=== PATIENT | male | born 1945 | race Caucasian/White ===

== ENCOUNTER 2021-02-14 11:01 | Inpatient (IN) | payer MEDICARE, SELFPAY ==
[2021-02-14] VITALS (10 sets, daily range): BP systolic 119–180; BP diastolic 66–110; PULSE 109–128; RESP 18–22; TEMP 37.1–38.8; O2SAT 92–96; BMI 34.9
--- NOTE | ~2021-02-14 | CT_ITS ---
EXAMINATION: CT ABDOMEN AND PELVIS WITHOUT CONTRAST CLINICAL INFORMATION: Left flank pain COMPARISON: February 23, 2020 TECHNIQUE: Multidetector volumetric imaging was performed from the superior aspect of the liver through the pubic symphysis. Sagittal and coronal reformatted images were obtained on the technologist's workstation. This CT examination was performed using dose optimization techniques as appropriate, variously including the following: *Automated exposure control *Adjustment of mA and/or kV according to patient size (this includes techniques or standardized protocols for targeted exams where dose is matched to indication/reason for exam; i.e. extremities or head) *Use of iterative reconstruction technique DLP: 810 mGy-cm FINDINGS: LUNG BASES: The visualized lung bases are unremarkable. No pleural or pericardial effusion. Coronary artery calcifications are present. LIVER, GALLBLADDER, AND BILIARY TREE: The liver is normal in size, shape, and attenuation. No focal hepatic lesion or biliary ductal dilatation is present. The gallbladder is unremarkable with no evidence of radiopaque gallstones, gallbladder wall thickening, or obvious pericholecystic inflammatory changes. PANCREAS: Unremarkable. SPLEEN: Unremarkable. ADRENAL GLANDS: Unremarkable. KIDNEYS AND URETERS: Right kidney: The hydronephrosis has resolved. No hydroureter. Previously noted distal ureteral calculus is no longer visualized. There remains some perinephric stranding. There is a 2 mm nonobstructing midpole calculus. No suspicious focal mass. Left kidney: There is a 2 mm nonobstructing midpole calculus. There is a 3 mm nonobstructing lower pole calculus. There remains left hydronephrosis with large amount of perinephric stranding and fluid. This is more prominent than on prior study. There is moderate hydronephrosis present similar to previous study. There is some periureteral fat stranding seen. The previously noted proximal left ureteral calculus has now been seen to progress down to the distal left ureter measuring approximately 4 mm in diameter. BLADDER: Unremarkable. GASTROINTESTINAL TRACT: No dilated loops of large or small bowel are evident. No free air or free fluid. There is mild diverticulosis without evidence of acute diverticulitis. No pericolonic inflammatory change. No evidence of acute appendicitis. ABDOMINAL WALL: Small fat-containing umbilical hernia. LYMPH NODES: No lymphadenopathy appreciated. VASCULAR: Unremarkable. PELVIC VISCERA: Unremarkable. OSSEOUS STRUCTURES: No suspicious destructive bony lesions identified. There is severe degenerative disc disease and facet arthropathy seen at the L5-S1 level. There is also facet arthropathy seen at the L4-L5 level. General spurring about the left hip is seen as well as fusion of the left sacroiliac joint. CT/CT abdomen pelvis wo con IMPRESSION: Obstructing 4 mm left ureteral calculus seen to have progressed to the distal left ureter. Moderate left hydronephrosis with perinephric stranding and fluid. Resolution of right hydronephrosis with no right ureteral calculus identified.
--- NOTE | ~2021-02-14 | FL_ITS ---
EXAMINATION: XR FLUOROSCOPY WITH IMAGES CLINICAL INFORMATION: Cystoscopy COMPARISON: None. TECHNIQUE: Fluoroscopy performed by Dr. Frank Pace. Fluoroscopy time: 0.7 minutes DAP: 20.2 mGycm2 Images: 1 FINDINGS: Single image demonstrates the upper portion of a ureteral stent with its tip in the region of the left renal pelvis. FL/FL guidance in OR IMPRESSION: Fluoroscopy and spot films provided during stent placement.
[2021-02-14 13:51] LABS: Basophils Percent Auto 0.3 % (0-2); Eosinophils Percent Auto 0.2 % (0-4); Hemoglobin 14.7 g/dl (14.0-18.0); Imm Gran Abs Auto 0.13 X10*3/uL (0.00-0.03); Imm Gran Pct Auto 1.1 % (0.0-0.4); Lymphocytes Absolute Auto 0.3 X10*3/uL (1.2-4.9); Lymphocytes Percent Auto 2.4 % (20-40); MANUAL DIFF FLAG SCAN; Mean Corpuscular HGB Conc 33.4 g/dl (31.0-36.0); Mean Corpuscular Hemoglobin 32.1 pg (27.0-33.0); Mean Corpuscular Volume 96.1 fL (80-98); Mean Platelet Volume 10.6 fL (9.4-12.4); Monocytes Absolute Auto 0.1 X10*3/uL (0.1-1.2); Monocytes Percent Auto 0.7 % (2-11); Neutrophils Absolute Auto 10.8 X10*3/uL (2.0-8.3); Neutrophils Percent Auto 95.3 % (45-73); Platelet Count 251 X10*3/uL (160-400); Red Blood Count 4.58 X10*6/uL (4.60-5.80); Red Cell Distribution Width 12.5 % (11.0-16.0); SCAN SMEAR FLAG 1; White Blood Count 11.3 X10*3/uL (4.8-10.8)
[2021-02-14 14:11] LABS: Anion Gap 15 (12-20); Blood Urea Nitrogen 21 mg/dL (9-16); Calcium 10.2 mg/dL (8.4-10.2); Carbon Dioxide 24 mmol/L (22-29); Chloride 108 mmol/L (96-108); Creatinine Clr Calc Pharmacy 50.3; Estimated Glomerular Filt Rate 45; Glucose Random 189 mg/dL (60-115); Potassium 4.7 mmol/L (3.3-5.1); Sodium 142 mmol/L (135-145)
--- NOTE | 2021-02-14 14:48 | ED.MALEGU ---
HPI - Male Genitourinary General Chief complaint: Urogenital-Male Stated complaint: ? kidney stone Time Seen by Provider: 02/14/21 14:42 Source: patient Mode of arrival: ambulatory Limitations: no limitations History of Present Illness HPI Narrative: 75-year-old male with a past medical history of renal colic, NIDDM, HTN, HLD, GERD here with complaints of left flank pain with radiation to the left testicle since 08:30. One episode of vomiting prior to arrival. No diarrhea, constipation. Frequent urination. Feels some better previous kidney stones the past. Followed by [facility] urology (dr hawthorne). Related Data Home Medications Medication Instructions Recorded Confirmed duloxetine 30 mg capsule,delayed 1 cap PO QPM 02/14/21 02/14/21 release glipizide 5 mg tablet 5 mg PO QPM 02/14/21 02/14/21 glipizide 5 mg tablet 10 mg PO QAM 02/14/21 02/14/21 lisinopril 2.5 mg tablet 1 tab PO QPM 02/14/21 02/14/21 metformin 850 mg tablet 1 tab PO BID 02/14/21 02/14/21 pantoprazole 40 mg tablet,delayed 1 tab PO QPM 02/14/21 02/14/21 release simvastatin 20 mg tablet 1 tab PO QPM 02/14/21 02/14/21 sitagliptin 100 mg tablet (Januvia) 1 tab PO QAM 02/14/21 02/14/21 Allergies Allergy/AdvReac Type Severity Reaction Status Date / Time No Known Allergies Allergy Verified 02/14/21 11:56 Review of Systems Review of Systems: Yes all other systems are reviewed and are negative Constitutional: Constitutional: Reports no additional constitutional complaints, Denies body ache(s), Denies chills, Denies fever(s), Denies headache(s) and Denies weakness Eyes: Eyes: Reports no additional eye complaints and Denies change in vision ENT: Reports system reviewed and no additional complaints, except as documented, Denies dizziness, Denies headache(s), Denies nasal congestion, Denies nasal discharge and Denies neck pain Cardiovascular: Cardiovascular: Reports no additional cardiovascular complaints, Denies chest pain, Denies leg edema and Denies dyspnea Respiratory: Respiratory: Reports no additional respiratory complaints, Denies cough and Denies dyspnea Gastrointestinal: Gastrointestinal: Reports no additional gastrointestinal complaints, Denies abdominal pain, Denies diarrhea, Reports nausea and Reports vomiting Genitourinary: Genitourinary: Reports urinary frequency and Denies urinary incontinence Musculoskeletal: Musculoskeletal: Reports no additional musculoskeletal complaints, Reports back pain, Denies arthralgias, Denies joint swelling, Denies neck pain, Denies numbness and Denies tingling Integumentary/Breasts: Skin/Breast: Reports system reviewed and no additional complaints, except as docu and Denies rash Neurologic: Reports system reviewed and no additional complaints, except as documented, Denies Abnormal speech present, Denies dizziness, Denies headache(s), Denies numbness, Denies tingling and Denies weakness PMFSH Past Medical History Attestation statement: The following information was validated with the patient. Source: old records reviewed and nursing notes reviewed Medical History Diabetes 1.5, managed as type 2 H/O renal calculi Social History Social History Advance Directives: Yes Advance Directives Information Provided: Yes Advance Directives on File: No Physical Exam Vital Signs: Vital Signs: Last Vital Signs Temp 99 F 02/14/21 17:43 Pulse 119 H 02/14/21 17:43 Resp 18 02/14/21 17:43 BP 170/110 H 02/14/21 17:43 Pulse Ox 92 02/14/21 17:43 Body Mass Index 34.9 Const: General: cooperative, healthy appearing, comfortable and no acute distress Orientation/consciousness: patient oriented x3 Limitations: no limitations HENMT: Head: Yes normal to inspection Ears: hearing grossly normal bilaterally General nose exam: Normal external nose present Face and sinus: Yes normal facial exam Mouth: Normal oral and palatal mucosa present Throat: Yes posterior oropharynx normal Eyes: General: appearance normal, both eyes and all related structures Pupils: Equal, round and reactive pupils present Neck: Neck: Yes normal visual inspection Chest: Chest palpation & inspection: normal inspection of the chest Resp: Effort & Inspection: normal respiratory effort Auscultation: clear to auscultation bilaterally Cardio: Rate: regular rate Rhythm: regular rhythm Peripheral pulses: Peripheral pulses 2+ throughout GI: Inspection: Yes normal to inspection Palpation (GI): Soft to palpation and nontender Auscultation: normal bowel sounds : General: Yes CVA tenderness (moderate left ) Back/Spine/Pelvis: Back: CVA tenderness (moderate left ) Thoracic/Lumbar Spine: thoracic and lumbar spine normal to inspection Skin: General skin exam: no rashes or lesions noted Neuro: General: patient oriented x3, no focal motor deficits and normal sensation to monofilament Cranial nerves: Yes Equal, round and reactive pupils present Cognition (Neuro): normal cognition Speech: No Abnormal speech present Gait exam (Neuro): Normal gait present Motor exam (neuro): 5/5 motor strength present throughout Extrem: General: Yes normal to inspection Course Course Course Narrative: 75 yo male with complaints of left flank pain since 08:30 with urinary frequency and 1 episode of vomiting. Feels similar to previous kidney stones. On exam moderate left CVAT. Will check labs, UA, CT abdomen and pelvis. Will provide analgesia, antiemetic and normal saline bolus. 1630- IMPRESSION: Obstructing 4 mm left ureteral calculus seen to have progressed to the distal left ureter. Moderate left hydronephrosis with perinephric stranding and fluid. ? Resolution of right hydronephrosis with no right ureteral calculus identified.? Patient has continued pain. May require admission for pain control. Urine is still pending. Labs show mild elevated white blood cell count and acute kidney injury. At this time there is concern for pyelonephritis. Infection is suspected. blood cultures and lactic Acid ordered. Antibiotics ordered. 1740-informed by nursing that patient's lactic acid is 4.0. Patient is obese. [place] body weight 50 kg. Normal saline bolus 30 cc/kg equivalent to 1500 mL of normal saline. Patient has received 2L NS to this point. 1800-spoke to Dr Pace who recommended hydration, trending creatinine and NPO after midnight. Will discuss with medicine for admit. 1840-Patient seen by Dr Pace. Discussed with Dr Ybarra who accepted admission. MDM - Male Genitourinary MDM Narrative Medical decision making narrative: Renal colic Differential Diagnosis Differential diagnosis: Likely urinary tract infection Medical Records Attestation: I reviewed the patient's medical records. Lab Data Attestation: I reviewed the patient's lab results. Result diagrams: 02/14/21 13:14 02/14/21 13:14 Labs: Lab Results 02/14/21 02/14/21 02/14/21 Range/Units 13:14 13:14 16:55 WBC 11.3 H (4.8-10.8) X10*3/uL RBC 4.58 L (4.60-5.80) X10*6/uL Hgb 14.7 (14.0-18.0) g/dl Hct 44.0 (42-52) % MCV 96.1 (80-98) fL MCH 32.1 (27.0-33.0) pg MCHC 33.4 (31.0-36.0) g/dl RDW 12.5 (11.0-16.0) % Plt Count 251 (160-400) X10*3/uL MPV 10.6 (9.4-12.4) fL Immature Gran % (Auto) 1.1 H (0.0-0.4) % Neut % (Auto) 95.3 H (45-73) % Lymph % (Auto) 2.4 L (20-40) % [place] % (Auto) 0.7 L (2-11) % Eos % (Auto) 0.2 (0-4) % Baso % (Auto) 0.3 (0-2) % Lymph # (Auto) 0.3 L (1.2-4.9) X10*3/uL [place] # (Auto) 0.1 (0.1-1.2) X10*3/uL Eos # (Auto) 0.0 (0.0-0.4) X10*3/uL Baso # (Auto) 0.0 (0.0-0.2) X10*3/uL Abs Immat Gran (auto) 0.13 H (0.00-0.03) X10*3/uL Absolute Neuts (auto) 10.8 H (2.0-8.3) X10*3/uL Absolute Nucleated RBC 0.000 (0.0-0.012) X10*3/uL Nucleated RBC % (auto) 0.0 (0.0-0.2) /100WBC Smear Tech's Comments VERIFIED Sodium 142 (135-145) mmol/L Potassium 4.7 (3.3-5.1) mmol/L Chloride 108 (96-108) mmol/L Carbon Dioxide 24 (22-29) mmol/L Anion Gap 15 (12-20) BUN 21 H (9-16) mg/dL Creatinine 1.53 H (0.5-1.4) mg/dL Estim Creat Clear Calc 50.3 Estimated GFR 45 Random Glucose 189 H (60-115) mg/dL Lactic Acid (0.5-2.0) mmol/L Calcium 10.2 (8.4-10.2) mg/dL Urine Color YELLOW Urine Appearance HAZY Urine pH 6.0 (5.0-8.0) Ur Specific [place] 1.025 (1.005-1.025) Urine Protein TRACE (NEG-TRACE) MG/DL Urine Glucose (UA) 500 H (NEG) MG/DL Urine Ketones 40 (NEG) MG/DL Urine Blood 1+ H (NEG) Urine Nitrite NEG (NEG) Ur Leukocyte Esterase NEG (NEG) Urine RBC 1-4 (0) /HPF Urine WBC 0 (0-4) /HPF Ur Squamous Epith Cells 1+ /LPF Urine Bacteria TRACE /LPF Urine Mucus 1+ /LPF 02/14/21 Range/Units 16:55 WBC (4.8-10.8) X10*3/uL RBC (4.60-5.80) X10*6/uL Hgb (14.0-18.0) g/dl Hct (42-52) % MCV (80-98) fL MCH (27.0-33.0) pg MCHC (31.0-36.0) g/dl RDW (11.0-16.0) % Plt Count (160-400) X10*3/uL MPV (9.4-12.4) fL Immature Gran % (Auto) (0.0-0.4) % Neut % (Auto) (45-73) % Lymph % (Auto) (20-40) % [place] % (Auto) (2-11) % Eos % (Auto) (0-4) % Baso % (Auto) (0-2) % Lymph # (Auto) (1.2-4.9) X10*3/uL [place] # (Auto) (0.1-1.2) X10*3/uL Eos # (Auto) (0.0-0.4) X10*3/uL Baso # (Auto) (0.0-0.2) X10*3/uL Abs Immat Gran (auto) (0.00-0.03) X10*3/uL Absolute Neuts (auto) (2.0-8.3) X10*3/uL Absolute Nucleated RBC (0.0-0.012) X10*3/uL Nucleated RBC % (auto) (0.0-0.2) /100WBC Smear Tech's Comments Sodium (135-145) mmol/L Potassium (3.3-5.1) mmol/L Chloride (96-108) mmol/L Carbon Dioxide (22-29) mmol/L Anion Gap (12-20) BUN (9-16) mg/dL Creatinine (0.5-1.4) mg/dL Estim Creat Clear Calc Estimated GFR Random Glucose (60-115) mg/dL Lactic Acid 4.0 H* (0.5-2.0) mmol/L Calcium (8.4-10.2) mg/dL Urine Color Urine Appearance Urine pH (5.0-8.0) Ur Specific [place] (1.005-1.025) Urine Protein (NEG-TRACE) MG/DL Urine Glucose (UA) (NEG) MG/DL Urine Ketones (NEG) MG/DL Urine Blood (NEG) Urine Nitrite (NEG) Ur Leukocyte Esterase (NEG) Urine RBC (0) /HPF Urine WBC (0-4) /HPF Ur Squamous Epith Cells /LPF Urine Bacteria /LPF Urine Mucus /LPF Imaging Data CT scan - abdomen: Attestation: I personally reviewed and interpreted this imaging study as follows: Radiologist's impression: IMPRESSION: Obstructing 4 mm left ureteral calculus seen to have progressed to the distal left ureter. Moderate left hydronephrosis with perinephric stranding and fluid. ? Resolution of right hydronephrosis with no right ureteral calculus identified.? Discharge Plan Discharge Clinical Impression: Renal colic on left side, Hydronephrosis, SAYRA (acute kidney injury), Elevated lactic acid level Patient Disposition: Admitted As Inpatient Prescriptions: No Action metformin 850 mg tablet 1 tab PO BID RF: 0 pantoprazole 40 mg tablet,delayed release (DR/EC) 1 tab PO QPM RF: 0 simvastatin 20 mg tablet 1 tab PO QPM RF: 0 lisinopril 2.5 mg tablet 1 tab PO QPM RF: 0 glipizide 5 mg tablet 10 mg PO QAM RF: 0 duloxetine 30 mg capsule,delayed release(DR/EC) 1 cap PO QPM RF: 0 Januvia 100 mg tablet 1 tab PO QAM RF: 0 glipizide 5 mg Tablet 5 mg PO QPM RF: 0
[2021-02-14 14:57] LABS: SLIDE REVIEW VERIFIED
[2021-02-14] MEDS: ondansetron HCL 4 MG/2 ML VIAL IVPUSH (15:01)
[2021-02-14] MEDS: Morphine Sulfate 4 MG/ML CARTRIDGE IVPUSH ×2 (15:01→17:38)
[2021-02-14] MEDS: 0.9 % Sodium Chloride 1,000 ML 999 ML IV ×2 (15:01→17:39)
[2021-02-14 17:10] LABS: Glucose Urine UA 500 MG/DL (NEG); Leukocyte Esterase Urine NEG (NEG); Nitrite Urine NEG (NEG); Specific Gravity - Urine 1.025 (1.005-1.025); Urine Blood 1+ (NEG); Urine Ketones 40 MG/DL (NEG); Urine Protein TRACE MG/DL (NEG-TRACE)
[2021-02-14 17:11] LABS: Appearance Urine HAZY; Color Urine YELLOW
[2021-02-14 17:21] LABS: Bacteria Urine TRACE /LPF; Mucus Urine 1+ /LPF; Squamous Epithelial Cell Urine 1+ /LPF; WBC Urine 0 /HPF (0-4)
[2021-02-14] MEDS: cefTRIAXone sodium 1 GM in 0.9 % Sodium Chloride 50 ML IV (17:38)
[2021-02-14 18:41] LABS: COVID-19 Test Negative (Negative); IDNOW Serial# 9DD0AD1C
[2021-02-14 19:03] LABS: Reflex Lactate? Lactic Acid Added
[2021-02-14] MEDS: HYDROmorphone HCl 0.5 MG/0.5 ML SYRINGE IVPUSH (19:05)
[2021-02-14 20:22] LABS: Anion Gap 17 (12-20); Blood Urea Nitrogen 22 mg/dL (9-16); Calcium 9.1 mg/dL (8.4-10.2); Carbon Dioxide 22 mmol/L (22-29); Chloride 107 mmol/L (96-108); Creatinine Clr Calc Pharmacy 41.6; Estimated Glomerular Filt Rate 36; Glucose Random 287 mg/dL (60-115); Potassium 5.1 mmol/L (3.3-5.1); Sodium 141 mmol/L (135-145)
[2021-02-14 20:24] LABS: ~Lactic Acid-LAB USE ONLY 5.1 mmol/L (0.5-2.0)
[2021-02-14] MEDS: Acetaminophen 325 MG TABLET 975 MG PO (20:38)
[2021-02-14 21:56] LABS: Reflex Lactate? 2 Y
--- NOTE | 2021-02-14 22:07 | P.HPHOSP_ITS ---
History of Present Illness Date of Service: 02/14/21 Chief Complaint: left flank pain This is a 75-year-old male with past medical history of diabetes, history of kidney stones who presents to the hospital with complaints of left-sided flank pain. Patient reports that his symptoms started in the morning, 9/10, constant, sharp, radiating to the left groin, movement exacerbates the pain and pain medication alleviates it. Patient reports urinary frequency, with no urgency or dysuria. Patient denies fever but has chills, no chest pain, no shortness of breath, no abdominal pain, no diarrhea constipation, denies any lower extremity edema. No numbness tingling. Vitals reviewed show initial temp of 98.7? but patient did develop a temperature of 101.8?, heart rate of 109, respiratory rate of 18, blood pressure of 180/103, satting 94% on room air Labs are significant for WBC count of 11.3, with a left shift and 95% neutrophils, CMP significant for BUN of 21, creatinine of 1.3 with a baseline of 1.28, lactic acid of 4.0, UA negative for any leukocyte Estrace, nitrites, or WBC COVID-19 negative, CT abdomen shows obstructing 4 mm left ureteral calculus seen to have progressed to the distal left ureter. Moderate left hydronephrosis with perinephric stranding and fluid Urology evaluated patient, patient will be admitted for the med Review of Systems Review of Systems: Yes all other systems are reviewed and are negative [facility] Medical History (Updated 02/15/21 @ 05:59 by Rafael Ybarra MD) Diabetes 1.5, managed as type 2 H/O renal calculi HLD (hyperlipidemia) HTN (hypertension), benign Family History (Updated 02/15/21 @ 05:56 by Rafael Ybarra MD) Father COPD (chronic obstructive pulmonary disease) Mother Heart disease Social History Household Members: Spouse Housing: House Patient Tobacco Use Status: Never used Tobacco Advance Directives: Yes Advance Directives Information Provided: Yes Advance Directives on File: No Advance Directives Date on File: 02/15/21 Do you have thoughts of harming others: None Do you have a plan to hurt others: No Plan Recently lost weight without trying: No Nutrition Risks: No Nutritional Risk Meds Allergies Allergy/AdvReac Type Severity Reaction Status Date / Time No Known Allergies Allergy Verified 02/14/21 11:56 Active Medications: Current Medications Generic Name Dose Route Start Last Admin Trade Name Freq PRN Reason Stop Dose Admin Acetaminophen 650 mg 02/14/21 19:26 Acetaminophen 325 Mg Tablet PO Q6H PRN Pain, Mild (Pain Scale 1-3) Dextrose 25 gm 02/14/21 20:13 Dextrose 50 % 25 Gm/50 Ml Vial IVPUSH Q15M PRN per Hypoglycemia Standing Ord. Protocol Docusate Sodium 100 mg 02/14/21 19:26 Docusate Sodium 100 Mg Capsule PO DAILY PRN Constipation Duloxetine HCl 30 mg 02/14/21 21:00 Duloxetine Hcl 30 Mg Capsule. PO BEDTIME [facility] Glucose 15 gm 02/14/21 20:13 Glucose Gel 15 Gm Gel..Gram. PO Q15M PRN per Hypoglycemia Standing Ord. Protocol Lactated Ringer's 1,000 mls @ 100 mls/hr 02/14/21 19:30 Lr IVCONT .Q10H [facility] Ceftriaxone Sodium 1 gm/ 50 mls @ 100 mls/hr 02/15/21 18:00 Sodium Chloride IV Q24H [facility] Insulin Human Lispro 0 unit 02/14/21 21:00 Insulin Lispro 100 Unit/Ml 3 Ml [facility]ial [facility] Protocol Metformin HCl 850 mg 02/15/21 07:30 Metformin Hcl 850 Mg Tablet PO BIDAC [facility] Morphine Sulfate 4 mg 02/14/21 19:26 Morphine Sulfate 4 Mg/Ml Cartridge IVPUSH Q4H PRN Pain, Severe (Pain Scale 7-10) Protocol Omeprazole 20 mg 02/15/21 16:30 Omeprazole 20 Mg Capsule. PO DAILY@1630 [facility] Ondansetron HCl 4 mg 02/14/21 19:26 Ondansetron Hcl 4 Mg/2 Ml Vial IVPUSH Q8H PRN Nausea and Vomiting Pharmacy Consult 1 each 02/14/21 17:40 Consult Rx Perform Med Rec MISCELLANE ONCE PRN Consult order Sitagliptin Phosphate 100 mg 02/15/21 09:00 Sitagliptin Phosphate 100 Mg Tablet PO DAILY [facility] Sodium Chloride 3 ml 02/15/21 00:00 0.9 % Sodium Chloride Flush 3 Ml Syringe [facility] Home Medications Medication Instructions Recorded Confirmed Last Taken Type duloxetine 30 mg capsule,delayed 1 cap PO QPM 02/14/21 02/14/21 Unknown History release glipizide 5 mg tablet 5 mg PO QPM 02/14/21 02/14/21 Unknown History glipizide 5 mg tablet 10 mg PO QAM 02/14/21 02/14/21 Unknown History lisinopril 2.5 mg tablet 1 tab PO QPM 02/14/21 02/14/21 Unknown History metformin 850 mg tablet 1 tab PO BID 02/14/21 02/14/21 Unknown History pantoprazole 40 mg tablet,delayed 1 tab PO QPM 02/14/21 02/14/21 Unknown History release simvastatin 20 mg tablet 1 tab PO QPM 02/14/21 02/14/21 Unknown History sitagliptin 100 mg tablet (Januvia) 1 tab PO QAM 02/14/21 02/14/21 Unknown History Physical Exam Vital Signs and Narrative: Vital Signs: Last Vital Signs Temp 101.8 F H 02/14/21 20:29 Pulse 121 H 02/14/21 20:29 Resp 20 02/14/21 20:29 BP 134/68 02/14/21 20:29 Pulse Ox 92 02/14/21 20:29 Body Mass Index 34.9 Const: Other: Patient appears very uncomfortable, writhing in pain well answering questions, can seem to find a comfortable position General: cooperative Orientation/consciousness: patient oriented x3 Eyes: General: appearance normal, both eyes and all related structures Pupils: Equal, round and reactive pupils present Resp: Effort & Inspection: normal respiratory effort and able to speak in complete sentences Auscultation: clear to auscultation bilaterally Cardio: Rate: regular rate Rhythm: regular rhythm GI: Palpation (GI): Soft to palpation Auscultation: normal bowel sounds : Other: Left CVA tenderness Skin: General skin exam: no rashes or lesions noted Neuro: General: patient oriented x3 Cranial nerves: Yes Equal, round and reactive pupils present Cognition (Neuro): normal cognition Extrem: General: Yes normal to inspection and Yes no pedal edema Results Labs CBC and Chem 7: 02/14/21 13:14 02/14/21 19:51 Labs: Laboratory Results - last 24 hr 02/14/21 02/14/21 02/14/21 13:14 13:14 16:55 MCV 96.1 MCH 32.1 MCHC 33.4 RDW 12.5 Plt Count 251 MPV 10.6 Immature Gran % (Auto) 1.1 H Neut % (Auto) 95.3 H Lymph % (Auto) 2.4 L [place] % (Auto) 0.7 L Eos % (Auto) 0.2 Baso % (Auto) 0.3 Lymph # (Auto) 0.3 L [place] # (Auto) 0.1 Eos # (Auto) 0.0 Baso # (Auto) 0.0 Abs Immat Gran (auto) 0.13 H Absolute Neuts (auto) 10.8 H Absolute Nucleated RBC 0.000 Nucleated RBC % (auto) 0.0 Smear Tech's Comments VERIFIED Anion Gap 15 Estim Creat Clear Calc 50.3 Estimated GFR 45 Random Glucose 189 H Lactic Acid Lactic Acid Fup @ 2Hr Calcium 10.2 Urine Color YELLOW Urine Appearance HAZY Urine pH 6.0 Ur Specific [place] 1.025 Urine Protein TRACE Urine Glucose (UA) 500 H Urine Ketones 40 Urine Blood 1+ H Urine Nitrite NEG Ur Leukocyte Esterase NEG Urine RBC 1-4 Urine WBC 0 Ur Squamous Epith Cells 1+ Urine Bacteria TRACE Urine Mucus 1+ COVID-19 (CHRISTIE) COVID-19 Clin Com 02/14/21 02/14/21 02/14/21 16:55 18:18 19:51 MCV MCH MCHC RDW Plt Count MPV Immature Gran % (Auto) Neut % (Auto) Lymph % (Auto) [place] % (Auto) Eos % (Auto) Baso % (Auto) Lymph # (Auto) [place] # (Auto) Eos # (Auto) Baso # (Auto) Abs Immat Gran (auto) Absolute Neuts (auto) Absolute Nucleated RBC Nucleated RBC % (auto) Smear Tech's Comments Anion Gap 17 Estim Creat Clear Calc 41.6 Estimated GFR 36 Random Glucose 287 H D Lactic Acid 4.0 H* Lactic Acid Fup @ 2Hr Calcium 9.1 D Urine Color Urine Appearance Urine pH Ur Specific [place] Urine Protein Urine Glucose (UA) Urine Ketones Urine Blood Urine Nitrite Ur Leukocyte Esterase Urine RBC Urine WBC Ur Squamous Epith Cells Urine Bacteria Urine Mucus COVID-19 (CHRISTIE) Negative COVID-19 Clin Com See Note 02/14/21 19:51 MCV MCH MCHC RDW Plt Count MPV Immature Gran % (Auto) Neut % (Auto) Lymph % (Auto) [place] % (Auto) Eos % (Auto) Baso % (Auto) Lymph # (Auto) [place] # (Auto) Eos # (Auto) Baso # (Auto) Abs Immat Gran (auto) Absolute Neuts (auto) Absolute Nucleated RBC Nucleated RBC % (auto) Smear Tech's Comments Anion Gap Estim Creat Clear Calc Estimated GFR Random Glucose Lactic Acid Lactic Acid Fup @ 2Hr 5.1 H* Calcium Urine Color Urine Appearance Urine pH Ur Specific [place] Urine Protein Urine Glucose (UA) Urine Ketones Urine Blood Urine Nitrite Ur Leukocyte Esterase Urine RBC Urine WBC Ur Squamous Epith Cells Urine Bacteria Urine Mucus COVID-19 (CHRISTIE) COVID-19 Clin Com Imaging Radiologist's Impressions: Impressions Abdomen/Pelvis CT 02/14/21 14:45 IMPRESSION: Obstructing 4 mm left ureteral calculus seen to have progressed to the distal left ureter. Moderate left hydronephrosis with perinephric stranding and fluid. Resolution of right hydronephrosis with no right ureteral calculus identified. Assessment and Plan (1) Hydronephrosis with renal calculous obstruction: Status: Acute (2) SAYRA (acute kidney injury): Status: Acute (3) Elevated lactic acid level: Status: Acute (4) Sepsis: Status: Acute (5) Pyelonephritis: Status: Acute This is a 75-year-old male with past medical history of kidney stones, hypertension, hyperlipidemia, diabetes who presents to the hospital with complaints of left-sided flank pain found to have obstructing stone # sepsis secondary to pyelonephritis - has hydronephrosis with perinephric stranding on CT - leukocytosis, febrile, tachycardia - will treat with IV antibiotic - IV fluid - follow culture # hydronephrosis with renal calculus obstruction - patient hemodynamically stable but has developed sepsis - UA negative for infection but CT showing perinephric stranding - has leukocytosis, febrile - will treat with IV antibiotic - IV fluids - urology consult - NPO after midnight # SAYRA - most likely secondary to obstruction - IV fluid - urology intervention in a - follow BMP # lactic acidosis - secondary to above - IV fluid - trend lactic acid # hypertension - stable - will hold antihypertensives in the setting of acute kidney failure such as lisinopril # diabetes - hold antihyperglycemics - will start on low-dose sliding scale insulin - diabetic diet # hyperlipidemia - continue stat DVT prophylaxis: SCDs in anticipation of urological procedure Quality Stroke Does the patient have a stroke diagnosis?: No VTE Prior VTE?: No VTE Risk Level:: Medical - moderate - high VTE Device Contraindication: N/A - Device Ordered VTE Drug Contraindication: Treatment Not Indicated
[2021-02-14] MEDS: DULoxetine HCl 30 MG CAPSULE.DR PO (22:23)
[2021-02-14] MEDS: Lactated Ringers 1,000 ML 100 ML IVCONT (22:23)
[2021-02-14 23:45] LABS: Glucose, Whole Blood 189 mg/dL (60-115)
--- NOTE | 2021-02-14 23:47 | PC.NURSE ---
OFFERED PT SNACK OR MEAL, BUT NOT INTERESTED. PT GIVEN ICEWATER, PER HIS REQUEST.
[2021-02-15] VITALS (16 sets, daily range): BP systolic 109–151; BP diastolic 57–84; PULSE 94–113; RESP 16–18; TEMP 36.6–37.6; O2SAT 92–97
[2021-02-15] MEDS: Insulin Lispro 100 UNIT/ML 3 ML VIAL SUBCUT
--- NOTE | 2021-02-15 02:56 | PC.NURSE ---
REPORT GIVEN TO RN ON FLOOR, READY FOR TRANSPORT.
[2021-02-15] MEDS: Morphine Sulfate 4 MG/ML CARTRIDGE IVPUSH ×2 (03:57→08:12)
[2021-02-15 07:17] LABS: Hematocrit 35.5 % (42-52); Hemoglobin 12.1 g/dl (14.0-18.0); Mean Corpuscular HGB Conc 34.1 g/dl (31.0-36.0); Mean Corpuscular Hemoglobin 32.6 pg (27.0-33.0); Mean Corpuscular Volume 95.7 fL (80-98); Mean Platelet Volume 10.6 fL (9.4-12.4); Platelet Count 170 X10*3/uL (160-400); Red Blood Count 3.71 X10*6/uL (4.60-5.80); Red Cell Distribution Width 12.9 % (11.0-16.0)
[2021-02-15 07:50] LABS: Anion Gap 16 (12-20); Blood Urea Nitrogen 24 mg/dL (9-16); Calcium 8.1 mg/dL (8.4-10.2); Carbon Dioxide 19 mmol/L (22-29); Chloride 108 mmol/L (96-108); Creatinine Clr Calc Pharmacy 45.5; Estimated Glomerular Filt Rate 40; Glucose Random 167 mg/dL (60-115); Sodium 138 mmol/L (135-145)
[2021-02-15 07:56] LABS: Glucose, Whole Blood 188 mg/dL (60-115)
[2021-02-15 08:05] LABS: White Blood Count 34.2 X10*3/uL (4.8-10.8)
--- NOTE | 2021-02-15 08:11 | PM.UROCN ---
History of Present Illness Consult details Consult date: 02/15/21 Narrative: Asked to see patient regarding question of pyelonephritis and obstructing stone Jayme is a 75-year-old male. Known stone former. Typically receives his care through [facility]. Presented to hospital after 12 hour history of pain left lower quadrant radiating to testicle Pain to 8/10 managed with oral medications Was found to have elevated white count and rising creatinine on evaluation. Current creatinine 1.7, white count 34, CT imaging performed with 4 mm distal left ureteric stone with hydroureteronephrosis and stranding Admitted for pain management, IV antibiotics for fluid management Discussed plan for intervention which will occur after having been given antibiotics 24 hours Plan for cystoscopy with left ureteric stent placement versus ureteroscopy with stone removal Review of Systems Constitutional: Constitutional: Denies chills and Denies fever(s) Cardiovascular: Cardiovascular: Reports no additional cardiovascular complaints and Denies syncope Respiratory: Respiratory: Denies cough Gastrointestinal: Gastrointestinal: Denies abdominal pain and Denies heartburn Genitourinary: Genitourinary: Reports as per HPI and Denies change in libido Neurologic: Denies syncope Psychiatric: Psychiatric: Denies change in libido Endocrine: Endocrine: Denies change in libido [facility] Past Medical History Medical History (Updated 02/15/21 @ 05:59 by Rafael Ybarra MD) Diabetes 1.5, managed as type 2 H/O renal calculi HLD (hyperlipidemia) HTN (hypertension), benign Family History Family History (Updated 02/15/21 @ 05:56 by Rfaael Ybarra MD) Father COPD (chronic obstructive pulmonary disease) Mother Heart disease Social History Social History Household Members: Spouse Housing: House Patient Tobacco Use Status: Never used Tobacco Advance Directives: Yes Advance Directives Information Provided: Yes Advance Directives on File: No Advance Directives Date on File: 02/15/21 Do you have thoughts of harming others: None Do you have a plan to hurt others: No Plan Recently lost weight without trying: No Nutrition Risks: No Nutritional Risk Meds Allergies Allergy/AdvReac Type Severity Reaction Status Date / Time No Known Allergies Allergy Verified 02/14/21 11:56 Active Medications: Current Medications Generic Name Dose Route Start Last Admin Trade Name Freq PRN Reason Stop Dose Admin Acetaminophen 650 mg 02/14/21 19:26 Acetaminophen 325 Mg Tablet PO Q6H PRN Pain, Mild (Pain Scale 1-3) Dextrose 25 gm 02/14/21 20:13 Dextrose 50 % 25 Gm/50 Ml Vial IVPUSH Q15M PRN per Hypoglycemia Standing Ord. Protocol Docusate Sodium 100 mg 02/14/21 19:26 Docusate Sodium 100 Mg Capsule PO DAILY PRN Constipation Duloxetine HCl 30 mg 02/14/21 21:00 02/14/21 22:23 Duloxetine Hcl 30 Mg Capsule. PO 30 mg BEDTIME JUSTINA Administration Glucose 15 gm 02/14/21 20:13 Glucose Gel 15 Gm Gel..Gram. PO Q15M PRN per Hypoglycemia Standing Ord. Protocol Lactated Ringer's 1,000 mls @ 100 mls/hr 02/14/21 19:30 02/15/21 06:26 Lr IVCONT Not Given .Q10H [facility] Ceftriaxone Sodium 1 gm/ 50 mls @ 100 mls/hr 02/15/21 18:00 Sodium Chloride IV Q24H [facility] Insulin Human Lispro 0 unit 02/14/21 21:00 02/15/21 08:02 Insulin Lispro 100 Unit/Ml 3 Ml Vial SUBCUT [facility] Protocol Metformin HCl 850 mg 02/15/21 07:30 02/15/21 08:02 Metformin Hcl 850 Mg Tablet PO Not Given BIDAC [facility] Morphine Sulfate 4 mg 02/14/21 19:26 02/15/21 03:57 Morphine Sulfate 4 Mg/Ml Cartridge IVPUSH 4 mg Q4H PRN Administration Pain, Severe (Pain Scale 7-10) Protocol Omeprazole 20 mg 02/15/21 16:30 Omeprazole 20 Mg Capsule. PO DAILY@1630 [facility] Ondansetron HCl 4 mg 02/14/21 19:26 Ondansetron Hcl 4 Mg/2 Ml Vial IVPUSH Q8H PRN Nausea and Vomiting Pharmacy Consult 1 each 02/14/21 17:40 Consult Rx Perform Med Rec MISCELLANE ONCE PRN Consult order Sitagliptin Phosphate 100 mg 02/15/21 09:00 02/15/21 08:02 Sitagliptin Phosphate 100 Mg Tablet PO Not Given DAILY [facility] Sodium Chloride 3 ml 02/15/21 00:00 02/15/21 07:38 0.9 % Sodium Chloride Flush 3 Ml Syringe IVFLUSH Not Given QSHIFT [facility] Home Medications Medication Instructions Recorded Confirmed Last Taken Type duloxetine 30 mg capsule,delayed 1 cap PO QPM 02/14/21 02/14/21 Unknown History release glipizide 5 mg tablet 5 mg PO QPM 02/14/21 02/14/21 Unknown History glipizide 5 mg tablet 10 mg PO QAM 02/14/21 02/14/21 Unknown History lisinopril 2.5 mg tablet 1 tab PO QPM 02/14/21 02/14/21 Unknown History metformin 850 mg tablet 1 tab PO BID 02/14/21 02/14/21 Unknown History pantoprazole 40 mg tablet,delayed 1 tab PO QPM 02/14/21 02/14/21 Unknown History release simvastatin 20 mg tablet 1 tab PO QPM 02/14/21 02/14/21 Unknown History sitagliptin 100 mg tablet (Januvia) 1 tab PO QAM 02/14/21 02/14/21 Unknown History Physical Exam Vital Signs: Vital Signs: Last Vital Signs Temp 99.4 F 02/15/21 07:48 Pulse 97 02/15/21 07:48 Resp 16 02/15/21 07:48 BP 147/73 H 02/15/21 07:48 Pulse Ox 92 02/15/21 07:48 Body Mass Index 34.9 Const: General: cooperative, healthy appearing, comfortable and no acute distress Orientation/consciousness: patient oriented x3 HENMT: Face and sinus: Yes normal facial exam Mouth: moist mucous membranes Neck: Neck: Yes normal visual inspection, Yes full ROM and Yes trachea midline Chest: Chest palpation & inspection: normal inspection of the chest Resp: Effort & Inspection: normal respiratory effort, able to speak in complete sentences and no respiratory distress GI: Inspection: Yes normal to inspection Rectal Exam - Male: Yes normal sphincter tone and Yes prostate normal : Male General Exam: Yes normal external exam Penis: normal penis and circumcised Meatus: meatus normal Scrotum: scrotum normal Testes: Testes normal Back/Spine/Pelvis: Cervical Spine: normal cervical lordosis Thoracic/Lumbar Spine: thoracic and lumbar spine normal to inspection Skin: General skin exam: no rashes or lesions noted Neuro: General: patient oriented x3, gait normal, tone normal and moves all extremities Extrem: General: Yes normal to inspection and Yes capillary refill normal Results Labs Result diagrams: 02/15/21 06:37 02/15/21 06:37 Labs: Abnormal lab results 02/14/21 02/14/21 02/14/21 Range/Units 13:14 13:14 16:55 WBC 11.3 H (4.8-10.8) X10*3/uL RBC 4.58 L (4.60-5.80) X10*6/uL Hgb (14.0-18.0) g/dl Hct (42-52) % Immature Gran % (Auto) 1.1 H (0.0-0.4) % Neut % (Auto) 95.3 H (45-73) % Lymph % (Auto) 2.4 L (20-40) % [place] % (Auto) 0.7 L (2-11) % Lymph # (Auto) 0.3 L (1.2-4.9) X10*3/uL Abs Immat Gran (auto) 0.13 H (0.00-0.03) X10*3/uL Absolute Neuts (auto) 10.8 H (2.0-8.3) X10*3/uL Carbon Dioxide (22-29) mmol/L BUN 21 H (9-16) mg/dL Creatinine 1.53 H (0.5-1.4) mg/dL POC Glucose (60-115) mg/dL Random Glucose 189 H (60-115) mg/dL Lactic Acid (0.5-2.0) mmol/L Lactic Acid Fup @ 2Hr (0.5-2.0) mmol/L Lactic Acid Fup @ 4Hr (0.5-2.0) mmol/L Calcium (8.4-10.2) mg/dL Urine Glucose (UA) 500 H (NEG) MG/DL Urine Blood 1+ H (NEG) 02/14/21 02/14/21 02/14/21 Range/Units 16:55 19:51 19:51 WBC (4.8-10.8) X10*3/uL RBC (4.60-5.80) X10*6/uL Hgb (14.0-18.0) g/dl Hct (42-52) % Immature Gran % (Auto) (0.0-0.4) % Neut % (Auto) (45-73) % Lymph % (Auto) (20-40) % [place] % (Auto) (2-11) % Lymph # (Auto) (1.2-4.9) X10*3/uL Abs Immat Gran (auto) (0.00-0.03) X10*3/uL Absolute Neuts (auto) (2.0-8.3) X10*3/uL Carbon Dioxide (22-29) mmol/L BUN 22 H (9-16) mg/dL Creatinine 1.85 H (0.5-1.4) mg/dL POC Glucose (60-115) mg/dL Random Glucose 287 H D (60-115) mg/dL Lactic Acid 4.0 H* (0.5-2.0) mmol/L Lactic Acid Fup @ 2Hr 5.1 H* (0.5-2.0) mmol/L Lactic Acid Fup @ 4Hr (0.5-2.0) mmol/L Calcium (8.4-10.2) mg/dL Urine Glucose (UA) (NEG) MG/DL Urine Blood (NEG) 02/14/21 02/14/21 02/15/21 Range/Units 22:15 23:40 06:37 WBC 34.2 H* (4.8-10.8) X10*3/uL RBC 3.71 L (4.60-5.80) X10*6/uL Hgb 12.1 L (14.0-18.0) g/dl Hct 35.5 L (42-52) % Immature Gran % (Auto) (0.0-0.4) % Neut % (Auto) (45-73) % Lymph % (Auto) (20-40) % [place] % (Auto) (2-11) % Lymph # (Auto) (1.2-4.9) X10*3/uL Abs Immat Gran (auto) (0.00-0.03) X10*3/uL Absolute Neuts (auto) (2.0-8.3) X10*3/uL Carbon Dioxide (22-29) mmol/L BUN (9-16) mg/dL Creatinine (0.5-1.4) mg/dL POC Glucose 189 H (60-115) mg/dL Random Glucose (60-115) mg/dL Lactic Acid (0.5-2.0) mmol/L Lactic Acid Fup @ 2Hr (0.5-2.0) mmol/L Lactic Acid Fup @ 4Hr 4.0 H* (0.5-2.0) mmol/L Calcium (8.4-10.2) mg/dL Urine Glucose (UA) (NEG) MG/DL Urine Blood (NEG) 02/15/21 02/15/21 Range/Units 06:37 07:52 WBC (4.8-10.8) X10*3/uL RBC (4.60-5.80) X10*6/uL Hgb (14.0-18.0) g/dl Hct (42-52) % Immature Gran % (Auto) (0.0-0.4) % Neut % (Auto) (45-73) % Lymph % (Auto) (20-40) % [place] % (Auto) (2-11) % Lymph # (Auto) (1.2-4.9) X10*3/uL Abs Immat Gran (auto) (0.00-0.03) X10*3/uL Absolute Neuts (auto) (2.0-8.3) X10*3/uL Carbon Dioxide 19 L (22-29) mmol/L BUN 24 H (9-16) mg/dL Creatinine 1.69 H (0.5-1.4) mg/dL POC Glucose 188 H (60-115) mg/dL Random Glucose 167 H D (60-115) mg/dL Lactic Acid (0.5-2.0) mmol/L Lactic Acid Fup @ 2Hr (0.5-2.0) mmol/L Lactic Acid Fup @ 4Hr (0.5-2.0) mmol/L Calcium 8.1 L D (8.4-10.2) mg/dL Urine Glucose (UA) (NEG) MG/DL Urine Blood (NEG) Short CBC 02/14/21 02/15/21 Range/Units 13:14 06:37 WBC 11.3 H 34.2 H* (4.8-10.8) X10*3/uL Hgb 14.7 12.1 L (14.0-18.0) g/dl Hct 44.0 35.5 L (42-52) % Plt Count 251 170 D (160-400) X10*3/uL BMP 02/14/21 02/14/21 02/15/21 13:14 19:51 06:37 Sodium 142 141 138 Potassium 4.7 5.1 5.0 Chloride 108 107 108 Carbon Dioxide 24 22 19 L BUN 21 H 22 H 24 H Creatinine 1.53 H 1.85 H 1.69 H Calcium 10.2 9.1 D 8.1 L D Urine 02/14/21 Range/Units 16:55 Urine Color YELLOW Urine Appearance HAZY Urine pH 6.0 (5.0-8.0) Ur Specific [place] 1.025 (1.005-1.025) Urine Protein TRACE (NEG-TRACE) MG/DL Urine Glucose (UA) 500 H (NEG) MG/DL All other labs normal. Assessment and Plan (1) Pyelonephritis: Status: Acute (2) Hydronephrosis with renal calculous obstruction: Status: Acute (3) SAYRA (acute kidney injury): Status: Acute Ureteroscopy We discussed the nature of the decision and reasonable alternatives for performing the above surgery. Interventions include chemical dissolution, ESWL, ureteroscopy with laser lithotripsy and stent placement, PCNL. Options such as medical therapy were discussed. The relative uncertainties and benefits related to each alternate procedure were adequately discussed. General surgical risks including, but not limited to, pain, bleeding, infection, myocardial infarction, pulmonary embolus, deep vein thrombosis and cerebrovascular accident which may result in further hospitalization were discussed. Full disclosure of the procedure as well as all major risks, benefits and complications were discussed including but not limited to damage to the urethra, bladder and kidney infection, damage to the ureter, stent migration or malposition, scarring to the renal pelvis, remnant stone fragments, subsequent stone passage with need for secondary procedures. The overall secondary procedure rate is approximately 10-15%. The success rate of the procedure was discussed. Success of the procedure in the short-term does not necessarily guarantee that long-term success will be maintained. Suitable follow up will need to be maintained. The patient showed understanding of discussion and wishes to proceed with - cystoscopy, retrograde, ureteroscopy, possible lithotripsy/stone basketing and stent on the left side Procedures Date of Service Date of Service: 01/28/21
[2021-02-15 08:13] LABS: Band Neutrophils Percent 18 % (3-5); Lymphocytes Percent Manual 3 % (20-40); Metamyelocytes Absolute 0.3 X10*3/uL; Metamyelocytes Percent 1 %; Monocytes Absolute Manual 1.7 X10*3/uL (0.0-1.2); Monocytes Percent Manual 5 % (2-11); Neutrophils Absolute Manual 31.1 X10*3/uL (2.2-7.9); Neutrophils Percent Manual 73 % (45-73); RBC Morphology NOTED
[2021-02-15 08:14] LABS: Acanthocytes 3+ (>5) /OIF; Ovalocytes 1+ (5-14) /OIF; Schistocytes 1+ (0-2) /OIF
[2021-02-15 08:15] LABS: Platelet Estimate NORMAL (NORMAL); Platelet Morphology Comment NORMAL; Toxic Vacuolation PRESENT
--- NOTE | 2021-02-15 09:31 | MHC.CM.PN ---
CM MET WITH PT WHO REPORTS HE LIVES AT HOME WITH HIS AND IS FULLY INDEPENDENT. PT DENIES USE OF DME OR SERVICES. PT REPORTS HE HAS A HCP NAMING HIS HIS AGENT COMPLETED ALREADY. PT CONFIRMS HIS PCP IS JANI CHRISTIANSON. IMM DELIVERED ON 02/15 CURRENT DC PLAN IS HOME. 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
[2021-02-15] MEDS: Lactated Ringers 1,000 ML 100 ML IVCONT (09:55)
[2021-02-15] MEDS: Ketorolac Tromethamine 15 MG/ML VIAL IVPUSH (11:37)
[2021-02-15] MEDS: Morphine Sulfate 2 MG/ML CARTRIDGE IVPUSH (11:38)
[2021-02-15 11:43] LABS: Glucose, Whole Blood 184 mg/dL (60-115)
--- NOTE | 2021-02-15 12:14 | HO.PM.IMPN ---
Subjective Subjective Date of Service: 02/15/21 Interval History: the patient was seen and evaluated this morning Laying in bed, complaining of significant pain in his low in and back Fairly controlled with pain medications Denies any fever, or shortness of breath No reported other overnight events. Systemic review: No fever but reporting feeling of chills and pain No chest pain, palpitation No shortness of breath or coughing No abdominal pain, nausea or vomiting No urinary symptoms No any rash or wounds Physical Exam Vital Signs: Vital Signs: Last Vital Signs Temp 98.7 F 02/15/21 12:00 Pulse 99 02/15/21 12:00 Resp 18 02/15/21 12:00 BP 145/76 H 02/15/21 12:00 Pulse Ox 93 02/15/21 12:00 Body Mass Index 34.9 Const: Other: Constitutional : Alert, oriented, in mild distress from pain Neck : Normal inspection, Supple Cardiovascular : RRR, S1 S2, no lower extremity edema Respiratory : Good bilateral air entry, no crackles, wheezes or rhonchi Gastrointestinal: soft, lax, Normal bowel sounds, Non tender Skin : Warm, Dry Neurological : Alert & oriented x3, No focal deficit Objective Data Current Medications Generic Name Dose Route Start Last Admin Trade Name Freq PRN Reason Stop Dose Admin Acetaminophen 650 mg 02/14/21 19:26 Acetaminophen 325 Mg Tablet PO Q6H PRN Pain, Mild (Pain Scale 1-3) Dextrose 25 gm 02/14/21 20:13 Dextrose 50 % 25 Gm/50 Ml Vial IVPUSH Q15M PRN per Hypoglycemia Standing Ord. Protocol Docusate Sodium 100 mg 02/14/21 19:26 Docusate Sodium 100 Mg Capsule PO DAILY PRN Constipation Duloxetine HCl 30 mg 02/14/21 21:00 02/14/21 22:23 Duloxetine Hcl 30 Mg Capsule.Dr PO 30 mg BEDTIME [facility] Administration Glucose 15 gm 02/14/21 20:13 Glucose Gel 15 Gm Gel..Gram. PO Q15M PRN per Hypoglycemia Standing Ord. Protocol Lactated Ringer's 1,000 mls @ 100 mls/hr 02/14/21 19:30 02/15/21 09:55 Lr IVCONT 100 mls/hr .Q10H [facility] Administration Ceftriaxone Sodium 1 gm/ 50 mls @ 100 mls/hr 02/15/21 18:00 Sodium Chloride IV Q24H [facility] Insulin Human Lispro 0 unit 02/14/21 21:00 02/15/21 11:41 Insulin Lispro 100 Unit/Ml 3 Ml Vial SUBCUT Not Given QIDACHS [facility] Protocol Morphine Sulfate 4 mg 02/14/21 19:26 02/15/21 08:12 Morphine Sulfate 4 Mg/Ml Cartridge IVPUSH 4 mg Q4H PRN Administration Pain, Severe (Pain Scale 7-10) Protocol Omeprazole 20 mg 02/15/21 16:30 Omeprazole 20 Mg Capsule.Dr PO DAILY@1630 [facility] Ondansetron HCl 4 mg 02/14/21 19:26 Ondansetron Hcl 4 Mg/2 Ml Vial IVPUSH Q8H PRN Nausea and Vomiting Pharmacy Consult 1 each 02/14/21 17:40 Consult Rx Perform Med Rec MISCELLANE ONCE PRN Consult order Sitagliptin Phosphate 100 mg 02/15/21 09:00 02/15/21 08:02 Sitagliptin Phosphate 100 Mg Tablet PO Not Given DAILY [facility] Sodium Chloride 3 ml 02/15/21 00:00 02/15/21 07:38 0.9 % Sodium Chloride Flush 3 Ml Syringe IVFLUSH Not Given QSHIFT [facility] Labs CBC & Chem 7: 02/15/21 06:37 02/15/21 06:37 Labs: Laboratory Results - last 24 hr 02/14/21 02/14/21 02/14/21 13:14 13:14 16:55 MCV 96.1 MCH 32.1 MCHC 33.4 RDW 12.5 Plt Count 251 MPV 10.6 Immature Gran % (Auto) 1.1 H Neut % (Auto) 95.3 H Lymph % (Auto) 2.4 L [place] % (Auto) 0.7 L Eos % (Auto) 0.2 Baso % (Auto) 0.3 Lymph # (Auto) 0.3 L [place] # (Auto) 0.1 Eos # (Auto) 0.0 Baso # (Auto) 0.0 Abs Immat Gran (auto) 0.13 H Absolute Neuts (auto) 10.8 H Absolute Nucleated RBC 0.000 Nucleated RBC % (auto) 0.0 Neutrophils % (Manual) Band Neutrophils % Lymphocytes % (Manual) Monocytes % (Manual) Metamyelocytes % Abs Neuts (Manual) Lymphocytes # (Manual) Monocytes # (Manual) Metamyelocytes # Toxic Vacuolation Platelet Estimate Plt Morphology Comment RBC Morphology Ovalocytes Acanthocytes (Spur) Schistocytes Smear Tech's Comments VERIFIED Anion Gap 15 Estim Creat Clear Calc 50.3 Estimated GFR 45 POC Glucose Random Glucose 189 H Lactic Acid Lactic Acid Fup @ 2Hr Lactic Acid Fup @ 4Hr Calcium 10.2 Urine Color YELLOW Urine Appearance HAZY Urine pH 6.0 Ur Specific [place] 1.025 Urine Protein TRACE Urine Glucose (UA) 500 H Urine Ketones 40 Urine Blood 1+ H Urine Nitrite NEG Ur Leukocyte Esterase NEG Urine RBC 1-4 Urine WBC 0 Ur Squamous Epith Cells 1+ Urine Bacteria TRACE Urine Mucus 1+ COVID-19 (CHRISTIE) COVID-19 Sun Number 02/14/21 02/14/21 02/14/21 16:55 18:18 19:51 MCV MCH MCHC RDW Plt Count MPV Immature Gran % (Auto) Neut % (Auto) Lymph % (Auto) [place] % (Auto) Eos % (Auto) Baso % (Auto) Lymph # (Auto) [place] # (Auto) Eos # (Auto) Baso # (Auto) Abs Immat Gran (auto) Absolute Neuts (auto) Absolute Nucleated RBC Nucleated RBC % (auto) Neutrophils % (Manual) Band Neutrophils % Lymphocytes % (Manual) Monocytes % (Manual) Metamyelocytes % Abs Neuts (Manual) Lymphocytes # (Manual) Monocytes # (Manual) Metamyelocytes # Toxic Vacuolation Platelet Estimate Plt Morphology Comment RBC Morphology Ovalocytes Acanthocytes (Spur) Schistocytes Smear Tech's Comments Anion Gap 17 Estim Creat Clear Calc 41.6 Estimated GFR 36 POC Glucose Random Glucose 287 H D Lactic Acid 4.0 H* Lactic Acid Fup @ 2Hr Lactic Acid Fup @ 4Hr Calcium 9.1 D Urine Color Urine Appearance Urine pH Ur Specific [place] Urine Protein Urine Glucose (UA) Urine Ketones Urine Blood Urine Nitrite Ur Leukocyte Esterase Urine RBC Urine WBC Ur Squamous Epith Cells Urine Bacteria Urine Mucus COVID-19 (CHRISTIE) Negative COVID-19 [facility] Com See Note 02/14/21 02/14/21 02/14/21 19:51 22:15 23:40 MCV MCH MCHC RDW Plt Count MPV Immature Gran % (Auto) Neut % (Auto) Lymph % (Auto) [place] % (Auto) Eos % (Auto) Baso % (Auto) Lymph # (Auto) [place] # (Auto) Eos # (Auto) Baso # (Auto) Abs Immat Gran (auto) Absolute Neuts (auto) Absolute Nucleated RBC Nucleated RBC % (auto) Neutrophils % (Manual) Band Neutrophils % Lymphocytes % (Manual) Monocytes % (Manual) Metamyelocytes % Abs Neuts (Manual) Lymphocytes # (Manual) Monocytes # (Manual) Metamyelocytes # Toxic Vacuolation Platelet Estimate Plt Morphology Comment RBC Morphology Ovalocytes Acanthocytes (Spur) Schistocytes Smear Tech's Comments Anion Gap Estim Creat Clear Calc Estimated GFR POC Glucose 189 H Random Glucose Lactic Acid Lactic Acid Fup @ 2Hr 5.1 H* Lactic Acid Fup @ 4Hr 4.0 H* Calcium Urine Color Urine Appearance Urine pH Ur Specific [place] Urine Protein Urine Glucose (UA) Urine Ketones Urine Blood Urine Nitrite Ur Leukocyte Esterase Urine RBC Urine WBC Ur Squamous Epith Cells Urine Bacteria Urine Mucus COVID-19 (CHRISTIE) COVID-19 Clin Com 02/15/21 02/15/21 02/15/21 06:37 06:37 07:52 MCV 95.7 MCH 32.6 MCHC 34.1 RDW 12.9 Plt Count 170 D MPV 10.6 Immature Gran % (Auto) Cancelled Neut % (Auto) Cancelled Lymph % (Auto) Cancelled [place] % (Auto) Cancelled Eos % (Auto) Cancelled Baso % (Auto) Cancelled Lymph # (Auto) Cancelled [place] # (Auto) Cancelled Eos # (Auto) Cancelled Baso # (Auto) Cancelled Abs Immat Gran (auto) Cancelled Absolute Neuts (auto) Cancelled Absolute Nucleated RBC 0.000 Nucleated RBC % (auto) 0.0 Neutrophils % (Manual) 73 Band Neutrophils % 18 H Lymphocytes % (Manual) 3 L Monocytes % (Manual) 5 Metamyelocytes % 1 Abs Neuts (Manual) 31.1 H Lymphocytes # (Manual) 1.0 Monocytes # (Manual) 1.7 H Metamyelocytes # 0.3 Toxic Vacuolation PRESENT Platelet Estimate NORMAL Plt Morphology Comment NORMAL RBC Morphology NOTED Ovalocytes 1+ (5-14) Acanthocytes (Spur) 3+ (>5) Schistocytes 1+ (0-2) Smear Tech's Comments Anion Gap 16 Estim Creat Clear Calc 45.5 Estimated GFR 40 POC Glucose 188 H Random Glucose 167 H D Lactic Acid Lactic Acid Fup @ 2Hr Lactic Acid Fup @ 4Hr Calcium 8.1 L D Urine Color Urine Appearance Urine pH Ur Specific [place] Urine Protein Urine Glucose (UA) Urine Ketones Urine Blood Urine Nitrite Ur Leukocyte Esterase Urine RBC Urine WBC Ur Squamous Epith Cells Urine Bacteria Urine Mucus COVID-19 (CHRISTIE) COVID-19 [facility] Com 02/15/21 11:01 MCV MCH MCHC RDW Plt Count MPV Immature Gran % (Auto) Neut % (Auto) Lymph % (Auto) [place] % (Auto) Eos % (Auto) Baso % (Auto) Lymph # (Auto) [place] # (Auto) Eos # (Auto) Baso # (Auto) Abs Immat Gran (auto) Absolute Neuts (auto) Absolute Nucleated RBC Nucleated RBC % (auto) Neutrophils % (Manual) Band Neutrophils % Lymphocytes % (Manual) Monocytes % (Manual) Metamyelocytes % Abs Neuts (Manual) Lymphocytes # (Manual) Monocytes # (Manual) Metamyelocytes # Toxic Vacuolation Platelet Estimate Plt Morphology Comment RBC Morphology Ovalocytes Acanthocytes (Spur) Schistocytes Smear Tech's Comments Anion Gap Estim Creat Clear Calc Estimated GFR POC Glucose 184 H Random Glucose Lactic Acid Lactic Acid Fup @ 2Hr Lactic Acid Fup @ 4Hr Calcium Urine Color Urine Appearance Urine pH Ur Specific [place] Urine Protein Urine Glucose (UA) Urine Ketones Urine Blood Urine Nitrite Ur Leukocyte Esterase Urine RBC Urine WBC Ur Squamous Epith Cells Urine Bacteria Urine Mucus COVID-19 (CHRISTIE) COVID-19 Clin Com Microbiology Microbiology Results: Microbiology 02/14/21 16:55 Blood Culture - Preliminary Blood - Venous Prelim: GNR Gram Stain only 02/14/21 17:05 Blood Culture - Preliminary Blood - Venous Prelim: GNR Gram Stain only Assessment and Plan (1) Pyelonephritis: Status: Acute (2) Sepsis: Status: Acute (3) Hydronephrosis with renal calculous obstruction: Status: Acute (4) Renal colic on left side: Status: Acute (5) SAYRA (acute kidney injury): Status: Acute Assessment and Plan: This is a 75-year-old male with past medical history of kidney stones, hypertension, hyperlipidemia, diabetes who presents to the hospital with complaints of left-sided flank pain found to have obstructing stone # sepsis secondary to pyelonephritis hydronephrosis with perinephric stranding on CT Pending cultures continue IV antibiotics IV fluid # hydronephrosis with renal calculus obstruction Secondary to obstruction Urology input appreciated, to do cystoscopy this afternoon Keep NPO for now # SAYRA secondary to obstruction Improving Continue IV fluid Should resolve after removing the stone follow BMP # lactic acidosis secondary to metformin and infection IV fluid # hypertension hold antihypertensives in the setting of acute kidney failure such as lisinopril # diabetes low-dose sliding scale insulin diabetic diet # hyperlipidemia continue stat DVT prophylaxis SCDs in anticipation of urological procedure Quality Stroke Does the patient have a stroke diagnosis?: No VTE Prior VTE?: No VTE Risk Level:: Medical - moderate - high VTE Device Contraindication: N/A - Device Ordered VTE Drug Contraindication: Treatment Not Indicated
--- NOTE | 2021-02-15 14:40 | MHC.CLN ---
NUTRITION/DIET WHEN DIET ADVANCES, RECOMMEND THERAPEUTIC DIET, DIABETIC 2000 KCAL.
[2021-02-15 14:51] LABS: Glucose, Whole Blood 170 mg/dL (60-115)
--- NOTE | 2021-02-15 17:11 | HO.ANESPROP2 ---
HPI - Anesthesia Eval Consult details Narrative: 75-year-old obese male presenting with hydronephrosis and perinephric fat stranding with leukocytosis for ureteral stent placement. Vital signs stable in preop. Endorsing pain. PMFSH Active Problems Active Problems: All Active Problems (Updated 02/15/21 @ 05:59 by Rafael Ybarra MD) Pyelonephritis (Acute) Sepsis (Acute) Hydronephrosis with renal calculous obstruction (Acute) Renal colic on left side (Acute) Hydronephrosis (Acute) SAYRA (acute kidney injury) (Acute) Elevated lactic acid level (Acute) Past Medical History Medical History Diabetes 1.5, managed as type 2 H/O renal calculi HLD (hyperlipidemia) HTN (hypertension), benign Family History Family History Father COPD (chronic obstructive pulmonary disease) Mother Heart disease Family history of problems with anesthesia: No Surgical History History of Problems with Anesthesia: No Social History Social History Household Members: Spouse Housing: House Patient Tobacco Use Status: Never used Tobacco Use of substances other than those prescribed or required for medical reasons: No Currently Displaying Signs/Symptoms of Drug Intoxication Withdrawal: No Have you been hit, kicked, punched, or otherwise hurt by someone within the past year? If so, by whom?: No Are you DNR?: Yes Advance Directives: Yes Advance Directives Information Provided: Yes Advance Directives on File: No Advance Directives Date on File: 02/15/21 Do you have thoughts of harming others: None Do you have a plan to hurt others: No Plan Recently lost weight without trying: No Nutrition Risks: No Nutritional Risk Current occupational status: retired Meds Allergies Allergy/AdvReac Type Severity Reaction Status Date / Time No Known Allergies Allergy Verified 02/14/21 11:56 Active Medications: Current Medications Generic Name Dose Route Start Last Admin Trade Name Freq PRN Reason Stop Dose Admin Acetaminophen 650 mg 02/14/21 19:26 Acetaminophen 325 Mg Tablet PO Q6H PRN Pain, Mild (Pain Scale 1-3) Dextrose 25 gm 02/14/21 20:13 Dextrose 50 % 25 Gm/50 Ml Vial IVPUSH Q15M PRN per Hypoglycemia Standing Ord. Protocol Docusate Sodium 100 mg 02/14/21 19:26 Docusate Sodium 100 Mg Capsule PO DAILY PRN Constipation Duloxetine HCl 30 mg 02/14/21 21:00 02/14/21 22:23 Duloxetine Hcl 30 Mg Capsule. PO 30 mg BEDTIME [facility] Administration Glucose 15 gm 02/14/21 20:13 Glucose Gel 15 Gm Gel..Gram. PO Q15M PRN per Hypoglycemia Standing Ord. Protocol Lactated Ringer's 1,000 mls @ 100 mls/hr 02/14/21 19:30 02/15/21 14:26 Lr IVCONT 0 mls/hr .Q10H [facility] Infusion Ceftriaxone Sodium 1 gm/ 50 mls @ 100 mls/hr 02/15/21 18:00 Sodium Chloride IV Q24H [facility] Insulin Human Lispro 0 unit 02/14/21 21:00 02/15/21 11:41 Insulin Lispro 100 Unit/Ml 3 Ml Vial SUBCUT [facility] Protocol Morphine Sulfate 4 mg 02/14/21 19:26 02/15/21 08:12 Morphine Sulfate 4 Mg/Ml Cartridge IVPUSH 4 mg Q4H PRN Administration Pain, Severe (Pain Scale 7-10) Protocol Omeprazole 20 mg 02/15/21 16:30 Omeprazole 20 Mg Capsule. PO DAILY@1630 [facility] Ondansetron HCl 4 mg 02/14/21 19:26 Ondansetron Hcl 4 Mg/2 Ml Vial IVPUSH Q8H PRN Nausea and Vomiting Pharmacy Consult 1 each 02/14/21 17:40 Consult Rx Perform Med Rec MISCELLANE ONCE PRN Consult order Sitagliptin Phosphate 100 mg 02/15/21 09:00 02/15/21 08:02 Sitagliptin Phosphate 100 Mg Tablet PO Not Given DAILY [facility] Sodium Chloride 3 ml 02/15/21 00:00 02/15/21 07:38 0.9 % Sodium Chloride Flush 3 Ml Syringe IVFLUSH Not Given QSHIFT [facility] Home Medications Medication Instructions Recorded Confirmed Last Taken Type duloxetine 30 mg capsule,delayed 1 cap PO QPM 02/14/21 02/14/21 Unknown History release glipizide 5 mg tablet 5 mg PO QPM 02/14/21 02/14/21 Unknown History glipizide 5 mg tablet 10 mg PO QAM 02/14/21 02/14/21 Unknown History lisinopril 2.5 mg tablet 1 tab PO QPM 02/14/21 02/14/21 Unknown History metformin 850 mg tablet 1 tab PO BID 02/14/21 02/14/21 Unknown History pantoprazole 40 mg tablet,delayed 1 tab PO QPM 02/14/21 02/14/21 Unknown History release simvastatin 20 mg tablet 1 tab PO QPM 02/14/21 02/14/21 Unknown History sitagliptin 100 mg tablet (Januvia) 1 tab PO QAM 02/14/21 02/14/21 Unknown History Exam Exam Date and Time: February 15, [id number] Height,Weight and Vital Signs: Height 5 ft 8 in Weight 230 lb Last Vital Signs Temp 97.8 F 02/15/21 14:42 Pulse 95 02/15/21 14:42 Resp 18 02/15/21 14:42 BP 140/80 H 02/15/21 14:42 Pulse Ox 94 02/15/21 14:42 Pertinent Lab Results Pertinent Lab Results: Laboratory Tests 02/14/21 02/14/21 02/14/21 13:14 13:14 16:55 WBC 11.3 H RBC 4.58 L Hgb 14.7 Hct 44.0 MCV 96.1 MCH 32.1 MCHC 33.4 RDW 12.5 Plt Count 251 MPV 10.6 Immature Gran % (Auto) 1.1 H Neut % (Auto) 95.3 H Lymph % (Auto) 2.4 L [place] % (Auto) 0.7 L Eos % (Auto) 0.2 Baso % (Auto) 0.3 Lymph # (Auto) 0.3 L [place] # (Auto) 0.1 Eos # (Auto) 0.0 Baso # (Auto) 0.0 Abs Immat Gran (auto) 0.13 H Absolute Neuts (auto) 10.8 H Absolute Nucleated RBC 0.000 Nucleated RBC % (auto) 0.0 Neutrophils % (Manual) Band Neutrophils % Lymphocytes % (Manual) Monocytes % (Manual) Metamyelocytes % Abs Neuts (Manual) Lymphocytes # (Manual) Monocytes # (Manual) Metamyelocytes # Toxic Vacuolation Platelet Estimate Plt Morphology Comment RBC Morphology Ovalocytes Acanthocytes (Spur) Schistocytes Smear Tech's Comments VERIFIED Sodium 142 Potassium 4.7 Chloride 108 Carbon Dioxide 24 Anion Gap 15 BUN 21 H Creatinine 1.53 H Estim Creat Clear Calc 50.3 Estimated GFR 45 POC Glucose Random Glucose 189 H Lactic Acid Lactic Acid Fup @ 2Hr Lactic Acid Fup @ 4Hr Calcium 10.2 Urine Color YELLOW Urine Appearance HAZY Urine pH 6.0 Ur Specific [place] 1.025 Urine Protein TRACE Urine Glucose (UA) 500 H Urine Ketones 40 Urine Blood 1+ H Urine Nitrite NEG Ur Leukocyte Esterase NEG Urine RBC 1-4 Urine WBC 0 Ur Squamous Epith Cells 1+ Urine Bacteria TRACE Urine Mucus 1+ COVID-19 (CHRISTIE) COVID-19 [employer] 02/14/21 02/14/21 02/14/21 16:55 18:18 19:51 WBC RBC Hgb Hct MCV MCH MCHC RDW Plt Count MPV Immature Gran % (Auto) Neut % (Auto) Lymph % (Auto) [place] % (Auto) Eos % (Auto) Baso % (Auto) Lymph # (Auto) [place] # (Auto) Eos # (Auto) Baso # (Auto) Abs Immat Gran (auto) Absolute Neuts (auto) Absolute Nucleated RBC Nucleated RBC % (auto) Neutrophils % (Manual) Band Neutrophils % Lymphocytes % (Manual) Monocytes % (Manual) Metamyelocytes % Abs Neuts (Manual) Lymphocytes # (Manual) Monocytes # (Manual) Metamyelocytes # Toxic Vacuolation Platelet Estimate Plt Morphology Comment RBC Morphology Ovalocytes Acanthocytes (Spur) Schistocytes Smear Tech's Comments Sodium 141 Potassium 5.1 Chloride 107 Carbon Dioxide 22 Anion Gap 17 BUN 22 H Creatinine 1.85 H Estim Creat Clear Calc 41.6 Estimated GFR 36 POC Glucose Random Glucose 287 H D Lactic Acid 4.0 H* Lactic Acid Fup @ 2Hr Lactic Acid Fup @ 4Hr Calcium 9.1 D Urine Color Urine Appearance Urine pH Ur Specific [place] Urine Protein Urine Glucose (UA) Urine Ketones Urine Blood Urine Nitrite Ur Leukocyte Esterase Urine RBC Urine WBC Ur Squamous Epith Cells Urine Bacteria Urine Mucus COVID-19 (CHRISTIE) Negative COVID-19 [place] Com See Note 02/14/21 02/14/21 02/14/21 19:51 22:15 23:40 WBC RBC Hgb Hct MCV MCH MCHC RDW Plt Count MPV Immature Gran % (Auto) Neut % (Auto) Lymph % (Auto) [place] % (Auto) Eos % (Auto) Baso % (Auto) Lymph # (Auto) [place] # (Auto) Eos # (Auto) Baso # (Auto) Abs Immat Gran (auto) Absolute Neuts (auto) Absolute Nucleated RBC Nucleated RBC % (auto) Neutrophils % (Manual) Band Neutrophils % Lymphocytes % (Manual) Monocytes % (Manual) Metamyelocytes % Abs Neuts (Manual) Lymphocytes # (Manual) Monocytes # (Manual) Metamyelocytes # Toxic Vacuolation Platelet Estimate Plt Morphology Comment RBC Morphology Ovalocytes Acanthocytes (Spur) Schistocytes Smear Tech's Comments Sodium Potassium Chloride Carbon Dioxide Anion Gap BUN Creatinine Estim Creat Clear Calc Estimated GFR POC Glucose 189 H Random Glucose Lactic Acid Lactic Acid Fup @ 2Hr 5.1 H* Lactic Acid Fup @ 4Hr 4.0 H* Calcium Urine Color Urine Appearance Urine pH Ur Specific [place] Urine Protein Urine Glucose (UA) Urine Ketones Urine Blood Urine Nitrite Ur Leukocyte Esterase Urine RBC Urine WBC Ur Squamous Epith Cells Urine Bacteria Urine Mucus COVID-19 (CHRISTIE) COVID-19 Clin Com 02/15/21 02/15/21 02/15/21 06:37 06:37 07:52 WBC 34.2 H* RBC 3.71 L Hgb 12.1 L Hct 35.5 L MCV 95.7 MCH 32.6 MCHC 34.1 RDW 12.9 Plt Count 170 D MPV 10.6 Immature Gran % (Auto) Cancelled Neut % (Auto) Cancelled Lymph % (Auto) Cancelled [place] % (Auto) Cancelled Eos % (Auto) Cancelled Baso % (Auto) Cancelled Lymph # (Auto) Cancelled [place] # (Auto) Cancelled Eos # (Auto) Cancelled Baso # (Auto) Cancelled Abs Immat Gran (auto) Cancelled Absolute Neuts (auto) Cancelled Absolute Nucleated RBC 0.000 Nucleated RBC % (auto) 0.0 Neutrophils % (Manual) 73 Band Neutrophils % 18 H Lymphocytes % (Manual) 3 L Monocytes % (Manual) 5 Metamyelocytes % 1 Abs Neuts (Manual) 31.1 H Lymphocytes # (Manual) 1.0 Monocytes # (Manual) 1.7 H Metamyelocytes # 0.3 Toxic Vacuolation PRESENT Platelet Estimate NORMAL Plt Morphology Comment NORMAL RBC Morphology NOTED Ovalocytes 1+ (5-14) Acanthocytes (Spur) 3+ (>5) Schistocytes 1+ (0-2) Smear Tech's Comments Sodium 138 Potassium 5.0 Chloride 108 Carbon Dioxide 19 L Anion Gap 16 BUN 24 H Creatinine 1.69 H Estim Creat Clear Calc 45.5 Estimated GFR 40 POC Glucose 188 H Random Glucose 167 H D Lactic Acid Lactic Acid Fup @ 2Hr Lactic Acid Fup @ 4Hr Calcium 8.1 L D Urine Color Urine Appearance Urine pH Ur Specific [place] Urine Protein Urine Glucose (UA) Urine Ketones Urine Blood Urine Nitrite Ur Leukocyte Esterase Urine RBC Urine WBC Ur Squamous Epith Cells Urine Bacteria Urine Mucus COVID-19 (CHRISTIE) COVID-19 [employer] 02/15/21 02/15/21 11:01 14:47 WBC RBC Hgb Hct MCV MCH MCHC RDW Plt Count MPV Immature Gran % (Auto) Neut % (Auto) Lymph % (Auto) [place] % (Auto) Eos % (Auto) Baso % (Auto) Lymph # (Auto) [place] # (Auto) Eos # (Auto) Baso # (Auto) Abs Immat Gran (auto) Absolute Neuts (auto) Absolute Nucleated RBC Nucleated RBC % (auto) Neutrophils % (Manual) Band Neutrophils % Lymphocytes % (Manual) Monocytes % (Manual) Metamyelocytes % Abs Neuts (Manual) Lymphocytes # (Manual) Monocytes # (Manual) Metamyelocytes # Toxic Vacuolation Platelet Estimate Plt Morphology Comment RBC Morphology Ovalocytes Acanthocytes (Spur) Schistocytes Smear Tech's Comments Sodium Potassium Chloride Carbon Dioxide Anion Gap BUN Creatinine Estim Creat Clear Calc Estimated GFR POC Glucose 184 H 170 H Random Glucose Lactic Acid Lactic Acid Fup @ 2Hr Lactic Acid Fup @ 4Hr Calcium Urine Color Urine Appearance Urine pH Ur Specific [place] Urine Protein Urine Glucose (UA) Urine Ketones Urine Blood Urine Nitrite Ur Leukocyte Esterase Urine RBC Urine WBC Ur Squamous Epith Cells Urine Bacteria Urine Mucus COVID-19 (CHRISTIE) COVID-19 [place] Com Airway Mallampati Class: I TM Dist: >3cm Neck ROM: Full Loose/Missing/Broken Teeth: Yes Heart: Tachycardic Lungs: Tachypneic Assessment and Plan Assessment Anesthesia Assessment: Anesthesia Plan Discussed Final Anesthetic Review Family History of Problems with Anesthesia: No History of Problems with Anesthesia: No NPO: Yes ASA Class: III and Emergency Final Preanesthetic Review: No Changes in Pt Med Stat, Meds/Allgs Chart Reviewed, Consent Obtained/Reviewed, Anes Risks/Benef Reviewed and DNR Form (If Appl.) Patient Risk: High Procedure Risk: Low Anesthetic Plan Anesthetic Plan: GA Disposition: Standard PACU
[2021-02-15] MEDS: cefTRIAXone sodium 1 GM in 0.9 % Sodium Chloride 50 ML IV (17:28)
--- NOTE | 2021-02-15 17:44 | MHC.SHP ---
Pre-Procedural Eval Section A Date of Service: 02/15/21 The patient is an INPATIENT: Yes Changes since office visit: No Cold of Flu in the past 2 weeks, No New Medical Problems, No Changes in Medication and No Patient answered all questions The History & Physical has been completed within 30 days and I have reviewed it.: Yes Section B Chief Complaint: Obstructing urolethiasis, pyelo Allergies: Allergies Allergy/AdvReac Type Severity Reaction Status Date / Time No Known Allergies Allergy Verified 02/14/21 11:56 Plan Diagnosis/Plan: Unchanged (cysto, left retrograde, ureteroscopy, laser lithotripsy, stent placement) I have reviewed the history and physical and performed a pertinent physical examination on my patient. No changes have occurred unless specified.
--- NOTE | 2021-02-15 18:26 | W.PM.OPN ---
Operative Note Operative Note Date of Service: 02/15/21 Narrative: PreOperative Diagnosis: Distal left Ureteric stone with hydroureteronephrosis Post Operative Diagnosis: Above Procedure: - cystoscopy, left retrograde - left dilatation of ureteric orifice under fluoroscopy - left ureteroscopy, laser lithotripsy, stone basketing - left stent placement Surgeon: Dr Frank Pace Anesthesia: General Indications for procedure: Presentation to emergency room with elevated creatinine, elevated white count, background of diabetes, known stone former, CT scan showing 4 mm distal left ureteric stone with stranding around left kidney and left hydroureteronephrosis. Given antibiotics for 24 hours. Presents for decompression and potential stone. Procedure: After informed consent was verified patient was brought to the operating placed in supine position. Anesthesia was administered per protocol. Patient was placed in modified dorsal lithotomy position and prepped and draped in a sterile fashion. Safety pause time-out and side of surgery confirmed. Antibiotics confirmed with addition of single dose gentamicin. Twenty-two [place] cystoscope inserted per urethra. No abnormality noted the anterior. Posterior urethra. Appears to have prior TURP defect. Ureteric orifices were close to TURP defect and small an aperture. The bladder itself had subclinical cystitis with mild inflammatory changes. Open-ended catheter was placed in the left ureteric orifice. Under fluoroscopy wire placed to the level renal pelvis. Open-ended catheter placed. Left aspiration of kidney and urine sent for culture. Retrograde showed hydroureteronephrosis. Open-ended catheter removed over wire. [place] dilator used to dilate ureteric orifice under fluoroscopy. Semi rigid ureteroscopy performed alongside wire. Stone encountered in distal portion of ureter. Using a 360 micron laser fiber stone was broken into small fragments. Stone was hard and appears to be calcium oxalate monohydrate however this will be confirmed on pathology. Once the stone was broken into small pieces stone basketing was performed. Multiple passes were required to remove stone fragments. Stone fragments will be sent for pathology. The wire was backloaded into the cystoscope. A 6 [place] by 24 cm double-J ureteric catheter was placed under combination fluoroscopy in direct visualization. The initial placement had non coil of proximal end. The distal end was grasped and moved and the proximal end formed a nice coil within the renal collecting system. Bladder was emptied in its entirety. The patient tolerated procedure well was extubated in operating room transferred in stable condition to the recovery area. Pathology: Stones Drains: 6 [place] by
[2021-02-15] MEDS: Phenazopyridine HCL 100 MG TABLET PO (19:05)
[2021-02-15 20:48] LABS: Glucose, Whole Blood 144 mg/dL (60-115)
[2021-02-15] MEDS: DULoxetine HCl 30 MG CAPSULE.DR PO (21:02)
[2021-02-16] VITALS (8 sets, daily range): BP systolic 156–166; BP diastolic 71–96; PULSE 90–107; RESP 16–19; TEMP 36.2–37.7; O2SAT 91–93
[2021-02-16] MEDS: Lactated Ringers 1,000 ML 100 ML IVCONT (06:13)
[2021-02-16 06:36] LABS: Hematocrit 35.3 % (42-52); Hemoglobin 11.8 g/dl (14.0-18.0); Mean Corpuscular HGB Conc 33.4 g/dl (31.0-36.0); Mean Corpuscular Hemoglobin 31.9 pg (27.0-33.0); Mean Corpuscular Volume 95.4 fL (80-98); Mean Platelet Volume 10.9 fL (9.4-12.4); Platelet Count 145 X10*3/uL (160-400); Red Cell Distribution Width 12.9 % (11.0-16.0); White Blood Count 23.4 X10*3/uL (4.8-10.8)
[2021-02-16 07:27] LABS: Anion Gap 12 (12-20); Blood Urea Nitrogen 22 mg/dL (9-16); Calcium 8.2 mg/dL (8.4-10.2); Carbon Dioxide 24 mmol/L (22-29); Chloride 106 mmol/L (96-108); Creatinine Clr Calc Pharmacy 51.3; Estimated Glomerular Filt Rate 46; Glucose Random 179 mg/dL (60-115); Potassium 4.2 mmol/L (3.3-5.1); Sodium 138 mmol/L (135-145)
[2021-02-16 07:33] LABS: Glucose, Whole Blood 160 mg/dL (60-115)
[2021-02-16] MEDS: SITagliptin Phosphate 100 MG TABLET PO (07:49)
[2021-02-16] MEDS: Insulin Lispro 100 UNIT/ML 3 ML VIAL SUBCUT ×4 (07:49→21:13)
--- NOTE | 2021-02-16 08:15 | HO.POSTANES ---
Post Anesthesia Evaluation Post Anesthesia Evaluation Vital Signs: Vital Signs Temp Pulse Resp BP Pulse Ox 02/16/21 07:36 98.3 F 104 H 16 159/71 H 93 02/16/21 04:00 99.9 F 107 H 18 156/77 H 91 L 02/15/21 23:22 99.7 F 113 H 18 151/77 H 92 Anesthesia: General LMA Mental Status: Awake Pain Control: Satisfactory Nausea/Vomiting: None Hydration: Adequate Anesthesia-Related Issues: No Anes. Related Issues
[2021-02-16 11:27] LABS: Glucose, Whole Blood 214 mg/dL (60-115)
--- NOTE | 2021-02-16 12:52 | PM.UROPN ---
Subjective Subjective Date of Service: 02/16/21 Interval history: Significant improvement in flank pain discomfort White cell count dropped from 35-23 Creatinine dropped from 1.7 to 1.5 Blood culture positive Gram-negative rods Speciation pending Continue to give broad-spectrum IV medications until microbiology confirmed Physical Exam Vital Signs: Vital Signs: Last Vital Signs Temp 99.1 F 02/16/21 11:48 Pulse 97 02/16/21 11:48 Resp 18 02/16/21 11:48 BP 157/85 H 02/16/21 11:48 Pulse Ox 93 02/16/21 11:48 Body Mass Index 34.9 Const: General: cooperative, healthy appearing, comfortable and no acute distress Orientation/consciousness: patient oriented x3 HENMT: Face and sinus: Yes normal facial exam Mouth: moist mucous membranes Neck: Neck: Yes normal visual inspection, Yes full ROM and Yes trachea midline Chest: Chest palpation & inspection: normal inspection of the chest Resp: Effort & Inspection: normal respiratory effort, able to speak in complete sentences and no respiratory distress GI: Inspection: Yes normal to inspection Back/Spine/Pelvis: Cervical Spine: normal cervical lordosis Thoracic/Lumbar Spine: thoracic and lumbar spine normal to inspection Skin: General skin exam: no rashes or lesions noted Neuro: General: patient oriented x3, gait normal, tone normal and moves all extremities Extrem: General: Yes normal to inspection and Yes capillary refill normal Urology Results Labs CBC & Chem 7: 02/16/21 06:05 02/16/21 06:05 Labs: Laboratory Results - last 24 hr 02/15/21 02/15/21 02/16/21 14:47 20:33 06:05 WBC 23.4 H RBC 3.70 L Hgb 11.8 L Hct 35.3 L MCV 95.4 MCH 31.9 MCHC 33.4 RDW 12.9 Plt Count 145 L MPV 10.9 Absolute Nucleated RBC 0.000 Nucleated RBC % (auto) 0.0 Sodium Potassium Chloride Carbon Dioxide Anion Gap BUN Creatinine Estim Creat Clear Calc Estimated GFR POC Glucose 170 H 144 H Random Glucose Calcium 02/16/21 02/16/21 02/16/21 06:05 07:12 11:16 WBC RBC Hgb Hct MCV MCH MCHC RDW Plt Count MPV Absolute Nucleated RBC Nucleated RBC % (auto) Sodium 138 Potassium 4.2 Chloride 106 Carbon Dioxide 24 Anion Gap 12 BUN 22 H Creatinine 1.50 H Estim Creat Clear Calc 51.3 Estimated GFR 46 POC Glucose 160 H 214 H Random Glucose 179 H Calcium 8.2 L Progress Note: A&P Assessment and plan (1) Sepsis: Status: Acute (2) Hydronephrosis with renal calculous obstruction: Status: Acute Assessment and Plan: Slow resolution of sepsis following stone procedure Continue to follow with supportive care Fall Risk Details Current Medications: Current Medications Generic Name Dose Route Start Last Admin Trade Name Freq PRN Reason Stop Dose Admin Acetaminophen 650 mg 02/14/21 19:26 Acetaminophen 325 Mg Tablet PO Q6H PRN Pain, Mild (Pain Scale 1-3) Dextrose 25 gm 02/14/21 20:13 Dextrose 50 % 25 Gm/50 Ml Vial IVPUSH Q15M PRN per Hypoglycemia Standing Ord. Protocol Docusate Sodium 100 mg 02/14/21 19:26 Docusate Sodium 100 Mg Capsule PO DAILY PRN Constipation Duloxetine HCl 30 mg 02/14/21 21:00 02/15/21 21:02 Duloxetine Hcl 30 Mg Capsule.Dr PO 30 mg BEDTIME JUSTINA Administration Fentanyl 25 mcg 02/15/21 19:14 Fentanyl Citrate/Pf 100 Mcg/2 Ml Vial IVPUSH Q5M PRN Pain, Moderate (Pain Scale 4-6 Protocol Glucose 15 gm 02/14/21 20:13 Glucose Gel 15 Gm Gel..Gram. PO Q15M PRN per Hypoglycemia Standing Ord. Protocol Hydromorphone HCl 0.25 mg 02/15/21 17:13 Hydromorphone Hcl 0.5 Mg/0.5 Ml Syringe IVPUSH Q5M PRN Pain, Severe (Pain Scale 7-10) Protocol Ceftriaxone Sodium 1 gm/ 50 mls @ 100 mls/hr 02/15/21 18:00 02/15/21 20:53 Sodium Chloride IV Infused Q24H [facility] Infusion Promethazine HCl 12.5 mg/ 50.5 mls @ 202 mls/hr 02/15/21 19:14 Sodium Chloride IV ONCE PRN Nausea and Vomiting Insulin Human Lispro 0 unit 02/14/21 21:00 02/16/21 11:47 Insulin Lispro 100 Unit/Ml 3 Ml Vial SUBCUT 4 unit QIDACHS JUSTINA Administration Protocol Morphine Sulfate 4 mg 02/14/21 19:26 02/15/21 08:12 Morphine Sulfate 4 Mg/Ml Cartridge IVPUSH 4 mg Q4H PRN Administration Pain, Severe (Pain Scale 7-10) Protocol Omeprazole 20 mg 02/15/21 16:30 02/15/21 20:50 Omeprazole 20 Mg Capsule.Dr PO Not Given DAILY@1630 [facility] Ondansetron HCl 4 mg 02/14/21 19:26 Ondansetron Hcl 4 Mg/2 Ml Vial IVPUSH Q8H PRN Nausea and Vomiting Oxycodone HCl 5 mg 02/15/21 18:24 Oxycodone Hcl Immed Release 5 Mg Tablet PO Q4H PRN [facility] Consult 1 each 02/14/21 17:40 Consult Rx Perform Med Rec MISCELLANE ONCE PRN Consult order Sitagliptin Phosphate 100 mg 02/15/21 09:00 02/16/21 07:49 Sitagliptin Phosphate 100 Mg Tablet PO 100 mg DAILY JUSTINA Administration Sodium Chloride 3 ml 02/15/21 00:00 02/16/21 07:49 0.9 % Sodium Chloride Flush 3 Ml Syringe IVFLUSH Not Given QSHIFT [facility] Time Spent With Patient Time: Total time spent is greater than 50% in coordination of care (as documented) at patient's floor/unit and/or counseling patient: Time with patient: less than 15 minutes Progress Note: Quality Stroke Does the patient have a stroke diagnosis?: No
--- NOTE | 2021-02-16 14:30 | P.PNIM_ITS ---
Subjective Subjective Date of Service: 02/16/21 Interval History: the patient was seen and evaluated this morning Laying in bed, feels much better today Fairly controlled with pain medications Denies any fever, or shortness of breath No reported other overnight events. Systemic review: No fever or chills today, pain has decreased No chest pain, palpitation No shortness of breath or coughing No abdominal pain, nausea or vomiting No urinary symptoms No any rash or wounds Physical Exam Vital Signs: Vital Signs: Last Vital Signs Temp 99.1 F 02/16/21 11:48 Pulse 97 02/16/21 11:48 Resp 18 02/16/21 11:48 BP 157/85 H 02/16/21 11:48 Pulse Ox 93 02/16/21 11:48 Body Mass Index 34.9 Const: Other: Constitutional : Alert, oriented, in mild distress from pain Neck : Normal inspection, Supple Cardiovascular : RRR, S1 S2, no lower extremity edema Respiratory : Good bilateral air entry, no crackles, wheezes or rhonchi Gastrointestinal: soft, lax, Normal bowel sounds, Non tender Skin : Warm, Dry Neurological : Alert & oriented x3, No focal deficit Objective Data Current Medications Generic Name Dose Route Start Last Admin Trade Name Freq PRN Reason Stop Dose Admin Acetaminophen 650 mg 02/14/21 19:26 Acetaminophen 325 Mg Tablet PO Q6H PRN Pain, Mild (Pain Scale 1-3) Dextrose 25 gm 02/14/21 20:13 Dextrose 50 % 25 Gm/50 Ml Vial IVPUSH Q15M PRN per Hypoglycemia Standing Ord. Protocol Docusate Sodium 100 mg 02/14/21 19:26 Docusate Sodium 100 Mg Capsule PO DAILY PRN Constipation Duloxetine HCl 30 mg 02/14/21 21:00 02/15/21 21:02 Duloxetine Hcl 30 Mg Capsule.Dr PO 30 mg BEDTIME JUSTINA Administration Fentanyl 25 mcg 02/15/21 19:14 Fentanyl Citrate/Pf 100 Mcg/2 Ml Vial IVPUSH Q5M PRN Pain, Moderate (Pain Scale 4-6 Protocol Glucose 15 gm 02/14/21 20:13 Glucose Gel 15 Gm Gel..Gram. PO Q15M PRN per Hypoglycemia Standing Ord. Protocol Hydromorphone HCl 0.25 mg 02/15/21 17:13 Hydromorphone Hcl 0.5 Mg/0.5 Ml Syringe IVPUSH Q5M PRN Pain, Severe (Pain Scale 7-10) Protocol Ceftriaxone Sodium 1 gm/ 50 mls @ 100 mls/hr 02/15/21 18:00 02/15/21 20:53 Sodium Chloride IV Infused Q24H [facility] Infusion Promethazine HCl 12.5 mg/ 50.5 mls @ 202 mls/hr 02/15/21 19:14 Sodium Chloride IV ONCE PRN Nausea and Vomiting Insulin Human Lispro 0 unit 02/14/21 21:00 02/16/21 11:47 Insulin Lispro 100 Unit/Ml 3 Ml Vial SUBCUT 4 unit QIDACHS [facility] Administration Protocol Morphine Sulfate 4 mg 02/14/21 19:26 02/15/21 08:12 Morphine Sulfate 4 Mg/Ml Cartridge IVPUSH 4 mg Q4H PRN Administration Pain, Severe (Pain Scale 7-10) Protocol Omeprazole 20 mg 02/15/21 16:30 02/15/21 20:50 Omeprazole 20 Mg Capsule.Dr PO Not Given DAILY@1630 [facility] Ondansetron HCl 4 mg 02/14/21 19:26 Ondansetron Hcl 4 Mg/2 Ml Vial IVPUSH Q8H PRN Nausea and Vomiting Oxycodone HCl 5 mg 02/15/21 18:24 Oxycodone Hcl Immed Release 5 Mg Tablet PO Q4H PRN [facility] Consult 1 each 02/14/21 17:40 Consult Rx Perform Med Rec MISCELLANE ONCE PRN Consult order Sitagliptin Phosphate 100 mg 02/15/21 09:00 02/16/21 07:49 Sitagliptin Phosphate 100 Mg Tablet PO 100 mg DAILY [facility] Administration Sodium Chloride 3 ml 02/15/21 00:00 02/16/21 07:49 0.9 % Sodium Chloride Flush 3 Ml Syringe IVFLUSH Not Given QSHIFT [facility] Labs CBC & Chem 7: 02/16/21 06:05 02/16/21 06:05 Labs: Laboratory Results - last 24 hr 02/15/21 02/15/21 02/16/21 14:47 20:33 06:05 MCV 95.4 MCH 31.9 MCHC 33.4 RDW 12.9 Plt Count 145 L MPV 10.9 Absolute Nucleated RBC 0.000 Nucleated RBC % (auto) 0.0 Anion Gap Estim Creat Clear Calc Estimated GFR POC Glucose 170 H 144 H Random Glucose Calcium 02/16/21 02/16/21 02/16/21 06:05 07:12 11:16 MCV MCH MCHC RDW Plt Count MPV Absolute Nucleated RBC Nucleated RBC % (auto) Anion Gap 12 Estim Creat Clear Calc 51.3 Estimated GFR 46 POC Glucose 160 H 214 H Random Glucose 179 H Calcium 8.2 L Microbiology Microbiology Results: Microbiology 02/15/21 18:30 Urine Culture - Preliminary Urine Other - Kidney Left Gram negative rdaha 02/14/21 17:05 Blood Culture - Preliminary Blood - Venous Gram negative rdaha 02/14/21 16:55 Blood Culture - Preliminary Blood - Venous Gram negative radha Assessment and Plan (1) Pyelonephritis: Status: Acute (2) Hydronephrosis with renal calculous obstruction: Status: Acute (3) Sepsis: Status: Acute Assessment and Plan: This is a 75-year-old male with past medical history of kidney stones, hypertension, hyperlipidemia, diabetes who presents to the hospital with complaints of left-sided flank pain found to have obstructing stone # sepsis secondary to pyelonephritis Sepsis resolved Blood culture growing GNR Continue IV antibiotics DC IV fluid # hydronephrosis with renal calculus obstruction Secondary to obstruction Urology input appreciated, cystoscopy done with removal of the obstructing stone and placing stent # SAYRA secondary to obstruction Improved to 1.5 follow BMP # hypertension hold antihypertensives in the setting of acute kidney failure such as lis inopril # diabetes low-dose sliding scale insulin diabetic diet # hyperlipidemia continue stat DVT prophylaxis SCDs in anticipation of urological procedure Quality Stroke Does the patient have a stroke diagnosis?: No VTE Prior VTE?: No VTE Risk Level:: Medical - moderate - high VTE Device Contraindication: N/A - Device Ordered VTE Drug Contraindication: Treatment Not Indicated
[2021-02-16 16:24] LABS: Glucose, Whole Blood 171 mg/dL (60-115)
[2021-02-16] MEDS: Omeprazole 20 MG CAPSULE.DR PO (16:33)
[2021-02-16] MEDS: 0.9 % Sodium Chloride Flush 3 ML SYRINGE IVFLUSH ×2 (16:34→21:14)
[2021-02-16] MEDS: cefTRIAXone sodium 1 GM in 0.9 % Sodium Chloride 50 ML IV (18:04)
[2021-02-16 20:25] LABS: Glucose, Whole Blood 225 mg/dL (60-115)
[2021-02-16] MEDS: DULoxetine HCl 30 MG CAPSULE.DR PO (21:13)
[2021-02-17 03:02] VITALS: BP 168/80; PULSE 94; RESP 20; TEMP 36.4; O2SAT 92
[2021-02-17 06:22] LABS: Hematocrit 34.6 % (42-52); Hemoglobin 11.7 g/dl (14.0-18.0); Mean Corpuscular HGB Conc 33.8 g/dl (31.0-36.0); Mean Corpuscular Hemoglobin 32.1 pg (27.0-33.0); Mean Corpuscular Volume 95.1 fL (80-98); Mean Platelet Volume 10.9 fL (9.4-12.4); Platelet Count 163 X10*3/uL (160-400); Red Blood Count 3.64 X10*6/uL (4.60-5.80); Red Cell Distribution Width 12.7 % (11.0-16.0); White Blood Count 18.1 X10*3/uL (4.8-10.8)
[2021-02-17 06:50] LABS: Anion Gap 11 (12-20); Blood Urea Nitrogen 16 mg/dL (9-16); Calcium 8.7 mg/dL (8.4-10.2); Carbon Dioxide 27 mmol/L (22-29); Chloride 105 mmol/L (96-108); Creatinine Clr Calc Pharmacy 58.3; Estimated Glomerular Filt Rate 53; Glucose Random 217 mg/dL (60-115); Potassium 4.3 mmol/L (3.3-5.1); Sodium 139 mmol/L (135-145)
[2021-02-17 07:38] LABS: Glucose, Whole Blood 196 mg/dL (60-115)
[2021-02-17 07:47] VITALS: BP 164/86; PULSE 89; RESP 20; TEMP 36.7; O2SAT 94
[2021-02-17] MEDS: 0.9 % Sodium Chloride Flush 3 ML SYRINGE IVFLUSH (08:04)
[2021-02-17] MEDS: SITagliptin Phosphate 100 MG TABLET PO (08:04)
[2021-02-17] MEDS: Insulin Lispro 100 UNIT/ML 3 ML VIAL SUBCUT (08:04)
--- NOTE | 2021-02-17 10:19 | P.DS_ITS ---
DS: Providers Provider Date of Service: 02/17/21 Date of admission: 02/14/21 19:19 Primary care physician: Simon Romeo MD Consults: 02/14/21 17:53 Consult to Urology Stat Consulting Provider: Frank Pace Reason for consultation: renal stone DS: Diagnosis Discharge Diagnosis (1) Pyelonephritis: Status: Acute (2) Hydronephrosis with renal calculous obstruction: Status: Acute (3) Sepsis: Status: Acute (4) Bacteremia, escherichia coli: Status: Acute (5) Hydronephrosis: Status: Acute (6) SAYRA (acute kidney injury): Status: Acute DS: Medications Discharge Medications Home Medications: Home Medications Medication Instructions Recorded Confirmed duloxetine 30 mg capsule,delayed 1 cap PO QPM 02/14/21 02/14/21 release glipizide 5 mg tablet 5 mg PO QPM 02/14/21 02/14/21 glipizide 5 mg tablet 10 mg PO QAM 02/14/21 02/14/21 lisinopril 2.5 mg tablet 1 tab PO QPM 02/14/21 02/14/21 metformin 850 mg tablet 1 tab PO BID 02/14/21 02/14/21 pantoprazole 40 mg tablet,delayed 1 tab PO QPM 02/14/21 02/14/21 release simvastatin 20 mg tablet 1 tab PO QPM 02/14/21 02/14/21 sitagliptin 100 mg tablet (Januvia) 1 tab PO QAM 02/14/21 02/14/21 Previous Rx's Medication Instructions Recorded cefuroxime axetil 500 mg tablet 500 mg PO BID #20 tab 02/17/21 DS: Summary Hospital Course Hospital Course: Admission note HPI This is a 75-year-old male with past medical history of diabetes, history of kidney stones who presents to the hospital with complaints of left-sided flank pain.? Patient reports that his symptoms started in the morning, 910, constant, sharp, radiating to the left groin, movement exacerbates the pain and pain medication alleviates it.? Patient reports urinary frequency, with no urgency or dysuria.? Patient denies fever but has chills,? no chest pain, no shortness of breath, no abdominal pain, no diarrhea constipation, denies any lower extremity edema.? No numbness tingling. Vitals reviewed show initial temp of 98.7? but patient did develop a temperature of 101.8?, heart rate of 109, respiratory rate of 18, blood pressure of 180/103, satting 94% on room air Labs are significant for WBC count of 11.3, with a left shift and 95% neutrophils, CMP significant for BUN of 21, creatinine of 1.3 with a baseline of 1.28, lactic acid of 4.0, UA negative for any leukocyte Estrace, nitrites, or WBC COVID-19 negative, CT abdomen shows obstructing 4 mm left ureteral calculus seen to have progressed to the distal left ureter.? Moderate left hydronephrosis with perinephric stranding and fluid Urology evaluated patient, patient will be admitted for the [facility] Hospital course The patient was admitted for treatment of urosepsis secondary to obstructing stone on the left side confirmed by images. Evaluated by urologist Dr. Pace who did cystoscopy with removal of obstructing stone and placement of a stent. Kidney function which was injured at time of admission improved back to baseline. Treated with IV antibiotic of ceftriaxone for sepsis. Blood cultures grew pansensitive E coli. To be discharged on total of 14 days of antibiotics. To finish 10 days of Ceftin. To follow-up with Dr. Pace in the clinic. Time Spent with Patient Time attestation: Total time spent providing and/or coordinating discharge services: Discharge coordination time: Greater than 30 minutes Quality: Stroke Does the patient have a stroke diagnosis?: No Physical Exam Vital Signs: Vital Signs: Last Vital Signs Temp 98.0 F 02/17/21 07:47 Pulse 89 02/17/21 07:47 Resp 20 02/17/21 07:47 BP 164/86 H 02/17/21 07:47 Pulse Ox 94 02/17/21 07:47 Body Mass Index 34.9 Const: Other: Constitutional : Alert, oriented, in mild distress from pain Neck : Normal inspection, Supple Cardiovascular : RRR, S1 S2, no lower extremity edema Respiratory : Good bilateral air entry, no crackles, wheezes or rhonchi Gastrointestinal: soft, lax, Normal bowel sounds, Non tender Skin : Warm, Dry Neurological : Alert & oriented x3, No focal deficit DS: Data Data Completed and Pending Pending studies at discharge: Pending at discharge 02/15/21 18:19 Surgical [PTH] Routine Labs on day of discharge: Laboratory Results - last 24 hr 08/25/21 08/25/21 08/25/21 11:16 16:13 20:16 WBC RBC Hgb Hct MCV MCH MCHC RDW Plt Count MPV Absolute Nucleated RBC Nucleated RBC % (auto) Sodium Potassium Chloride Carbon Dioxide Anion Gap BUN Creatinine Estim Creat Clear Calc Estimated GFR POC Glucose 214 H 171 H 225 H Random Glucose Calcium 02/17/21 02/17/21 02/17/21 05:41 05:41 07:19 WBC 18.1 H RBC 3.64 L Hgb 11.7 L Hct 34.6 L MCV 95.1 MCH 32.1 MCHC 33.8 RDW 12.7 Plt Count 163 MPV 10.9 Absolute Nucleated RBC 0.000 Nucleated RBC % (auto) 0.0 Sodium 139 Potassium 4.3 Chloride 105 Carbon Dioxide 27 Anion Gap 11 L BUN 16 Creatinine 1.32 Estim Creat Clear Calc 58.3 Estimated GFR 53 POC Glucose 196 H Random Glucose 217 H Calcium 8.7 D Discharge Plan Discharge Patient Disposition: Home, Self-Care Discharge Diagnosis: E coli bacteremia Hydronephrosis Pyelonephritis Acute kidney injury Referrals: Simon Romeo MD [Primary Care Provider] - 1 Week Discharge Medications: New cefuroxime axetil 500 mg tablet 500 mg PO BID Qty: 20 RF: 0 Continued metformin 850 mg tablet 1 tab PO BID RF: 0 pantoprazole 40 mg tablet,delayed release (DR/EC) 1 tab PO QPM RF: 0 simvastatin 20 mg tablet 1 tab PO QPM RF: 0 lisinopril 2.5 mg tablet 1 tab PO QPM RF: 0 glipizide 5 mg tablet 10 mg PO QAM RF: 0 duloxetine 30 mg capsule,delayed release(DR/EC) 1 cap PO QPM RF: 0 Januvia 100 mg tablet 1 tab PO QAM RF: 0 glipizide 5 mg Tablet 5 mg PO QPM RF: 0 Discharge Orders: Discharge Order (Routine); Ordered 02/17/21 Ordered By: Scar Wheeler Diet: advance to usual diet Activity on Discharge: As tolerated Stand Alone Forms: Patient Portal Discharge page Care Plan Goals: Read below Health Concerns: Read below Plan of Treatment: You were admitted to the hospital for evaluation of low Ng pain. Found to have obstructive stone with kidney dilatation and acute kidney injury associated with picture of infection. Treated with IV antibiotics with good response over the course of hospital stay as your blood culture grew bacteria called E coli. You were evaluated by urologist Dr. Pace who did a procedure to remove the stone and place a stent in your ureter. Assessment: Continue Ceftin for 10 more days To follow-up with Dr. Pace as outpatient
--- NOTE | 2021-02-17 10:29 | MHC.CM.PN ---
PT CLEARED TO [facility] TODAY WITH NO SERVICES.
[2021-02-20 05:12] LABS: Stone Source KIDNEY
== END 2021-02-17 11:30 | disposition home or self-care (01) | DRG 854 ==
LOC: HO.ED 18:41 → HO.EDOVER 19:36 → HO.S3 02-15 02:27
PROVIDERS: Nurse Practitioner Family; Urology; Admitting Provider Internal Medicine; Emergency Provider Emergency Medicine; PCP Internal Medicine; Visit Provider Student in an Organized Health Care Education/Training Program
PROC: 0TC78ZZ Extirpation of Matter from Left Ureter, Via Natural or Artificial Opening Endoscopic (ICD-10-PCS; principal; 2021-02-15 16:30)
DX: A41.51 Sepsis due to Escherichia coli [E. coli] (principal); N13.6 Pyonephrosis; E87.2 Acidosis; N17.9 Acute kidney failure, unspecified; E13.9 Other specified diabetes mellitus without complications; E78.5 Hyperlipidemia, unspecified; Z20.822 Contact with and (suspected) exposure to COVID-19; Z79.84 Long term (current) use of oral hypoglycemic drugs; Z79.899 Other long term (current) drug therapy
CPT/HCPCS: 36415; 74176; 80048; 81001; 82365; 82947; 83605; 85007; 85025; 85027; 87040; 87077; 87086; 87088; 87186; 87205; 87635; 88300; 96361; 96365; 96375; 96376; 99285; C1769; C2617; J0696; J1170; J1580; J1885; J2270; J2370; J2405; J3010; Q9967

== ENCOUNTER → 2021-02-24 12:58 | Outpatient (BNVA) | payer MEDICARE, SELFPAY | PROVIDERS: PCP Internal Medicine; Visit Provider Urology | DX: N20.0 Calculus of kidney (principal); N12 Tubulo-interstitial nephritis, not specified as acute or chronic | CPT/HCPCS: 52310; 99212 ==

== ENCOUNTER 2021-03-16 10:15 | Outpatient (REF) | payer MEDICARE, SELFPAY ==
--- NOTE | ~2021-03-16 | US_ITS ---
EXAMINATION: US RETROPERITONEAL LIMITED (RENAL ONLY) CLINICAL INFORMATION: Calculus of kidney. COMPARISON: CT abdomen and pelvis 02/14/2021. TECHNIQUE: Real-time imaging of the kidneys. FINDINGS: RIGHT KIDNEY: 11.4 x 6.0 x 4.8 cm (SAG x AP x TRV). The kidney is normal in size, contour, and echogenicity. Renal cortical thickness is normal. No calculi or focal parenchymal lesions. No hydronephrosis. LEFT KIDNEY: 11.0 x 5.6 x 4.6 cm (SAG x AP x TRV). The kidney is normal in size, contour, and echogenicity. Renal cortical thickness is normal. No renal calculi or hydronephrosis. There is hypoechoic area in the pole measuring 1.5 x 1.1 x 1.5 cm. US/US renal BI IMPRESSION: Unremarkable right kidney. Hypoechoic area in the upper pole cortex left kidney question cyst. No cyst or mass was visualized on recent CT abdomen exam 02/14/2021. This could be a simple cyst or prominent cortical lobulation. A mass is considered less likely. There are no echogenic renal calculi seen on this ultrasound exam.
== END 2021-03-16 10:16 | disposition home or self-care (01) ==
LOC: HO.US 10:15
PROVIDERS: PCP Internal Medicine; Visit Provider Urology
DX: N20.0 Calculus of kidney (principal)
CPT/HCPCS: 76775

== ENCOUNTER → 2021-04-08 09:25 | Outpatient (BNVA) | payer MEDICARE, SELFPAY | PROVIDERS: Visit Provider Urology | DX: N20.0 Calculus of kidney (principal) | CPT/HCPCS: Q3014 ==

== ENCOUNTER 2021-09-12 07:43 | Outpatient (REF) | payer MEDICARE, SELFPAY ==
--- NOTE | ~2021-09-12 | US_ITS ---
EXAMINATION: US RETROPERITONEAL LIMITED (RENAL ONLY) CLINICAL INFORMATION: Calculus of kidney. COMPARISON: US retroperitoneal limited (renal only) 03/16/2021. CT abdomen and pelvis without contrast 02/14/2021. TECHNIQUE: Real-time imaging of the kidneys. FINDINGS: RIGHT KIDNEY: 11.6 x 5.7 x 4.1 cm (SAG x AP x TRV). The kidney is normal in size, contour, and echogenicity. Renal cortical thickness is normal. There are several small millimeter in size echogenic densities in the right kidney questionable for small stones. No hydronephrosis. LEFT KIDNEY: 11.7 x 4.9 x 5.2 cm (SAG x AP x TRV). The kidney is normal in size, contour, and echogenicity. Renal cortical thickness is normal. There is a 2.2 x 1.6 x 2.1 cm hypoechoic lesion exophytic to the upper pole. This appears increased in size from 1.3 x 1 x 1.5 cm on previous renal ultrasound February 2021. No corresponding abnormality seen on previous CT January 2021. There are several small millimeter in size echogenic densities in the left kidney questionable for stones. No hydronephrosis. US/US renal BI IMPRESSION: Question small bilateral 1 mm in size renal stones. 2.2 x 1.6 x 2.1 cm hypoechoic lesion exophytic to the upper pole the left kidney with internal echoes. It is uncertain whether this is related to lobulated contour of the kidney or represents a complex cyst or mass. Dedicated renal imaging with and without contrast is recommended.
== END 2021-09-12 07:44 | disposition home or self-care (01) ==
LOC: HO.US 07:43
PROVIDERS: PCP Internal Medicine; Visit Provider Urology
DX: N20.0 Calculus of kidney (principal)
CPT/HCPCS: 76775

== ENCOUNTER 2021-09-20 09:41 | Outpatient (REF) | payer MEDICARE, SELFPAY ==
--- NOTE | ~2021-09-20 | MR_ITS ---
EXAMINATION: MR ABDOMEN WITH AND WITHOUT CONTRAST CLINICAL INFORMATION: Right flank pain. Question left renal cyst versus mass COMPARISON: Previous CT of the abdomen and pelvis January 2021 and renal ultrasound most recent August 2021 TECHNIQUE: Sagittal axial and coronal sequences through the kidneys with and without contrast. The patient received 10 mL intravenous Gadavist contrast. FINDINGS: The kidneys are normal in contour and symmetric in size. No renal mass is seen. There are bilateral renal cysts. There is no hydronephrosis. The lung bases are clear. There is fatty infiltration of the liver. The liver is normal in size and contour. No focal liver lesion or biliary duct dilatation. Normal gallbladder. Normal pancreas. Normal spleen. Normal adrenal glands. Diverticulosis of the colon. No ascites or adenopathy. Normal vascular structures. Supraumbilical hernias containing fat. Degenerative changes of the spine. MR/MR kidney wo/w con IMPRESSION: Bilateral renal cysts. No renal mass. Fatty infiltration of the liver. Diverticulosis of the colon.
[2021-09-20 08:53] LABS: Blood Urea Nitrogen 21 mg/dL (9-16); Estimated Glomerular Filt Rate 49
== END 2021-09-20 09:42 | disposition home or self-care (01) ==
LOC: HO.MRI 09:41
PROVIDERS: Visit Provider Urology
DX: N28.1 Cyst of kidney, acquired (principal); R39.15 Urgency of urination
CPT/HCPCS: 36415; 74181; 82565; 84520; A9585

== ENCOUNTER → 2021-10-05 09:25 | Outpatient (BNVA) | payer MEDICARE, SELFPAY | PROVIDERS: PCP Internal Medicine; Visit Provider Urology | DX: N20.0 Calculus of kidney (principal); N28.1 Cyst of kidney, acquired | CPT/HCPCS: 99212 ==

== ENCOUNTER 2021-12-22 08:37 | Inpatient (IN) | payer MEDICARE, SELFPAY ==
[2021-12-22] VITALS (31 sets, daily range): BP systolic 85–156; BP diastolic 47–101; PULSE 108–150; RESP 15–30; TEMP 36.5–38.2; O2SAT 90–98; BMI 34.9
--- NOTE | ~2021-12-22 | XR_ITS ---
EXAMINATION: XR CHEST CLINICAL INFORMATION: Shortness of breath. COMPARISON: 12/22/2021 chest radiograph. TECHNIQUE: Frontal view of the chest was obtained. FINDINGS: Support devices: Right-sided internal jugular catheter with tip terminating in the superior vena cava. No significant abnormality is noted involving the heart, lungs, mediastinum, bony thorax or soft tissues. XR/XR chest 1V IMPRESSION: No acute cardiopulmonary process.
--- NOTE | ~2021-12-22 | MR_ITS ---
EXAMINATION: MR ABDOMEN WITHOUT AND WITH CONTRAST CLINICAL INFORMATION: Rule out pancreatic head mass COMPARISON: Previous CT of the abdomen and pelvis November 2021 TECHNIQUE: MR abdomen was performed without and with use of 10 mL intravenous Gadavist gadolinium contrast. Postcontrast images are performed in multiphase dynamic sequences. Imaging was performed in 3 planes. FINDINGS: LUNG BASES: The visualized lung bases are unremarkable. LIVER, GALLBLADDER, AND BILIARY TREE: The liver is normal in size, smooth in contour, and normal in signal. No focal hepatic lesion or biliary ductal dilatation is present. The gallbladder is unremarkable with no evidence of gallbladder wall thickening, or obvious pericholecystic inflammatory changes. PANCREAS: Unremarkable. SPLEEN: Normal. ADRENAL GLANDS: Normal. KIDNEYS AND URETERS: The kidneys are normal in size and shape. There are small bilateral renal cysts. No hydronephrosis. GASTROINTESTINAL TRACT: No bowel obstruction. No ascites or fluid collection. ABDOMINAL WALL: Small ventral hernia containing fat. LYMPH NODES: No lymphadenopathy. VASCULAR: Unremarkable. OSSEOUS STRUCTURES: Marrow signal normal. Degenerative changes of the spine. MR/MR abdomen wo/w con IMPRESSION: Normal-appearing pancreas. No pancreatic head mass. Small bilateral renal cysts.
--- NOTE | ~2021-12-22 | CT_ITS ---
EXAMINATION: CT ABDOMEN AND PELVIS WITHOUT CONTRAST CLINICAL INFORMATION: Abdominal pain COMPARISON: CT abdomen pelvis 02/14/2021 TECHNIQUE: Multidetector volumetric imaging was performed from the superior aspect of the liver through the pubic symphysis. Sagittal and coronal reformatted images were obtained on the technologist's workstation. This CT examination was performed using dose optimization techniques as appropriate, variously including the following: *Automated exposure control *Adjustment of mA and/or kV according to patient size (this includes techniques or standardized protocols for targeted exams where dose is matched to indication/reason for exam; i.e. extremities or head) *Use of iterative reconstruction technique DLP: 1148 mGy-cm FINDINGS: LUNG BASES: The visualized lung bases are unremarkable aside from bibasilar atelectasis.. LIVER, GALLBLADDER, AND BILIARY TREE: The liver is normal in size, shape, and attenuation. No focal hepatic lesion or biliary ductal dilatation is present. The gallbladder is unremarkable with no evidence of radiopaque gallstones, gallbladder wall thickening, or obvious pericholecystic inflammatory changes. PANCREAS: There is a 2.2 x 1.7 cm possible mass in the pancreatic head (3:37). Further evaluation is recommended MRI/MRCP. Endoscopic ultrasound would be another alternative. No pancreatic duct dilatation is seen. SPLEEN: Unremarkable. ADRENAL GLANDS: Unremarkable. KIDNEYS AND URETERS: On the right, there is a nonobstructing distal ureteral calculus measuring 3 mm about 6 mm above the right ureterovesical junction. There is mild associated ureterectasis and right-sided pelvocaliectasis with perinephric stranding. The previously seen obstructing distal left ureteral calculus at the time of the 02/14/2021 study is no longer present. The kidneys are normal in size, shape, and attenuation. No left-sided hydronephrosis, left side hydroureter, or intrarenal calculi seen. BLADDER: Unremarkable. GASTROINTESTINAL TRACT: The small and large bowel are unremarkable. There is no evidence of appendicitis. ABDOMINAL WALL: There is a small supraumbilical epigastric hernia containing only fat. LYMPH NODES: No retroperitoneal lymphadenopathy. VASCULAR: Minimal calcific plaque present in the aorta without aneurysm. PELVIC VISCERA: Unremarkable. OSSEOUS STRUCTURES: Mild degenerative changes present in the spine. No bony destructive lesions CT/CT abdomen pelvis wo con IMPRESSION: 1. Obstructing 3 mm right ureteral calculus 6 cm above the UVJ. 2. Question of pancreatic carcinoma and follow-up as described above is recommended. Fleischner guidelines were followed.
--- NOTE | ~2021-12-22 | XR_ITS ---
EXAMINATION: XR CHEST CLINICAL INFORMATION: Abdominal pain COMPARISON: None TECHNIQUE: 2 views of the chest were obtained. FINDINGS: Aside from some minimal basilar atelectasis, significant abnormality is noted involving the heart, lungs, mediastinum, bony thorax or soft tissues. No free intraperitoneal air is seen beneath the diaphragm XR/XR chest 2V IMPRESSION: No acute intrathoracic disease
--- NOTE | ~2021-12-22 | XR_ITS ---
EXAMINATION: XR CHEST CLINICAL INFORMATION: Confirmed TLC placement COMPARISON: None TECHNIQUE: Frontal view of the chest was obtained. FINDINGS: There is new right central venous catheter in right atrium. There is moderate cardiomegaly pulmonary vascularity is slightly prominent question mild congestion. The lungs are clear with minimal haziness in lung bases. No gross bony abnormality seen. XR/XR chest 1V IMPRESSION: Cardiomegaly with mild pulmonary vascular congestion. New right jugular central venous catheter in right atrium. The lungs are hypoexpanded.
--- NOTE | ~2021-12-22 | FL_ITS ---
EXAMINATION: XR FLUOROSCOPY WITH IMAGES CLINICAL INFORMATION: Right ureteral stones COMPARISON: CT of December 22, 2021 TECHNIQUE: Fluoroscopy performed by Dr. Frank Pace. Fluoroscopy time: 95.9 seconds 57.88 mGy Images: 1 FINDINGS: C-arm image demonstrates catheter overlying the right upper collecting system with some contrast present without evidence of hydronephrosis. FL/FL guidance in OR IMPRESSION: Intraoperative fluoroscopy for urologic procedure.
--- NOTE | ~2021-12-22 | XR_ITS ---
EXAMINATION: XR CHEST CLINICAL INFORMATION: Indeterminate. COMPARISON: Chest radiograph done earlier today at 9:47 AM. TECHNIQUE: AP view of the chest was obtained. FINDINGS: Unchanged prominence of the cardiomediastinal silhouette. Nonspecific curvilinear radiopacity projecting over the left aspect of the cardiomediastinal silhouette, likely artifactual, not identified on prior. Low lung volumes limiting evaluation of the lung bases. There is central vascular engorgement and diffuse interstitial prominence. No dense consolidation. No significant pleural effusion or pneumothorax. No acute osseous abnormalities. XR/XR chest 1V IMPRESSION: Central vascular engorgement and reticulation possibly accentuated by poor inspiratory effort and related with bronchovascular crowding. However, this could be seen with pulmonary edema or atypical infections as well. Indeterminate curvilinear radiopacity projecting over the left aspect of the cardiomediastinal silhouette likely representing an artifact, as it was not visualized on radiograph from earlier today. This could be follow-up on subsequent examinations.
--- NOTE | 2021-12-22 08:45 | ED_ITS ---
HPI - General Adult General Chief complaint: Abdominal Pain Stated complaint: ABDOMINAL PAIN Time Seen by Provider: 12/22/21 08:43 Source: patient and EMS Mode of arrival: EMS Limitations: no limitations History of Present Illness HPI narrative: Patient is a 76 year old male presenting to the emergency department today with abdominal pain, nausea, vomiting, and right flank pain. Patient states that all of his symptoms started last night and has been bothering him all night. EMS gave the patient 100mcg of Fentanyl prior to arrival. Patient denies any dizziness, lightheadedness, chills, blurry vision, double vision, loss of vision, chest pain, difficulty breathing, shortness of breath, back pain, night sweats, pain with urination, increased urinary frequency, increased urinary urgency, blood in his urine or stool, syncope or a near syncopal episode, recent trauma or falls, bowel incontinence, bladder incontinence, bowel retention, bladder retention, or any other complaints at this time. Onset (ago): hour(s) Location: abdomen (right flank) Radiation: non-radiation Severity: mild Severity scale (1-10): 5 Quality: sharp and constant Pain Consistency: intermittent Relieving factors: none Exacerbating factors: none Associated symptoms: nausea/vomiting Treatments prior to arrival: none Related Data Home Medications Medication Instructions Recorded Confirmed duloxetine 30 mg capsule,delayed 1 cap PO QPM 02/14/21 02/14/21 release glipizide 5 mg tablet 10 mg PO BID 02/14/21 02/14/21 metformin 850 mg tablet 1 tab PO BID 02/14/21 02/14/21 pantoprazole 40 mg tablet,delayed 1 tab PO QPM 02/14/21 02/14/21 release simvastatin 20 mg tablet 1 tab PO QPM 02/14/21 02/14/21 sitagliptin 100 mg tablet (Januvia) 1 tab PO DAILY 02/14/21 02/14/21 ketorolac 0.5 % eye drops 1 drp ophthalmic (eye) 02/24/21 blood sugar diagnostic (Accu-Chek #10 ea 04/08/21 Megan Plus test strp) lancets (Accu-Chek Softclix #100 ea 04/08/21 Lancets) lisinopril 10 mg tablet 10 mg PO DAILY 10/05/21 methocarbamol 750 mg tablet 1 tab PO BID PRN Muscle Pain 12/22/21 Previous Rx's Medication Instructions Recorded pyridoxine (vitamin B6) 100 mg 100 mg PO DAILY 90 days #90 tabs 04/08/21 tablet tamsulosin 0.4 mg capsule 0.4 mg PO DAILY 14 days #14 caps 12/20/21 Allergies Allergy/AdvReac Type Severity Reaction Status Date / Time No Known Allergies Allergy Verified 10/05/21 09:36 Review of Systems Constitutional: Constitutional: Reports no additional constitutional com plaints, Denies chills, Denies fever(s) and Denies night sweats Eyes: Eyes: Reports no additional eye complaints, Denies blurry vision, Denies change in vision, Denies diplopia, Denies eye discharge, Denies loss of vision and Denies eye pain ENT: Denies dizziness Cardiovascular: Cardiovascular: Reports no additional cardiovascular complaints, Denies chest pain, Denies lightheadedness, Denies Loss of Consciousness and Denies dyspnea Respiratory: Respiratory: Reports no additional respiratory complaints and Denies dyspnea Gastrointestinal: Gastrointestinal: Reports no additional gastrointestinal complaints, Reports abdominal pain (right flank pain), Denies melena, Denies hematochezia, Denies change in bowel habits, Denies change in stool character, Reports nausea and Reports vomiting Genitourinary: Genitourinary: Reports no additional male genitourinary complaints, Denies hematuria, Denies oliguria, Denies difficulty urinating, Denies dysuria, Denies urinary frequency, Denies urinary hesitancy, Denies urinary incontinence and Denies urinary urgency Musculoskeletal: Musculoskeletal: Reports no additional musculoskeletal complaints, Denies numbness and Denies tingling Neurologic: Denies dizziness, Denies loss of vision, Denies numbness and Denies tingling Psychiatric: Psychiatric: Reports no additional psychiatric complaints Endocrine: Endocrine: Reports no additional endocrine complaints Hematologic/Lymphatic: Hematologic/Lymphatic: Reports no additional hematologic/lymphatic complaints Allergic/Immunologic: Allergic/Immunologic: Reports no additional allergic/immunologic complaints PMFSH Past Medical History Attestation statement: The following information was validated with the patient. Source: old records reviewed Medical History Diabetes 1.5, managed as type 2 H/O renal calculi HLD (hyperlipidemia) HTN (hypertension), benign Family History Family History Father COPD (chronic obstructive pulmonary disease) Mother Heart disease Social History Social History Household Members: Spouse Housing: House Patient Tobacco Use Status: Never used Tobacco Advance Directives: Yes Advance Directives Information Provided: Yes Advance Directives on File: No Advance Directives Date on File: 02/15/21 Current occupational status: retired Physical Exam ED Vital Signs: Vital Signs - 24 hr 12/22/21 08:42 12/22/21 08:58 12/22/21 10:24 Temperature 99.9 F 99.8 F 98.4 F Pulse Rate 120 H 119 H 112 H Respiratory Rate 20 18 18 Blood Pressure 95/57 L 94/57 L 96/49 L Pulse Oximetry 90 L 94 96 Oxygen Delivery Method Room Air Nasal Cannula Nasal Cannula Oxygen Flow Rate 2 2 12/22/21 11:06 12/22/21 13:07 12/22/21 13:16 Temperature 98.7 F 98.2 F Pulse Rate 110 H 112 H 108 H Respiratory Rate 18 18 18 Blood Pressure 104/53 L 105/57 L 104/62 Pulse Oximetry 95 95 96 Oxygen Delivery Method Nasal Cannula Nasal Cannula Nasal Cannula Oxygen Flow Rate 2 2 2 BMI result Body Mass Index 34.9 Const General: cooperative, no acute distress, alert and awake Nutritional Appearance: well nourished Orientation/consciousness: patient oriented x3 Limitations: no limitations HENMT Head: Yes normal to inspection and Yes atraumatic Ears: hearing grossly normal bilaterally and external ears normal General nose exam: Normal external nose present, no nasal discharge noted and no epistaxis Face and sinus: Yes normal facial exam, No abrasion and No laceration Mouth: Normal oral and palatal mucosa present, no drooling and no muffled voice Eyes General: appearance normal, both eyes and all related structures Periorbital: periorbital findings normal Eyelids: Yes eyelids normal Conjunctivae: conjunctivae normal Pupils: Equal, round and reactive pupils present EOM: EOMs intact bilaterally Neck Neck: Yes normal visual inspection, Yes full ROM and Yes no lymphadenopathy Chest Chest palpation & inspection: normal inspection of the chest Resp Effort & Inspection: normal respiratory effort and able to speak in complete sentences Auscultation: clear to auscultation bilaterally Cardio Rate: tachycardic Rhythm: regular rhythm GI Inspection: Yes normal to inspection Palpation (GI): Soft to palpation, not firm, nontender, no guarding and not rigid Neuro General: patient oriented x3 and moves all extremities Cranial nerves: Yes Equal, round and reactive pupils present Cognition (Neuro): normal cognition Motor exam (neuro): 5/5 motor strength present throughout Sensory Exam: Normal double simultaneous stimulation for sensation Coordination: [id number] test normal Extrem General: Yes normal to inspection, Yes full ROM and Yes capillary refill normal Psych Appearance: grossly normal Mental Status: mental status grossly normal Affect: normal affect Attitude: cooperative Thought process: Normal thought process present Thought content: Normal thought content present Insight: Good insight present (Psych) Medical Decision Making MDM Narrative Medical decision making narrative: Patient is a 76 year old male presenting to the emergency department today with right sided flank pain, nausea, and vomiting. Patient's physical exam showed a febrile and tachycardic individual. Patient's blood work showed an elevated WBC count at 12.9, an elevated lactic acid if 6.0, and an elevated CR of 2.80. Patient's urine showed leuks with 30-49 WBCs. Patient's EKG was unremarkable. Patient's chest x-ray showed no acute process. Patient's abdominal CT showed a 3mm stone on the right that is obstructing as well as a possible pancreatic carcinoma. Patient was initially hypoxic however, I believe that to be secondary to the 100mcg of fentanyl given and not the patient's status. I explained my physical exam findings as well as all test results to the patient. I answered al l questions asked by the patient. Patient was called a sepsis alert as soon as he arrived with adequate IV fluids, labs, and antibiotic ordered. I spoke to Dr. Sanchez, who agreed to hospital admission. I spoke to Dr. Pace, who stated that the patient should remain NPO and that he will see the patient today. Patient verbalized agreement and understanding with this treatment plan and admission. Differential Diagnosis Differential Diagnosis: Obstructing renal stone, pancreatic mass, sepsis Medical Records Medical records reviewed: Yes I reviewed the patient's medical records. Lab Data Lab results reviewed: Yes I reviewed the patient's lab results. Result diagrams: 12/22/21 09:20 12/22/21 09:20 Labs: Lab Results 06/30/22 06/30/22 06/30/22 Range/Units 09:20 09:20 09:20 WBC 12.9 H (4.8-10.8) X10*3/uL RBC 3.94 L (4.60-5.80) X10*6/uL Hgb 12.9 L (14.0-18.0) g/dl Hct 37.8 L (42.0-52.0) % MCV 95.9 (80.0-98.0) fL MCH 32.7 (27.0-33.0) pg MCHC 34.1 (31.0-36.0) g/dl RDW 12.8 (11.0-16.0) % Plt Count 163 (160-400) X10*3/uL MPV 10.0 (9.4-12.4) fL Immature Gran % (Auto) Cancelled Neut % (Auto) Cancelled Lymph % (Auto) Cancelled [place] % (Auto) Cancelled Eos % (Auto) Cancelled Baso % (Auto) Cancelled Lymph # (Auto) Cancelled [place] # (Auto) Cancelled Eos # (Auto) Cancelled Baso # (Auto) Cancelled Abs Immat Gran (auto) Cancelled Absolute Neuts (auto) Cancelled Absolute Nucleated RBC 0.000 (0.0-0.012) X10*3/uL Nucleated RBC % (auto) 0.0 (0.0-0.2) /100WBC Neutrophils % (Manual) 67 (45-73) % Band Neutrophils % 27 H (3-5) % Lymphocytes % (Manual) 2 L (20-40) % Monocytes % (Manual) 2 (2-11) % Metamyelocytes % 2 % Abs Neuts (Manual) 12.1 H (2.0-8.3) X10*3/uL Lymphocytes # (Manual) 0.3 L (1.2-4.9) X10*3/uL Monocytes # (Manual) 0.3 (0.1-1.2) X10*3/uL Metamyelocytes # 0.3 X10*3/uL Toxic Vacuolation PRESENT Dohle Bodies PRESENT Platelet Estimate NORMAL (NORMAL) Plt Morphology Comment NORMAL RBC Morphology NOTED Hypochromasia 1+ (5-14) /OIF Ovalocytes 1+ (5-14) /OIF PT 12.9 (10.0-13.1) SEC INR 1.1 (0.9-1.1) APTT 22.5 L (24.1-38.0) SEC VBG pH (7.32-7.43) VBG pCO2 mmHg VBG pO2 mmHg VBG HCO3 (22-26) mmol/L VBG O2 Saturation % VBG Base Excess mmol/L Sodium 136 (135-145) mmol/L Potassium 5.2 H D (3.3-5.1) mmol/L Chloride 103 (96-108) mmol/L Carbon Dioxide 20 L (22-29) mmol/L Anion Gap 18 (12-20) BUN 28 H (9-16) mg/dL Creatinine 2.80 H (0.5-1.4) mg/dL Estim Creat Clear Calc 27.0 Estimated GFR 22 Random Glucose 295 H D (60-115) mg/dL Lactic Acid (0.5-2.0) mmol/L Lactic Acid F/U @ 2Hr (0.5-2.0) mmol/L Calcium 8.5 (8.4-10.2) mg/dL Total Bilirubin 2.3 H (0.0-1.0) mg/dL AST 16 (5-37) U/L ALT 18 (0-40) U/L Alkaline Phosphatase 74 (39-117) U/L Total Creatine Kinase 91 (38-174) U/L Troponin I High Sens (<3.5-35.0) ng/L B-Natriuretic Peptide (<100) pg/mL Total Protein 6.1 L (6.5-8.0) g/dL Albumin 3.7 (3.5-5.0) g/dL Lipase 22 (8-78) U/L Urine Color Urine Appearance Urine pH (5.0-8.0) Ur Specific [place] (1.005-1.025) Urine Protein (NEG-TRACE) MG/DL Urine Glucose (UA) (NEG) MG/DL Urine Ketones (NEG) MG/DL Urine Blood (NEG) Urine Nitrite (NEG) Ur Leukocyte Esterase (NEG) Urine RBC (0) /HPF Urine WBC (0-4) /HPF Ur Squamous Epith Cells /LPF Urine Bacteria /LPF Urine Mucus /LPF COVID-19 (CHRISTIE) (Negative) COVID-19 Clin Com Influenza Type A (DAVIAN) (Negative) Influenza Type B (DAVIAN) (Negative) Influenza A & B Note 12/22/21 12/22/21 12/22/21 Range/Units 09:20 09:20 09:20 WBC (4.8-10.8) X10*3/uL RBC (4.60-5.80) X10*6/uL Hgb (14.0-18.0) g/dl Hct (42.0-52.0) % MCV (80.0-98.0) fL MCH (27.0-33.0) pg MCHC (31.0-36.0) g/dl RDW (11.0-16.0) % Plt Count (160-400) X10*3/uL MPV (9.4-12.4) fL Immature Gran % (Auto) Neut % (Auto) Lymph % (Auto) [place] % (Auto) Eos % (Auto) Baso % (Auto) Lymph # (Auto) [place] # (Auto) Eos # (Auto) Baso # (Auto) Abs Immat Gran (auto) Absolute Neuts (auto) Absolute Nucleated RBC (0.0-0.012) X10*3/uL Nucleated RBC % (auto) (0.0-0.2) /100WBC Neutrophils % (Manual) (45-73) % Band Neutrophils % (3-5) % Lymphocytes % (Manual) (20-40) % Monocytes % (Manual) (2-11) % Metamyelocytes % % Abs Neuts (Manual) (2.0-8.3) X10*3/uL Lymphocytes # (Manual) (1.2-4.9) X10*3/uL Monocytes # (Manual) (0.1-1.2) X10*3/uL Metamyelocytes # X10*3/uL Toxic Vacuolation Dohle Bodies Platelet Estimate (NORMAL) Plt Morphology Comment RBC Morphology Hypochromasia /OIF Ovalocytes /OIF PT (10.0-13.1) SEC INR (0.9-1.1) APTT (24.1-38.0) SEC VBG pH (7.32-7.43) VBG pCO2 mmHg VBG pO2 mmHg VBG HCO3 (22-26) mmol/L VBG O2 Saturation % VBG Base Excess mmol/L Sodium (135-145) mmol/L Potassium (3.3-5.1) mmol/L Chloride (96-108) mmol/L Carbon Dioxide (22-29) mmol/L Anion Gap (12-20) BUN (9-16) mg/dL Creatinine (0.5-1.4) mg/dL Estim Creat Clear Calc Estimated GFR Random Glucose (60-115) mg/dL Lactic Acid 6.0 H* (0.5-2.0) mmol/L Lactic Acid F/U @ 2Hr (0.5-2.0) mmol/L Calcium (8.4-10.2) mg/dL Total Bilirubin (0.0-1.0) mg/dL AST (5-37) U/L ALT (0-40) U/L Alkaline Phosphatase (39-117) U/L Total Creatine Kinase (38-174) U/L Troponin I High Sens 58.0 H (<3.5-35.0) ng/L B-Natriuretic Peptide 177 H (<100) pg/mL Total Protein (6.5-8.0) g/dL Albumin (3.5-5.0) g/dL Lipase (8-78) U/L Urine Color Urine Appearance Urine pH (5.0-8.0) Ur Specific [place] (1.005-1.025) Urine Protein (NEG-TRACE) MG/DL Urine Glucose (UA) (NEG) MG/DL Urine Ketones (NEG) MG/DL Urine Blood (NEG) Urine Nitrite (NEG) Ur Leukocyte Esterase (NEG) Urine RBC (0) /HPF Urine WBC (0-4) /HPF Ur Squamous Epith Cells /LPF Urine Bacteria /LPF Urine Mucus /LPF COVID-19 (CHRISTIE) (Negative) COVID-19 Clin Com Influenza Type A (DAVIAN) Negative (Negative) Influenza Type B (DAVIAN) Negative (Negative) Influenza A & B Note See Note 12/22/21 12/22/21 12/22/21 Range/Units 09:20 09:30 11:18 WBC (4.8-10.8) X10*3/uL RBC (4.60-5.80) X10*6/uL Hgb (14.0-18.0) g/dl Hct (42.0-52.0) % MCV (80.0-98.0) fL MCH (27.0-33.0) pg MCHC (31.0-36.0) g/dl RDW (11.0-16.0) % Plt Count (160-400) X10*3/uL MPV (9.4-12.4) fL Immature Gran % (Auto) Neut % (Auto) Lymph % (Auto) [place] % (Auto) Eos % (Auto) Baso % (Auto) Lymph # (Auto) [place] # (Auto) Eos # (Auto) Baso # (Auto) Abs Immat Gran (auto) Absolute Neuts (auto) Absolute Nucleated RBC (0.0-0.012) X10*3/uL Nucleated RBC % (auto) (0.0-0.2) /100WBC Neutrophils % (Manual) (45-73) % Band Neutrophils % (3-5) % Lymphocytes % (Manual) (20-40) % Monocytes % (Manual) (2-11) % Metamyelocytes % % Abs Neuts (Manual) (2.0-8.3) X10*3/uL Lymphocytes # (Manual) (1.2-4.9) X10*3/uL Monocytes # (Manual) (0.1-1.2) X10*3/uL Metamyelocytes # X10*3/uL Toxic Vacuolation Dohle Bodies Platelet Estimate (NORMAL) Plt Morphology Comment RBC Morphology Hypochromasia /OIF Ovalocytes /OIF PT (10.0-13.1) SEC INR (0.9-1.1) APTT (24.1-38.0) SEC VBG pH 7.28 L (7.32-7.43) VBG pCO2 41 mmHg VBG pO2 38 mmHg VBG HCO3 20 L (22-26) mmol/L VBG O2 Saturation 59.0 % VBG Base Excess -6.3 mmol/L Sodium (135-145) mmol/L Potassium (3.3-5.1) mmol/L Chloride (96-108) mmol/L Carbon Dioxide (22-29) mmol/L Anion Gap (12-20) BUN (9-16) mg/dL Creatinine (0.5-1.4) mg/dL Estim Creat Clear Calc Estimated GFR Random Glucose (60-115) mg/dL Lactic Acid (0.5-2.0) mmol/L Lactic Acid F/U @ 2Hr (0.5-2.0) mmol/L Calcium (8.4-10.2) mg/dL Total Bilirubin (0.0-1.0) mg/dL AST (5-37) U/L ALT (0-40) U/L Alkaline Phosphatase (39-117) U/L Total Creatine Kinase (38-174) U/L Troponin I High Sens 46.7 H (<3.5-35.0) ng/L B-Natriuretic Peptide (<100) pg/mL Total Protein (6.5-8.0) g/dL Albumin (3.5-5.0) g/dL Lipase (8-78) U/L Urine Color Urine Appearance Urine pH (5.0-8.0) Ur Specific [place] (1.005-1.025) Urine Protein (NEG-TRACE) MG/DL Urine Glucose (UA) (NEG) MG/DL Urine Ketones (NEG) MG/DL Urine Blood (NEG) Urine Nitrite (NEG) Ur Leukocyte Esterase (NEG) Urine RBC (0) /HPF Urine WBC (0-4) /HPF Ur Squamous Epith Cells /LPF Urine Bacteria /LPF Urine Mucus /LPF COVID-19 (CHRISTIE) Negative (Negative) COVID-19 Clin Com See Note Influenza Type A (DAVIAN) (Negative) Influenza Type B (DAVIAN) (Negative) Influenza A & B Note 12/22/21 12/22/21 Range/Units 11:55 11:55 WBC (4.8-10.8) X10*3/uL RBC (4.60-5.80) X10*6/uL Hgb (14.0-18.0) g/dl Hct (42.0-52.0) % MCV (80.0-98.0) fL MCH (27.0-33.0) pg MCHC (31.0-36.0) g/dl RDW (11.0-16.0) % Plt Count (160-400) X10*3/uL MPV (9.4-12.4) fL Immature Gran % (Auto) Neut % (Auto) Lymph % (Auto) [place] % (Auto) Eos % (Auto) Baso % (Auto) Lymph # (Auto) [place] # (Auto) Eos # (Auto) Baso # (Auto) Abs Immat Gran (auto) Absolute Neuts (auto) Absolute Nucleated RBC (0.0-0.012) X10*3/uL Nucleated RBC % (auto) (0.0-0.2) /100WBC Neutrophils % (Manual) (45-73) % Band Neutrophils % (3-5) % Lymphocytes % (Manual) (20-40) % Monocytes % (Manual) (2-11) % Metamyelocytes % % Abs Neuts (Manual) (2.0-8.3) X10*3/uL Lymphocytes # (Manual) (1.2-4.9) X10*3/uL Monocytes # (Manual) (0.1-1.2) X10*3/uL Metamyelocytes # X10*3/uL Toxic Vacuolation Dohle Bodies Platelet Estimate (NORMAL) Plt Morphology Comment RBC Morphology Hypochromasia /OIF Ovalocytes /OIF PT (10.0-13.1) SEC INR (0.9-1.1) APTT (24.1-38.0) SEC VBG pH (7.32-7.43) VBG pCO2 mmHg VBG pO2 mmHg VBG HCO3 (22-26) mmol/L VBG O2 Saturation % VBG Base Excess mmol/L Sodium (135-145) mmol/L Potassium (3.3-5.1) mmol/L Chloride (96-108) mmol/L Carbon Dioxide (22-29) mmol/L Anion Gap (12-20) BUN (9-16) mg/dL Creatinine (0.5-1.4) mg/dL Estim Creat Clear Calc Estimated GFR Random Glucose (60-115) mg/dL Lactic Acid (0.5-2.0) mmol/L Lactic Acid F/U @ 2Hr 4.9 H* (0.5-2.0) mmol/L Calcium (8.4-10.2) mg/dL Total Bilirubin (0.0-1.0) mg/dL AST (5-37) U/L ALT (0-40) U/L Alkaline Phosphatase (39-117) U/L Total Creatine Kinase (38-174) U/L Troponin I High Sens (<3.5-35.0) ng/L B-Natriuretic Peptide (<100) pg/mL Total Protein (6.5-8.0) g/dL Albumin (3.5-5.0) g/dL Lipase (8-78) U/L Urine Color DK YELLOW Urine Appearance CLOUDY Urine pH 5.5 (5.0-8.0) Ur Specific [place] >= 1.030 H (1.005-1.025) Urine Protein 2+ H (NEG-TRACE) MG/DL Urine Glucose (UA) NEG (NEG) MG/DL Urine Ketones 15 (NEG) MG/DL Urine Blood 2+ H (NEG) Urine Nitrite NEG (NEG) Ur Leukocyte Esterase 1+ H (NEG) Urine RBC 1-4 (0) /HPF Urine WBC 30-49 H (0-4) /HPF Ur Squamous Epith Cells 1+ /LPF Urine Bacteria 2+ /LPF Urine Mucus 2+ /LPF COVID-19 (CHRISTIE) (Negative) COVID-19 Clin Com Influenza Type A (DAVIAN) (Negative) Influenza Type B (DAVIAN) (Negative) Influenza A & B Note Imaging Data Chest x-ray: Attestation: I personally reviewed and interpreted this imaging study as follows: My impression: No acute process. Radiologist's impression: EXAMINATION: XR CHEST CLINICAL INFORMATION: Abdominal pain COMPARISON: None TECHNIQUE: 2 views of the chest were obtained. FINDINGS: Aside from some minimal basilar atelectasis, significant abnormality is noted involving the heart, lungs, mediastinum, bony thorax or soft tissues. No free intraperitoneal air is seen beneath the diaphragm XR/XR chest 2V IMPRESSION: No acute intrathoracic disease Dictated By: Donato Collins MD Signed By: Electronically signed by Donato Collins MD 12/22/[address] scan - abdomen: Attestation: I personally reviewed and interpreted this imaging study as follows: My impression: 3mm stone on the right causing obstruction Radiologist's impression: EXAMINATION: CT ABDOMEN AND PELVIS WITHOUT CONTRAST? CLINICAL INFORMATION: Abdominal pain? COMPARISON: CT abdomen pelvis 02/14/2021? TECHNIQUE: Multidetector volumetric imaging was performed from the superior aspect of the liver through the pubic symphysis. Sagittal and coronal reformatted images were obtained on the technologist's workstation.? This CT examination was performed using dose optimization techniques as appropriate, variously including the following: *Automated exposure control *Adjustment of mA and/or kV according to patient size (this includes techniques or standardized protocols for targeted exams where dose is matched to indication/reason for exam; i.e. extremities or head) *Use of iterative reconstruction technique DLP: 1148 mGy-cm FINDINGS: LUNG BASES: The visualized lung bases are unremarkable aside from bibasilar atelectasis..? LIVER, GALLBLADDER, AND BILIARY TREE: The liver is normal in size, shape, and attenuation. No focal hepatic lesion or biliary ductal dilatation is present. The gallbladder is unremarkable with no evidence of radiopaque gallstones, gallbladder wall thickening, or obvious pericholecystic inflammatory changes.? PANCREAS: There is a 2.2 x 1.7 cm possible mass in the pancreatic head (3:37).? Further evaluation is recommended MRI/MRCP. Endoscopic ultrasound would be another alternative. No pancreatic duct dilatation is seen. SPLEEN: Unremarkable.? ADRENAL GLANDS: Unremarkable.? KIDNEYS AND URETERS: On the right, there is a nonobstructing distal ureteral calculus measuring 3 mm about 6 mm above the right ureterovesical junction. There is mild associated ureterectasis and right-sided pelvocaliectasis with perinephric stranding. The previously seen obstructing distal left ureteral calculus at the time of the 02/14/2021 study is no longer present. The kidneys are normal in size, shape, and attenuation. No left-sided hydronephrosis, left side hydroureter, or intrarenal calculi seen.? ? BLADDER: Unremarkable.? GASTROINTESTINAL TRACT: The small and large bowel are unremarkable. There is no evidence of appendicitis.? ABDOMINAL WALL: There is a small supraumbilical epigastric hernia containing only fat.? LYMPH NODES: No retroperitoneal lymphadenopathy. VASCULAR: Minimal calcific plaque present in the aorta without aneurysm. PELVIC VISCERA: Unremarkable.? OSSEOUS STRUCTURES: Mild degenerative changes present in the spine. No bony destructive lesions? CT/CT abdomen pelvis wo con IMPRESSION: 1.? Obstructing 3 mm right ureteral calculus 6 cm above the UVJ. 2.? Question of pancreatic carcinoma and follow-up as described above is recommended.? ? Fleischner guidelines were followed. Dictated By: Donato Collins MD Signed By: Electronically signed by Donato Collins MD 12/22/21 1103 ECG Data Attestation: I personally reviewed and interpreted this ECG as follows: Prior ECG tracings: not available for review Interpretation: Vent. Rate: 118 BPM ? ? Atrial Rate: 118 BPM P-R Int: 232 ms? QRS Dur: 098 ms QT Int: 306 ms ? ? ? P-R-T Axes: 000 -38 021 degrees QTc Int: 428 ms ? Sinus tachycardia with 1st degree A-V block Left axis deviation Abnormal ECG No previous ECGs available DD/ [id number] Critical Care Time Critical Care Time Critical Care Time: Yes Total Critical Care Time: 30 Attestation: I spent 30 minutes of Critical Care Time with this patient. This does not include time spent on separately reported billable procedures. Discharge Plan Discharge Clinical Impression: Sepsis, Calculus, renal, Acute pyelonephritis, Pancreatic neoplasm Patient Disposition: Admitted As Inpatient Prescriptions: No Action tamsulosin 0.4 mg capsule 0.4 mg PO DAILY 14 Days Qty: 14 0RF metformin 850 mg tablet 1 tab PO BID Rx Instructions: WITH MEALS pantoprazole 40 mg tablet,delayed release (DR/EC) 1 tab PO QPM simvastatin 20 mg tablet 1 tab PO QPM glipizide 5 mg tablet 10 mg PO BID duloxetine 30 mg capsule,delayed release(DR/EC) 1 cap PO QPM Januvia 100 mg tablet 1 tab PO DAILY methocarbamol 750 mg tablet 1 tab PO BID PRN (Reason: Muscle Pain) ketorolac 0.5 % drops 1 drp ophthalmic (eye) (DME) Accu-Chek Megan Plus test strp Strip See Rx Instructions Not Applicable TID Qty: 10 Rx Instructions: As directed (DME) lancets [Accu-Chek Softclix Lancets] Misc See Rx Instructions topical BID-TID Qty: 100 Rx Instructions: As directed pyridoxine (vitamin B6) 100 mg tablet 100 mg PO DAILY 90 Days Qty: 90 1RF lisinopril 10 mg tablet 10 mg PO DAILY Print Language: [place]
--- NOTE | 2021-12-22 08:58 | ECG_ITS ---
Test Reason : weakness/fever Blood Pressure : / mmHG Vent. Rate : 118 BPM Atrial Rate : 118 BPM P-R Int : 232 ms QRS Dur : 098 ms QT Int : 306 ms P-R-T Axes : 000 -38 021 degrees QTc Int : 428 ms Sinus tachycardia with 1st degree A-V block Left axis deviation Abnormal ECG No previous ECGs available Referred By: Cami Coffman Electronically Signed By:JAMIE GARCIA
[2021-12-22] MEDS: ondansetron HCL 4 MG/2 ML VIAL IVPUSH (09:13)
[2021-12-22] MEDS: 0.9 % Sodium Chloride 3,129.78 ML 3129.78 ML IV (09:13)
[2021-12-22 09:34] LABS: VBG Base Excess -6.3 mmol/L; VBG HCO3 20 mmol/L (22-26); VBG pCO2 41 mmHg; VBG pH 7.28 (7.32-7.43); VBG pO2 38 mmHg
[2021-12-22 09:38] LABS: Venous Blood Gas Refer to POC result
[2021-12-22 09:40] LABS: Hematocrit 37.8 % (42.0-52.0); Hemoglobin 12.9 g/dl (14.0-18.0); Mean Corpuscular HGB Conc 34.1 g/dl (31.0-36.0); Mean Corpuscular Hemoglobin 32.7 pg (27.0-33.0); Mean Corpuscular Volume 95.9 fL (80.0-98.0); Platelet Count 163 X10*3/uL (160-400); Red Blood Count 3.94 X10*6/uL (4.60-5.80); Red Cell Distribution Width 12.8 % (11.0-16.0); White Blood Count 12.9 X10*3/uL (4.8-10.8)
[2021-12-22 09:52] LABS: INTERNATIONAL NORM RATIO 1.1 (0.9-1.1); Prothrombin Time 12.9 SEC (10.0-13.1)
[2021-12-22 09:56] LABS: Partial Thromboplastin Time 22.5 SEC (24.1-38.0)
[2021-12-22 10:00] LABS: Alanine Aminotransferase 18 U/L (0-40); Albumin Level 3.7 g/dL (3.5-5.0); Alkaline Phosphatase 74 U/L (39-117); Anion Gap 18 (12-20); Aspartate Amino Transferase 16 U/L (5-37); Bilirubin Total 2.3 mg/dL (0.0-1.0); Blood Urea Nitrogen 28 mg/dL (9-16); Calcium 8.5 mg/dL (8.4-10.2); Carbon Dioxide 20 mmol/L (22-29); Chloride 103 mmol/L (96-108); Estimated Glomerular Filt Rate 22; Glucose Random 295 mg/dL (60-115); Potassium 5.2 mmol/L (3.3-5.1); Sodium 136 mmol/L (135-145); Total Protein 6.1 g/dL (6.5-8.0)
[2021-12-22 10:01] LABS: Band Neutrophils Percent 27 % (3-5); Lymphocytes Absolute Manual 0.3 X10*3/uL (1.2-4.9); Lymphocytes Percent Manual 2 % (20-40); Metamyelocytes Absolute 0.3 X10*3/uL; Metamyelocytes Percent 2 %; Monocytes Absolute Manual 0.3 X10*3/uL (0.1-1.2); Monocytes Percent Manual 2 % (2-11); Neutrophils Absolute Manual 12.1 X10*3/uL (2.0-8.3); Neutrophils Percent Manual 67 % (45-73)
[2021-12-22 10:07] LABS: B Type Natriuretic Peptide 177 pg/mL (<100)
[2021-12-22 10:09] LABS: COVID-19 Test Negative (Negative); IDNOW Serial# 9DB6401D
[2021-12-22 10:10] LABS: Hypochromasia 1+ (5-14) /OIF; Influenza A Negative (Negative); Influenza B2 Negative (Negative); RBC Morphology NOTED
[2021-12-22 10:11] LABS: Dohle Bodies PRESENT; Ovalocytes 1+ (5-14) /OIF; Platelet Estimate NORMAL (NORMAL); Platelet Morphology Comment NORMAL; Toxic Vacuolation PRESENT
[2021-12-22] MEDS: cefTRIAXone sodium 1 GM in 0.9 % Sodium Chloride 50 ML IV (10:23)
[2021-12-22 11:33] LABS: Reflex Lactate? Lactic Acid Added
[2021-12-22 11:47] LABS: Troponin-I High Sensitivity 46.7 ng/L (<3.5-35.0)
[2021-12-22 11:49] LABS: Lipase 22 U/L (8-78)
[2021-12-22 12:02] LABS: Appearance Urine CLOUDY; Color Urine DK YELLOW; Glucose Urine UA NEG (NEG); Leukocyte Esterase Urine 1+ (NEG); Nitrite Urine NEG (NEG); PH 5.5 (5.0-8.0); Specific Gravity - Urine >= 1.030 (1.005-1.025); UACC Culture Trigger YES; Urine Blood 2+ (NEG); Urine Ketones 15 MG/DL (NEG); Urine Protein 2+ MG/DL (NEG-TRACE)
[2021-12-22 12:10] LABS: Bacteria Urine 2+ /LPF; Mucus Urine 2+ /LPF; Squamous Epithelial Cell Urine 1+ /LPF; WBC Urine 30-49 /HPF (0-4)
[2021-12-22 12:30] LABS: ~Lactic Acid-LAB USE ONLY 4.9 mmol/L (0.5-2.0)
--- NOTE | 2021-12-22 13:43 | P.CNUR_ITS ---
History of Present Illness Consult details Consult date: 12/22/21 Narrative: Consult - right ureteric stone 76-year-old male 3 day history Progressive pain Associated nausea Creatinine 2.8, WBC 12.9 Likely infected Antibiotics given CT scan with 3 mm mid to distal right ureteric stone with mild hydroureteronephrosis Recommend stenting Review of Systems Constitutional: Constitutional: Reports as per HPI and Reports no additional constitutional complaints Cardiovascular: Cardiovascular: Reports as per HPI and Reports no additional cardiovascular complaints Respiratory: Respiratory: Reports as per HPI and Reports no additional respiratory complaints Gastrointestinal: Gastrointestinal: Reports as per HPI and Reports no additional gastrointestinal complaints Genitourinary: Genitourinary: Reports as per HPI Musculoskeletal: Musculoskeletal: Reports no additional musculoskeletal complaints and Reports as per HPI Neurologic: Reports system reviewed and no additional complaints, except as documented and Reports as per HPI PMF Past Medical History Medical History Diabetes 1.5, managed as type 2 H/O renal calculi HLD (hyperlipidemia) HTN (hypertension), benign Family History Family History Father COPD (chronic obstructive pulmonary disease) Mother Heart disease Social History Social History Household Members: Spouse Housing: House Patient Tobacco Use Status: Never used Tobacco Advance Directives: Yes Advance Directives Information Provided: Yes Advance Directives on File: No Advance Directives Date on File: 02/15/21 Current occupational status: retired [employer] [facility] Allergies Allergy/AdvReac Type Severity Reaction Status Date / Time No Known Allergies Allergy Verified 10/05/21 09:36 Active Medications: Current Medications Acetaminophen (Acetaminophen 325 Mg Tablet) 650 mg PO Q6H PRN PRN Reason: Pain, Mild (Pain Scale 1-3) Enoxaparin Sodium (Enoxaparin Sodium 30 Mg/0.3 Ml Syringe) 30 mg SUBCUT Q24H JUSTINA Sodium Chloride (Ns) 1,000 mls @ 100 mls/hr IVCONT .Q10H JUSTINA Piperacillin Sod/Tazobactam (Sod 2.25 gm/ Sodium Chloride) 50 mls @ 100 mls/hr IV Q6H JUSTINA Pharmacy Consult (Consult Rx Perform Med Rec) 1 each MISCELLANE ONCE PRN PRN Reason: Consult order Pharmacy Consult (Consult Rx Perform Med Rec) 1 each MISCELLANE ONCE PRN PRN Reason: Consult order Sodium Chloride (0.9 % Sodium Chloride Flush 3 Ml Syringe) 3 ml IVFLUSH [facility] Medications Medication Instructions Recorded Confirmed Last Taken Type duloxetine 30 mg capsule,delayed 1 cap PO QPM 02/14/21 02/14/21 Unknown History release glipizide 5 mg tablet 10 mg PO BID 02/14/21 02/14/21 Unknown History metformin 850 mg tablet 1 tab PO BID 02/14/21 02/14/21 Unknown History pantoprazole 40 mg tablet,delayed 1 tab PO QPM 02/14/21 02/14/21 Unknown History release simvastatin 20 mg tablet 1 tab PO QPM 02/14/21 02/14/21 Unknown History sitagliptin 100 mg tablet (Januvia) 1 tab PO DAILY 02/14/21 02/14/21 Unknown History ketorolac 0.5 % eye drops 1 drp ophthalmic (eye) 02/24/21 Unknown History blood sugar diagnostic (Accu-Chek #10 ea 04/08/21 Unknown History Megan Plus test strp) lancets (Accu-Chek Softclix #100 ea 04/08/21 Unknown History Lancets) lisinopril 10 mg tablet 10 mg PO DAILY 10/05/21 Unknown History methocarbamol 750 mg tablet 1 tab PO BID PRN Muscle Pain 12/22/21 Unknown History Physical Exam Vital Signs: Vital Signs: Last Vital Signs Temp 98.2 F 12/22/21 13:16 Pulse 108 H 12/22/21 13:16 Resp 18 12/22/21 13:16 BP 104/62 12/22/21 13:16 Pulse Ox 96 12/22/21 13:16 O2 Del Method 12/22/21 13:16 O2 Flow Rate 2 12/22/21 13:16 BMI result Body Mass Index 34.9 Const: General: cooperative, healthy appearing, comfortable and no acute distress Orientation/consciousness: patient oriented x3 HEENT: Face and sinus: Yes normal facial exam Mouth: moist mucous membranes Neck: Neck: Yes normal visual inspection, Yes full ROM and Yes trachea midline Chest: Chest palpation & inspection: normal inspection of the chest Resp: Effort & Inspection: normal respiratory effort, able to speak in complete sentences and no respiratory distress GI: Inspection: Yes normal to inspection Back/Spine/Pelvis: Cervical Spine: normal cervical lordosis Thoracic/Lumbar Spine: thoracic and lumbar spine normal to inspection Skin: General skin exam: no rashes or lesions noted Neuro: General: patient oriented x3, tone normal and moves all extremities Extrem: General: Yes normal to inspection and Yes capillary refill normal Results Labs Result diagrams: 12/22/21 09:20 12/22/21 09:20 Labs: Abnormal lab results 12/22/21 12/22/21 12/22/21 Range/Units 09:20 09:20 09:20 WBC 12.9 H (4.8-10.8) X10*3/uL RBC 3.94 L (4.60-5.80) X10*6/uL Hgb 12.9 L (14.0-18.0) g/dl Hct 37.8 L (42.0-52.0) % Band Neutrophils % 27 H (3-5) % Lymphocytes % (Manual) 2 L (20-40) % Abs Neuts (Manual) 12.1 H (2.0-8.3) X10*3/uL Lymphocytes # (Manual) 0.3 L (1.2-4.9) X10*3/uL APTT 22.5 L (24.1-38.0) SEC VBG pH (7.32-7.43) VBG HCO3 (22-26) mmol/L Potassium 5.2 H D (3.3-5.1) mmol/L Carbon Dioxide 20 L (22-29) mmol/L BUN 28 H (9-16) mg/dL Creatinine 2.80 H (0.5-1.4) mg/dL Random Glucose 295 H D (60-115) mg/dL Lactic Acid (0.5-2.0) mmol/L Lactic Acid F/U @ 2Hr (0.5-2.0) mmol/L Total Bilirubin 2.3 H (0.0-1.0) mg/dL Troponin I High Sens (<3.5-35.0) ng/L B-Natriuretic Peptide (<100) pg/mL Total Protein 6.1 L (6.5-8.0) g/dL Ur Specific [place] (1.005-1.025) Urine Protein (NEG-TRACE) MG/DL Urine Blood (NEG) Ur Leukocyte Esterase (NEG) Urine WBC (0-4) /HPF 12/22/21 12/22/21 12/22/21 Range/Units 09:20 09:20 09:30 WBC (4.8-10.8) X10*3/uL RBC (4.60-5.80) X10*6/uL Hgb (14.0-18.0) g/dl Hct (42.0-52.0) % Band Neutrophils % (3-5) % Lymphocytes % (Manual) (20-40) % Abs Neuts (Manual) (2.0-8.3) X10*3/uL Lymphocytes # (Manual) (1.2-4.9) X10*3/uL APTT (24.1-38.0) SEC VBG pH 7.28 L (7.32-7.43) VBG HCO3 20 L (22-26) mmol/L Potassium (3.3-5.1) mmol/L Carbon Dioxide (22-29) mmol/L BUN (9-16) mg/dL Creatinine (0.5-1.4) mg/dL Random Glucose (60-115) mg/dL Lactic Acid 6.0 H* (0.5-2.0) mmol/L Lactic Acid F/U @ 2Hr (0.5-2.0) mmol/L Total Bilirubin (0.0-1.0) mg/dL Troponin I High Sens 58.0 H (<3.5-35.0) ng/L B-Natriuretic Peptide 177 H (<100) pg/mL Total Protein (6.5-8.0) g/dL Ur Specific [place] (1.005-1.025) Urine Protein (NEG-TRACE) MG/DL Urine Blood (NEG) Ur Leukocyte Esterase (NEG) Urine WBC (0-4) /HPF 12/22/21 12/22/21 12/22/21 Range/Units 11:18 11:55 11:55 WBC (4.8-10.8) X10*3/uL RBC (4.60-5.80) X10*6/uL Hgb (14.0-18.0) g/dl Hct (42.0-52.0) % Band Neutrophils % (3-5) % Lymphocytes % (Manual) (20-40) % Abs Neuts (Manual) (2.0-8.3) X10*3/uL Lymphocytes # (Manual) (1.2-4.9) X10*3/uL APTT (24.1-38.0) SEC VBG pH (7.32-7.43) VBG HCO3 (22-26) mmol/L Potassium (3.3-5.1) mmol/L Carbon Dioxide (22-29) mmol/L BUN (9-16) mg/dL Creatinine (0.5-1.4) mg/dL Random Glucose (60-115) mg/dL Lactic Acid (0.5-2.0) mmol/L Lactic Acid F/U @ 2Hr 4.9 H* (0.5-2.0) mmol/L Total Bilirubin (0.0-1.0) mg/dL Troponin I High Sens 46.7 H (<3.5-35.0) ng/L B-Natriuretic Peptide (<100) pg/mL Total Protein (6.5-8.0) g/dL Ur Specific [place] >= 1.030 H (1.005-1.025) Urine Protein 2+ H (NEG-TRACE) MG/DL Urine Blood 2+ H (NEG) Ur Leukocyte Esterase 1+ H (NEG) Urine WBC 30-49 H (0-4) /HPF Short CBC 12/22/21 Range/Units 09:20 WBC 12.9 H (4.8-10.8) X10*3/uL Hgb 12.9 L (14.0-18.0) g/dl Hct 37.8 L (42.0-52.0) % Plt Count 163 (160-400) X10*3/uL BMP 12/22/21 09:20 Sodium 136 Potassium 5.2 H D Chloride 103 Carbon Dioxide 20 L BUN 28 H Creatinine 2.80 H Calcium 8.5 Cardiac Enzymes 12/22/21 Range/Units 09:20 Total Creatine Kinase 91 (38-174) U/L Liver Function 12/22/21 Range/Units 09:20 Total Bilirubin 2.3 H (0.0-1.0) mg/dL AST 16 (5-37) U/L ALT 18 (0-40) U/L Alkaline Phosphatase 74 (39-117) U/L Albumin 3.7 (3.5-5.0) g/dL Urine 12/22/21 Range/Units 11:55 Urine Color DK YELLOW Urine Appearance CLOUDY Urine pH 5.5 (5.0-8.0) Ur Specific [place] >= 1.030 H (1.005-1.025) Urine Protein 2+ H (NEG-TRACE) MG/DL Urine Glucose (UA) NEG (NEG) MG/DL All other labs normal. Assessment and Plan (1) Nephrolithiasis: Status: Acute Plan Risks, benefits and alternatives to therapy were discussed. These include but are not limited to infection, bleeding, damage to local organs and tissues, need for further interventions. Anesthetic risks regarding cardiac arrhythmia, blood clots, and potential mortality were discussed. The patient understands the typical recovery time and the outpatient nature of the procedure. After consideration of these risks the patient gives full informed consent and they wish to move ahead with the procedure. Cystoscopy, right retrograde, right stent placement Procedures Date of Service Date of Service: 12/22/21
--- NOTE | 2021-12-22 13:46 | PHA.MEDREC ---
Pharmacy Consult ? Medication Reconciliation Pharmacy has completed the medication reconciliation. Spoke to pt's on phone to confirm medication list.
[2021-12-22 13:59] LABS: Reflex Lactate? 2 Y
[2021-12-22] MEDS: Enoxaparin Sodium 30 MG/0.3 ML SYRINGE SUBCUT (14:19)
[2021-12-22] MEDS: Piperacillin Sodium/Tazobactam 2.25 GM in 0.9 % Sodium Chloride 50 ML IV ×2 (14:20→22:11)
[2021-12-22] MEDS: 0.9 % Sodium Chloride 1,000 ML 100 ML IVCONT ×2 (14:34→21:30)
[2021-12-22 14:51] LABS: ~Lactic Acid-LAB USE ONLY 3.6 mmol/L (0.5-2.0)
--- NOTE | 2021-12-22 14:56 | P.HPHOSP_ITS ---
History of Present Illness Date of Service: 12/22/21 Chief Complaint: Left flank pain Patient is a 76 year old male presenting to the emergency department today with abdominal pain, nausea, vomiting, and right flank pain. Has history of left- sided ureteral stone for which she has seen Dr. Pace in the past. Patient states his call Dr. Pace early this week and was started on Flomax. Was seen by primary care who per month Flexeril thinking this may have a component of back spasm. Discussed with ; states this morning patient looks extremely uncomfortable and lethargic prompting her to call EMS for transport. In the emergency room he was mildly hypotensive but received fluids according to the sepsis protocol. This point time is hemodynamically stable. Plan is for Dr. Pace to take to the OR sometime later this afternoon. Review of Systems Review of Systems: Denies chest pain Denies shortness of breath Denies nausea vomiting diarrhea Denies fever chills PMFSH Medical History (Updated 12/22/21 @ 15:16 by Lars Sanchez DO) Diabetes 1.5, managed as type 2 H/O renal calculi HLD (hyperlipidemia) HTN (hypertension), benign Family History Father COPD (chronic obstructive pulmonary disease) Mother Heart disease Social History Household Members: Spouse Housing: House Patient Tobacco Use Status: Never used Tobacco Advance Directives: Yes Advance Directives Information Provided: Yes Advance Directives on File: No Advance Directives Date on File: 02/15/21 Current occupational status: retired Meds Allergies Allergy/AdvReac Type Severity Reaction Status Date / Time No Known Allergies Allergy Verified 10/05/21 09:36 Active Medications: Current Medications Acetaminophen (Acetaminophen 325 Mg Tablet) 650 mg PO Q6H PRN PRN Reason: Pain, Mild (Pain Scale 1-3) Enoxaparin Sodium (Enoxaparin Sodium 30 Mg/0.3 Ml Syringe) [address] [facility] Last Admin: 12/22/21 14:19 Dose: 30 mg Sodium Chloride (Ns) 1,000 mls @ 100 mls/hr IVCONT .Q10H [facility]INA Last Admin: 12/22/21 14:34 Dose: 100 mls/hr Piperacillin Sod/Tazobactam (Sod 2.25 gm/ Sodium Chloride) 50 mls @ 100 mls/hr IV Q6H [facility] Last Admin: 12/22/21 14:20 Dose: 100 mls/hr Pharmacy Consult (Consult Rx Perform Med Rec) 1 each MISCELLANE ONCE PRN PRN Reason: Consult order Sodium Chloride (0.9 % Sodium Chloride Flush 3 Ml Syringe) [address] [facility] Home Medications Medication Instructions Recorded Confirmed Last Taken Type duloxetine 30 mg capsule,delayed 1 cap PO BEDTIME 02/14/21 12/22/21 12/21/21 History release glipizide 5 mg tablet 10 mg PO BID 02/14/21 12/22/21 12/21/21 History metformin 850 mg tablet 1 tab PO BID 02/14/21 12/22/21 12/21/21 History pantoprazole 40 mg tablet,delayed 1 tab PO BEDTIME 02/14/21 12/22/21 12/21/21 History release simvastatin 20 mg tablet 1 tab PO BEDTIME 02/14/21 12/22/21 12/21/21 History sitagliptin 100 mg tablet (Januvia) 1 tab PO DAILY 02/14/21 12/22/21 12/21/21 History blood sugar diagnostic (Accu-Chek #10 ea 04/08/21 Unknown History Megan Plus test strp) lancets (Accu-Chek Softclix #100 ea 04/08/21 Unknown History Lancets) lisinopril 10 mg tablet 10 mg PO DAILY 10/05/21 12/22/21 12/21/21 History methocarbamol 750 mg tablet 1 tab PO BID PRN Muscle Pain 12/22/21 12/22/21 Unknown History tamsulosin 0.4 mg capsule 0.4 mg PO BEDTIME 12/22/21 12/22/21 12/21/21 History Physical Exam Vital Signs and Narrative: Vital Signs: Last Vital Signs Temp 98.2 F 12/22/21 13:16 Pulse 108 H 12/22/21 13:16 Resp 18 12/22/21 13:16 BP 91/50 L 12/22/21 14:32 Pulse Ox 96 12/22/21 13:16 O2 Del Method 12/22/21 13:16 O2 Flow Rate 2 12/22/21 13:16 BMI result Body Mass Index 34.9 Const: Other: Awake alert oriented x3 no acute distress. Pain controlled adequate per patient Resp: Other: Clear to auscultation bilaterally no rales rhonchi or wheezes Cardio: Other: No S4; positive S1-S2; no S3 murmurs rubs or gallops GI: Other: Soft nontender nondistended with normoactive bowel sounds x4 quadrants Neuro: Other: Cranial nerves 2-12 grossly intact as tested. Motor is 5/5 all extremities. Sensation is intact. Cognition is appropriate Extrem: Other: No edema bilaterally Results Labs CBC and Chem 7: 12/22/21 09:20 12/22/21 09:20 Labs: Laboratory Results - last 24 hr 12/22/21 12/22/21 12/22/21 09:20 09:20 09:20 MCV 95.9 MCH 32.7 MCHC 34.1 RDW 12.8 Plt Count 163 MPV 10.0 Immature Gran % (Auto) Cancelled Neut % (Auto) Cancelled Lymph % (Auto) Cancelled [place] % (Auto) Cancelled Eos % (Auto) Cancelled Baso % (Auto) Cancelled Lymph # (Auto) Cancelled [place] # (Auto) Cancelled Eos # (Auto) Cancelled Baso # (Auto) Cancelled Abs Immat Gran (auto) Cancelled Absolute Neuts (auto) Cancelled Absolute Nucleated RBC 0.000 Nucleated RBC % (auto) 0.0 Neutrophils % (Manual) 67 Band Neutrophils % 27 H Lymphocytes % (Manual) 2 L Monocytes % (Manual) 2 Metamyelocytes % 2 Abs Neuts (Manual) 12.1 H Lymphocytes # (Manual) 0.3 L Monocytes # (Manual) 0.3 Metamyelocytes # 0.3 Toxic Vacuolation PRESENT Dohle Bodies PRESENT Platelet Estimate NORMAL Plt Morphology Comment NORMAL RBC Morphology NOTED Hypochromasia 1+ (5-14) Ovalocytes 1+ (5-14) PT 12.9 INR 1.1 APTT 22.5 L VBG pH VBG pCO2 VBG pO2 VBG HCO3 VBG O2 Saturation VBG Base Excess Anion Gap 18 Estim Creat Clear Calc 27.0 Estimated GFR 22 Random Glucose 295 H D Lactic Acid Lactic Acid F/U @ 2Hr Lactic Acid F/U @ 4Hr Calcium 8.5 Total Bilirubin 2.3 H AST 16 ALT 18 Alkaline Phosphatase 74 Total Creatine Kinase 91 Troponin I High Sens B-Natriuretic Peptide Total Protein 6.1 L Albumin 3.7 Lipase 22 Urine Color Urine Appearance Urine pH Ur Specific [place] Urine Protein Urine Glucose (UA) Urine Ketones Urine Blood Urine Nitrite Ur Leukocyte Esterase Urine RBC Urine WBC Ur Squamous Epith Cells Urine Bacteria Urine Mucus COVID-19 (CHRISTIE) COVID-19 Clin Com Influenza Type A (DAVIAN) Influenza Type B (DAVIAN) Influenza A & B Note 12/22/21 12/22/21 12/22/21 09:20 09:20 09:20 MCV MCH MCHC RDW Plt Count MPV Immature Gran % (Auto) Neut % (Auto) Lymph % (Auto) [place] % (Auto) Eos % (Auto) Baso % (Auto) Lymph # (Auto) [place] # (Auto) Eos # (Auto) Baso # (Auto) Abs Immat Gran (auto) Absolute Neuts (auto) Absolute Nucleated RBC Nucleated RBC % (auto) Neutrophils % (Manual) Band Neutrophils % Lymphocytes % (Manual) Monocytes % (Manual) Metamyelocytes % Abs Neuts (Manual) Lymphocytes # (Manual) Monocytes # (Manual) Metamyelocytes # Toxic Vacuolation Dohle Bodies Platelet Estimate Plt Morphology Comment RBC Morphology Hypochromasia Ovalocytes PT INR APTT VBG pH VBG pCO2 VBG pO2 VBG HCO3 VBG O2 Saturation VBG Base Excess Anion Gap Estim Creat Clear Calc Estimated GFR Random Glucose Lactic Acid 6.0 H* Lactic Acid F/U @ 2Hr Lactic Acid F/U @ 4Hr Calcium Total Bilirubin AST ALT Alkaline Phosphatase Total Creatine Kinase Troponin I High Sens 58.0 H B-Natriuretic Peptide 177 H Total Protein Albumin Lipase Urine Color Urine Appearance Urine pH Ur Specific [place] Urine Protein Urine Glucose (UA) Urine Ketones Urine Blood Urine Nitrite Ur Leukocyte Esterase Urine RBC Urine WBC Ur Squamous Epith Cells Urine Bacteria Urine Mucus COVID-19 (CHRISTIE) COVID-19 Clin Com Influenza Type A (DAVIAN) Negative Influenza Type B (DAVIAN) Negative Influenza A & B Note See Note 12/22/21 12/22/21 12/22/21 09:20 09:30 11:18 MCV MCH MCHC RDW Plt Count MPV Immature Gran % (Auto) Neut % (Auto) Lymph % (Auto) [place] % (Auto) Eos % (Auto) Baso % (Auto) Lymph # (Auto) [place] # (Auto) Eos # (Auto) Baso # (Auto) Abs Immat Gran (auto) Absolute Neuts (auto) Absolute Nucleated RBC Nucleated RBC % (auto) Neutrophils % (Manual) Band Neutrophils % Lymphocytes % (Manual) Monocytes % (Manual) Metamyelocytes % Abs Neuts (Manual) Lymphocytes # (Manual) Monocytes # (Manual) Metamyelocytes # Toxic Vacuolation Dohle Bodies Platelet Estimate Plt Morphology Comment RBC Morphology Hypochromasia Ovalocytes PT INR APTT VBG pH 7.28 L VBG pCO2 41 VBG pO2 38 VBG HCO3 20 L VBG O2 Saturation 59.0 VBG Base Excess -6.3 Anion Gap Estim Creat Clear Calc Estimated GFR Random Glucose Lactic Acid Lactic Acid F/U @ 2Hr Lactic Acid F/U @ 4Hr Calcium Total Bilirubin AST ALT Alkaline Phosphatase Total Creatine Kinase Troponin I High Sens 46.7 H B-Natriuretic Peptide Total Protein Albumin Lipase Urine Color Urine Appearance Urine pH Ur Specific [place] Urine Protein Urine Glucose (UA) Urine Ketones Urine Blood Urine Nitrite Ur Leukocyte Esterase Urine RBC Urine WBC Ur Squamous Epith Cells Urine Bacteria Urine Mucus COVID-19 (CHRISTIE) Negative COVID-19 Clin Com See Note Influenza Type A (DAVIAN) Influenza Type B (DAVIAN) Influenza A & B Note 12/22/21 12/22/21 12/22/21 11:55 11:55 14:24 MCV MCH MCHC RDW Plt Count MPV Immature Gran % (Auto) Neut % (Auto) Lymph % (Auto) [place] % (Auto) Eos % (Auto) Baso % (Auto) Lymph # (Auto) [place] # (Auto) Eos # (Auto) Baso # (Auto) Abs Immat Gran (auto) Absolute Neuts (auto) Absolute Nucleated RBC Nucleated RBC % (auto) Neutrophils % (Manual) Band Neutrophils % Lymphocytes % (Manual) Monocytes % (Manual) Metamyelocytes % Abs Neuts (Manual) Lymphocytes # (Manual) Monocytes # (Manual) Metamyelocytes # Toxic Vacuolation Dohle Bodies Platelet Estimate Plt Morphology Comment RBC Morphology Hypochromasia Ovalocytes PT INR APTT VBG pH VBG pCO2 VBG pO2 VBG HCO3 VBG O2 Saturation VBG Base Excess Anion Gap Estim Creat Clear Calc Estimated GFR Random Glucose Lactic Acid Lactic Acid F/U @ 2Hr 4.9 H* Lactic Acid F/U @ 4Hr 3.6 H* Calcium Total Bilirubin AST ALT Alkaline Phosphatase Total Creatine Kinase Troponin I High Sens B-Natriuretic Peptide Total Protein Albumin Lipase Urine Color DK YELLOW Urine Appearance CLOUDY Urine pH 5.5 Ur Specific [place] >= 1.030 H Urine Protein 2+ H Urine Glucose (UA) NEG Urine Ketones 15 Urine Blood 2+ H Urine Nitrite NEG Ur Leukocyte Esterase 1+ H Urine RBC 1-4 Urine WBC 30-49 H Ur Squamous Epith Cells 1+ Urine Bacteria 2+ Urine Mucus 2+ COVID-19 (CHRISTIE) COVID-19 Clin Com Influenza Type A (DAVIAN) Influenza Type B (DAVIAN) Influenza A & B Note Imaging Radiologist's Impressions: Impressions Chest X-Ray 12/22/21 09:48 IMPRESSION: No acute intrathoracic disease Abdomen/Pelvis CT 12/22/21 09:55 IMPRESSION: 1. Obstructing 3 mm right ureteral calculus 6 cm above the UVJ. 2. Question of pancreatic carcinoma and follow-up as described above is recommended. Fleischner guidelines were followed. Assessment and Plan (1) Sepsis: Status: Acute (2) Acute pyelonephritis: Status: Acute (3) Diabetes 1.5, managed as type 2: Status: Acute (4) SAYRA (acute kidney injury): Status: Acute (5) HTN (hypertension), benign: Status: Acute Plan 76-year-old male with a history of left ureteric stone status post stenting January 2021 presents with right-sided flank pain similar to same. CT scan today demonstrates a 3 mm right ureteric calculus 6 cm above the UVJ. Upon arrival to emergency room was mildly hypotensive and tachycardic. Received 30 cc/kilogram bolus in the ER with improvement in symptoms. Seen in consultation by Dr. Pace (urology) will take patient for stenting later this afternoon. 1. Urosepsis secondary to pyelonephritis with obstructing ureteral calculus (sepsis specific exam performed) -NPO/IV fluids/pain meds as appropriate -to OR later today with Dr. Pace -cultures taken; Zosyn renally dosed. -initial lactate 6.0 now 3.6 after therapies 2. Diabetes II -given acute kidney injury will hold metformin and other oral agents -lispro correctional scale -adjust as indicated 3. SAYRA (secondary to obstructing renal calculus) -continue volume repletion with normal saline -follow renals/divalents 4.HTN -relatively hypotensive now -volume repletion -resume orals when appropriate Full code Lovenox Patient will require 2 midnights going forward for IV antibiotics to treat urosepsis and surgical intervention for obstructive ureteral calculus Quality Stroke Does the patient have a stroke diagnosis?: No VTE Prior VTE?: No VTE Risk Level:: Medical - moderate - high VTE Device Contraindication: Treatment Not Indicated VTE Drug Contraindication: N/A - Med Ordered
[2021-12-22] MEDS: 0.9 % Sodium Chloride 1,000 ML 500 ML IVCONT (15:06)
--- NOTE | 2021-12-22 17:15 | MHC.SHP ---
Pre-Procedural Eval Section A Date of Service: 12/22/21 The patient is an INPATIENT: Yes Changes since office visit: No Cold of Flu in the past 2 weeks, No New Medical Problems, No Changes in Medication and No Patient answered all questions The History & Physical has been completed within 30 days and I have reviewed it.: Yes Section B Chief Complaint: ABDOMINAL PAIN Allergies: Allergies Allergy/AdvReac Type Severity Reaction Status Date / Time No Known Allergies Allergy Verified 10/05/21 09:36 Plan Diagnosis/Plan: Unchanged (cystoscopy, right retrograde and stent placement) I have reviewed the history and physical and performed a pertinent physical examination on my patient. No changes have occurred unless specified.
[2021-12-22 17:32] LABS: Glucose, Whole Blood 234 mg/dL (60-115)
--- NOTE | 2021-12-22 17:51 | HO.ANESPROP2 ---
[facility] Active Problems Active Problems: All Active Problems (Updated 12/22/21 @ 15:16 by Lars Sanchez DO) SAYRA (acute kidney injury) (Acute) HTN (hypertension), benign (Acute) Diabetes 1.5, managed as type 2 (Acute) Sepsis (Acute) Calculus, renal (Acute) Acute pyelonephritis (Acute) Pancreatic neoplasm (Acute) Complex renal cyst (Acute) Nephrolithiasis (Acute) Bacteremia, escherichia coli (Acute) Past Medical History Medical History (Updated 12/22/21 @ 15:16 by Lars Sanchez DO) Diabetes 1.5, managed as type 2 H/O renal calculi HLD (hyperlipidemia) HTN (hypertension), benign Family History Family History Father COPD (chronic obstructive pulmonary disease) Mother Heart disease Family history of problems with anesthesia: No Surgical History History of Problems with Anesthesia: No Social History Social History Household Members: Spouse Housing: House Patient Tobacco Use Status: Never used Tobacco Advance Directives Date on File: 02/15/21 Current occupational status: retired [employer] Allergies Allergy/AdvReac Type Severity Reaction Status Date / Time No Known Allergies Allergy Verified 10/05/21 09:36 Active Medications: Current Medications Acetaminophen (Acetaminophen 325 Mg Tablet) 650 mg PO Q6H PRN PRN Reason: Pain, Mild (Pain Scale 1-3) Enoxaparin Sodium (Enoxaparin Sodium 30 Mg/0.3 Ml Syringe) 30 mg SUBCUT Q24H [facility] Last Admin: 12/22/21 14:19 Dose: 30 mg Sodium Chloride (Ns) 1,000 mls @ 100 mls/hr IVCONT .Q10H [facility] Last Admin: 12/22/21 14:34 Dose: 100 mls/hr Piperacillin Sod/Tazobactam (Sod 2.25 gm/ Sodium Chloride) 50 mls @ 100 mls/hr IV Q6H [facility] Last Infusion: 12/22/21 15:00 Dose: Infused Pharmacy Consult (Consult Rx Perform Med Rec) 1 each MISCELLANE ONCE PRN PRN Reason: Consult order Sodium Chloride (0.9 % Sodium Chloride Flush 3 Ml Syringe) 3 ml IVFLUSH QSHIFT [facility] Last Admin: 12/22/21 15:06 Dose: Not Given Tamsulosin HCl (Tamsulosin Hcl 0.4 Mg Capsule) 0.4 mg PO BEDTIME [facility] Home Medications Medication Instructions Recorded Confirmed Last Taken Type duloxetine 30 mg capsule,delayed 1 cap PO BEDTIME 02/14/21 12/22/21 12/21/21 History release glipizide 5 mg tablet 10 mg PO BID 02/14/21 12/22/21 12/21/21 History metformin 850 mg tablet 1 tab PO BID 02/14/21 12/22/21 12/21/21 History pantoprazole 40 mg tablet,delayed 1 tab PO BEDTIME 02/14/21 12/22/21 12/21/21 History release simvastatin 20 mg tablet 1 tab PO BEDTIME 02/14/21 12/22/21 12/21/21 History sitagliptin 100 mg tablet (Donnieuveladio) 1 tab PO DAILY 02/14/21 12/22/21 12/21/21 History blood sugar diagnostic (Accu-Chek #10 ea 04/08/21 Unknown History Megan Plus test strp) lancets (Accu-Chek Softclix #100 ea 04/08/21 Unknown History Lancets) lisinopril 10 mg tablet 10 mg PO DAILY 10/05/21 12/22/21 12/21/21 History methocarbamol 750 mg tablet 1 tab PO BID PRN Muscle Pain 12/22/21 12/22/21 Unknown History tamsulosin 0.4 mg capsule 0.4 mg PO BEDTIME 12/22/21 12/22/21 12/21/21 History Exam Exam Date and Time: December 22, 2021 175 Height,Weight and Vital Signs: Height 5 ft 8 in Weight 104.326 kg Last Vital Signs Temp 98.6 F 12/22/21 17:00 Pulse 111 H 12/22/21 17:00 Resp 18 12/22/21 17:00 BP 99/51 L 12/22/21 17:00 Pulse Ox 95 12/22/21 17:00 O2 Del Method 12/22/21 17:00 O2 Flow Rate 2 12/22/21 17:00 Pertinent Lab Results Pertinent Lab Results: Laboratory Tests 12/22/21 12/22/21 12/22/21 09:20 09:20 09:20 WBC 12.9 H RBC 3.94 L Hgb 12.9 L Hct 37.8 L MCV 95.9 MCH 32.7 MCHC 34.1 RDW 12.8 Plt Count 163 MPV 10.0 Immature Gran % (Auto) Cancelled Neut % (Auto) Cancelled Lymph % (Auto) Cancelled Lucas % (Auto) Cancelled Eos % (Auto) Cancelled Baso % (Auto) Cancelled Lymph # (Auto) Cancelled Lucas # (Auto) Cancelled Eos # (Auto) Cancelled Baso # (Auto) Cancelled Abs Immat Gran (auto) Cancelled Absolute Neuts (auto) Cancelled Absolute Nucleated RBC 0.000 Nucleated RBC % (auto) 0.0 Neutrophils % (Manual) 67 Band Neutrophils % 27 H Lymphocytes % (Manual) 2 L Monocytes % (Manual) 2 Metamyelocytes % 2 Abs Neuts (Manual) 12.1 H Lymphocytes # (Manual) 0.3 L Monocytes # (Manual) 0.3 Metamyelocytes # 0.3 Toxic Vacuolation PRESENT Dohle Bodies PRESENT Platelet Estimate NORMAL Plt Morphology Comment NORMAL RBC Morphology NOTED Hypochromasia 1+ (5-14) Ovalocytes 1+ (5-14) PT 12.9 INR 1.1 APTT 22.5 L VBG pH VBG pCO2 VBG pO2 VBG HCO3 VBG O2 Saturation VBG Base Excess Sodium 136 Potassium 5.2 H D Chloride 103 Carbon Dioxide 20 L Anion Gap 18 BUN 28 H Creatinine 2.80 H Estim Creat Clear Calc 27.0 Estimated GFR 22 POC Glucose Random Glucose 295 H D Lactic Acid Lactic Acid F/U @ 2Hr Lactic Acid F/U @ 4Hr Calcium 8.5 Total Bilirubin 2.3 H AST 16 ALT 18 Alkaline Phosphatase 74 Total Creatine Kinase 91 Troponin I High Sens B-Natriuretic Peptide Total Protein 6.1 L Albumin 3.7 Lipase 22 Urine Color Urine Appearance Urine pH Ur Specific [place] Urine Protein Urine Glucose (UA) Urine Ketones Urine Blood Urine Nitrite Ur Leukocyte Esterase Urine RBC Urine WBC Ur Squamous Epith Cells Urine Bacteria Urine Mucus COVID-19 (CHRISTIE) COVID-19 Clin Com Influenza Type A (DAVIAN) Influenza Type B (DAVIAN) Influenza A & B Note 12/22/21 12/22/21 12/22/21 09:20 09:20 09:20 WBC RBC Hgb Hct MCV MCH MCHC RDW Plt Count MPV Immature Gran % (Auto) Neut % (Auto) Lymph % (Auto) Lucas % (Auto) Eos % (Auto) Baso % (Auto) Lymph # (Auto) Lucas # (Auto) Eos # (Auto) Baso # (Auto) Abs Immat Gran (auto) Absolute Neuts (auto) Absolute Nucleated RBC Nucleated RBC % (auto) Neutrophils % (Manual) Band Neutrophils % Lymphocytes % (Manual) Monocytes % (Manual) Metamyelocytes % Abs Neuts (Manual) Lymphocytes # (Manual) Monocytes # (Manual) Metamyelocytes # Toxic Vacuolation Dohle Bodies Platelet Estimate Plt Morphology Comment RBC Morphology Hypochromasia Ovalocytes PT INR APTT VBG pH VBG pCO2 VBG pO2 VBG HCO3 VBG O2 Saturation VBG Base Excess Sodium Potassium Chloride Carbon Dioxide Anion Gap BUN Creatinine Estim Creat Clear Calc Estimated GFR POC Glucose Random Glucose Lactic Acid 6.0 H* Lactic Acid F/U @ 2Hr Lactic Acid F/U @ 4Hr Calcium Total Bilirubin AST ALT Alkaline Phosphatase Total Creatine Kinase Troponin I High Sens 58.0 H B-Natriuretic Peptide 177 H Total Protein Albumin Lipase Urine Color Urine Appearance Urine pH Ur Specific [place] Urine Protein Urine Glucose (UA) Urine Ketones Urine Blood Urine Nitrite Ur Leukocyte Esterase Urine RBC Urine WBC Ur Squamous Epith Cells Urine Bacteria Urine Mucus COVID-19 (CHRISTIE) COVID-19 Clin Com Influenza Type A (DAVIAN) Negative Influenza Type B (DAVIAN) Negative Influenza A & B Note See Note 12/22/21 12/22/21 12/22/21 09:20 09:30 11:18 WBC RBC Hgb Hct MCV MCH MCHC RDW Plt Count MPV Immature Gran % (Auto) Neut % (Auto) Lymph % (Auto) Lucas % (Auto) Eos % (Auto) Baso % (Auto) Lymph # (Auto) Lucas # (Auto) Eos # (Auto) Baso # (Auto) Abs Immat Gran (auto) Absolute Neuts (auto) Absolute Nucleated RBC Nucleated RBC % (auto) Neutrophils % (Manual) Band Neutrophils % Lymphocytes % (Manual) Monocytes % (Manual) Metamyelocytes % Abs Neuts (Manual) Lymphocytes # (Manual) Monocytes # (Manual) Metamyelocytes # Toxic Vacuolation Dohle Bodies Platelet Estimate Plt Morphology Comment RBC Morphology Hypochromasia Ovalocytes PT INR APTT VBG pH 7.28 L VBG pCO2 41 VBG pO2 38 VBG HCO3 20 L VBG O2 Saturation 59.0 VBG Base Excess -6.3 Sodium Potassium Chloride Carbon Dioxide Anion Gap BUN Creatinine Estim Creat Clear Calc Estimated GFR POC Glucose Random Glucose Lactic Acid Lactic Acid F/U @ 2Hr Lactic Acid F/U @ 4Hr Calcium Total Bilirubin AST ALT Alkaline Phosphatase Total Creatine Kinase Troponin I High Sens 46.7 H B-Natriuretic Peptide Total Protein Albumin Lipase Urine Color Urine Appearance Urine pH Ur Specific [place] Urine Protein Urine Glucose (UA) Urine Ketones Urine Blood Urine Nitrite Ur Leukocyte Esterase Urine RBC Urine WBC Ur Squamous Epith Cells Urine Bacteria Urine Mucus COVID-19 (CHRISTIE) Negative COVID-19 Clin Com See Note Influenza Type A (DAVIAN) Influenza Type B (DAVIAN) Influenza A & B Note 12/22/21 12/22/21 12/22/21 11:55 11:55 14:24 WBC RBC Hgb Hct MCV MCH MCHC RDW Plt Count MPV Immature Gran % (Auto) Neut % (Auto) Lymph % (Auto) Lucas % (Auto) Eos % (Auto) Baso % (Auto) Lymph # (Auto) Lucas # (Auto) Eos # (Auto) Baso # (Auto) Abs Immat Gran (auto) Absolute Neuts (auto) Absolute Nucleated RBC Nucleated RBC % (auto) Neutrophils % (Manual) Band Neutrophils % Lymphocytes % (Manual) Monocytes % (Manual) Metamyelocytes % Abs Neuts (Manual) Lymphocytes # (Manual) Monocytes # (Manual) Metamyelocytes # Toxic Vacuolation Dohle Bodies Platelet Estimate Plt Morphology Comment RBC Morphology Hypochromasia Ovalocytes PT INR APTT VBG pH VBG pCO2 VBG pO2 VBG HCO3 VBG O2 Saturation VBG Base Excess Sodium Potassium Chloride Carbon Dioxide Anion Gap BUN Creatinine Estim Creat Clear Calc Estimated GFR POC Glucose Random Glucose Lactic Acid Lactic Acid F/U @ 2Hr 4.9 H* Lactic Acid F/U @ 4Hr 3.6 H* Calcium Total Bilirubin AST ALT Alkaline Phosphatase Total Creatine Kinase Troponin I High Sens B-Natriuretic Peptide Total Protein Albumin Lipase Urine Color DK YELLOW Urine Appearance CLOUDY Urine pH 5.5 Ur Specific [place] >= 1.030 H Urine Protein 2+ H Urine Glucose (UA) NEG Urine Ketones 15 Urine Blood 2+ H Urine Nitrite NEG Ur Leukocyte Esterase 1+ H Urine RBC 1-4 Urine WBC 30-49 H Ur Squamous Epith Cells 1+ Urine Bacteria 2+ Urine Mucus 2+ COVID-19 (CHRISTIE) COVID-19 Clin Com Influenza Type A (DAVIAN) Influenza Type B (DAVIAN) Influenza A & B Note 12/22/21 17:15 WBC RBC Hgb Hct MCV MCH MCHC RDW Plt Count MPV Immature Gran % (Auto) Neut % (Auto) Lymph % (Auto) Lucas % (Auto) Eos % (Auto) Baso % (Auto) Lymph # (Auto) Lucas # (Auto) Eos # (Auto) Baso # (Auto) Abs Immat Gran (auto) Absolute Neuts (auto) Absolute Nucleated RBC Nucleated RBC % (auto) Neutrophils % (Manual) Band Neutrophils % Lymphocytes % (Manual) Monocytes % (Manual) Metamyelocytes % Abs Neuts (Manual) Lymphocytes # (Manual) Monocytes # (Manual) Metamyelocytes # Toxic Vacuolation Dohle Bodies Platelet Estimate Plt Morphology Comment RBC Morphology Hypochromasia Ovalocytes PT INR APTT VBG pH VBG pCO2 VBG pO2 VBG HCO3 VBG O2 Saturation VBG Base Excess Sodium Potassium Chloride Carbon Dioxide Anion Gap BUN Creatinine Estim Creat Clear Calc Estimated GFR POC Glucose 234 H Random Glucose Lactic Acid Lactic Acid F/U @ 2Hr Lactic Acid F/U @ 4Hr Calcium Total Bilirubin AST ALT Alkaline Phosphatase Total Creatine Kinase Troponin I High Sens B-Natriuretic Peptide Total Protein Albumin Lipase Urine Color Urine Appearance Urine pH Ur Specific [place] Urine Protein Urine Glucose (UA) Urine Ketones Urine Blood Urine Nitrite Ur Leukocyte Esterase Urine RBC Urine WBC Ur Squamous Epith Cells Urine Bacteria Urine Mucus COVID-19 (CHRISTIE) COVID-19 Clin Com Influenza Type A (DAVIAN) Influenza Type B (DAVIAN) Influenza A & B Note Airway Mallampati Class: II TM Dist: >3cm Neck ROM: Full Heart: RRR Lungs: CTA Assessment and Plan Final Anesthetic Review Family History of Problems with Anesthesia: No History of Problems with Anesthesia: No NPO: Yes ASA Class: III Final Preanesthetic Review: No Changes in Pt Med Stat, Meds/Allgs Chart Reviewed and Consent Obtained/Reviewed Patient Risk: Intermediate Procedure Risk: Low Anesthetic Plan Anesthetic Plan: GA and MAC: Disposition: Standard PACU
--- NOTE | 2021-12-22 18:17 | P.OP_ITS ---
Operative Note Operative Note Date of Service: 12/22/21 Narrative: PreOperative Diagnosis: right mid ureteric stone Post Operative Diagnosis: same Procedure: cystoscopy, right retrograde, right stent placement Surgeon: Dr Frank Pace Anesthesia: LMA Indications for procedure: obstructing distal right stone, elevated WBC, elevated creatinine Procedure: After informed consent was verified the patient was brought to the operating room and placed in a supine position. Anesthesia was administered per protocol. The patient was placed in modified dorsal lithotomy position and prepped and draped in a sterile fashion. A safety pause time-out was performed. Laterality of procedure and antibiotics were confirmed. Appropriate imaging was available A 22 Pashto cystoscope was introduced per urethra. No abnormality was noted. Both ureteric orifices were seen in a normal position. The right ureter was cannulated with an open ended catheter and a retrograde examination was performed. filling defects seen . A Sensor guidewire was placed under fluoroscopy and a good coil was seen within the renal pelvis - renal collecting system contents aspirated and sent for culture. A 6 Pashto by 26 cm double-J stent was advanced over the wire and up to the level of the renal pelvis under fluoroscopic and direct visualization. The elvira nt was seen with appropriate coil within the renal pelvis and in the bladder after deployment. The patient tolerated the procedure well and was transferred in stable condition to the recovery area. Pathology: renal culture Drains: stent
[2021-12-22] MEDS: fentaNYL citrate/PF 100 MCG/2 ML VIAL 25 MCG IVPUSH ×3 (19:05→19:20)
[2021-12-22] MEDS: LORazepam 2 MG/ML VIAL 0.5 MG IV (19:10)
[2021-12-22 19:37] LABS: Venous Blood Gas Refer to POC result
[2021-12-22 19:39] LABS: VBG Base Excess -11.1 mmol/L; VBG HCO3 15 mmol/L (22-26); VBG pCO2 34 mmHg; VBG pH 7.24 (7.32-7.43); VBG pO2 67 mmHg
[2021-12-22 19:41] LABS: Hemoglobin 11.5 g/dl (14.0-18.0); Mean Corpuscular Volume 97.2 fL (80.0-98.0); Red Cell Distribution Width 13.2 % (11.0-16.0)
[2021-12-22 19:54] LABS: Hematocrit 34.3 % (42.0-52.0); Mean Corpuscular HGB Conc 33.5 g/dl (31.0-36.0); Mean Corpuscular Hemoglobin 32.6 pg (27.0-33.0); Mean Platelet Volume 10.7 fL (9.4-12.4); Platelet Count 146 X10*3/uL (160-400); Red Blood Count 3.53 X10*6/uL (4.60-5.80); White Blood Count 3.1 X10*3/uL (4.8-10.8)
[2021-12-22 20:03] LABS: Troponin-I High Sensitivity 59.6 ng/L (<3.5-35.0)
[2021-12-22 20:08] LABS: Band Neutrophils Percent 29 % (3-5); Lymphocytes Absolute Manual 0.3 X10*3/uL (1.2-4.9); Lymphocytes Percent Manual 9 % (20-40); Metamyelocytes Absolute 0.2 X10*3/uL; Metamyelocytes Percent 6 %; Monocytes Percent Manual 1 % (2-11); Neutrophils Absolute Manual 2.6 X10*3/uL (2.0-8.3); Neutrophils Percent Manual 55 % (45-73)
[2021-12-22 20:09] LABS: RBC Morphology NOTED
[2021-12-22 20:10] LABS: Macrocytosis 1+ (5-14) /OIF; Ovalocytes 1+ (5-14) /OIF
--- NOTE | 2021-12-22 20:10 | W.PM.CCCN ---
History of Present Illness Data of Consult Service Date: 12/22/21 Requesting physician: Frank Pace Primary Care Provider: Simon Romeo MD HPI Reason for consult: pt tachypneic and wheezing s/p stent placement (urosepsis) Patient is a 76-year-old male with a past medical history of HTN, DM2, pancreatic neoplasm (new?) who was found to be septic this morning in the ED with a right mid ureteric stone so he underwent a stent placement this afternoon by Dr Pace. While recovering in the PACU, patient became tachypneic and wheezing so the PACU general road production manager called me for consult. At the bedside, the patient was not oriented to time or place (likely 2/2 coming off sedation), tachycardic in the 140s, hypertensive in the 150s systolic, tachypneic RR 30's, O2 sat in the low 90s on a 12L non-rebreather. We gave the patient a DuoNeb treatment and 50 mcg of Fentanyl with great improvement. Within minutes, the patient was breathing normally on 3L NC however his blood pressures were trending down, latest was 90/55 with a MAP of 65. I recommended repeating labs, CBC, comprehensive metabolic panel, BNP, lactate, troponin. Blood cultures were just drawn at 09:30 this morning (+ for ecoli). CXR repeated as well. Labs remarkable for the following; WBC 3.1 Hg 11.5 Plt 146 vbg 7.24/34/67/15/91/-11.1 Na 134, K 6.8, Cl 109, bicarb 12, BUN 33, Cr 3.02, Lactic acid 6.0, total bili 1.5, BNP 532, troponin 59.6 (AM was 46.7) XR/XR chest 1V IMPRESSION: Central vascular engorgement and reticulation possibly accentuated by poor inspiratory effort and related with bronchovascular crowding. However, this could be seen with pulmonary edema or atypical infections as well I discussed case with Dr. Hong, patient will be brought to the ICU for further monitoring and need TLC for pressors. Review of Systems Review of Systems: Yes all other systems are reviewed and are negative PMFSH Past Medical History Medical History Diabetes 1.5, managed as type 2 H/O renal calculi HLD (hyperlipidemia) HTN (hypertension), benign Family History Family History Father COPD (chronic obstructive pulmonary disease) Mother Heart disease Social History Social History Household Members: Spouse Housing: House Patient Tobacco Use Status: Never used Tobacco Advance Directives Date on File: 02/15/21 service: No Current occupational status: retired [employer] Allergies Allergy/AdvReac Type Severity Reaction Status Date / Time No Known Allergies Allergy Verified 10/05/21 09:36 Active Medications: Current Medications Acetaminophen (Acetaminophen 325 Mg Tablet) 650 mg PO Q6H PRN PRN Reason: Pain, Mild (Pain Scale 1-3) Enoxaparin Sodium (Enoxaparin Sodium 30 Mg/0.3 Ml Syringe) 30 mg SUBCUT Q24H REPLACED BY [facility] Last Admin: 12/22/21 14:19 Dose: 30 mg Fentanyl (Fentanyl Citrate/Pf 100 Mcg/2 Ml Vial) 25 mcg IVPUSH Q5M PRN; Protocol PRN Reason: Pain, Moderate (Pain Scale 4-6 Last Admin: 12/22/21 19:20 Dose: 25 mcg Hydromorphone HCl (Hydromorphone Hcl 0.5 Mg/0.5 Ml Syringe) 0.25 mg IVPUSH Q5M PRN; Protocol PRN Reason: Pain, Severe (Pain Scale 7-10) Sodium Chloride (Ns) 1,000 mls @ 100 mls/hr IVCONT .Q10H REPLACED BY [facility] Last Admin: 12/22/21 14:34 Dose: 100 mls/hr Piperacillin Sod/Tazobactam (Sod 2.25 gm/ Sodium Chloride) 50 mls @ 100 mls/hr IV Q6H REPLACED BY [facility] Last Infusion: 12/22/21 15:00 Dose: Infused Pharmacy Consult (Consult Rx Perform Med Rec) 1 each MISCELLANE ONCE PRN PRN Reason: Consult order Sodium Chloride (0.9 % Sodium Chloride Flush 3 Ml Syringe) 3 ml IVFLUSH QSHIFT REPLACED BY [facility] Last Admin: 12/22/21 15:06 Dose: Not Given Tamsulosin HCl (Tamsulosin Hcl 0.4 Mg Capsule) 0.4 mg PO BEDTIME [facility] Tramadol HCl (Tramadol Hcl 50 Mg Tablet) 50 mg PO Q6H PRN PRN Reason: Pain, Moderate (Pain Scale 4-6 Home Medications Medication Instructions Recorded Confirmed Last Taken Type duloxetine 30 mg capsule,delayed 1 cap PO BEDTIME 02/14/21 12/22/21 12/21/21 History release glipizide 5 mg tablet 10 mg PO BID 02/14/21 12/22/21 12/21/21 History metformin 850 mg tablet 1 tab PO BID 02/14/21 12/22/21 12/21/21 History pantoprazole 40 mg tablet,delayed 1 tab PO BEDTIME 02/14/21 12/22/21 12/21/21 History release simvastatin 20 mg tablet 1 tab PO BEDTIME 02/14/21 12/22/21 12/21/21 History sitagliptin 100 mg tablet (Januvia) 1 tab PO DAILY 02/14/21 12/22/21 12/21/21 History blood sugar diagnostic (Accu-Chek #10 ea 04/08/21 Unknown History Megan Plus test strp) lancets (Accu-Chek Softclix #100 ea 04/08/21 Unknown History Lancets) lisinopril 10 mg tablet 10 mg PO DAILY 10/05/21 12/22/21 12/21/21 History methocarbamol 750 mg tablet 1 tab PO BID PRN Muscle Pain 12/22/21 12/22/21 Unknown History tamsulosin 0.4 mg capsule 0.4 mg PO BEDTIME 12/22/21 12/22/21 12/21/21 History Physical Exam Vital Signs: Vital Signs: Last Vital Signs Temp 100.7 F H 12/22/21 19:40 Pulse 129 H 12/22/21 20:00 Resp 20 12/22/21 20:00 BP 96/58 L 12/22/21 20:00 Pulse Ox 93 12/22/21 20:00 O2 Del Method 12/22/21 20:00 O2 Flow Rate 3 12/22/21 20:00 BMI result Body Mass Index 34.9 Const: General: cooperative and acute distress (tachypneic) mild Nutritional Appearance: average body habitus Orientation/consciousness: oriented to person, No oriented to place and No oriented to time HEENT: Head: Yes normal to inspection, Yes normocephalic and Yes atraumatic General nose exam: Normal external nose present Face and sinus: Yes normal facial exam Eyes: General: appearance normal, both eyes and all related structures Pupils: Equal, round and reactive pupils present Neck: Neck: Yes normal visual inspection, Yes full ROM, Yes no meningeal signs and Yes trachea midline Resp: Effort & Inspection: respiratory distress Auscultation: wheezes expiratory wheezes and upper bilaterally Cardio: Rate: tachycardic Rhythm: regular rhythm Heart sounds: normal S1 and S2 GI: Inspection: Yes obesity Palpation (GI): Soft to palpation and nontender Neuro: General: oriented to person, No oriented to place, No oriented to time and no meningeal signs Cranial nerves: Yes Equal, round and reactive pupils present Extrem: General: Yes normal to inspection and Yes no pedal edema Results Labs CBC & Chem 7: 12/23/21 12:13 12/23/21 12:13 Labs: Short CBC 12/22/21 12/22/21 Range/Units 09:20 19:30 WBC 12.9 H 3.1 L (4.8-10.8) X10*3/uL Hgb 12.9 L 11.5 L (14.0-18.0) g/dl Hct 37.8 L 34.3 L (42.0-52.0) % Plt Count 163 146 L (160-400) X10*3/uL BMP 12/22/21 09:20 Sodium 136 Potassium 5.2 H D Chloride 103 Carbon Dioxide 20 L BUN 28 H Creatinine 2.80 H Calcium 8.5 Cardiac Enzymes 12/22/21 Range/Units 09:20 Total Creatine Kinase 91 (38-174) U/L Liver Function 12/22/21 Range/Units 09:20 Total Bilirubin 2.3 H (0.0-1.0) mg/dL AST 16 (5-37) U/L ALT 18 (0-40) U/L Alkaline Phosphatase 74 (39-117) U/L Albumin 3.7 (3.5-5.0) g/dL Urine 12/22/21 Range/Units 11:55 Urine Color DK YELLOW Urine Appearance CLOUDY Urine pH 5.5 (5.0-8.0) Ur Specific [place] >= 1.030 H (1.005-1.025) Urine Protein 2+ H (NEG-TRACE) MG/DL Urine Glucose (UA) NEG (NEG) MG/DL Microbiology Microbiology Results: Microbiology 12/22/21 09:25 Blood - Venous Blood Culture - Preliminary Prelim: GNR Gram Stain only 12/22/21 09:20 Blood - Venous Blood Culture - Preliminary Prelim: GNR Gram Stain only Assessment and Plan (1) SAYRA (acute kidney injury): Status: Acute avoid nephrotoxic meds, stone has been removed, stent placed. d/c lovenox, change to heparin (2) Acute hyperkalemia: Status: Acute albuterol, calcium gluconate and IV insulin will be given, will monitor labs and get EKG (3) HTN (hypertension), benign: Status: Acute (4) Diabetes 1.5, managed as type 2: Status: Acute (5) Sepsis: Status: Acute patient did receive 3L of IV fluids in the ED this morning, the lactate has gone up to 6.0, likely due to the stone being removed. Due to the patient's pulmonary edema, I am not giving a sepsis bolus at this time. Will continue gentle fluids, NS gtt @100/hr; will monitor lactic acid, ceftriaxone 1 g given this morning, patient is now on Zosyn Q6H. Pt's CVP found to be 13, we have stopped the NS 100/hr and gave 80mg lasix x1. (6) Calculus, renal: Status: Acute s/p right stent placement (7) Bacteremia, escherichia coli: Status: Acute zosyn (8) Pancreatic neoplasm: Status: Acute Will need MRCP (9) Complex renal cyst: Status: Acute (10) Pulmonary edema: Status: Acute stopped IVF and gave 80mg lasix Plan patient will be transferred to the ICU for monitoring his urosepsis, SAYRA 2/2 renal stone, hyperkalemia, pulmonary edema and e coli bacteremia sepsis focused exam done 9:15pm, pt still tachycardic in the low 100's, regular rate, sat 95% on 2L NC, hypotensive in the low 90's/50's, breathing easily, A&O x3, no expiratory wheeze. Putting in TLC and starting pressors. Critical Care Time Critical Care Time (minutes): 120
[2021-12-22 20:13] LABS: Alanine Aminotransferase 22 U/L (0-40); Albumin Level 3.2 g/dL (3.5-5.0); Alkaline Phosphatase 90 U/L (39-117); Anion Gap 20 (12-20); Aspartate Amino Transferase 35 U/L (5-37); Bilirubin Total 1.5 mg/dL (0.0-1.0); Blood Urea Nitrogen 33 mg/dL (9-16); Calcium 7.2 mg/dL (8.4-10.2); Carbon Dioxide 12 mmol/L (22-29); Chloride 109 mmol/L (96-108); Creatinine Clr Calc Pharmacy 25.1; Estimated Glomerular Filt Rate 20; Glucose Random 224 mg/dL (60-115); Potassium 6.8 mmol/L (3.3-5.1); Sodium 134 mmol/L (135-145); Total Protein 5.9 g/dL (6.5-8.0); Toxic Vacuolation PRESENT
[2021-12-22 20:14] LABS: Platelet Estimate NORMAL (NORMAL); Platelet Morphology Comment NORMAL
[2021-12-22 20:19] LABS: Glucose, Whole Blood 240 mg/dL (60-115)
--- NOTE | 2021-12-22 20:28 | PC.NURSE ---
dr. broussard and kriss holbrook, discussing plan to treat current potassium 6.8 and anesthesia questioning transfer to icu. redraw potassium
[2021-12-22 20:48] LABS: Potassium 5.3 mmol/L (3.3-5.1)
--- NOTE | 2021-12-22 20:55 | HO.SEPSISX_ITS ---
Sepsis Bolus Exclusion Sepsis Bolus Exclusion This patient met severe sepsis criteria due to the following condition(s):: Hypo tension and Lactate>=4mmol/L In my clinical judgement the administration of 30 ml/kg of crystalloid would be detrimental to this patient due to the patient's following conditions:: Concern for fluid overload Other (must be specific):: BNP 532, pulmonary edema on CXR, CVP is 13; giving lasix and stopping IVF Replace the 30 mls/kg with (*zero amount not acceptable): *Note: One of the cain must be documented Crystalloids amount given in mls: (rate must be at least 150cc/hr): 100
[2021-12-22 20:59] LABS: B Type Natriuretic Peptide 532 pg/mL (<100)
[2021-12-22 21:36] LABS: Reflex Lactate? Lactic Acid Added
[2021-12-22] MEDS: Insulin Regular, Human 100 UNIT/ML 3 ML VIAL IVPUSH (22:10)
[2021-12-22] MEDS: Albuterol Sulfate (0.083%) 2.5 MG/3 ML VIAL.NEB 10 MG INHALE (22:13)
[2021-12-22 22:15] LABS: VBG Base Excess -8.7 mmol/L; VBG HCO3 16 mmol/L (22-26); VBG pCO2 30 mmHg; VBG pH 7.32 (7.32-7.43); VBG pO2 49 mmHg
[2021-12-22] MEDS: Phenylephrine HCL 10 MG/ML VIAL IVPUSH (22:17)
--- NOTE | 2021-12-22 22:17 | W.PM.CCHP ---
Procedures Date of Service Date of Service: 12/22/21 Central Line Placement Right IJ: Central Line Comments: venous access for pressors Consent for Procedure: Elective - informed consent obtained Time out performed: Yes Sterile Technique Used: Yes Patient placed on monitor/pulse ox: Yes MD prep: mask, gown and gloves Central line prep: Chlorhexidine scrub and sterile drapes applied Local anesthesia used: lidocaine 2% Amount of anesthesia used (ml): 3 Ultrasound used for placement: Yes Central line lumen inserted: triple Post procedure: sutured in place, good blood return and all ports aspirated, flushed, capped Post procedure x-ray: tip of catheter in good position and no pneumothorax seen Patient tolerated procedure: well and no complications Complications: none
[2021-12-22] MEDS: Phenazopyridine HCL 100 MG TABLET PO (22:37)
[2021-12-22] MEDS: Furosemide 100 MG/10 ML VIAL 80 MG IVPUSH (22:41)
[2021-12-22 22:42] LABS: ~Lactic Acid-LAB USE ONLY 3.4 mmol/L (0.5-2.0)
[2021-12-22 23:12] LABS: Venous Blood Gas Refer to POC result
[2021-12-23] VITALS (26 sets, daily range): BP systolic 94–146; BP diastolic 46–90; PULSE 98–133; RESP 13–24; TEMP 36.7–37.6; O2SAT 91–98; BMI 35.5
[2021-12-23] MEDS: 0.9 % Sodium Chloride Flush 3 ML SYRINGE IVFLUSH (00:13)
--- NOTE | 2021-12-23 00:13 | PC.NURSE ---
Assumed care at 21:30. Patient drowsy but easily arousable and oriented x4. Consented for placement of TLC to right IJ with PA, and placement was successful with confirmation by CXR. CVP set up and 13. Lasix 80 mg IV per PA. Initially started on NS at 100 cc/hour, and this was stopped per PA. Pyridium PO given one time per PA. Patient with atrial fibrillation confirmed by EKG as atrial fibrillation, rate is 129-140 an PA aware, no rate control at this time per PA. BP was low on arrival, and levophed was started immediately peripherally per PA and was uptitirated now at 0.26 and running at TLC. BP is improved with MAP >65. No notable edema. CXR with pulmonary edema per PA. Lactic acid improved to 3.4 shortly after arrival.
[2021-12-23 00:16] LABS: Reflex Lactate? 2 Y
[2021-12-23 00:54] LABS: ~Lactic Acid-LAB USE ONLY 3.6 mmol/L (0.5-2.0)
[2021-12-23] MEDS: Piperacillin Sodium/Tazobactam 2.25 GM in 0.9 % Sodium Chloride 50 ML IV ×4 (02:10→20:21)
[2021-12-23 05:26] LABS: Hematocrit 35.7 % (42.0-52.0); Hemoglobin 12.3 g/dl (14.0-18.0); Mean Corpuscular HGB Conc 34.5 g/dl (31.0-36.0); Mean Corpuscular Volume 95.7 fL (80.0-98.0); Mean Platelet Volume 10.2 fL (9.4-12.4); Platelet Count 134 X10*3/uL (160-400); Red Blood Count 3.73 X10*6/uL (4.60-5.80); Red Cell Distribution Width 13.4 % (11.0-16.0)
[2021-12-23 05:28] LABS: White Blood Count 36.6 X10*3/uL (4.8-10.8)
[2021-12-23 05:29] LABS: VBG Base Excess -12.2 mmol/L; VBG HCO3 13 mmol/L (22-26); VBG pCO2 28 mmHg; VBG pH 7.27 (7.32-7.43); VBG pO2 47 mmHg
[2021-12-23 05:30] LABS: Venous Blood Gas Refer to POC result
[2021-12-23 05:50] LABS: B Type Natriuretic Peptide 562 pg/mL (<100); Band Neutrophils Percent 27 % (3-5); Dohle Bodies PRESENT; Lymphocytes Absolute Manual 0.7 X10*3/uL (1.2-4.9); Lymphocytes Percent Manual 2 % (20-40); Metamyelocytes Absolute 1.1 X10*3/uL; Metamyelocytes Percent 3 %; Monocytes Absolute Manual 1.1 X10*3/uL (0.1-1.2); Monocytes Percent Manual 3 % (2-11); Neutrophils Absolute Manual 33.7 X10*3/uL (2.0-8.3); Neutrophils Percent Manual 65 % (45-73); Platelet Estimate SLIGHTLY DECREASED (NORMAL); Platelet Morphology Comment NORMAL; RBC Morphology NORMAL
[2021-12-23 05:51] LABS: Toxic Vacuolation PRESENT
[2021-12-23 06:00] LABS: Alanine Aminotransferase 144 U/L (0-40); Albumin Level 3.5 g/dL (3.5-5.0); Alkaline Phosphatase 84 U/L (39-117); Anion Gap 19 (12-20); Aspartate Amino Transferase 115 U/L (5-37); Bilirubin Total 1.6 mg/dL (0.0-1.0); Blood Urea Nitrogen 39 mg/dL (9-16); Calcium 7.6 mg/dL (8.4-10.2); Carbon Dioxide 15 mmol/L (22-29); Chloride 107 mmol/L (96-108); Creatinine Clr Calc Pharmacy 23.2; Estimated Glomerular Filt Rate 19; Glucose Random 274 mg/dL (60-115); Lactic Acid 3.9 mmol/L (0.5-2.0); Magnesium 1.1 mg/dL (1.6-2.6); Potassium 6.1 mmol/L (3.3-5.1); Sodium 135 mmol/L (135-145); Total Protein 5.8 g/dL (6.5-8.0); Troponin-I High Sensitivity 237.9 ng/L (<3.5-35.0)
[2021-12-23 07:21] LABS: Reflex Lactate? Lactic Acid Added
[2021-12-23 07:49] LABS: Glucose, Whole Blood 235 mg/dL (60-115)
[2021-12-23] MEDS: levoFLOXacin/D5W 500 MG/100 ML PIGGYBACK 100 MG IV (07:58)
[2021-12-23 08:05] LABS: ~Lactic Acid-LAB USE ONLY 4.8 mmol/L (0.5-2.0)
[2021-12-23] MEDS: Magnesium Sulfate/H2O 2 GM/50 ML PIGGYBACK IV (08:14)
[2021-12-23] MEDS: Furosemide 500 MG in Container,Empty 0 ML IVCONT (08:15)
[2021-12-23] MEDS: Insulin Lispro 100 UNIT/ML 3 ML VIAL SUBCUT (08:49)
[2021-12-23 08:52] LABS: Vitamin B12 653 pg/mL (200-900)
[2021-12-23 09:40] LABS: Reflex Lactate? 2 Y
[2021-12-23 10:42] LABS: ~Lactic Acid-LAB USE ONLY 3.3 mmol/L (0.5-2.0)
[2021-12-23] MEDS: Sodium Bicarbonate 650 MG TABLET PO ×4 (10:56→20:21)
[2021-12-23] MEDS: SITagliptin Phosphate 100 MG TABLET PO (10:56)
[2021-12-23 11:04] LABS: Glucose, Whole Blood 279 mg/dL (60-115)
--- NOTE | 2021-12-23 11:32 | HO.POSTANES ---
Post Anesthesia Evaluation Post Anesthesia Evaluation Vital Signs: Vital Signs Temp Pulse Resp BP Pulse Ox O2 Del Method O2 Flow Rate 12/23/21 11:00 98.6 F 102 H 18 99/46 L 96 Nasal Cannula 2 12/23/21 08:00 106 H 20 146/90 H 94 Nasal Cannula 2 12/23/21 10:00 110 H 24 H 103/62 95 Nasal Cannula 3 12/23/21 09:00 99 17 100/66 94 Nasal Cannula 3 12/23/21 07:00 99.1 F 99 21 H 136/89 98 Nasal Cannula 3 12/23/21 06:00 99 F 100 21 H 138/75 97 Nasal Cannula 3 12/23/21 05:00 98.4 F 98 16 124/76 97 Nasal Cannula 3 12/23/21 04:00 99 F 108 H 21 H 101/66 96 Nasal Cannula 3 12/23/21 03:00 98.8 F 120 H 20 115/72 95 Nasal Cannula 3 12/23/21 02:00 99.1 F 118 H 19 111/78 95 Nasal Cannula 3 12/23/21 01:00 99.5 F 130 H 21 H 112/70 95 Nasal Cannula 3 12/23/21 00:00 99.7 F 133 H 23 H 94/64 94 Nasal Cannula 3 Anesthesia: Monitored Mental Status: Awake Pain Control: Satisfactory Nausea/Vomiting: None Hydration: Adequate Anesthesia-Related Issues: No Anes. Related Issues
--- NOTE | 2021-12-23 11:41 | MHC.CM.PN ---
Met with pt and dtr in ICU where pt is being treated for UTI/sepsis. Pt resides with spouse, states he is independent with all care needs and has no services or DME. Pt identified no barriers to care. Pt feels he will be able to return to home without services but is receptive to VNA should he need it. [facility], H[facility] at [facility]: copy requested. D/C plan: home with family support and family transportation
[2021-12-23 12:19] LABS: VBG Base Excess -6.9 mmol/L; VBG HCO3 17 mmol/L (22-26); VBG pCO2 31 mmHg; VBG pH 7.35 (7.32-7.43); VBG pO2 50 mmHg
[2021-12-23 12:27] LABS: Hematocrit 33.3 % (42.0-52.0); Hemoglobin 11.4 g/dl (14.0-18.0); Mean Corpuscular HGB Conc 34.2 g/dl (31.0-36.0); Mean Corpuscular Hemoglobin 32.6 pg (27.0-33.0); Mean Corpuscular Volume 95.1 fL (80.0-98.0); Mean Platelet Volume 10.8 fL (9.4-12.4); Platelet Count 122 X10*3/uL (160-400); Red Cell Distribution Width 13.8 % (11.0-16.0)
[2021-12-23 12:29] LABS: White Blood Count 30.7 X10*3/uL (4.8-10.8)
[2021-12-23 12:55] LABS: Alanine Aminotransferase 168 U/L (0-40); Albumin Level 3.1 g/dL (3.5-5.0); Alkaline Phosphatase 74 U/L (39-117); Aspartate Amino Transferase 148 U/L (5-37); Bilirubin Total 1.3 mg/dL (0.0-1.0); Blood Urea Nitrogen 42 mg/dL (9-16); Calcium 7.4 mg/dL (8.4-10.2); Carbon Dioxide 19 mmol/L (22-29); Creatinine Clr Calc Pharmacy 24.9; Estimated Glomerular Filt Rate 20; Glucose Random 266 mg/dL (60-115); Magnesium 1.6 mg/dL (1.6-2.6); Phosphorus 2.5 mg/dL (2.7-4.5); Total Protein 5.4 g/dL (6.5-8.0)
[2021-12-23 13:00] LABS: Band Neutrophils Percent 32 % (3-5); Eosinophils Absolute Manual 0.3 X10*3/uL (0.0-0.4); Eosinophils Percent Manual 1 % (0-4); Lymphocytes Absolute Manual 0.6 X10*3/uL (1.2-4.9); Lymphocytes Percent Manual 2 % (20-40); Metamyelocytes Absolute 0.6 X10*3/uL; Metamyelocytes Percent 2 %; Monocytes Absolute Manual 1.5 X10*3/uL (0.1-1.2); Monocytes Percent Manual 5 % (2-11); Neutrophils Absolute Manual 27.6 X10*3/uL (2.0-8.3); Neutrophils Percent Manual 58 % (45-73)
[2021-12-23 13:03] LABS: Dohle Bodies PRESENT; Platelet Estimate SLIGHTLY DECREASED (NORMAL); Platelet Morphology Comment NORMAL; RBC Morphology NORMAL
[2021-12-23 13:32] LABS: Troponin-I High Sensitivity 254.9 ng/L (<3.5-35.0)
[2021-12-23 13:45] LABS: Anion Gap 16 (12-20); Chloride 107 mmol/L (96-108); Potassium 4.7 mmol/L (3.3-5.1); Sodium 137 mmol/L (135-145)
--- NOTE | 2021-12-23 14:46 | PM.CCPN ---
Subjective Subjective Date of Service: 12/23/21 Interval History: 76-year-old moderately obese male presented with left-sided hydronephrosis and pyelonephritis with Gram-negative bacteremia clearly symptoms worsened with significant hypotension after placement of ureteral stent requiring admission to the emergency room and support from IV Levophed and initially was an uric and is now developing a postobstructive diuresis but because of an elevated CVP which was at approximately 15 with evidence of interstitial pulmonary edema by chest x-ray because he had received between 4 and 5 L of IV fluid from emergency room to OR we initiated a Lasix drip and as the CVP comes down will probably be able to dispense with that drip he is doing much better and he is beginning to reverses BUN and creatinine and he has completely resolved positive anion gap metabolic acidosis with resolution of his elevated lactic acid and all metabolic abnormalities completely resolved and white count is diminishing but still has considerable left shift and at this point will be maintained on Zosyn as his drug of choice but received 1 dose of synergistic Levaquin Critical Care Time (minutes): 60 Physical Exam Vital Signs: Vital Signs: Last Vital Signs Temp 99.0 F 12/23/21 14:00 Pulse 105 H 12/23/21 14:00 Resp 19 12/23/21 14:00 BP 125/73 12/23/21 14:00 Pulse Ox 94 12/23/21 14:00 O2 Del Method 12/23/21 14:00 O2 Flow Rate 3 12/23/21 14:00 BMI result Body Mass Index 35.5 Pressure 119/71 with a mean of 80 oxygen saturation greater than 90% sinus tachycardia with 1st degree AV block and the periods of [place] with heart rate averaging 104 Bedside echo shows evidence of congestive cardiomyopathy with mild diffuse hypokinesis ejection fraction 35-40% but no primary valve or pericardial disease and apparently the patient has had outpatient symptomatology of premature fatigue Lungs clear without adventitious sounds Abdomen soft no organomegaly Skin intact EKG with diminished R-wave progression across the precordium and left axis and sinus rhythm with 1st degree AV block Objective Data Labs CBC & Chem 7: 12/23/21 12:13 12/23/21 12:13 Labs: Laboratory Results - last 24 hr 12/22/21 12/22/21 12/22/21 14:24 17:15 18:33 WBC RBC Hgb Hct MCV MCH MCHC RDW Plt Count MPV Immature Gran % (Auto) Neut % (Auto) Lymph % (Auto) [place] % (Auto) Eos % (Auto) Baso % (Auto) Lymph # (Auto) [place] # (Auto) Eos # (Auto) Baso # (Auto) Abs Immat Gran (auto) Absolute Neuts (auto) Absolute Nucleated RBC Nucleated RBC % (auto) Neutrophils % (Manual) Band Neutrophils % Lymphocytes % (Manual) Monocytes % (Manual) Eosinophils % (Manual) Metamyelocytes % Abs Neuts (Manual) Lymphocytes # (Manual) Monocytes # (Manual) Eosinophils # (Manual) Metamyelocytes # Toxic Vacuolation Dohle Bodies Platelet Estimate Plt Morphology Comment RBC Morphology Macrocytosis Ovalocytes VBG pH VBG pCO2 VBG pO2 VBG HCO3 VBG O2 Saturation VBG Base Excess Sodium Potassium Chloride Carbon Dioxide Anion Gap BUN Creatinine Estim Creat Clear Calc Estimated GFR POC Glucose 234 H 240 H Random Glucose Lactic Acid Lactic Acid F/U @ 2Hr Lactic Acid F/U @ 4Hr 3.6 H* Calcium Phosphorus Magnesium Total Bilirubin Direct Bilirubin AST ALT Alkaline Phosphatase Troponin I High Sens B-Natriuretic Peptide Total Protein Albumin Carcinoembryonic Ag Vitamin B12 12/22/21 12/22/21 12/22/21 19:30 19:30 19:30 WBC 3.1 L RBC 3.53 L Hgb 11.5 L Hct 34.3 L MCV 97.2 MCH 32.6 MCHC 33.5 RDW 13.2 Plt Count 146 L MPV 10.7 Immature Gran % (Auto) Cancelled Neut % (Auto) Cancelled Lymph % (Auto) Cancelled [place] % (Auto) Cancelled Eos % (Auto) Cancelled Baso % (Auto) Cancelled Lymph # (Auto) Cancelled [place] # (Auto) Cancelled Eos # (Auto) Cancelled Baso # (Auto) Cancelled Abs Immat Gran (auto) Cancelled Absolute Neuts (auto) Cancelled Absolute Nucleated RBC 0.000 Nucleated RBC % (auto) 0.0 Neutrophils % (Manual) 55 Band Neutrophils % 29 H Lymphocytes % (Manual) 9 L Monocytes % (Manual) 1 L Eosinophils % (Manual) Metamyelocytes % 6 Abs Neuts (Manual) 2.6 Lymphocytes # (Manual) 0.3 L Monocytes # (Manual) Eosinophils # (Manual) Metamyelocytes # 0.2 Toxic Vacuolation PRESENT Dohle Bodies Platelet Estimate NORMAL Plt Morphology Comment NORMAL RBC Morphology NOTED Macrocytosis 1+ (5-14) Ovalocytes 1+ (5-14) VBG pH VBG pCO2 VBG pO2 VBG HCO3 VBG O2 Saturation VBG Base Excess Sodium 134 L Potassium 6.8 H* D Chloride 109 H Carbon Dioxide 12 L Anion Gap 20 BUN 33 H Creatinine 3.02 H Estim Creat Clear Calc 25.1 Estimated GFR 20 POC Glucose Random Glucose 224 H Lactic Acid Lactic Acid F/U @ 2Hr Lactic Acid F/U @ 4Hr Calcium 7.2 L D Phosphorus Magnesium Total Bilirubin 1.5 H Direct Bilirubin AST 35 D ALT 22 Alkaline Phosphatase 90 D Troponin I High Sens 59.6 H B-Natriuretic Peptide 532 H Total Protein 5.9 L Albumin 3.2 L Carcinoembryonic Ag Vitamin B12 12/22/21 12/22/21 12/22/21 19:30 19:34 20:34 WBC RBC Hgb Hct MCV MCH MCHC RDW Plt Count MPV Immature Gran % (Auto) Neut % (Auto) Lymph % (Auto) [place] % (Auto) Eos % (Auto) Baso % (Auto) Lymph # (Auto) [place] # (Auto) Eos # (Auto) Baso # (Auto) Abs Immat Gran (auto) Absolute Neuts (auto) Absolute Nucleated RBC Nucleated RBC % (auto) Neutrophils % (Manual) Band Neutrophils % Lymphocytes % (Manual) Monocytes % (Manual) Eosinophils % (Manual) Metamyelocytes % Abs Neuts (Manual) Lymphocytes # (Manual) Monocytes # (Manual) Eosinophils # (Manual) Metamyelocytes # Toxic Vacuolation Dohle Bodies Platelet Estimate Plt Morphology Comment RBC Morphology Macrocytosis Ovalocytes VBG pH 7.24 L VBG pCO2 34 VBG pO2 67 VBG HCO3 15 L VBG O2 Saturation 91.0 VBG Base Excess -11.1 Sodium Potassium 5.3 H D Chloride Carbon Dioxide Anion Gap BUN Creatinine Estim Creat Clear Calc Estimated GFR POC Glucose Random Glucose Lactic Acid 6.0 H* Lactic Acid F/U @ 2Hr Lactic Acid F/U @ 4Hr Calcium Phosphorus Magnesium Total Bilirubin Direct Bilirubin AST ALT Alkaline Phosphatase Troponin I High Sens B-Natriuretic Peptide Total Protein Albumin Carcinoembryonic Ag Vitamin B12 12/22/21 12/22/21 12/23/21 22:06 22:11 00:27 WBC RBC Hgb Hct MCV MCH MCHC RDW Plt Count MPV Immature Gran % (Auto) Neut % (Auto) Lymph % (Auto) [place] % (Auto) Eos % (Auto) Baso % (Auto) Lymph # (Auto) [place] # (Auto) Eos # (Auto) Baso # (Auto) Abs Immat Gran (auto) Absolute Neuts (auto) Absolute Nucleated RBC Nucleated RBC % (auto) Neutrophils % (Manual) Band Neutrophils % Lymphocytes % (Manual) Monocytes % (Manual) Eosinophils % (Manual) Metamyelocytes % Abs Neuts (Manual) Lymphocytes # (Manual) Monocytes # (Manual) Eosinophils # (Manual) Metamyelocytes # Toxic Vacuolation Dohle Bodies Platelet Estimate Plt Morphology Comment RBC Morphology Macrocytosis Ovalocytes VBG pH 7.32 VBG pCO2 30 VBG pO2 49 VBG HCO3 16 L VBG O2 Saturation 82.0 VBG Base Excess -8.7 Sodium Potassium Chloride Carbon Dioxide Anion Gap BUN Creatinine Estim Creat Clear Calc Estimated GFR POC Glucose Random Glucose Lactic Acid Lactic Acid F/U @ 2Hr 3.4 H* Lactic Acid F/U @ 4Hr 3.6 H* Calcium Phosphorus Magnesium Total Bilirubin Direct Bilirubin AST ALT Alkaline Phosphatase Troponin I High Sens B-Natriuretic Peptide Total Protein Albumin Carcinoembryonic Ag Vitamin B12 12/23/21 12/23/21 12/23/21 05:19 05:19 05:19 WBC 36.6 H* RBC 3.73 L Hgb 12.3 L Hct 35.7 L MCV 95.7 MCH 33.0 MCHC 34.5 RDW 13.4 Plt Count 134 L MPV 10.2 Immature Gran % (Auto) Cancelled Neut % (Auto) Cancelled Lymph % (Auto) Cancelled [place] % (Auto) Cancelled Eos % (Auto) Cancelled Baso % (Auto) Cancelled Lymph # (Auto) Cancelled [place] # (Auto) Cancelled Eos # (Auto) Cancelled Baso # (Auto) Cancelled Abs Immat Gran (auto) Cancelled Absolute Neuts (auto) Cancelled Absolute Nucleated RBC 0.000 Nucleated RBC % (auto) 0.0 Neutrophils % (Manual) 65 Band Neutrophils % 27 H Lymphocytes % (Manual) 2 L Monocytes % (Manual) 3 Eosinophils % (Manual) Metamyelocytes % 3 Abs Neuts (Manual) 33.7 H Lymphocytes # (Manual) 0.7 L Monocytes # (Manual) 1.1 Eosinophils # (Manual) Metamyelocytes # 1.1 Toxic Vacuolation PRESENT Dohle Bodies PRESENT Platelet Estimate SLIGHTLY DECREASED Plt Morphology Comment NORMAL RBC Morphology NORMAL Macrocytosis Ovalocytes VBG pH VBG pCO2 VBG pO2 VBG HCO3 VBG O2 Saturation VBG Base Excess Sodium 135 Potassium 6.1 H* Chloride 107 Carbon Dioxide 15 L Anion Gap 19 BUN 39 H Creatinine 3.27 H Estim Creat Clear Calc 23.2 Estimated GFR 19 POC Glucose Random Glucose 274 H Lactic Acid Lactic Acid F/U @ 2Hr Lactic Acid F/U @ 4Hr Calcium 7.6 L Phosphorus 3.0 Magnesium 1.1 L* Total Bilirubin 1.6 H Direct Bilirubin 1.0 H AST 115 H ALT 144 H Alkaline Phosphatase 84 Troponin I High Sens B-Natriuretic Peptide 562 H Total Protein 5.8 L Albumin 3.5 Carcinoembryonic Ag 1.00 Vitamin B12 12/23/21 12/23/21 12/23/21 05:19 05:19 05:19 WBC RBC Hgb Hct MCV MCH MCHC RDW Plt Count MPV Immature Gran % (Auto) Neut % (Auto) Lymph % (Auto) [place] % (Auto) Eos % (Auto) Baso % (Auto) Lymph # (Auto) [place] # (Auto) Eos # (Auto) Baso # (Auto) Abs Immat Gran (auto) Absolute Neuts (auto) Absolute Nucleated RBC Nucleated RBC % (auto) Neutrophils % (Manual) Band Neutrophils % Lymphocytes % (Manual) Monocytes % (Manual) Eosinophils % (Manual) Metamyelocytes % Abs Neuts (Manual) Lymphocytes # (Manual) Monocytes # (Manual) Eosinophils # (Manual) Metamyelocytes # Toxic Vacuolation Dohle Bodies Platelet Estimate Plt Morphology Comment RBC Morphology Macrocytosis Ovalocytes VBG pH VBG pCO2 VBG pO2 VBG HCO3 VBG O2 Saturation VBG Base Excess Sodium Potassium Chloride Carbon Dioxide Anion Gap BUN Creatinine Estim Creat Clear Calc Estimated GFR POC Glucose Random Glucose Lactic Acid 3.9 H* Lactic Acid F/U @ 2Hr Lactic Acid F/U @ 4Hr Calcium Phosphorus Magnesium Total Bilirubin Direct Bilirubin AST ALT Alkaline Phosphatase Troponin I High Sens 237.9 H* D B-Natriuretic Peptide Total Protein Albumin Carcinoembryonic Ag Vitamin B12 653 12/23/21 12/23/21 12/23/21 05:24 07:36 07:45 WBC RBC Hgb Hct MCV MCH MCHC RDW Plt Count MPV Immature Gran % (Auto) Neut % (Auto) Lymph % (Auto) [place] % (Auto) Eos % (Auto) Baso % (Auto) Lymph # (Auto) [place] # (Auto) Eos # (Auto) Baso # (Auto) Abs Immat Gran (auto) Absolute Neuts (auto) Absolute Nucleated RBC Nucleated RBC % (auto) Neutrophils % (Manual) Band Neutrophils % Lymphocytes % (Manual) Monocytes % (Manual) Eosinophils % (Manual) Metamyelocytes % Abs Neuts (Manual) Lymphocytes # (Manual) Monocytes # (Manual) Eosinophils # (Manual) Metamyelocytes # Toxic Vacuolation Dohle Bodies Platelet Estimate Plt Morphology Comment RBC Morphology Macrocytosis Ovalocytes VBG pH 7.27 L VBG pCO2 28 VBG pO2 47 VBG HCO3 13 L VBG O2 Saturation 76.0 VBG Base Excess -12.2 Sodium Potassium Chloride Carbon Dioxide Anion Gap BUN Creatinine Estim Creat Clear Calc Estimated GFR POC Glucose 235 H Random Glucose Lactic Acid Lactic Acid F/U @ 2Hr 4.8 H* Lactic Acid F/U @ 4Hr Calcium Phosphorus Magnesium Total Bilirubin Direct Bilirubin AST ALT Alkaline Phosphatase Troponin I High Sens B-Natriuretic Peptide Total Protein Albumin Carcinoembryonic Ag Vitamin B12 12/23/21 12/23/21 12/23/21 10:12 10:57 12:13 WBC 30.7 H* RBC 3.50 L Hgb 11.4 L Hct 33.3 L MCV 95.1 MCH 32.6 MCHC 34.2 RDW 13.8 Plt Count 122 L MPV 10.8 Immature Gran % (Auto) Cancelled Neut % (Auto) Cancelled Lymph % (Auto) Cancelled [place] % (Auto) Cancelled Eos % (Auto) Cancelled Baso % (Auto) Cancelled Lymph # (Auto) Cancelled [place] # (Auto) Cancelled Eos # (Auto) Cancelled Baso # (Auto) Cancelled Abs Immat Gran (auto) Cancelled Absolute Neuts (auto) Cancelled Absolute Nucleated RBC 0.000 Nucleated RBC % (auto) 0.0 Neutrophils % (Manual) 58 Band Neutrophils % 32 H Lymphocytes % (Manual) 2 L Monocytes % (Manual) 5 Eosinophils % (Manual) 1 Metamyelocytes % 2 Abs Neuts (Manual) 27.6 H Lymphocytes # (Manual) 0.6 L Monocytes # (Manual) 1.5 H Eosinophils # (Manual) 0.3 Metamyelocytes # 0.6 Toxic Vacuolation Dohle Bodies PRESENT Platelet Estimate SLIGHTLY DECREASED Plt Morphology Comment NORMAL RBC Morphology NORMAL Macrocytosis Ovalocytes VBG pH VBG pCO2 VBG pO2 VBG HCO3 VBG O2 Saturation VBG Base Excess Sodium Potassium Chloride Carbon Dioxide Anion Gap BUN Creatinine Estim Creat Clear Calc Estimated GFR POC Glucose 279 H Random Glucose Lactic Acid Lactic Acid F/U @ 2Hr Lactic Acid F/U @ 4Hr 3.3 H* Calcium Phosphorus Magnesium Total Bilirubin Direct Bilirubin AST ALT Alkaline Phosphatase Troponin I High Sens B-Natriuretic Peptide Total Protein Albumin Carcinoembryonic Ag Vitamin B12 12/23/21 12/23/21 12/23/21 12:13 12:13 12:15 WBC RBC Hgb Hct MCV MCH MCHC RDW Plt Count MPV Immature Gran % (Auto) Neut % (Auto) Lymph % (Auto) [place] % (Auto) Eos % (Auto) Baso % (Auto) Lymph # (Auto) [place] # (Auto) Eos # (Auto) Baso # (Auto) Abs Immat Gran (auto) Absolute Neuts (auto) Absolute Nucleated RBC Nucleated RBC % (auto) Neutrophils % (Manual) Band Neutrophils % Lymphocytes % (Manual) Monocytes % (Manual) Eosinophils % (Manual) Metamyelocytes % Abs Neuts (Manual) Lymphocytes # (Manual) Monocytes # (Manual) Eosinophils # (Manual) Metamyelocytes # Toxic Vacuolation Dohle Bodies Platelet Estimate Plt Morphology Comment RBC Morphology Macrocytosis Ovalocytes VBG pH 7.35 VBG pCO2 31 VBG pO2 50 VBG HCO3 17 L VBG O2 Saturation 81.0 VBG Base Excess -6.9 Sodium 137 Potassium 4.7 D Chloride 107 Carbon Dioxide 19 L Anion Gap 16 BUN 42 H Creatinine 3.07 H Estim Creat Clear Calc 24.9 Estimated GFR 20 POC Glucose Random Glucose 266 H Lactic Acid Lactic Acid F/U @ 2Hr Lactic Acid F/U @ 4Hr Calcium 7.4 L Phosphorus 2.5 L Magnesium 1.6 Total Bilirubin 1.3 H Direct Bilirubin AST 148 H ALT 168 H Alkaline Phosphatase 74 Troponin I High Sens 254.9 H* B-Natriuretic Peptide Total Protein 5.4 L Albumin 3.1 L Carcinoembryonic Ag Vitamin B12 Microbiology Microbiology Results: Microbiology 12/22/21 18:13 Urine Catheterized - [place] Catheter Urine Culture - Preliminary Culture in progress. 12/22/21 09:25 Blood - Venous Blood Culture - Preliminary Gram negative radha 12/22/21 09:20 Blood - Venous Blood Culture - Preliminary Gram negative radha 12/22/21 Unknown Urine clean catch - Urine eric top Urine Culture - Final Progress Note: A&P Assessment and plan (1) Pulmonary edema: Status: Acute (2) Acute hyperkalemia: Status: Acute (3) SAYRA (acute kidney injury): Status: Acute (4) Obstructive nephropathy: Status: Acute (5) HTN (hypertension), benign: Status: Acute (6) Diabetes 1.5, managed as type 2: Status: Acute (7) Sepsis: Status: Acute (8) Calculus, renal: Status: Acute (9) Acute pyelonephritis: Status: Acute (10) Pancreatic neoplasm: Status: Acute (11) Nephrolithiasis: Status: Acute (12) Bacteremia, escherichia coli: Status: Acute (13) Congestive cardiomyopathy: Status: Acute Plan So he Gram-negative sepsis from pyelonephritis due to obstructive nephropathy with with obstruction relieved and he has a postobstructive diuresis at this point and approaching euvolemia where we could probably stop his Lasix drip and continue his Zosyn Quality Stroke Does the patient have a stroke diagnosis?: No VTE Prior VTE?: No VTE Risk Level:: Medical - moderate - high VTE Device Contraindication: Treatment Not Indicated VTE Drug Contraindication: N/A - Med Ordered
[2021-12-23 16:20] LABS: Venous Blood Gas Refer to POC result
[2021-12-23 16:25] LABS: Glucose, Whole Blood 197 mg/dL (60-115)
--- NOTE | 2021-12-23 16:43 | P.CNGI_ITS ---
History of Present Illness Data of Consult Service Date: 12/23/21 Requesting physician: Lars Sanchez Primary Care Provider: Simon Romeo MD HPI Reason for consult: Pancreatic mass 76 YM seen at [facility] on 12/22/21 with 5/10 sharp and constant abdominal pain, nausea, vomiting, and right flank pain. Patient stated that his symptoms started the previous night. EMS gave the patient 100mcg of Fentanyl prior to arrival. Pt found to be septic with a right mid ureteric stone and underwent a stent placement on 12/22/[address] Pace.? While recovering in the PACU, patient became confused with tachypneic and wheezing?and transfered to ICU for further management.? GI was consulted due to incidental finding of a pancreatic mass on Abd CT scan. Patient gives a hx of heartburn and takes Tums or Rolaids prn. He denies any upper abdominal pain, recent change in bowel habits, constipation, diarrhea, black stools or rectal bleeding. Pt denies any hx of pancreatic problems in the past. Patient denies major cardiac or pulmonary problems, loud snoring or sleep apnea Pt denies a hx of smoking or ETOH abuse. Patient is , lives with his and has 5 children. 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 Patient denies known family history of pancreatic cancer, colon polyps, colon cancer or other GI malignancies. Pt's Dad had prostate cancer. PAST EGD/COLONOSCOPY: Pt had a colonoscopy 5 yrs ago at [facility] [place] - which was negative. Repeat colonoscopy was advised in 10 years. IMAGING STUDIES: 12/22/[address] SCAN SHOWED (personally reviewed with Radiology): LIVER, GALLBLADDER, AND BILIARY TREE: The liver is normal in size, shape, and attenuation. No focal hepatic lesion or biliary ductal dilatation is present. The gallbladder is unremarkable with no evidence of radiopaque gallstones, gallbladder wall thickening, or obvious pericholecystic inflammatory changes.? PANCREAS: There is a 2.2 x 1.7 cm possible mass in the pancreatic head (3:37).? Further evaluation is recommended MRI/MRCP. Endoscopic ultrasound would be another alternative. No pancreatic duct dilatation is seen. SPLEEN: Unremarkable.? ADRENAL GLANDS: Unremarkable.? KIDNEYS AND URETERS: On the right, there is a nonobstructing distal ureteral calculus measuring 3 mm about 6 mm above the right ureterovesical junction. There is mild associated ureterectasis and right-sided pelvocaliectasis with perinephric stranding. The previously seen obstructing distal left ureteral calculus at the time of the 02/14/2021 study is no longer present. The kidneys are normal in size, shape, and attenuation. No left-sided hydronephrosis, left side hydroureter, or intrarenal calculi seen.? ? [facility] Past Medical History Medical History Diabetes 1.5, managed as type 2 H/O renal calculi HLD (hyperlipidemia) HTN (hypertension), benign Family History Family History Father COPD (chronic obstructive pulmonary disease) Mother Heart disease Social History Social History Household Members: Spouse Housing: House Patient Tobacco Use Status: Never used Tobacco Advance Directives Date on File: 02/15/21 service: No Current occupational status: [employer] Allergies Allergy/AdvReac Type Severity Reaction Status Date / Time No Known Allergies Allergy Verified 10/05/21 09:36 Active Medications: Current Medications Dextrose (Dextrose 50 % 25 Gm/50 Ml Syringe) 25 gm IVPUSH Q15M PRN; Protocol PRN Reason: per Hypoglycemia Standing Ord. Glucose (Glucose Gel 15 Gm Gel..Gram.) 15 gm PO Q15M PRN; Protocol PRN Reason: per Hypoglycemia Standing Ord. Piperacillin Sod/Tazobactam (Sod 2.25 gm/ Sodium Chloride) 50 mls @ 100 mls/hr IV Q6H [facility] Last Infusion: 12/23/21 15:36 Dose: Infused Norepinephrine Bitartrate (Levophed) 8 mg in 250 mls @ 0 mls/hr IVCONT .Q0M [facility]; Protocol Last Titration: 12/23/21 08:35 Dose: Infused Insulin Human Lispro (Insulin Lispro 100 Unit/Ml 3 Ml Vial) 0 unit SUBCUT QIDACHS [facility]; Protocol Stop: 12/24/21 06:52 Last Admin: 12/23/21 13:57 Dose: Not Given Pharmacy Consult (Consult Rx Perform Med Rec) 1 each MISCELLANE ONCE PRN PRN Reason: Consult order Sitagliptin Phosphate (Sitagliptin Phosphate 100 Mg Tablet) 100 mg PO DAILY [facility] Last Admin: 12/23/21 10:56 Dose: 100 mg Sodium Bicarbonate (Sodium Bicarbonate 650 Mg Tablet) 650 mg PO QID [facility] Last Admin: 12/23/21 14:32 Dose: 650 mg Sodium Chloride (0.9 % Sodium Chloride Flush 3 Ml Syringe) 3 ml IVFLUSH QSHIFT [facility] Last Admin: 12/23/21 13:59 Dose: Not Given Home Medications Medication Instructions Recorded Confirmed Last Taken Type duloxetine 30 mg capsule,delayed 1 cap PO BEDTIME 02/14/21 12/22/21 12/21/21 History release glipizide 5 mg tablet 10 mg PO BID 02/14/21 12/22/21 12/21/21 History metformin 850 mg tablet 1 tab PO BID 02/14/21 12/22/21 12/21/21 History pantoprazole 40 mg tablet,delayed 1 tab PO BEDTIME 02/14/21 12/22/21 12/21/21 History release simvastatin 20 mg tablet 1 tab PO BEDTIME 02/14/21 12/22/21 12/21/21 History sitagliptin 100 mg tablet (Januvia) 1 tab PO DAILY 02/14/21 12/22/21 12/21/21 History blood sugar diagnostic (Accu-Chek #10 ea 04/08/21 Unknown History Megan Plus test strp) lancets (Accu-Chek Softclix #100 ea 04/08/21 Unknown History Lancets) lisinopril 10 mg tablet 10 mg PO DAILY 10/05/21 12/22/21 12/21/21 History methocarbamol 750 mg tablet 1 tab PO BID PRN Muscle Pain 12/22/21 12/22/21 Unknown History tamsulosin 0.4 mg capsule 0.4 mg PO BEDTIME 12/22/21 12/22/21 12/21/21 History Physical Exam Vital Signs: Vital Signs: Last Vital Signs Temp 99.3 F 12/23/21 16:00 Pulse 106 H 12/23/21 16:00 Resp 13 12/23/21 16:00 BP 103/69 12/23/21 16:00 Pulse Ox 92 12/23/21 16:00 O2 Del Method 12/23/21 16:00 O2 Flow Rate 3 12/23/21 16:00 BMI result Body Mass Index 35.5 Const: General: no acute distress and ill appearing Nutritional Appearance: obese Orientation/consciousness: patient oriented x3 Limitations: no limitations HEENT: Head: Yes normal to inspection Ears: hearing grossly normal bilat erally Eyes: Sclerae: sclerae normal Pupils: Equal, round and reactive pupils present Neck: Neck: Yes normal visual inspection Chest: Chest palpation & inspection: normal inspection of the chest Resp: Effort & Inspection: normal respiratory effort Auscultation: clear to auscultation bilaterally Cardio: Palpation: normal PMI Rate: regular rate Rhythm: regular rhythm Heart sounds: S1 normal heart sound present, S2 normal heart sound present and no murmurs GI: Palpation (GI): Soft to palpation, nontender and No hepatosplenomegaly present Auscultation: normal bowel sounds Rectal Exam - Male: Yes deferred Skin: General skin exam: no rashes or lesions noted Neuro: General: patient oriented x3, gait normal and moves all extremities Cranial nerves: Yes Equal, round and reactive pupils present Psych: Appearance: grossly normal Mental Status: mental status grossly norm al Results Labs CBC & Chem 7: 12/26/21 06:56 12/27/21 06:41 Labs: Short CBC 12/22/21 12/23/21 12/23/21 Range/Units 19:30 05:19 12:13 WBC 3.1 L 36.6 H* 30.7 H* (4.8-10.8) X10*3/uL Hgb 11.5 L 12.3 L 11.4 L (14.0-18.0) g/dl Hct 34.3 L 35.7 L 33.3 L (42.0-52.0) % Plt Count 146 L 134 L 122 L (160-400) X10*3/uL BMP 12/22/21 12/22/21 12/23/21 19:30 20:34 05:19 Sodium 134 L 135 Potassium 6.8 H* D 5.3 H D 6.1 H* Chloride 109 H 107 Carbon Dioxide 12 L 15 L BUN 33 H 39 H Creatinine 3.02 H 3.27 H Calcium 7.2 L D 7.6 L 12/23/21 12:13 Sodium 137 Potassium 4.7 D Chloride 107 Carbon Dioxide 19 L BUN 42 H Creatinine 3.07 H Calcium 7.4 L Liver Function 12/22/21 12/23/21 12/23/21 Range/Units 19:30 05:19 12:13 Total Bilirubin 1.5 H 1.6 H 1.3 H (0.0-1.0) mg/dL Direct Bilirubin 1.0 H (0.0-0.5) mg/dL AST 35 D 115 H 148 H (5-37) U/L ALT 22 144 H 168 H (0-40) U/L Alkaline Phosphatase 90 D 84 74 (39-117) U/L Albumin 3.2 L 3.5 3.1 L (3.5-5.0) g/dL Microbiology Microbiology Results: Microbiology 12/22/21 18:13 Urine Catheterized - [place] Catheter Urine Culture - Preliminary Culture in progress. 12/22/21 09:25 Blood - Venous Blood Culture - Preliminary Gram negative radha 12/22/21 09:20 Blood - Venous Blood Culture - Preliminary Gram negative radha 12/22/21 Unknown Urine clean catch - Urine eric top Urine Culture - Final Assessment and Plan (1) Pancreatic neoplasm: Status: Acute Plan 76 YM with HTN, DM2, admitted with sepsis secondary to a right mid ureteric stone after undergoing a stent placement.? Abd CT scan showed a 2.2 x 1.7 cm possible mass in the pancreatic head con cerning for pancreatic cancer. RECOMMENDATIONS: 1. CEA and CA 19-9 - order placed - once sepsis resolves. 2. Schedule an MRCP/MRI of the pancreas. 3. IF MRCP confirms presence of pancreatic mass, pt will be referred to [facility] [place] for an endoscopic ultrasound. CEA and CA 19-9 were normal Procedures Date of Service Date of Service: 12/23/21
[2021-12-23] MEDS: Acetaminophen 325 MG TABLET 650 MG PO (17:28)
[2021-12-23 20:56] LABS: Glucose, Whole Blood 182 mg/dL (60-115)
[2021-12-24] MEDS: Piperacillin Sodium/Tazobactam 2.25 GM in 0.9 % Sodium Chloride 50 ML IV ×4 (03:03→21:35)
[2021-12-24 03:23] VITALS: BP 116/60; PULSE 111; RESP 20; TEMP 36.9; O2SAT 93
[2021-12-24 05:56] LABS: Venous Blood Gas Refer to POC result
[2021-12-24 05:56] LABS: Hematocrit 35.7 % (42.0-52.0); Hemoglobin 12.4 g/dl (14.0-18.0); Mean Corpuscular HGB Conc 34.7 g/dl (31.0-36.0); Mean Corpuscular Hemoglobin 32.5 pg (27.0-33.0); Mean Corpuscular Volume 93.5 fL (80.0-98.0); Platelet Count 125 X10*3/uL (160-400); Red Blood Count 3.82 X10*6/uL (4.60-5.80); Red Cell Distribution Width 13.3 % (11.0-16.0)
[2021-12-24 05:57] LABS: VBG Base Excess -0.2 mmol/L; VBG HCO3 24 mmol/L (22-26); VBG pCO2 37 mmHg; VBG pH 7.41 (7.32-7.43); VBG pO2 48 mmHg
[2021-12-24 06:17] LABS: B Type Natriuretic Peptide 263 pg/mL (<100); Band Neutrophils Percent 13 % (3-5); Basophils Abs Manual 0.3 X10*3/uL (0.0-0.2); Basophils Percent Manual 1 % (0-2); Eosinophils Absolute Manual 0.3 X10*3/uL (0.0-0.4); Eosinophils Percent Manual 1 % (0-4); Lymphocytes Absolute Manual 0.9 X10*3/uL (1.2-4.9); Lymphocytes Percent Manual 3 % (20-40); Macrocytosis 1+ (5-14) /OIF; Monocytes Absolute Manual 1.2 X10*3/uL (0.1-1.2); Monocytes Percent Manual 4 % (2-11); Neutrophils Absolute Manual 26.4 X10*3/uL (2.0-8.3); Neutrophils Percent Manual 78 % (45-73); RBC Morphology NOTED
[2021-12-24 06:18] LABS: Dohle Bodies PRESENT; Platelet Estimate NORMAL (NORMAL); Platelet Morphology Comment NORMAL; Polychromasia 1+ (0-2) /OIF; Smudge Cells PRESENT; Toxic Vacuolation PRESENT
[2021-12-24 06:33] LABS: Alanine Aminotransferase 127 U/L (0-40); Albumin Level 3.3 g/dL (3.5-5.0); Alkaline Phosphatase 107 U/L (39-117); Anion Gap 17 (12-20); Aspartate Amino Transferase 65 U/L (5-37); Bilirubin Direct 0.6 mg/dL (0.0-0.5); Bilirubin Total 1.3 mg/dL (0.0-1.0); Blood Urea Nitrogen 42 mg/dL (9-16); Carbon Dioxide 23 mmol/L (22-29); Chloride 103 mmol/L (96-108); Creatinine Clr Calc Pharmacy 29.5; Estimated Glomerular Filt Rate 24; Glucose Random 182 mg/dL (60-115); Magnesium 1.5 mg/dL (1.6-2.6); Phosphorus 1.9 mg/dL (2.7-4.5); Potassium 4.8 mmol/L (3.3-5.1); Sodium 138 mmol/L (135-145); Total Protein 5.8 g/dL (6.5-8.0)
[2021-12-24 07:19] LABS: Glucose, Whole Blood 177 mg/dL (60-115)
[2021-12-24 07:47] VITALS: BP 121/79; PULSE 87; RESP 20; TEMP 37.2; O2SAT 94
[2021-12-24] MEDS: Magnesium Sulfate/H2O 2 GM/50 ML PIGGYBACK IV (09:15)
[2021-12-24] MEDS: SITagliptin Phosphate 100 MG TABLET PO (09:23)
[2021-12-24] MEDS: Potassium Phosphate/NS 15 MMOL/250 ML PLAST..BAG 62.5 MMOL IV ×2 (09:23→12:18)
[2021-12-24] MEDS: Sodium Bicarbonate 650 MG TABLET PO ×4 (09:23→21:35)
[2021-12-24] MEDS: 0.9 % Sodium Chloride Flush 3 ML SYRINGE IVFLUSH ×3 (09:23→21:36)
[2021-12-24 11:28] LABS: Glucose, Whole Blood 280 mg/dL (60-115)
[2021-12-24 11:35] VITALS: BP 122/74; PULSE 75; RESP 19; TEMP 36.3; O2SAT 93
[2021-12-24] MEDS: Acetaminophen 325 MG TABLET 975 MG PO (12:17)
--- NOTE | 2021-12-24 13:02 | HO.PM.IMPN ---
Subjective Subjective Date of Service: 12/24/21 Interval History: No acute issues overnight ... Mild shortness of breath when supine. BNP negative chest x-ray unremarkable Review of Systems Denies chest pain Admit shortness of breath Denies nausea vomiting diarrhea Denies fever chills Physical Exam Vital Signs: Vital Signs: Last Vital Signs Temp 97.3 F 12/24/21 11:35 Pulse 75 12/24/21 11:35 Resp 19 12/24/21 11:35 BP 122/74 12/24/21 11:35 Pulse Ox 93 12/24/21 11:35 O2 Del Method 12/24/21 11:35 O2 Flow Rate 3 12/23/21 15:00 BMI result Body Mass Index 35.5 Const: Other: No acute distress Resp: Other: Clear to auscultation bilaterally no rales rhonchi or wheezes Cardio: Other: No S4; positive S1-S2; no S3 murmurs rubs gallops GI: Other: Soft nontender nondistended with normoactive bowel sounds Extrem: Other: No edema bilaterally Objective Data Active Medications Acetaminophen (Acetaminophen 325 Mg Tablet) 975 mg PO Q6H PRN PRN Reason: Fever >100.4;headache Last Admin: 12/24/21 12:17 Dose: 975 mg Documented By: ANTONETTE Dextrose (Dextrose 50 % 25 Gm/50 Ml Syringe) 25 gm IVPUSH Q15M PRN; Protocol PRN Reason: per Hypoglycemia Standing Ord. Glucose (Glucose Gel 15 Gm Gel..Gram.) 15 gm PO Q15M PRN; Protocol PRN Reason: per Hypoglycemia Standing Ord. Piperacillin Sod/Tazobactam (Sod 2.25 gm/ Sodium Chloride) 50 mls @ 100 mls/hr IV Q6H [facility] Last Admin: 12/24/21 12:16 Dose: 100 mls/hr Documented By: ANTONETTE Norepinephrine Bitartrate (Levophed) 8 mg in 250 mls @ 0 mls/hr IVCONT .Q0M [facility]; Protocol Last Titration: 12/23/21 08:35 Dose: 0 mcg/kg/min, 0 mls/hr Documented By: YOAV Potassium Phosphate (Kphos) 15 mmol in 250 mls @ 62.5 mls/hr IV Q4H [facility] Stop: 12/24/21 15:44 Last Admin: 12/24/21 12:18 Dose: 62.5 mls/hr Documented By: ANTONETTE Pharmacy Consult (Consult Rx Perform Med Rec) 1 each MISCELLANE ONCE PRN PRN Reason: Consult order Sitagliptin Phosphate (Sitagliptin Phosphate 100 Mg Tablet) 100 mg PO DAILY [facility] Last Admin: 12/24/21 09:23 Dose: 100 mg Documented By: ANTONETTE Sodium Bicarbonate (Sodium Bicarbonate 650 Mg Tablet) 650 mg PO QID [facility] Last Admin: 12/24/21 12:16 Dose: 650 mg Documented By: ANTONETTE Sodium Chloride (0.9 % Sodium Chloride Flush 3 Ml Syringe) 3 ml IVFLUSH QSHIFT [facility] Last Admin: 12/24/21 09:23 Dose: 3 ml Documented By: ANTONETTE Labs CBC & Chem 7: 12/24/21 05:44 12/24/21 05:44 Labs: Laboratory Results - last 24 hr 12/23/21 12/23/21 12/23/21 05:19 12:13 12:13 MCV MCH MCHC RDW Plt Count MPV Immature Gran % (Auto) Neut % (Auto) Lymph % (Auto) Bath % (Auto) Eos % (Auto) Baso % (Auto) Lymph # (Auto) Bath # (Auto) Eos # (Auto) Baso # (Auto) Abs Immat Gran (auto) Absolute Neuts (auto) Absolute Nucleated RBC Nucleated RBC % (auto) Neutrophils % (Manual) 58 Band Neutrophils % 32 H Lymphocytes % (Manual) 2 L Monocytes % (Manual) 5 Eosinophils % (Manual) 1 Basophils % (Manual) Metamyelocytes % 2 Abs Neuts (Manual) 27.6 H Lymphocytes # (Manual) 0.6 L Monocytes # (Manual) 1.5 H Eosinophils # (Manual) 0.3 Basophils # (Manual) Metamyelocytes # 0.6 Smudge Cells Toxic Vacuolation Dohle Bodies PRESENT Platelet Estimate SLIGHTLY DECREASED Plt Morphology Comment NORMAL RBC Morphology NORMAL Polychromasia Macrocytosis Smear Path Review SEE NOTE VBG pH VBG pCO2 VBG pO2 VBG HCO3 VBG O2 Saturation VBG Base Excess Anion Gap 16 Estim Creat Clear Calc Estimated GFR POC Glucose Random Glucose Calcium Phosphorus Magnesium Total Bilirubin Direct Bilirubin AST ALT Alkaline Phosphatase Troponin I High Sens B-Natriuretic Peptide Total Protein Albumin 12/23/21 12/23/21 12/23/21 12:13 16:21 20:48 MCV MCH MCHC RDW Plt Count MPV Immature Gran % (Auto) Neut % (Auto) Lymph % (Auto) Bath % (Auto) Eos % (Auto) Baso % (Auto) Lymph # (Auto) Bath # (Auto) Eos # (Auto) Baso # (Auto) Abs Immat Gran (auto) Absolute Neuts (auto) Absolute Nucleated RBC Nucleated RBC % (auto) Neutrophils % (Manual) Band Neutrophils % Lymphocytes % (Manual) Monocytes % (Manual) Eosinophils % (Manual) Basophils % (Manual) Metamyelocytes % Abs Neuts (Manual) Lymphocytes # (Manual) Monocytes # (Manual) Eosinophils # (Manual) Basophils # (Manual) Metamyelocytes # Smudge Cells Toxic Vacuolation Dohle Bodies Platelet Estimate Plt Morphology Comment RBC Morphology Polychromasia Macrocytosis Smear Path Review VBG pH VBG pCO2 VBG pO2 VBG HCO3 VBG O2 Saturation VBG Base Excess Anion Gap Estim Creat Clear Calc Estimated GFR POC Glucose 197 H 182 H Random Glucose Calcium Phosphorus Magnesium Total Bilirubin Direct Bilirubin AST ALT Alkaline Phosphatase Troponin I High Sens 254.9 H* B-Natriuretic Peptide Total Protein Albumin 12/24/21 12/24/21 12/24/21 05:44 05:44 05:44 MCV 93.5 MCH 32.5 MCHC 34.7 RDW 13.3 Plt Count 125 L MPV 11.0 Immature Gran % (Auto) Cancelled Neut % (Auto) Cancelled Lymph % (Auto) Cancelled Bath % (Auto) Cancelled Eos % (Auto) Cancelled Baso % (Auto) Cancelled Lymph # (Auto) Cancelled Bath # (Auto) Cancelled Eos # (Auto) Cancelled Baso # (Auto) Cancelled Abs Immat Gran (auto) Cancelled Absolute Neuts (auto) Cancelled Absolute Nucleated RBC 0.000 Nucleated RBC % (auto) 0.0 Neutrophils % (Manual) 78 H Band Neutrophils % 13 H Lymphocytes % (Manual) 3 L Monocytes % (Manual) 4 Eosinophils % (Manual) 1 Basophils % (Manual) 1 Metamyelocytes % Abs Neuts (Manual) 26.4 H Lymphocytes # (Manual) 0.9 L Monocytes # (Manual) 1.2 Eosinophils # (Manual) 0.3 Basophils # (Manual) 0.3 H Metamyelocytes # Smudge Cells PRESENT Toxic Vacuolation PRESENT Dohle Bodies PRESENT Platelet Estimate NORMAL Plt Morphology Comment NORMAL RBC Morphology NOTED Polychromasia 1+ (0-2) Macrocytosis 1+ (5-14) Smear Path Review VBG pH VBG pCO2 VBG pO2 VBG HCO3 VBG O2 Saturation VBG Base Excess Anion Gap 17 Estim Creat Clear Calc 29.5 Estimated GFR 24 POC Glucose Random Glucose 182 H Calcium 8.0 L D Phosphorus 1.9 L Magnesium 1.5 L Total Bilirubin 1.3 H Direct Bilirubin 0.6 H AST 65 H ALT 127 H Alkaline Phosphatase 107 D Troponin I High Sens B-Natriuretic Peptide 263 H Total Protein 5.8 L Albumin 3.3 L 12/24/21 12/24/21 12/24/21 05:50 07:16 11:22 MCV MCH MCHC RDW Plt Count MPV Immature Gran % (Auto) Neut % (Auto) Lymph % (Auto) Bath % (Auto) Eos % (Auto) Baso % (Auto) Lymph # (Auto) Bath # (Auto) Eos # (Auto) Baso # (Auto) Abs Immat Gran (auto) Absolute Neuts (auto) Absolute Nucleated RBC Nucleated RBC % (auto) Neutrophils % (Manual) Band Neutrophils % Lymphocytes % (Manual) Monocytes % (Manual) Eosinophils % (Manual) Basophils % (Manual) Metamyelocytes % Abs Neuts (Manual) Lymphocytes # (Manual) Monocytes # (Manual) Eosinophils # (Manual) Basophils # (Manual) Metamyelocytes # Smudge Cells Toxic Vacuolation Dohle Bodies Platelet Estimate Plt Morphology Comment RBC Morphology Polychromasia Macrocytosis Smear Path Review VBG pH 7.41 VBG pCO2 37 VBG pO2 48 VBG HCO3 24 VBG O2 Saturation 79.0 VBG Base Excess -0.2 Anion Gap Estim Creat Clear Calc Estimated GFR POC Glucose 177 H 280 H Random Glucose Calcium Phosphorus Magnesium Total Bilirubin Direct Bilirubin AST ALT Alkaline Phosphatase Troponin I High Sens B-Natriuretic Peptide Total Protein Albumin Microbiology Microbiology Results: Microbiology 12/22/21 18:13 Urine Culture - Preliminary Urine Catheterized - [place] Catheter Gram negative radha 12/22/21 09:25 Blood Culture - Final Blood - Venous Escherichia coli 12/22/21 09:20 Blood Culture - Final Blood - Venous Escherichia coli Assessment and Plan (1) Bacteremia, escherichia coli: Status: Acute (2) Diabetes 1.5, managed as type 2: Status: Acute (3) SAYRA (acute kidney injury): Status: Acute (4) HTN (hypertension), benign: Status: Acute Plan 76-year-old male with a history of left ureteric stone status post stenting January 2021 presents with right-sided flank pain similar to same. CT scan today demonstrates a 3 mm right ureteric calculus 6 cm above the UVJ. Upon arrival to emergency room was mildly hypotensive and tachycardic. Received 30 cc/kilogram bolus in the ER with improvement in symptoms. Seen in consultation by Dr. Pace (urology) will take patient for stenting later this afternoon. 1. Urosepsis secondary to pyelonephritis with obstructing ureteral calculus -GNR bacteremia(EColi) ss Zosyn - as per Dr Pace 2. Diabetes II -given acute kidney injury will hold metformin and other oral agents -acceptable control on current therapies -lispro correctional scale -adjust as indicated 3. SAYRA (secondary to obstructing renal calculus) -continue volume repletion with normal saline -follow renals/divalents 4.HTN -relatively hypotensive now -volume repletion -resume orals when appropriate Full code Lovenox Will require 2 midnights going forward for IV antibiotics to treat Gram-negative bacteremia Quality Stroke Does the patient have a stroke diagnosis?: No VTE Prior VTE?: No VTE Risk Level:: Medical - moderate - high VTE Device Contraindication: Treatment Not Indicated VTE Drug Contraindication: N/A - Med Ordered
[2021-12-24 15:45] VITALS: BP 132/69; PULSE 82; RESP 18; TEMP 37.1; O2SAT 93
[2021-12-24 15:51] LABS: Glucose, Whole Blood 238 mg/dL (60-115)
--- NOTE | 2021-12-24 17:51 | PC.NURSE ---
Alert and oriented. C/O headache, prn tylenol given with good effect. VSS, afebrile, no acute resp. distress noted. C/O SOB, CXR complete, no intervention at this time. and daughter visited, updated of plan of care. Converted to A-Flutter, asymptomatic. Provider updated. FS in the 200s, no coverage in place, provider updated, will add sliding scale order back. Continues on IV ABT, no adverse reaction noted. Potassium phosphate and magnesium replaced. Up in the chair most of the day, stand by assist to the bathroom. Fall precautions maintained. Will continue to monitor and treat per plan of care.
[2021-12-24 19:53] VITALS: BP 149/82; PULSE 77; RESP 18; TEMP 36.9; O2SAT 93
[2021-12-24 19:59] LABS: Glucose, Whole Blood 210 mg/dL (60-115)
[2021-12-25] VITALS (8 sets, daily range): BP systolic 125–157; BP diastolic 56–96; PULSE 80–100; RESP 18–20; TEMP 36.4–37.4; O2SAT 92–98
[2021-12-25] MEDS: traZODone HCL 50 MG TABLET PO (00:56)
[2021-12-25] MEDS: Piperacillin Sodium/Tazobactam 2.25 GM in 0.9 % Sodium Chloride 50 ML IV ×4 (03:10→20:55)
[2021-12-25 05:50] LABS: MANUAL DIFF FLAG NO
[2021-12-25 05:53] LABS: Basophils Absolute Auto 0.1 X10*3/uL (0.0-0.2); Basophils Percent Auto 0.7 % (0-2); Eosinophils Absolute Auto 0.4 X10*3/uL (0.0-0.4); Eosinophils Percent Auto 2.7 % (0-4); Imm Gran Pct Auto 0.6 % (0.0-0.4); Lymphocytes Absolute Auto 1.2 X10*3/uL (1.2-4.9); Lymphocytes Percent Auto 7.7 % (20-40); Mean Corpuscular HGB Conc 34.2 g/dl (31.0-36.0); Mean Corpuscular Hemoglobin 32.1 pg (27.0-33.0); Mean Corpuscular Volume 93.8 fL (80.0-98.0); Mean Platelet Volume 10.9 fL (9.4-12.4); Monocytes Absolute Auto 1.2 X10*3/uL (0.1-1.2); Monocytes Percent Auto 7.2 % (2-11); Neutrophils Percent Auto 81.1 % (45-73); Platelet Count 152 X10*3/uL (160-400); Red Blood Count 4.05 X10*6/uL (4.60-5.80); Red Cell Distribution Width 13.2 % (11.0-16.0)
[2021-12-25 05:55] LABS: VBG Base Excess 0.3 mmol/L; VBG HCO3 24 mmol/L (22-26); VBG pCO2 38 mmHg; VBG pH 7.41 (7.32-7.43); VBG pO2 40 mmHg
[2021-12-25 05:55] LABS: Venous Blood Gas Refer to POC result
[2021-12-25 06:17] LABS: B Type Natriuretic Peptide 235 pg/mL (<100)
[2021-12-25 06:25] LABS: Alanine Aminotransferase 102 U/L (0-40); Albumin Level 3.3 g/dL (3.5-5.0); Alkaline Phosphatase 125 U/L (39-117); Anion Gap 15 (12-20); Aspartate Amino Transferase 43 U/L (5-37); Bilirubin Direct 0.5 mg/dL (0.0-0.5); Bilirubin Total 1.4 mg/dL (0.0-1.0); Blood Urea Nitrogen 40 mg/dL (9-16); Calcium 8.2 mg/dL (8.4-10.2); Carbon Dioxide 25 mmol/L (22-29); Chloride 106 mmol/L (96-108); Creatinine Clr Calc Pharmacy 36.7; Estimated Glomerular Filt Rate 31; Glucose Random 241 mg/dL (60-115); Magnesium 1.9 mg/dL (1.6-2.6); Phosphorus 2.8 mg/dL (2.7-4.5); Potassium 4.9 mmol/L (3.3-5.1); Sodium 141 mmol/L (135-145); Total Protein 5.6 g/dL (6.5-8.0)
[2021-12-25 07:05] LABS: Glucose, Whole Blood 225 mg/dL (60-115)
[2021-12-25] MEDS: SITagliptin Phosphate 100 MG TABLET PO (08:49)
[2021-12-25] MEDS: Sodium Bicarbonate 650 MG TABLET PO ×4 (08:49→20:55)
[2021-12-25] MEDS: 0.9 % Sodium Chloride Flush 3 ML SYRINGE IVFLUSH ×3 (08:49→20:55)
[2021-12-25 11:26] LABS: Glucose, Whole Blood 335 mg/dL (60-115)
--- NOTE | 2021-12-25 11:33 | P.CONCA_ITS ---
History of Present Illness History of Present Illness Date of Service: 12/25/21 Chief complaint: ABDOMINAL PAIN Narrative: This is a cardiology consultation regarding elevated troponins as well as question of congestive heart failure. Patient denies any previous cardiac issues but according to Dr. Sanchez, he thinks he might have underlying cardiomyopathy. Current admissions mainly for urological issues. In this context, troponins have been on the higher side. Patient however denies any cardiac symptoms like angina or shortness of breath or in fact anything cardiac related at all. Otherwise, he also has atrial flutter on telemetry but patient is not aware of this diagnosis either. Review of Systems Review of Systems: Yes all other systems are reviewed and are negative Constitutional: Constitutional: Reports as per HPI Eyes: Eyes: Reports as per HPI ENT: Reports as per HPI Cardiovascular: Cardiovascular: Reports as per HPI, Denies acrocyanosis, Denies cool extremities, Denies chest pain, Denies leg edema, Denies lightheadedness, Denies palpitations and Denies dyspnea Respiratory: Respiratory: Reports as per HPI, Reports no additional respirator y complaints and Denies dyspnea Gastrointestinal: Gastrointestinal: Reports as per HPI and Reports no additional gastrointestinal complaints Genitourinary: Genitourinary: Reports no additional male genitourinary complaints and Reports as per HPI Musculoskeletal: Musculoskeletal: Reports no additional musculoskeletal complaints and Reports as per HPI Integumentary/Breasts: Skin/Breast: Reports system reviewed and no additional complaints, except as docu Neurologic: Reports system reviewed and no additional complaints, except as documented and Reports as per HPI Psychiatric: Psychiatric: Reports no additional psychiatric complaints and Reports as per HPI Endocrine: Endocrine: Reports no additional endocrine complaints, Reports as per HPI and Denies palpitations Hematologic/Lymphatic: Hematologic/Lymphatic: Reports no additional hematologic/lymphatic complaints and Reports as per HPI Allergic/Immunologic: Allergic/Immunologic: Reports no additional allergic/immunologic complaints and Reports as per HPI PMF Past Medical History Medical History Diabetes 1.5, managed as type 2 H/O renal calculi HLD (hyperlipidemia) HTN (hypertension), benign Family History Family History Father COPD (chronic obstructive pulmonary disease) Mother Heart disease Social History Social History Household Members: Spouse Housing: House Patient Tobacco Use Status: Never used Tobacco Advance Directives Date on File: 02/15/21 service: No Current occupational status: retired [employer] Allergies Allergy/AdvReac Type Severity Reaction Status Date / Time No Known Allergies Allergy Verified 10/05/21 09:36 Active Medications: Current Medications Acetaminophen (Acetaminophen 325 Mg Tablet) 975 mg PO Q6H PRN PRN Reason: Fever >100.4;headache Last Admin: 12/24/21 12:17 Dose: 975 mg Dextrose (Dextrose 50 % 25 Gm/50 Ml Syringe) 25 gm IVPUSH Q15M PRN; Protocol PRN Reason: per Hypoglycemia Standing Ord. Glucose (Glucose Gel 15 Gm Gel..Gram.) 15 gm PO Q15M PRN; Protocol PRN Reason: per Hypoglycemia Standing Ord. Heparin Sodium (Porcine) (Heparin Sodium,Porcine 5,000 Unit/Ml Vial) 5,000 unit SUBCUT Q8H [facility] Piperacillin Sod/Tazobactam (Sod 2.25 gm/ Sodium Chloride) 50 mls @ 100 mls/hr IV Q6H [facility] Last Admin: 12/25/21 08:49 Dose: 100 mls/hr Norepinephrine Bitartrate (Levophed) 8 mg in 250 mls @ 0 mls/hr IVCONT .Q0M [facility]; Protocol Last Titration: 12/23/21 08:35 Dose: Infused Insulin Human Lispro (Insulin Lispro 100 Unit/Ml 3 Ml Vial) 0 unit SUBCUT QIDACHS [facility]; Protocol Pharmacy Consult (Consult Rx Perform Med Rec) 1 each MISCELLANE ONCE PRN PRN Reason: Consult order Sitagliptin Phosphate (Sitagliptin Phosphate 100 Mg Tablet) 100 mg PO DAILY [facility] Last Admin: 12/25/21 08:49 Dose: 100 mg Sodium Bicarbonate (Sodium Bicarbonate 650 Mg Tablet) 650 mg PO QID [facility] Last Admin: 12/25/21 08:49 Dose: 650 mg Sodium Chloride (0.9 % Sodium Chloride Flush 3 Ml Syringe) 3 ml IVFLUSH QSHIFT [facility] Last Admin: 12/25/21 08:49 Dose: 3 ml Home Medications Medication Instructions Recorded Confirmed Last Taken Type duloxetine 30 mg capsule,delayed 1 cap PO BEDTIME 02/14/21 12/22/21 12/21/21 History release glipizide 5 mg tablet 10 mg PO BID 02/14/21 12/22/21 12/21/21 History metformin 850 mg tablet 1 tab PO BID 02/14/21 12/22/21 12/21/21 History pantoprazole 40 mg tablet,delayed 1 tab PO BEDTIME 02/14/21 12/22/21 12/21/21 History release simvastatin 20 mg tablet 1 tab PO BEDTIME 02/14/21 12/22/21 12/21/21 History sitagliptin 100 mg tablet (Januvia) 1 tab PO DAILY 02/14/21 12/22/21 12/21/21 History blood sugar diagnostic (Accu-Chek #10 ea 04/08/21 Unknown History Megan Plus test strp) lancets (Accu-Chek Softclix #100 ea 04/08/21 Unknown History Lancets) lisinopril 10 mg tablet 10 mg PO DAILY 10/05/21 12/22/21 12/21/21 History methocarbamol 750 mg tablet 1 tab PO BID PRN Muscle Pain 12/22/21 12/22/21 Unknown History tamsulosin 0.4 mg capsule 0.4 mg PO BEDTIME 12/22/21 12/22/21 12/21/21 History Physical Exam Vital Signs: Vital Signs: Last Vital Signs Temp 98.7 F 12/25/21 07:30 Pulse 90 12/25/21 07:30 Resp 20 12/25/21 07:30 BP 157/96 H 12/25/21 07:30 Pulse Ox 96 12/25/21 07:30 O2 Del Method 12/25/21 07:30 O2 Flow Rate 3 12/23/21 15:00 BMI result Body Mass Index 35.5 Const: General: comfortable and no acute distress Orientation/consciousness: patient oriented x3 HEENT: Other: Unremarkable Head: Yes normal to inspection Neck: Neck: Yes normal visual inspection Chest: Chest palpation & inspection: normal inspection of the chest Resp: Auscultation: crackles Cardio: Palpation: normal PMI Heart sounds: S1 normal heart sound present, S2 normal heart sound present, no gallops, no murmurs and no rubs GI: Palpation (GI): Soft to palpation Back/Spine/Pelvis: Other: unremarkable Skin: General skin exam: no rashes or lesions noted Neuro: General: patient oriented x3 Extrem: General: Yes normal to inspection Psych: Mental Status: mental status grossly normal Objective Labs and Meds Result diagrams: 12/25/21 05:44 12/25/21 05:44 Lab results: Laboratory Results - last 24 hr 12/24/21 12/24/21 12/25/21 15:47 19:55 05:44 WBC RBC Hgb Hct MCV MCH MCHC RDW Plt Count MPV Immature Gran % (Auto) Neut % (Auto) Lymph % (Auto) [place] % (Auto) Eos % (Auto) Baso % (Auto) Lymph # (Auto) [place] # (Auto) Eos # (Auto) Baso # (Auto) Abs Immat Gran (auto) Absolute Neuts (auto) Absolute Nucleated RBC Nucleated RBC % (auto) VBG pH VBG pCO2 VBG pO2 VBG HCO3 VBG O2 Saturation VBG Base Excess Sodium 141 Potassium 4.9 Chloride 106 Carbon Dioxide 25 Anion Gap 15 BUN 40 H Creatinine 2.08 H Estim Creat Clear Calc 36.7 Estimated GFR 31 POC Glucose 238 H 210 H Random Glucose 241 H Calcium 8.2 L Phosphorus 2.8 Magnesium 1.9 Total Bilirubin 1.4 H Direct Bilirubin 0.5 AST 43 H ALT 102 H Alkaline Phosphatase 125 H B-Natriuretic Peptide Total Protein 5.6 L Albumin 3.3 L 12/25/21 12/25/21 12/25/21 05:44 05:44 05:50 WBC 16.0 H RBC 4.05 L Hgb 13.0 L Hct 38.0 L MCV 93.8 MCH 32.1 MCHC 34.2 RDW 13.2 Plt Count 152 L MPV 10.9 Immature Gran % (Auto) 0.6 H Neut % (Auto) 81.1 H Lymph % (Auto) 7.7 L [place] % (Auto) 7.2 Eos % (Auto) 2.7 Baso % (Auto) 0.7 Lymph # (Auto) 1.2 Todd # (Auto) 1.2 Eos # (Auto) 0.4 Baso # (Auto) 0.1 Abs Immat Gran (auto) 0.10 H Absolute Neuts (auto) 13.0 H Absolute Nucleated RBC 0.000 Nucleated RBC % (auto) 0.0 VBG pH 7.41 VBG pCO2 38 VBG pO2 40 VBG HCO3 24 VBG O2 Saturation 66.0 VBG Base Excess 0.3 Sodium Potassium Chloride Carbon Dioxide Anion Gap BUN Creatinine Estim Creat Clear Calc Estimated GFR POC Glucose Random Glucose Calcium Phosphorus Magnesium Total Bilirubin Direct Bilirubin AST ALT Alkaline Phosphatase B-Natriuretic Peptide 235 H Total Protein Albumin 12/25/21 12/25/21 06:59 11:15 WBC RBC Hgb Hct MCV MCH MCHC RDW Plt Count MPV Immature Gran % (Auto) Neut % (Auto) Lymph % (Auto) [place] % (Auto) Eos % (Auto) Baso % (Auto) Lymph # (Auto) Todd # (Auto) Eos # (Auto) Baso # (Auto) Abs Immat Gran (auto) Absolute Neuts (auto) Absolute Nucleated RBC Nucleated RBC % (auto) VBG pH VBG pCO2 VBG pO2 VBG HCO3 VBG O2 Saturation VBG Base Excess Sodium Potassium Chloride Carbon Dioxide Anion Gap BUN Creatinine Estim Creat Clear Calc Estimated GFR POC Glucose 225 H 335 H Random Glucose Calcium Phosphorus Magnesium Total Bilirubin Direct Bilirubin AST ALT Alkaline Phosphatase B-Natriuretic Peptide Total Protein Albumin ECG Interpretation: In the admission EKG, thought to have sinus tachycardia with prolonged OK. On telemetry, seems to be in flutter with controlled ventricular rate. EKG requested. Imaging Radiologist's impression: Impressions Guidance Fluoroscopy 12/22/21 18:20 IMPRESSION: Intraoperative fluoroscopy for urologic procedure. Chest X-Ray 12/24/21 12:02 IMPRESSION: No acute cardiopulmonary process. Assessment and Plan (1) Elevated troponin: Status: Acute (2) Atrial flutter by electrocardiography: Status: Acute (3) Obstructive nephropathy: Status: Acute (4) Acute pyelonephritis: Status: Acute (5) Bacteremia, escherichia coli: Status: Acute (6) Sepsis: Status: Acute (7) SAYRA (acute kidney injury): Status: Acute Plan Labs reviewed. Troponins are 58 followed by 46, 59, 237 and 254. Creatinine is are on the higher side most recently 2.08. In the abdomen CT, there was a question of pancreatic carcinoma. Overall, the troponin leak could be demand related and he could have underlying CAD but not clear. Multiple ongoing issues at this time including bacteremia, sepsis, pyelonephritis, ureteral calculus, among others. Renal insufficiency also plays a role in elevated creatinine. We will start with an echocardiogram for cardiac function assessment. Based on outcome of medical issues, can decide outpatient ischemic workup. With regard to atrial flutter, he will need anticoagulation for stroke prevention if no medical contraindications. If any biopsies are planned, can wait till that happens. In the interim, okay to use IV heparin if able. Discussed with Dr. Sanchez. Procedures Date of Service Date of Service: 12/25/21
--- NOTE | 2021-12-25 11:46 | HO.PM.IMPN ---
Subjective Subjective Date of Service: 12/25/21 Interval History: Doing better today; monitor demonstrating AFib. Seen by Cardiology Review of Systems Denies chest pain Admit shortness of breath Denies nausea vomiting diarrhea Denies fever chills Physical Exam Vital Signs: Vital Signs: Last Vital Signs Temp 98.7 F 12/25/21 07:30 Pulse 90 12/25/21 07:30 Resp 20 12/25/21 07:30 BP 157/96 H 12/25/21 07:30 Pulse Ox 96 12/25/21 07:30 O2 Del Method 12/25/21 07:30 O2 Flow Rate 3 12/23/21 15:00 BMI result Body Mass Index 35.5 Const: Other: No acute distress Resp: Other: Clear to auscultation bilaterally no rales rhonchi or wheezes Cardio: Other: No S4; positive S1-S2; no S3 murmurs rubs gallops GI: Other: Soft nontender nondistended with normoactive bowel sounds Neuro: Other: Cranial nerves 2-12 grossly intact as tested. Motor is 5/5 all extremities. Sensation is intact. Cognition is appropriate Extrem: Other: No edema bilaterally Objective Data Active Medications Acetaminophen (Acetaminophen 325 Mg Tablet) 975 mg PO Q6H PRN PRN Reason: Fever >100.4;headache Last Admin: 12/24/21 12:17 Dose: 975 mg Documented By: ANTONETTE Dextrose (Dextrose 50 % 25 Gm/50 Ml Syringe) 25 gm IVPUSH Q15M PRN; Protocol PRN Reason: per Hypoglycemia Standing Ord. Glucose (Glucose Gel 15 Gm Gel..Gram.) 15 gm PO Q15M PRN; Protocol PRN Reason: per Hypoglycemia Standing Ord. Heparin Sodium (Porcine) (Heparin Sodium,Porcine 5,000 Unit/Ml Vial) 5,000 unit SUBCUT Q8H [facility] Piperacillin Sod/Tazobactam (Sod 2.25 gm/ Sodium Chloride) 50 mls @ 100 mls/hr IV Q6H [facility] Last Admin: 12/25/21 08:49 Dose: 100 mls/hr Documented By: ANTONETTE Norepinephrine Bitartrate (Levophed) 8 mg in 250 mls @ 0 mls/hr IVCONT .Q0M [facility]; Protocol Last Titration: 12/23/21 08:35 Dose: 0 mcg/kg/min, 0 mls/hr Documented By: YOAV Insulin Human Lispro (Insulin Lispro 100 Unit/Ml 3 Ml Vial) 0 unit SUBCUT QIDACHS [facility]; Protocol Pharmacy Consult (Consult Rx Perform Med Rec) 1 each MISCELLANE ONCE PRN PRN Reason: Consult order Sitagliptin Phosphate (Sitagliptin Phosphate 100 Mg Tablet) 100 mg PO DAILY [facility] Last Admin: 12/25/21 08:49 Dose: 100 mg Documented By: ANTONETTE Sodium Bicarbonate (Sodium Bicarbonate 650 Mg Tablet) 650 mg PO QID [facility] Last Admin: 12/25/21 08:49 Dose: 650 mg Documented By: ANTONETTE Sodium Chloride (0.9 % Sodium Chloride Flush 3 Ml Syringe) 3 ml IVFLUSH QSHIFT [facility] Last Admin: 12/25/21 08:49 Dose: 3 ml Documented By: ANTONETTE Labs CBC & Chem 7: 12/25/21 05:44 12/25/21 05:44 Labs: Laboratory Results - last 24 hr 12/24/21 12/24/21 12/25/21 15:47 19:55 05:44 MCV MCH MCHC RDW Plt Count MPV Immature Gran % (Auto) Neut % (Auto) Lymph % (Auto) [place] % (Auto) Eos % (Auto) Baso % (Auto) Lymph # (Auto) [place] # (Auto) Eos # (Auto) Baso # (Auto) Abs Immat Gran (auto) Absolute Neuts (auto) Absolute Nucleated RBC Nucleated RBC % (auto) VBG pH VBG pCO2 VBG pO2 VBG HCO3 VBG O2 Saturation VBG Base Excess Anion Gap 15 Estim Creat Clear Calc 36.7 Estimated GFR 31 POC Glucose 238 H 210 H Random Glucose 241 H Calcium 8.2 L Phosphorus 2.8 Magnesium 1.9 Total Bilirubin 1.4 H Direct Bilirubin 0.5 AST 43 H ALT 102 H Alkaline Phosphatase 125 H B-Natriuretic Peptide Total Protein 5.6 L Albumin 3.3 L 12/25/21 12/25/21 12/25/21 05:44 05:44 05:50 MCV 93.8 MCH 32.1 MCHC 34.2 RDW 13.2 Plt Count 152 L MPV 10.9 Immature Gran % (Auto) 0.6 H Neut % (Auto) 81.1 H Lymph % (Auto) 7.7 L [place] % (Auto) 7.2 Eos % (Auto) 2.7 Baso % (Auto) 0.7 Lymph # (Auto) 1.2 [place] # (Auto) 1.2 Eos # (Auto) 0.4 Baso # (Auto) 0.1 Abs Immat Gran (auto) 0.10 H Absolute Neuts (auto) 13.0 H Absolute Nucleated RBC 0.000 Nucleated RBC % (auto) 0.0 VBG pH 7.41 VBG pCO2 38 VBG pO2 40 VBG HCO3 24 VBG O2 Saturation 66.0 VBG Base Excess 0.3 Anion Gap Estim Creat Clear Calc Estimated GFR POC Glucose Random Glucose Calcium Phosphorus Magnesium Total Bilirubin Direct Bilirubin AST ALT Alkaline Phosphatase B-Natriuretic Peptide 235 H Total Protein Albumin 12/25/21 12/25/21 06:59 11:15 MCV MCH MCHC RDW Plt Count MPV Immature Gran % (Auto) Neut % (Auto) Lymph % (Auto) [place] % (Auto) Eos % (Auto) Baso % (Auto) Lymph # (Auto) [place] # (Auto) Eos # (Auto) Baso # (Auto) Abs Immat Gran (auto) Absolute Neuts (auto) Absolute Nucleated RBC Nucleated RBC % (auto) VBG pH VBG pCO2 VBG pO2 VBG HCO3 VBG O2 Saturation VBG Base Excess Anion Gap Estim Creat Clear Calc Estimated GFR POC Glucose 225 H 335 H Random Glucose Calcium Phosphorus Magnesium Total Bilirubin Direct Bilirubin AST ALT Alkaline Phosphatase B-Natriuretic Peptide Total Protein Albumin Microbiology Microbiology Results: Microbiology 12/22/21 18:13 Urine Culture - Final Urine Catheterized - [place] Catheter Escherichia coli Assessment and Plan (1) Acute pyelonephritis: Status: Acute (2) Diabetes 1.5, managed as type 2: Status: Acute (3) SAYRA (acute kidney injury): Status: Acute (4) HTN (hypertension), benign: Status: Acute (5) Atrial flutter by electrocardiography: Status: Acute Plan 76-year-old male with a history of left ureteric stone status post stenting January 2021 presents with right-sided flank pain similar to same. CT scan today demonstrates a 3 mm right ureteric calculus 6 cm above the UVJ. Upon arrival to emergency room was mildly hypotensive and tachycardic. Received 30 cc/kilogram bolus in the ER with improvement in symptoms. Seen in consultation by Dr. Pace (urology) will take patient for stenting later this afternoon. 1. Urosepsis secondary to pyelonephritis with obstructing ureteral calculus -GNR bacteremia(EColi) ss Francinesyn(4) - as per Dr Pace 2. Diabetes II -given acute kidney injury will hold metformin and other oral agents -acceptable control on current therapies -lispro correctional scale -adjust as indicated 3. SAYRA (secondary to obstructing renal calculus) -continue volume repletion with normal saline -follow renals/divalents 4.HTN -acceptable control -at back therapies as indicated 5.Aflutter -rate control adequate -heparin drip pending GI workup -2D echo in am Full code Lovenox Will require 2 midnights going forward for IV antibiotics to treat Gram-negative bacteremia Quality Stroke Does the patient have a stroke diagnosis?: No VTE Prior VTE?: No VTE Risk Level:: Medical - moderate - high VTE Device Contraindication: Treatment Not Indicated VTE Drug Contraindication: N/A - Med Ordered
[2021-12-25] MEDS: Insulin Lispro 100 UNIT/ML 3 ML VIAL SUBCUT ×3 (12:22→20:55)
[2021-12-25 13:16] LABS: Hematocrit 38.3 % (42.0-52.0); Hemoglobin 13.2 g/dl (14.0-18.0); Mean Corpuscular HGB Conc 34.5 g/dl (31.0-36.0); Mean Corpuscular Hemoglobin 32.4 pg (27.0-33.0); Mean Corpuscular Volume 93.9 fL (80.0-98.0); Mean Platelet Volume 11.5 fL (9.4-12.4); Platelet Count 153 X10*3/uL (160-400); Red Blood Count 4.08 X10*6/uL (4.60-5.80); Red Cell Distribution Width 13.1 % (11.0-16.0); White Blood Count 13.8 X10*3/uL (4.8-10.8)
[2021-12-25 13:28] LABS: Prothrombin Time 11.7 SEC (10.0-13.1)
[2021-12-25 13:30] LABS: PTT Heparin Drip 28.2 SEC (53-77.9)
[2021-12-25] MEDS: Heparin Sodium,Porcine/1/2NS 25,000 UNIT/250 ML IV.SOLN 14.85 UNIT IVCONT (13:53)
[2021-12-25 16:07] LABS: Glucose, Whole Blood 193 mg/dL (60-115)
[2021-12-25 20:39] LABS: Glucose, Whole Blood 325 mg/dL (60-115)
[2021-12-25 20:55] LABS: PTT Heparin Drip 42.1 SEC (53-77.9)
[2021-12-25] MEDS: Heparin Sodium,Porcine 5,000 UNIT/ML VIAL 4200 UNIT IVPUSH (21:03)
[2021-12-26] VITALS (7 sets, daily range): BP systolic 132–177; BP diastolic 76–94; PULSE 68–97; RESP 16–19; TEMP 36.6–37.1; O2SAT 93–98; BMI 35.9
[2021-12-26] MEDS: Piperacillin Sodium/Tazobactam 2.25 GM in 0.9 % Sodium Chloride 50 ML IV ×2 (00:37→06:06)
[2021-12-26 03:25] LABS: PTT Heparin Drip 63.1 SEC (53-77.9)
[2021-12-26] MEDS: Heparin Sodium,Porcine/1/2NS 25,000 UNIT/250 ML IV.SOLN 16.98 UNIT IVCONT (04:12)
[2021-12-26 07:24] LABS: Hematocrit 39.8 % (42.0-52.0); Hemoglobin 13.3 g/dl (14.0-18.0); Mean Corpuscular HGB Conc 33.4 g/dl (31.0-36.0); Mean Corpuscular Hemoglobin 31.8 pg (27.0-33.0); Mean Corpuscular Volume 95.2 fL (80.0-98.0); Mean Platelet Volume 10.8 fL (9.4-12.4); Platelet Count 169 X10*3/uL (160-400); Red Blood Count 4.18 X10*6/uL (4.60-5.80); Red Cell Distribution Width 13.2 % (11.0-16.0); White Blood Count 11.4 X10*3/uL (4.8-10.8)
[2021-12-26 07:47] LABS: Glucose, Whole Blood 231 mg/dL (60-115)
[2021-12-26 08:57] LABS: Carbohydrate Antigen 19-9 <3 U/mL (<34)
[2021-12-26 09:11] LABS: PTT Heparin Drip 69.4 SEC (53-77.9)
[2021-12-26] MEDS: Insulin Lispro 100 UNIT/ML 3 ML VIAL SUBCUT ×4 (09:23→22:13)
[2021-12-26] MEDS: SITagliptin Phosphate 100 MG TABLET PO (09:24)
[2021-12-26] MEDS: Sodium Bicarbonate 650 MG TABLET PO ×4 (09:24→22:13)
[2021-12-26] MEDS: 0.9 % Sodium Chloride Flush 3 ML SYRINGE IVFLUSH ×2 (09:24→12:38)
[2021-12-26 10:28] LABS: Prothrombin Time 11.5 SEC (10.0-13.1)
--- NOTE | 2021-12-26 10:36 | CA_ITS ---
Transthoracic Echocardiogram Patient (Last, First, Middle): Vishal Hair L Gender: Male Date of : 1945 Age: 76 Procedure Date: 12/26/2021 Procedure Type: Transthoracic Echocardiogram Location: [facility] Height: 172.72 cm Weight: 107.05 kg BSA: 2.19 m2 Heart Rate: 95 bpm BP: 177 / 94 mmHg Small Piece Cutter: SB Referring MD: John Lopez MD Symptoms: cardiomyopathy Study Quality: Technically Difficult/BSA/Contrast ECG Rhythm: Sinus Conclusions: - The left ventricular systolic function is mildly decreased. The visually estimated ejection fraction is between 45-50%. - There is mildly decreased right ventricular systolic function. - No obvious valvular pathology seen on this study. - There is mild dilatation of the ascending aorta measuring 4.20 cm. Findings Procedure Information Contrast agent, definity, is being given per protocol without apparent complications. Left Ventricle Normal left ventricular cavity size. The left ventricular systolic function is mildly decreased. The visually estimated ejection fraction is between 45 50%. Regional wall motion abnormalities can not be excluded due to suboptimal endocardial definition. Diastolic function is normal for age. There is severe septal asymmetric hypertrophy. Right Ventricle Mildly increased right ventricular cavity size. There is mildly decreased right ventricular systolic function. Atria Both atria are normal in size. Aortic Valve There is a normal trileaflet aortic valve. There is mild calcification of the aortic valve. There is no aortic valve stenosis. There is trace (trivial) aortic valve regurgitation. Mitral Valve The mitral valve appears normal. There is trace mitral valve regurgitation. There is no mitral valve stenosis. Pulmonic Valve The pulmonic valve is likely normal. Tricuspid Valve There is no tricuspid valve regurgitation. Tricuspid regurgitation envelope is inadequate for calculation of right ventricular systolic pressure. Great Vessels There is mild dilatation of the ascending aorta measuring 4.20 cm. Venous The inferior vena cava was not well visualized. Pericardium/Pleural There is no evidence of pericardial effusion. Prior Study Comparison No prior study available for comparison. Recommendations, Care & Conclusions No obvious valvular pathology seen on this study. Measurements 2D Linear Measurements IVSd: 1.46 0.6-0.9/0.6-1.0 cm LVIDd: 4.43 3.9-5.3/4.2-5.9 cm LVIDd Index: 2.02 2.4-3.2/2.2-3.1 cm/m2 LVIDs: 3.25 2.0-3.6 cm LVPWd: 0.96 0.7-1.1 cm LA Diam: 3.80 2.7-3.8/3.0-4.0 cm LAIDs Index: 1.74 1.5-2.3 cm/m2 LV Mass: 243.57 67-162/88-224 g LV Mass Index: 111.22 43-95/49-115 g/m2 LVOT Diam: 2.70 3.0+(-)1.3 cm 2D Systolic Function EF 4C: 47.20 >55% Mitral Valve MV Pk E: 0.38 MV PK A: 0.64 MV Decel Time: 151.00 E/A: 0.60 E'Lateral: 5.00 E'Medial: 5.44 E/E' Med: 7.00 E/E' Lat: 7.70 PHT: 44.00 MVA PHT: 5.00 Decel [place]: 2.53 Aortic Valve AoV Pk Simone: 0.81 AoV Mn Simone: 0.57 AoV VTI: 0.14 AoV Pk Grad: 3.00 Aov Mn Grad: 1.00 BATOOL Cont.VTI: 4.42 LVOT LVOT Pk Simone: 0.64 LVOT Mn Simone: 0.44 LVOT VTI: 0.11 LVOT Pk Grad: 2.00 LVOT Mn Grad: 1.00 LVOT Diam: 2.70 LVOT Area: 5.73 Diastolic Function MV Pk E: 0.38 MV Pk A: 0.64 E/A: 0.60 E'Medial: 5.44 E/E' Med: 7.00 E' Laterial: 5.00 E/E' Lat: 7.70 Right Ventricle TAPSE (mm): 14.60 TVS' [place]: 9.10 Great Vessels Aorta Sinus of Valsalva: 4.20 2.0-3.[address] [place]: 3.99 1.7-3.4 cm Ao Asc: 4.20 2.1-3.4 cm Pulmonary Veins Pulm Vein S/D 1.20 Pulmonary Valve PV Pk Simone: 0.45 Peak PV Grad: 1.00 Updated in Other Vendor System with Status of Final John Lopez MD electronically signed on 12/26/2021 1:23:34 PM with status of Final
[2021-12-26 11:11] LABS: Glucose, Whole Blood 273 mg/dL (60-115)
--- NOTE | 2021-12-26 11:35 | P.PNCA_ITS ---
Subjective Subjective Date of Service: 12/26/21 Interval history: He states that he feels okay. No cardiac symptoms whatsoever. Review of Systems Review of Systems Yes all other systems are reviewed and are negative Constitutional: Reports as per HPI Eyes: Reports as per HPI Reports as per HPI Cardiovascular: Reports as per HPI, Denies acrocyanosis, Denies cool extremities, Denies chest pain, Denies leg edema, Denies lightheadedness, Denies palpitations and Denies dyspnea Respiratory: Reports as per HPI, Reports no additional respiratory complaints and Denies dyspnea Gastrointestinal: Reports as per HPI and Reports no additional gastrointestinal complaints Genitourinary: Reports no additional male genitourinary complaints and Reports as per HPI Musculoskeletal: Reports no additional musculoskeletal complaints and Reports as per HPI Skin/Breast: Reports system reviewed and no additional complaints, except as docu Reports system reviewed and no additional complaints, except as documented and Reports as per HPI Psychiatric: Reports no additional psychiatric complaints and Reports as per HPI Endocrine: Reports no additional endocrine complaints, Reports as per HPI and De nies palpitations Hematologic/Lymphatic: Reports no additional hematologic/lymphatic complaints and Reports as per HPI Allergic/Immunologic: Reports no additional allergic/immunologic complaints and Reports as per HPI Physical Exam Vital Signs: Last Vital Signs Temp 98.2 F 12/26/21 11:31 Pulse 97 12/26/21 11:31 Resp 18 12/26/21 11:31 BP 159/89 H 12/26/21 11:31 Pulse Ox 95 12/26/21 11:31 O2 Del Method 12/26/21 11:31 O2 Flow Rate 3 12/23/21 15:00 BMI result Body Mass Index 35.9 Const General: comfortable and no acute distress Orientation/consciousness: patient oriented x3 HEENT Other: Unremarkable Head: Yes normal to inspection Neck Neck: Yes normal visual inspection Chest Chest palpation & inspection: normal inspection of the chest Resp Auscultation: crackles Cardio Palpation: normal PMI Heart sounds: S1 normal heart sound present, S2 normal heart sound present, no gallops, no murmurs and no rubs GI Palpation (GI): Soft to palpation Back/Spine/Pelvis Other: unremarkable Skin General skin exam: no rashes or lesions noted Neuro General: patient oriented x3 Extrem General: Yes normal to inspection Psych Mental Status: mental status grossly normal Objective Labs and Meds Result diagrams: 12/26/21 06:56 12/25/21 05:44 Lab results: Laboratory Results - last 24 hr 12/23/21 12/25/21 12/25/21 05:19 12:40 12:40 WBC 13.8 H RBC 4.08 L Hgb 13.2 L Hct 38.3 L MCV 93.9 MCH 32.4 MCHC 34.5 RDW 13.1 Plt Count 153 L MPV 11.5 Absolute Nucleated RBC 0.000 Nucleated RBC % (auto) 0.0 PT 11.7 INR 1.0 aPTT Heparin Protocol 28.2 L POC Glucose CA 19-9 Antigen <3 12/25/21 12/25/21 12/25/21 15:58 20:12 20:35 WBC RBC Hgb Hct MCV MCH MCHC RDW Plt Count MPV Absolute Nucleated RBC Nucleated RBC % (auto) PT INR aPTT Heparin Protocol 42.1 L D POC Glucose 193 H 325 H CA 19-9 Antigen 12/26/21 12/26/21 12/26/21 03:09 06:56 06:56 WBC 11.4 H RBC 4.18 L Hgb 13.3 L Hct 39.8 L MCV 95.2 MCH 31.8 MCHC 33.4 RDW 13.2 Plt Count 169 MPV 10.8 Absolute Nucleated RBC 0.000 Nucleated RBC % (auto) 0.0 PT 11.5 INR 1.0 aPTT Heparin Protocol 63.1 D POC Glucose CA 19-9 Antigen 12/26/21 12/26/21 12/26/21 07:25 08:43 11:01 WBC RBC Hgb Hct MCV MCH MCHC RDW Plt Count MPV Absolute Nucleated RBC Nucleated RBC % (auto) PT INR aPTT Heparin Protocol 69.4 POC Glucose 231 H 273 H CA 19-9 Antigen Progress Note: A&P Assessment and plan (1) Elevated troponin: Status: Acute (2) Atrial flutter by electrocardiography: Status: Acute (3) Obstructive nephropathy: Status: Acute (4) Acute pyelonephritis: Status: Acute (5) Bacteremia, escherichia coli: Status: Acute (6) Sepsis: Status: Acute (7) SAYRA (acute kidney injury): Status: Acute Plan Labs reviewed. Troponins are 58 followed by 46, 59, 237 and 254. Creatinine is are on the higher side most recently 2.08. As high as 3.27. In the abdomen CT, there was a question of pancreatic carcinoma. Overall, the troponin leak could be demand related and he could have underlying CAD but not clear. Multiple ongoing issues at this time including bacteremia, sepsis, pyelonephritis, ureteral calculus, among others. Renal insufficiency also plays a role in elevated creatinine. Echocardiogram today for LV function assessment. Eventual ischemic workup but that is based on eventual GI/pancreatic findings. With regard to atrial flutter on the EKG, he will need long-term anticoagulation. Currently on IV heparin. Once procedures are completed, can start Eliquis. Discussed with Dr. Sanchez. Time Spent With Patient Time: Total time spent is greater than 50% in coordination of care (as documented) at patient's floor/unit and/or counseling patient: 25min. Progress Note: Quality Stroke Does the patient have a stroke diagnosis?: No Procedures Date of Service Date of Service: 12/26/21
[2021-12-26] MEDS: cefTRIAXone sodium 1 GM in 0.9 % Sodium Chloride 50 ML IV (12:38)
--- NOTE | 2021-12-26 12:51 | P.PNIM_ITS ---
Subjective Subjective Date of Service: 12/26/21 Interval History: Doing better today;remains in Aflutter with controlled response Review of Systems Denies chest pain Admit shortness of breath Denies nausea vomiting diarrhea Denies fever chills Physical Exam Vital Signs: Vital Signs: Last Vital Signs Temp 98.2 F 12/26/21 11:31 Pulse 97 12/26/21 11:31 Resp 18 12/26/21 11:31 BP 159/89 H 12/26/21 11:31 Pulse Ox 95 12/26/21 11:31 O2 Del Method 12/26/21 11:31 O2 Flow Rate 3 12/23/21 15:00 BMI result Body Mass Index 35.9 Const: Other: No acute distress Resp: Other: Clear to auscultation bilaterally no rales rhonchi or wheezes Cardio: Other: No S4; positive S1-S2; no S3 murmurs rubs gallops GI: Other: Soft nontender nondistended with normoactive bowel sounds Neuro: Other: Cranial nerves 2-12 grossly intact as tested. Motor is 5/5 all extremities. Sensation is intact. Cognition is appropriate Extrem: Other: No edema bilaterally Objective Data Active Medications Acetaminophen (Acetaminophen 325 Mg Tablet) 975 mg PO Q6H PRN PRN Reason: Fever >100.4;headache Last Admin: 12/24/21 12:17 Dose: 975 mg Documented By: ANTONETTE Dextrose (Dextrose 50 % 25 Gm/50 Ml Syringe) 25 gm IVPUSH Q15M PRN; Protocol PRN Reason: per Hypoglycemia Standing Ord. Glucose (Glucose Gel 15 Gm Gel..Gram.) 15 gm PO Q15M PRN; Protocol PRN Reason: per Hypoglycemia Standing Ord. Heparin Sodium (Porcine) (Heparin Sodium,Porcine 5,000 Unit/Ml Vial) 4,200 unit 40 unit/kg (4200 unit) IVPUSH PROTOCOL BOLUS PRN; Protocol PRN Reason: 40 unit/kg - Heparin Protocol Last Admin: 12/25/21 21:03 Dose: 4,200 unit Documented By: MARCI Heparin Sodium (Porcine) (Heparin Sodium,Porcine 5,000 Unit/Ml Vial) 8,500 unit 80 unit/kg (8500 unit) IVPUSH PROTOCOL BOLUS PRN; Protocol PRN Reason: 80 unit/kg - Heparin Protocol Heparin Sodium/Sodium Chloride () 25,000 unit in 250 mls @ 0 mls/hr IVCONT .Q0M [facility]; Protocol Last Titration: 12/26/21 10:02 Dose: 0 units/kg/hr, 0 mls/hr Documented By: ZBIGNIEW Co-signed By: TAMMIE Ceftriaxone Sodium 1 gm/ (Sodium Chloride) 50 mls @ 100 mls/hr IV Q24H [facility] Last Admin: 12/26/21 12:38 Dose: 100 mls/hr Documented By: ZBIGNIEW Insulin Human Lispro (Insulin Lispro 100 Unit/Ml 3 Ml Vial) 0 unit SUBCUT QIDACHS [facility]; Protocol Last Admin: 12/26/21 12:39 Dose: 6 unit Documented By: ZBIGNIEW Pharmacy Consult (Consult Rx Perform Med Rec) 1 each MISCELLANE ONCE PRN PRN Reason: Consult order Sitagliptin Phosphate (Sitagliptin Phosphate 100 Mg Tablet) 100 mg PO DAILY [facility] Last Admin: 12/26/21 09:24 Dose: 100 mg Documented By: ZBIGNIEW Sodium Bicarbonate (Sodium Bicarbonate 650 Mg Tablet) 650 mg PO QID [facility] Last Admin: 12/26/21 12:38 Dose: 650 mg Documented By: ZBIGNIEW Sodium Chloride (0.9 % Sodium Chloride Flush 3 Ml Syringe) 3 ml IVFLUSH QSHIFT [facility] Last Admin: 12/26/21 12:38 Dose: 3 ml Documented By: ZBIGNIEW Labs CBC & Chem 7: 12/26/21 06:56 12/25/21 05:44 Labs: Laboratory Results - last 24 hr 12/23/21 12/25/21 12/25/21 05:19 12:40 12:40 MCV 93.9 MCH 32.4 MCHC 34.5 RDW 13.1 Plt Count 153 L MPV 11.5 Absolute Nucleated RBC 0.000 Nucleated RBC % (auto) 0.0 PT 11.7 INR 1.0 aPTT Heparin Protocol 28.2 L POC Glucose CA 19-9 Antigen <3 12/25/21 12/25/21 12/25/21 15:58 20:12 20:35 MCV MCH MCHC RDW Plt Count MPV Absolute Nucleated RBC Nucleated RBC % (auto) PT INR aPTT Heparin Protocol 42.1 L D POC Glucose 193 H 325 H CA 19-9 Antigen 12/26/21 12/26/21 12/26/21 03:09 06:56 06:56 MCV 95.2 MCH 31.8 MCHC 33.4 RDW 13.2 Plt Count 169 MPV 10.8 Absolute Nucleated RBC 0.000 Nucleated RBC % (auto) 0.0 PT 11.5 INR 1.0 aPTT Heparin Protocol 63.1 D POC Glucose CA 19-9 Antigen 12/26/21 12/26/21 12/26/21 07:25 08:43 11:01 MCV MCH MCHC RDW Plt Count MPV Absolute Nucleated RBC Nucleated RBC % (auto) PT INR aPTT Heparin Protocol 69.4 POC Glucose 231 H 273 H CA 19-9 Antigen Assessment and Plan (1) Acute pyelonephritis: Status: Acute (2) SAYRA (acute kidney injury): Status: Acute (3) HTN (hypertension), benign: Status: Acute (4) Atrial flutter by electrocardiography: Status: Acute Plan 76-year-old male with a history of left ureteric stone status post stenting January 2021 presents with right-sided flank pain similar to same. CT scan today demonstrates a 3 mm right ureteric calculus 6 cm above the UVJ. Upon arrival to emergency room was mildly hypotensive and tachycardic. Received 30 cc/kilogram bolus in the ER with improvement in symptoms. Seen in consultation by Dr. Pace (urology) will take patient for stenting later this afternoon. 1. Urosepsis secondary to pyelonephritis with obstructing ureteral calculus -GNR bacteremia(EColi) switched to ceftriaxone (day 5 of antibiotics) - as per Dr Pace 2. Diabetes II -given acute kidney injury will hold metformin and other oral agents -acceptable control on current therapies -lispro correctional scale -adjust as indicated 3. SAYRA (secondary to obstructing renal calculus) -continue volume repletion with normal saline -follow renals/divalents 4.HTN -acceptable control -at back therapies as indicated 5.Aflutter -rate control adequate -heparin drip pending GI workup -2D echo in am Full code Lovenox Will require 2 midnights going forward for IV antibiotics to treat Gram-negative bacteremia Quality Stroke Does the patient have a stroke diagnosis?: No VTE Prior VTE?: No VTE Risk Level:: Medical - moderate - high VTE Device Contraindication: Treatment Not Indicated VTE Drug Contraindication: N/A - Med Ordered
[2021-12-26 15:18] LABS: PTT Heparin Drip 24.5 SEC (53-77.9)
[2021-12-26 16:26] LABS: Glucose, Whole Blood 246 mg/dL (60-115)
[2021-12-26 21:28] LABS: Glucose, Whole Blood 210 mg/dL (60-115)
[2021-12-26 23:58] LABS: PTT Heparin Drip 49.4 SEC (53-77.9)
[2021-12-27] VITALS (8 sets, daily range): BP systolic 135–166; BP diastolic 76–91; PULSE 85–102; RESP 14–20; TEMP 36.4–37.1; O2SAT 95–98; BMI 36.0
[2021-12-27] MEDS: Heparin Sodium,Porcine 5,000 UNIT/ML VIAL 4200 UNIT IVPUSH (00:40)
[2021-12-27] MEDS: Heparin Sodium,Porcine/1/2NS 25,000 UNIT/250 ML IV.SOLN 16.98 UNIT IVCONT (02:39)
--- NOTE | 2021-12-27 04:15 | PC.NURSE ---
BP 166/84, Notified MD of BP as well as no antihypertensives ordered. No response from MD; messages left on read
[2021-12-27 06:59] LABS: PTT Heparin Drip 69.7 SEC (53-77.9)
[2021-12-27 07:57] LABS: Glucose, Whole Blood 226 mg/dL (60-115)
[2021-12-27 08:50] LABS: Anion Gap 14 (12-20); Blood Urea Nitrogen 27 mg/dL (9-16); Calcium 8.6 mg/dL (8.4-10.2); Carbon Dioxide 23 mmol/L (22-29); Chloride 107 mmol/L (96-108); Creatinine Clr Calc Pharmacy 47.8; Estimated Glomerular Filt Rate 42; Glucose Random 230 mg/dL (60-115); Potassium 4.8 mmol/L (3.3-5.1); Sodium 139 mmol/L (135-145)
[2021-12-27] MEDS: Insulin Lispro 100 UNIT/ML 3 ML VIAL SUBCUT ×4 (10:19→21:11)
[2021-12-27] MEDS: 0.9 % Sodium Chloride Flush 3 ML SYRINGE IVFLUSH ×3 (10:22→21:16)
[2021-12-27] MEDS: Sodium Bicarbonate 650 MG TABLET PO ×2 (10:22→12:52)
[2021-12-27] MEDS: SITagliptin Phosphate 100 MG TABLET PO (10:22)
[2021-12-27] MEDS: cefTRIAXone sodium 1 GM in 0.9 % Sodium Chloride 50 ML IV (10:25)
--- NOTE | 2021-12-27 11:04 | P.PNCA_ITS ---
Subjective Subjective Date of Service: 12/27/21 Interval history: Appetite improving. No abdominal pain. No palpitations. Echocardiography reviewed which showed ejection fraction of 45-50% with severe septal asymmetric hypertrophy. He also has mildly increased right ventricular cavity size and mildly decreased right ventricular systolic function. Physical Exam Vital Signs: Last Vital Signs Temp 98.5 F 12/27/21 07:28 Pulse 99 12/27/21 07:28 Resp 17 12/27/21 07:28 BP 135/83 12/27/21 07:28 Pulse Ox 97 12/27/21 07:28 O2 Del Method 12/27/21 07:28 O2 Flow Rate 3 12/23/21 15:00 BMI result Body Mass Index 36.0 GENERAL APPEARANCE: in no acute distress, pleasant. NECK: no carotid bruit, no jugular venous distention. SKIN: no suspicious lesions, warm and dry. HEART: no murmurs, regular rate and rhythm. LUNGS: clear to auscultation bilaterally. ABDOMEN: soft, nontender. EXTREMITIES: no edema. PERIPHERAL PULSES: equal. NEUROLOGIC: No gross deficits, AAO X 3 Objective Labs and Meds Result diagrams: 12/26/21 06:56 12/27/21 06:41 Lab results: Laboratory Results - last 24 hr 12/26/21 12/26/21 12/26/21 11:01 15:00 16:10 aPTT Heparin Protocol 24.5 L D Sodium Potassium Chloride Carbon Dioxide Anion Gap BUN Creatinine Estim Creat Clear Calc Estimated GFR POC Glucose 273 H 246 H Random Glucose Calcium 12/26/21 12/26/21 12/27/21 21:24 23:40 06:41 aPTT Heparin Protocol 49.4 L D 69.7 D Sodium Potassium Chloride Carbon Dioxide Anion Gap BUN Creatinine Estim Creat Clear Calc Estimated GFR POC Glucose 210 H Random Glucose Calcium 12/27/21 12/27/21 06:41 07:31 aPTT Heparin Protocol Sodium 139 Potassium 4.8 Chloride 107 Carbon Dioxide 23 Anion Gap 14 BUN 27 H Creatinine 1.61 H Estim Creat Clear Calc 47.8 Estimated GFR 42 POC Glucose 226 H Random Glucose 230 H Calcium 8.6 Progress Note: A&P Assessment and plan (1) Atrial flutter by electrocardiography: Status: Acute (2) Elevated troponin: Status: Acute (3) Congestive cardiomyopathy: Status: Acute Plan 76-year-old gentleman with sepsis secondary to obstructive uropathy. He had type 2 injury in this setting. Also had atrial flutter. Currently telemetry sh owing sinus rhythm. He is on anticoagulation for atrial flutter. He has pancreatic mass with concern for pancreatic cancer which needs further workup. Clinically not in heart failure right now. His echocardiography has shown mild cardiomyopathy involving the left and right ventricle. This will need further workup as outpatient. He is on sodium bicarbonate. This is significant sodium load for him and dose should be decreased and preferably this should be stopped. Would recommend Lovenox instead of Eliquis currently in case he requires an endoscopy pick biopsy of the pancreatic mass. Thank you for allowing me to participate in the care of your patient. Please feel free to contact me if you have any questions. Time Spent With Patient Time: Total time spent is greater than 50% in coordination of care (as documented) at patient's floor/unit and/or counseling patient: Progress Note: Quality Stroke Does the patient have a stroke diagnosis?: No Procedures Date of Service Date of Service: 12/27/21
[2021-12-27 12:00] LABS: Glucose, Whole Blood 319 mg/dL (60-115)
[2021-12-27] MEDS: Apixaban 5 MG TABLET PO ×2 (12:52→21:11)
--- NOTE | 2021-12-27 13:08 | P.PNUR_ITS ---
Subjective Subjective Date of Service: 12/27/21 Interval history: Vishal is improving Creatinine has dropped to 1.6 WBC resolving Diet returning Microbiology with E coli positive urine pansensitive Stent on right side Will require follow-up procedure for stent removal and stone resolution To be discussed once urosepsis has resolved Physical Exam Vital Signs: Vital Signs: Last Vital Signs Temp 97.9 F 12/27/21 11:29 Pulse 94 12/27/21 11:29 Resp 16 12/27/21 11:29 BP 150/87 H 12/27/21 11:29 Pulse Ox 96 12/27/21 11:29 O2 Del Method 12/27/21 11:29 O2 Flow Rate 3 12/23/21 15:00 BMI result Body Mass Index 36.0 Const: General: cooperative, healthy appearing, comfortable and no acute dis tress Orientation/consciousness: patient oriented x3 HEENT: Face and sinus: Yes normal facial exam Mouth: moist mucous membranes Neck: Neck: Yes normal visual inspection, Yes full ROM and Yes trachea midline Chest: Chest palpation & inspection: normal inspection of the chest Resp: Effort & Inspection: normal respiratory effort, able to speak in complete sentences and no respiratory distress GI: Inspection: Yes normal to inspection Back/Spine/Pelvis: Cervical Spine: normal cervical lordosis Thoracic/Lumbar Spine: thoracic and lumbar spine normal to inspection Skin: General skin exam: no rashes or lesions noted Neuro: General: patient oriented x3, tone normal and moves all extremities Extrem: General: Yes normal to inspection and Yes capillary refill normal Urology Results Labs CBC & Chem 7: 12/26/21 06:56 12/27/21 06:41 Labs: Laboratory Results - last 24 hr 12/26/21 12/26/21 12/26/21 15:00 16:10 21:24 aPTT Heparin Protocol 24.5 L D Sodium Potassium Chloride Carbon Dioxide Anion Gap BUN Creatinine Estim Creat Clear Calc Estimated GFR POC Glucose 246 H 210 H Random Glucose Calcium 12/26/21 12/27/21 12/27/21 23:40 06:41 06:41 aPTT Heparin Protocol 49.4 L D 69.7 D Sodium 139 Potassium 4.8 Chloride 107 Carbon Dioxide 23 Anion Gap 14 BUN 27 H Creatinine 1.61 H Estim Creat Clear Calc 47.8 Estimated GFR 42 POC Glucose Random Glucose 230 H Calcium 8.6 12/27/21 12/27/21 07:31 11:31 aPTT Heparin Protocol Sodium Potassium Chloride Carbon Dioxide Anion Gap BUN Creatinine Estim Creat Clear Calc Estimated GFR POC Glucose 226 H 319 H Random Glucose Calcium Progress Note: A&P Assessment and plan (1) Calculus, renal: Status: Acute (2) Sepsis: Status: Acute Plan Continue to follow Time Spent With Patient Time: Total time spent is greater than 50% in coordination of care (as documented) at patient's floor/unit and/or counseling patient: Progress Note: Quality Stroke Does the patient have a stroke diagnosis?: No
[2021-12-27 13:20] LABS: PTT Heparin Drip 29.1 SEC (53-77.9)
--- NOTE | 2021-12-27 13:57 | P.PNIM_ITS ---
Subjective Subjective Date of Service: 12/27/21 Interval History: Feels well, no palpitations No flank or kidney pain Review of Systems Review of Systems: Yes all other systems are reviewed and are negative Physical Exam Vital Signs: Vital Signs: Last Vital Signs Temp 97.9 F 12/27/21 11:29 Pulse 94 12/27/21 11:29 Resp 16 12/27/21 11:29 BP 150/87 H 12/27/21 11:29 Pulse Ox 96 12/27/21 11:29 O2 Del Method 12/27/21 11:29 O2 Flow Rate 3 12/23/21 15:00 BMI result Body Mass Index 36.0 Gen: in no acute distress HEENT: sclera anicteric, moist mucus membranes Neck: supple Lungs: clear to auscultation bilaterally Heart: regular rate and rhythm, no murmurs Abd: soft, non-tender, non-distended Ext: no edema Skin: warm/well-perfused Neuro: alert and oriented x3, no focal findings Psych: appropriate affect Objective Data Active Medications Acetaminophen (Acetaminophen 325 Mg Tablet) 975 mg PO Q6H PRN PRN Reason: Fever >100.4;headache Last Admin: 12/24/21 12:17 Dose: 975 mg Documented By: ANTONETTE Apixaban (Apixaban 5 Mg Tablet) 5 mg PO BID [facility] Last Admin: 12/27/21 12:52 Dose: 5 mg Documented By: JILLIAN Dextrose (Dextrose 50 % 25 Gm/50 Ml Syringe) 25 gm IVPUSH Q15M PRN; Protocol PRN Reason: per Hypoglycemia Standing Ord. Glucose (Glucose Gel 15 Gm Gel..Gram.) 15 gm PO Q15M PRN; Protocol PRN Reason: per Hypoglycemia Standing Ord. Ceftriaxone Sodium 1 gm/ (Sodium Chloride) 50 mls @ 100 mls/hr IV Q24H [facility] Last Infusion: 12/27/21 11:18 Dose: 0 mls/hr Documented By: JILLIAN Insulin Human Lispro (Insulin Lispro 100 Unit/Ml 3 Ml Vial) 0 unit SUBCUT QIDACHS [facility]; Protocol Last Admin: 12/27/21 12:52 Dose: 8 unit Documented By: JILLIAN Pharmacy Consult (Consult Rx Perform Med Rec) 1 each MISCELLANE ONCE PRN PRN Reason: Consult order Sitagliptin Phosphate (Sitagliptin Phosphate 100 Mg Tablet) 100 mg PO DAILY [facility] Last Admin: 12/27/21 10:22 Dose: 100 mg Documented By: JILLIAN Sodium Chloride (0.9 % Sodium Chloride Flush 3 Ml Syringe) 3 ml IVFLUSH QSHIFT [facility] Last Admin: 12/27/21 10:22 Dose: 3 ml Documented By: JILLIAN Labs CBC & Chem 7: 12/26/21 06:56 12/27/21 06:41 Labs: Laboratory Results - last 24 hr 12/26/21 12/26/21 12/26/21 15:00 16:10 21:24 aPTT Heparin Protocol 24.5 L D Anion Gap Estim Creat Clear Calc Estimated GFR POC Glucose 246 H 210 H Random Glucose Calcium 12/26/21 12/27/21 12/27/21 23:40 06:41 06:41 aPTT Heparin Protocol 49.4 L D 69.7 D Anion Gap 14 Estim Creat Clear Calc 47.8 Estimated GFR 42 POC Glucose Random Glucose 230 H Calcium 8.6 12/27/21 12/27/21 12/27/21 07:31 11:31 13:07 aPTT Heparin Protocol 29.1 L D Anion Gap Estim Creat Clear Calc Estimated GFR POC Glucose 226 H 319 H Random Glucose Calcium TTE 12/26/21 - The left ventricular systolic function is mildly decreased.? ? The visually estimated ejection fraction is between 45-50%.? ? ? - There is mildly decreased right ventricular systolic function. - No obvious valvular pathology seen on this study.? - There is mild dilatation of the ascending aorta measuring 4.20 cm.? Assessment and Plan (1) Acute pyelonephritis: Status: Acute (2) SAYRA (acute kidney injury): Status: Acute (3) HTN (hypertension), benign: Status: Acute (4) Atrial flutter by electrocardiography: Status: Acute Plan hospital d#6 76yo M with hx L ureterolithiasis s/p stenting January 2021 admitted with R-sided ureterolithiasis, seppsis secondary to E coli pyelonephritis/bacteremia briefly requiring pressor support postoperatively, complicated by atrial flutter + SAYRA, stepped down to hospitalist service 12/23/21, also incidental pancreatic mass found # urosepsis due to pyelonephritis/bacteremia with obstructing ureterolith - s/p stenting by Urology 12/22/21 - ceftriaxone d#12/06, may complete course with cefuroxime as E coli is pansensitive # SAYRA - secondary to septic ATN + post renal obstruction; improved with IV fluids, r echeck SCr in AM - d/c oral bicarbonate # atrial flutter, new onset - rate-controlled - anticoagulate with apixaban [change from heparin gtt] # DM2 - d/c oral hypoglycemics, given correction-dose lispro # pancreatic mass - MRI/MRCP, may need outpt EUS with LMWH bridge # VTE ppx: apixaban # dispo: anticipate home with VNA In my clinical judgment, the patient requires continued hospitalization for the following reasons: SAYRA, IV ABX, pancreatic mass I updated pt's Veronika by phone Quality Stroke Does the patient have a stroke diagnosis?: No VTE Prior VTE?: No VTE Risk Level:: Medical - moderate - high VTE Device Contraindication: Treatment Not Indicated VTE Drug Contraindication: N/A - Med Ordered
[2021-12-27 16:28] LABS: Glucose, Whole Blood 169 mg/dL (60-115)
[2021-12-27 20:58] LABS: Glucose, Whole Blood 191 mg/dL (60-115)
[2021-12-28 04:00] VITALS: BP 146/81; PULSE 94; RESP 15; TEMP 36.5; O2SAT 94
[2021-12-28 07:12] LABS: Anion Gap 12 (12-20); Blood Urea Nitrogen 25 mg/dL (9-16); Calcium 8.6 mg/dL (8.4-10.2); Carbon Dioxide 23 mmol/L (22-29); Chloride 108 mmol/L (96-108); Estimated Glomerular Filt Rate 43; Glucose Random 235 mg/dL (60-115); Potassium 4.6 mmol/L (3.3-5.1); Sodium 138 mmol/L (135-145)
[2021-12-28 07:32] VITALS: BP 164/89; PULSE 99; RESP 16; TEMP 36.6; O2SAT 94
[2021-12-28] MEDS: Insulin Lispro 100 UNIT/ML 3 ML VIAL SUBCUT ×2 (07:53→11:58)
[2021-12-28] MEDS: Apixaban 5 MG TABLET PO (07:53)
[2021-12-28] MEDS: 0.9 % Sodium Chloride Flush 3 ML SYRINGE IVFLUSH (07:54)
[2021-12-28 08:05] LABS: Glucose, Whole Blood 210 mg/dL (60-115)
[2021-12-28 09:23] VITALS: BP 164/89; PULSE 99; O2SAT 94
[2021-12-28] MEDS: cefTRIAXone sodium 1 GM in 0.9 % Sodium Chloride 50 ML IV (11:20)
[2021-12-28 11:29] VITALS: BP 170/83; PULSE 104; RESP 18; TEMP 36.8; O2SAT 96
--- NOTE | 2021-12-28 11:50 | P.DS_ITS ---
DS: Providers Provider Date of Service: 12/28/21 Date of admission: 12/22/21 14:38 Date of discharge: 12/28/21 Primary care physician: Simon Romeo MD Consults: 12/22/21 13:20 Consult to Gastroenterology Routine Consulting Provider: Jean Farias Reason for consultation: Query pancreatic mass Has provider been notified: No Consult to Urology Routine Consulting Provider: Frank Pace Reason for consultation: Obstructing renal calculi Has provider been notified: No 12/24/21 12:05 Consult to Cardiology Routine Consulting Provider: John Lopez Reason for consultation: Elevated trops Has provider been notified: No DS: Diagnosis Discharge Diagnosis (1) Sepsis: Status: Acute (2) Bacteremia, escherichia coli: Status: Acute (3) Ureterolithiasis: Status: Acute (4) Acute pyelonephritis: Status: Acute (5) SAYRA (acute kidney injury): Status: Acute (6) Atrial flutter by electrocardiography: Status: Acute (7) Congestive cardiomyopathy: Status: Acute DS: Summary Hospital Course Hospital Course: from admission H+P by hospitalist Lars Sanchez DO, 12/22/21: Patient is a 76 year old male presenting to the emergency department today with abdominal pain, nausea, vomiting, and right flank pain.? Has history of left- sided ureteral stone for which she has seen Dr. Pace in the past.? Patient stat es his call Dr. Pace early this week and was started on Flomax.? Was seen by primary care who per month Flexeril thinking this may have a component of back spasm.? Discussed with ; states this morning patient looks extremely uncomfortable and lethargic prompting her to call EMS for transport.? In the emergency room he was mildly hypotensive but received fluids according to the sepsis protocol.? This point time is hemodynamically stable.? Plan is for Dr. Pace to take to the OR sometime later this afternoon. This 76yo M with hx L ureterolithiasis s/p stenting January 2021 was admitted with R-sided ureterolithiasis and developed sepsis secondary to E coli pyelonephritis/bacteremia briefly requiring pressor support after stenting by Dr Pace on 12/22/21. Postoperative course was also complicated by new-onset atrial flutter + SAYRA. He was stepped down to the hospitalist service 12/23/21. He was treated with IV ceftriaxone for 6 days and will complete therapy with 8 more days of PO cefuroxime. SAYRA was attributed to septic ATN and postrenal obstruction; serum creatinine improved with IV fluid hydration and treatment of the infection source; SCr was 1.57 on the day of discharge. BMP should be repeated in 1 week. As for atrial flutter, ventricular rate was controlled without pharmacotherapy. He was started on anticoagulation with apixaban. Echocardiography showed mildly reduced LVEF and RVEF. He had no signs of acute decompensated heart failure. He will need close Cardiology follow-up. There was concern for incidental pancreatic mass on initial CT scan of the abdomen, but a definitive MRI/MRCP showed that the pancreas was completely normal. He was discharged home with instructions to follow up with his primary care doctor as well as Urology and Cardiology. Time Spent with Patient Time attestation: Total time spent providing and/or coordinating discharge services: Discharge coordination time: Greater than 30 minutes Quality: Safe Use of Opioids Does Pt have an Active Cancer Diagnosis on the Problem List?: No Quality: Stroke Does the patient have a stroke diagnosis?: No Physical Exam Vital Signs: Vital Signs: Last Vital Signs Temp 98.2 F 12/28/21 11:29 Pulse 104 H 12/28/21 11:29 Resp 18 12/28/21 11:29 BP 170/83 H 12/28/21 11:29 Pulse Ox 96 12/28/21 11:29 O2 Del Method 12/28/21 11:29 O2 Flow Rate 3 12/23/21 15:00 BMI result Body Mass Index 36.0 Gen: in no acute distress HEENT: sclera anicteric, moist mucus membranes Neck: supple Lungs: clear to auscultation bilaterally Heart: regular rate and rhythm, no murmurs Abd: soft, non-tender, non-distended Ext: no edema Skin: warm/well-perfused Neuro: alert and oriented x3, no focal findings Psych: appropriate affect ? DS: Data Data Completed and Pending Completed studies during hospitalization [Text1]: Laboratory Results WBC 11.4 X10*3/uL (4.8-10.8) H 12/26/21 06:56 RBC 4.18 X10*6/uL (4.60-5.80) L 12/26/21 06:56 Hgb 13.3 g/dl (14.0-18.0) L 12/26/21 06:56 Hct 39.8 % (42.0-52.0) L 12/26/21 06:56 MCV 95.2 fL (80.0-98.0) 12/26/21 06:56 MCH 31.8 pg (27.0-33.0) 12/26/21 06:56 MCHC 33.4 g/dl (31.0-36.0) 12/26/21 06:56 RDW 13.2 % (11.0-16.0) 12/26/21 06:56 Plt Count 169 X10*3/uL (160-400) 12/26/21 06:56 MPV 10.8 fL (9.4-12.4) 12/26/21 06:56 Immature Gran % (Auto) 0.6 % (0.0-0.4) H 12/25/21 05:44 Neut % (Auto) 81.1 % (45-73) H 12/25/21 05:44 Lymph % (Auto) 7.7 % (20-40) L 12/25/21 05:44 [place] % (Auto) 7.2 % (2-11) 12/25/21 05:44 Eos % (Auto) 2.7 % (0-4) 12/25/21 05:44 Baso % (Auto) 0.7 % (0-2) 12/25/21 05:44 Lymph # (Auto) 1.2 X10*3/uL (1.2-4.9) 12/25/21 05:44 [place] # (Auto) 1.2 X10*3/uL (0.1-1.2) 12/25/21 05:44 Eos # (Auto) 0.4 X10*3/uL (0.0-0.4) 12/25/21 05:44 Baso # (Auto) 0.1 X10*3/uL (0.0-0.2) 12/25/21 05:44 Abs Immat Gran (auto) 0.10 X10*3/uL (0.00-0.03) H 12/25/21 05:44 Absolute Neuts (auto) 13.0 x10*3/uL (2.0-8.3) H 12/25/21 05:44 Absolute Nucleated RBC 0.000 X10*3/uL (0.0-0.012) 12/26/21 06:56 Nucleated RBC % (auto) 0.0 /100WBC (0.0-0.2) 12/26/21 06:56 Neutrophils % (Manual) 78 % (45-73) H 12/24/21 05:44 Band Neutrophils % 13 % (3-5) H 12/24/21 05:44 Lymphocytes % (Manual) 3 % (20-40) L 12/24/21 05:44 Monocytes % (Manual) 4 % (2-11) 12/24/21 05:44 Eosinophils % (Manual) 1 % (0-4) 12/24/21 05:44 Basophils % (Manual) 1 % (0-2) 12/24/21 05:44 Metamyelocytes % 2 % 12/23/21 12:13 Abs Neuts (Manual) 26.4 X10*3/uL (2.0-8.3) H 12/24/21 05:44 Lymphocytes # (Manual) 0.9 X10*3/uL (1.2-4.9) L 12/24/21 05:44 Monocytes # (Manual) 1.2 X10*3/uL (0.1-1.2) 12/24/21 05:44 Eosinophils # (Manual) 0.3 X10*3/uL (0.0-0.4) 12/24/21 05:44 Basophils # (Manual) 0.3 X10*3/uL (0.0-0.2) H 12/24/21 05:44 Metamyelocytes # 0.6 X10*3/uL 12/23/21 12:13 Smudge Cells PRESENT 12/24/21 05:44 Toxic Vacuolation PRESENT 12/24/21 05:44 Dohle Bodies PRESENT 12/24/21 05:44 Platelet Estimate NORMAL (NORMAL) 12/24/21 05:44 Plt Morphology Comment NORMAL 12/24/21 05:44 RBC Morphology NOTED 12/24/21 05:44 Polychromasia 1+ (0-2) /OIF 12/24/21 05:44 Hypochromasia 1+ (5-14) /OIF 12/22/21 09:20 Macrocytosis 1+ (5-14) /OIF 12/24/21 05:44 Ovalocytes 1+ (5-14) /OIF 12/22/21 19:30 Smear Path Review SEE NOTE 12/23/21 05:19 PT 11.5 SEC (10.0-13.1) 12/26/21 06:56 INR 1.0 (0.9-1.1) 12/26/21 06:56 APTT 22.5 SEC (24.1-38.0) L 12/22/21 09:20 aPTT Heparin Protocol 29.1 SEC (53-77.9) L D 12/27/21 13:07 VBG pH 7.41 (7.32-7.43) 12/25/21 05:50 VBG pCO2 38 mmHg 12/25/21 05:50 VBG pO2 40 mmHg 12/25/21 05:50 VBG HCO3 24 mmol/L (22-26) 12/25/21 05:50 VBG O2 Saturation 66.0 % 12/25/21 05:50 VBG Base Excess 0.3 mmol/L 12/25/21 05:50 Sodium 138 mmol/L (135-145) 12/28/21 06:15 Potassium 4.6 mmol/L (3.3-5.1) 12/28/21 06:15 Chloride 108 mmol/L (96-108) 12/28/21 06:15 Carbon Dioxide 23 mmol/L (22-29) 12/28/21 06:15 Anion Gap 12 (12-20) 12/28/21 06:15 BUN 25 mg/dL (9-16) H 12/28/21 06:15 Creatinine 1.57 mg/dL (0.5-1.4) H 12/28/21 06:15 Estim Creat Clear Calc 49.0 12/28/21 06:15 Estimated GFR 43 12/28/21 06:15 POC Glucose 210 mg/dL (60-115) H 12/28/21 07:35 Random Glucose 235 mg/dL (60-115) H 12/28/21 06:15 Lactic Acid 3.9 mmol/L (0.5-2.0) H* 12/23/21 05:19 Lactic Acid F/U @ 2Hr 4.8 mmol/L (0.5-2.0) H* 12/23/21 07:36 Lactic Acid F/U @ 4Hr 3.3 mmol/L (0.5-2.0) H* 12/23/21 10:12 Calcium 8.6 mg/dL (8.4-10.2) 12/28/21 06:15 Phosphorus 2.8 mg/dL (2.7-4.5) 12/25/21 05:44 Magnesium 1.9 mg/dL (1.6-2.6) 12/25/21 05:44 Total Bilirubin 1.4 mg/dL (0.0-1.0) H 12/25/21 05:44 Direct Bilirubin 0.5 mg/dL (0.0-0.5) 12/25/21 05:44 AST 43 U/L (5-37) H 12/25/21 05:44 ALT 102 U/L (0-40) H 12/25/21 05:44 Alkaline Phosphatase 125 U/L (39-117) H 12/25/21 05:44 Total Creatine Kinase 91 U/L (38-174) 12/22/21 09:20 Troponin I High Sens 254.9 ng/L (<3.5-35.0) H* 12/23/21 12:13 B-Natriuretic Peptide 235 pg/mL (<100) H 12/25/21 05:44 Total Protein 5.6 g/dL (6.5-8.0) L 12/25/21 05:44 Albumin 3.3 g/dL (3.5-5.0) L 12/25/21 05:44 Lipase 22 U/L (8-78) 12/22/21 09:20 Carcinoembryonic Ag 1.00 ng/mL 12/23/21 05:19 CA 19-9 Antigen <3 U/mL (<34) 12/23/21 05:19 Vitamin B12 653 pg/mL (200-900) 12/23/21 05:19 Urine Color DK YELLOW 12/22/21 11:55 Urine Appearance CLOUDY 12/22/21 11:55 Urine pH 5.5 (5.0-8.0) 12/22/21 11:55 Ur Specific [place] >= 1.030 (1.005-1.025) H 12/22/21 11:55 Urine Protein 2+ MG/DL (NEG-TRACE) H 12/22/21 11:55 Urine Glucose (UA) NEG MG/DL (NEG) 12/22/21 11:55 Urine Ketones 15 MG/DL (NEG) 12/22/21 11:55 Urine Blood 2+ (NEG) H 12/22/21 11:55 Urine Nitrite NEG (NEG) 12/22/21 11:55 Ur Leukocyte Esterase 1+ (NEG) H 12/22/21 11:55 Urine RBC 1-4 /HPF (0) 12/22/21 11:55 Urine WBC 30-49 /HPF (0-4) H 12/22/21 11:55 Ur Squamous Epith Cells 1+ /LPF 12/22/21 11:55 Urine Bacteria 2+ /LPF 12/22/21 11:55 Urine Mucus 2+ /LPF 12/22/21 11:55 COVID-19 (CHRISTIE) Negative (Negative) 12/22/21 09:20 COVID-19 Clin Com See Note 12/22/21 09:20 Influenza Type A (DAVIAN) Negative (Negative) 12/22/21 09:20 Influenza Type B (DAVIAN) Negative (Negative) 12/22/21 09:20 Influenza A & B Note See Note 12/22/21 09:20 Impressions Abdomen/Pelvis CT 12/22/21 09:55 IMPRESSION: 1. Obstructing 3 mm right ureteral calculus 6 cm above the UVJ. 2. Question of pancreatic carcinoma and follow-up as described above is recommended. Fleischner guidelines were followed. Guidance Fluoroscopy 12/22/21 18:20 IMPRESSION: Intraoperative fluoroscopy for urologic procedure. Chest X-Ray 12/24/21 12:02 IMPRESSION: No acute cardiopulmonary process. Abdomen MRI 12/27/21 14:44 IMPRESSION: Normal-appearing pancreas. No pancreatic head mass. Small bilateral renal cysts. TTE 12/26/21 - The left ventricular systolic function is mildly decreased.? ? The visually estimated ejection fraction is between 45-50%.? ? ? - There is mildly decreased right ventricular systolic function. - No obvious valvular pathology seen on this study.? - There is mild dilatation of the ascending aorta measuring 4.20 cm.? Discharge Plan Discharge Patient Disposition: Home, Self-Care Discharge Diagnosis: sepsis due to pyelonephritis/bacteremia with obstructing ureterolith, acute kidney injury, atrial flutter Referrals: Simon Romeo MD [Primary Care Provider] - 1 Week Frank Pace MD [Physician] - 1 Week John Lopez MD [Physician] - 1 Week Discharge Medications: New Eliquis 5 mg Tablet 5 mg PO BID Qty: 60 0RF cefuroxime axetil 500 mg tablet 500 mg PO BID Qty: 16 0RF Continued metformin 850 mg tablet 1 tab PO BID Rx Instructions: WITH MEALS pantoprazole 40 mg tablet,delayed release (DR/EC) 1 tab PO BEDTIME simvastatin 20 mg tablet 1 tab PO BEDTIME glipizide 5 mg tablet 10 mg PO BID duloxetine 30 mg capsule,delayed release(DR/EC) 1 cap PO BEDTIME Januvia 100 mg tablet 1 tab PO DAILY methocarbamol 750 mg tablet 1 tab PO BID PRN (Reason: Muscle Pain) tamsulosin 0.4 mg capsule 0.4 mg PO BEDTIME (DME) Accu-Chek Megan Plus test strp Strip See Rx Instructions Not Applicable TID Qty: 10 Rx Instructions: As directed (DME) lancets [Accu-Chek Softclix Lancets] Misc See Rx Instructions topical BID-TID Qty: 100 Rx Instructions: As directed pyridoxine (vitamin B6) 100 mg tablet 100 mg PO DAILY 90 Days Qty: 90 1RF lisinopril 10 mg tablet 10 mg PO DAILY Discharge Orders: Discharge Order (Routine); Ordered 12/28/21 Ordered By: Beverley Kennedy Diet: Diabetic diet Activity on Discharge: As tolerated Stand Alone Forms: Patient Portal Discharge page Print Language: Cambodian Other Ambulatory Orders: Basic Metabolic Panel (Routine) Timeframe: 1 Week Facility: [facility] - Location: Laboratory Ordered By: Beverley Kennedy Care Plan Goals: recovery from infection/sepsis kidney health stroke prevention Health Concerns: sepsis due to pyelonephritis/bacteremia with obstructing ureterolith, acute kidney injury, atrial flutter Plan of Treatment: infection: take cefuroxime 500 mg twice daily for 8 days ureteral stone: follow up with Dr Pace from Urology in 1-2 weeks acute kidney injury: recheck labs [basic metabolic panel] in 1 week; avoid NSAIDs atrial flutter: follow up with Cardiology in 2 weeks, start apixaban 5 mg twice daily to prevent strokes Assessment: See Discharge Summary Patient Instructions: Atrial Flutter (DC)
[2021-12-28 11:59] LABS: Glucose, Whole Blood 255 mg/dL (60-115)
--- NOTE | 2021-12-28 15:56 | MHC.CM.PN ---
Patient has been medically cleared for dc to home today, self care. IMM addressed with Patient at bedside and original has been given to him and a copy has been placed on the chart.
== END 2021-12-28 16:00 | disposition home or self-care (01) | DRG 854 ==
LOC: HO.ED 14:07 → HO.EDOVER 14:38 → HO.S3 16:08 → HO.IMC 19:48 → HO.ICU 20:39 → HO.IMC 12-23 19:34
PROVIDERS: Anesthesiology; Internal Medicine Cardiovascular Disease; Internal Medicine Gastroenterology; Physician Assistant; Physician Assistant Medical; Urology; Admitting Provider Hospitalist; Emergency Provider Emergency Medicine; PCP Internal Medicine; Visit Provider Family Medicine
PROC: 0T768DZ Dilation of Right Ureter with Intraluminal Device, Via Natural or Artificial Opening Endoscopic (ICD-10-PCS; principal; 2021-12-22 16:30)
DX: A41.9 Sepsis, unspecified organism (principal); I42.0 Dilated cardiomyopathy; N13.6 Pyonephrosis; I48.92 Unspecified atrial flutter; E78.5 Hyperlipidemia, unspecified; E66.9 Obesity, unspecified; B96.20 Unspecified Escherichia coli [E. coli] as the cause of diseases classified elsewhere; K86.9 Disease of pancreas, unspecified; I10 Essential (primary) hypertension; E11.9 Type 2 diabetes mellitus without complications; Z68.37 Body mass index [BMI] 37.0-37.9, adult; R65.20 Severe sepsis without septic shock; Z20.822 Contact with and (suspected) exposure to COVID-19; Z79.01 Long term (current) use of anticoagulants; Z79.84 Long term (current) use of oral hypoglycemic drugs; Z79.899 Other long term (current) drug therapy
CPT/HCPCS: 36415; 71045; 71046; 74176; 74183; 80048; 80053; 80076; 81001; 81003; 82378; 82550; 82607; 82803; 82947; 83605; 83690; 83735; 83880; 84100; 84132; 84484; 85007; 85025; 85027; 85610; 85730; 86301; 87040; 87071; 87077; 87086; 87088; 87186; 87205; 87502; 87635; 93005; 93306; 94640; 96361; 96374; 97162; 99285; A9585; C1758; C1769; C2617; J0696; J1650; J1940; J1956; J2060; J2370; J2405; J2543; J3010; J3475; Q9957; Q9967

== ENCOUNTER → 2021-12-29 08:51 | Outpatient (BNVA) | payer MEDICARE, SELFPAY | PROVIDERS: PCP Internal Medicine; Visit Provider Urology | DX: N20.1 Calculus of ureter (principal); N28.1 Cyst of kidney, acquired | CPT/HCPCS: Q3014 ==

== ENCOUNTER 2022-01-02 12:47 | Day surgery (SDC) | payer MEDICARE, SELFPAY ==
--- NOTE | 2021-12-30 12:22 | HO.ANESPROP2 ---
Documented by User: Theresa Apodaca NP 01/02/22 10:49 HPI - Anesthesia Eval Consult details Narrative: 76yo M for Cystoscopy, Ureteroroscopy, Retro, Laser with possible stent exchange 12/28/21 D/C from [facility] [place]. Admitted with urosepsis. Had cysto/stent 12/23/21 with MAC. Had post op aflutter and bump in trops. Cardiac consult with ECHO. Started on lovenox for aflutter d/t need for biopsy of newly found pancreatic mass. 12/29/21 1338. Case reviewed with Dr Dawn. T/C with Dr Pace - pt needs urgent stent removal. Awaiting cardiac input - Dr Katz to review per [employer]. Case reviewed wit Dr Ajay HAYDEN Active Problems Active Problems: All Active Problems (Updated 12/28/21 @ 11:51 by Beverley Kennedy MD) Ureterolithiasis (Acute) Atrial flutter by electrocardiography (Acute) Elevated troponin (Acute) Congestive cardiomyopathy (Acute) Obstructive nephropathy (Acute) Pulmonary edema (Acute) Acute hyperkalemia (Acute) SAYRA (acute kidney injury) (Acute) HTN (hypertension), benign (Acute) Diabetes 1.5, managed as type 2 (Acute) Sepsis (Acute) Calculus, renal (Acute) Acute pyelonephritis (Acute) Pancreatic neoplasm (Acute) Complex renal cyst (Acute) Nephrolithiasis (Acute) Bacteremia, escherichia coli (Acute) Past Medical History Medical History Diabetes 1.5, managed as type 2 H/O renal calculi HLD (hyperlipidemia) HTN (hypertension), benign Family History Family History Father COPD (chronic obstructive pulmonary disease) Mother Heart disease Family history of problems with anesthesia: No Surgical History History of Problems with Anesthesia: No Social History Social History Household Members: Spouse Housing: House Patient Tobacco Use Status: Never used Tobacco Advance Directives: Yes Advance Directives on File: Yes Advance Directives Date on File: 02/15/21 service: No Current occupational status: retired Meds Allergies Allergy/AdvReac Type Severity Reaction Status Date / Time No Known Allergies Allergy Verified 12/29/21 07:21 Home Medications Medication Instructions Recorded Confirmed Last Taken Type duloxetine 30 mg capsule,delayed 1 cap PO BEDTIME 02/14/21 12/22/21 12/21/21 History release glipizide 5 mg tablet 10 mg PO BID 02/14/21 12/22/21 12/21/21 History metformin 850 mg tablet 1 tab PO BID 02/14/21 12/22/21 12/21/21 History pantoprazole 40 mg tablet,delayed 1 tab PO BEDTIME 02/14/21 12/22/21 12/21/21 History release simvastatin 20 mg tablet 1 tab PO BEDTIME 02/14/21 12/22/21 12/21/21 History sitagliptin 100 mg tablet (Januvia) 1 tab PO DAILY 02/14/21 12/22/21 12/21/21 History blood sugar diagnostic (Accu-Chek #10 ea 04/08/21 Unknown History Megan Plus test strp) lancets (Accu-Chek Softclix #100 ea 04/08/21 Unknown History Lancets) lisinopril 10 mg tablet 10 mg PO DAILY 10/05/21 12/22/21 12/21/21 History methocarbamol 750 mg tablet 1 tab PO BID PRN Muscle Pain 12/22/21 12/22/21 Unknown History tamsulosin 0.4 mg capsule 0.4 mg PO BEDTIME 12/22/21 12/22/21 12/21/21 History Exam Exam Date and Time: December 30, 2021 1222 Pertinent Lab Results Pertinent Lab Results: Laboratory Tests 12/26/21 12/28/21 06:56 06:15 WBC 11.4 H Hgb 13.3 L Hct 39.8 L Plt Count 169 Sodium 138 Potassium 4.6 Chloride 108 Carbon Dioxide 23 BUN 25 H Creatinine 1.57 H Narrative Narrative: ECHO 12/2021 Conclusions: - The left ventricular systolic function is mildly decreased.? ? The visually estimated ejection fraction is between 45-50%.? ? ? - There is mildly decreased right ventricular systolic function. - No obvious valvular pathology seen on this study.? - There is mild dilatation of the ascending aorta measuring 4.20 cm.? ? EKG 11/2021 Vent. Rate : 118 BPM ? ? Atrial Rate : 118 BPM ?? P-R Int : 232 ms? QRS Dur : 098 ms ? ? QT Int : 306 ms ? ? ? P-R-T Axes : 000 -38 021 degrees ?? QTc Int : 428 ms ? Sinus tachycardia with 1st degree A-V block Left axis deviation Abnormal ECG No previous ECGs available Assessment and Plan Assessment Anesthesia Assessment: Chart Reviewed Final Anesthetic Review Family History of Problems with Anesthesia: No History of Problems with Anesthesia: No Documented by User: Jamila Dawn MD 01/02/22 13:37 [facility] Past Medical History Medical History Diabetes 1.5, managed as type 2 H/O renal calculi HLD (hyperlipidemia) HTN (hypertension), benign Family History Family History Father COPD (chronic obstructive pulmonary disease) Mother Heart disease Social History Social History Household Members: Spouse Housing: House Patient Tobacco Use Status: Never used Tobacco Advance Directives: Yes Advance Directives on File: Yes Advance Directives Date on File: 02/15/21 service: No Current occupational status: retired Meds Allergies Allergy/AdvReac Type Severity Reaction Status Date / Time No Known Allergies Allergy Verified 12/29/21 07:21 Home Medications Medication Instructions Recorded Confirmed Last Taken Type duloxetine 30 mg capsule,delayed 1 cap PO BEDTIME 02/14/21 12/22/21 12/21/21 History release glipizide 5 mg tablet 10 mg PO BID 02/14/21 12/22/21 12/21/21 History metformin 850 mg tablet 1 tab PO BID 02/14/21 12/22/21 12/21/21 History pantoprazole 40 mg tablet,delayed 1 tab PO BEDTIME 02/14/21 12/22/2122 History release simvastatin 20 mg tablet 1 tab PO BEDTIME 02/14/21 12/22/21 12/21/21 History sitagliptin 100 mg tablet (Januvia) 1 tab PO DAILY 02/14/21 12/22/21 12/21/21 History blood sugar diagnostic (Accu-Chek #10 ea 04/08/21 Unknown History Megan Plus test strp) lancets (Accu-Chek Softclix #100 ea 04/08/21 Unknown History Lancets) lisinopril 10 mg tablet 10 mg PO DAILY 10/05/21 12/22/21 12/21/21 History methocarbamol 750 mg tablet 1 tab PO BID PRN Muscle Pain 12/22/21 12/22/21 Unknown History tamsulosin 0.4 mg capsule 0.4 mg PO BEDTIME 12/22/21 12/22/21 12/21/21 History Exam Airway Mallampati Class: III TM Dist: >3cm Neck ROM: Full Heart: RRR Lungs: CTA Assessment and Plan Final Anesthetic Review ASA Class: III Final Preanesthetic Review: No Changes in Pt Med Stat, Meds/Allgs Chart Reviewed, Consent Obtained/Reviewed and Anes Risks/Benef Reviewed Patient Risk: Intermediate Procedure Risk: Low Anesthetic Plan Anesthetic Plan: GA Disposition: Standard PACU
--- NOTE | ~2022-01-02 | FL_ITS ---
EXAMINATION: XR FLUOROSCOPY WITH IMAGES CLINICAL INFORMATION: Cystoscopy retrograde COMPARISON: None. TECHNIQUE: Fluoroscopy performed by Dr. Frank Pace. Fluoroscopy time: 3.4 minutes Dose: 1.14 mGycm2 Images: 1 FL/FL guidance in OR FINDINGS/IMPRESSION:: A single image revealing contrast opacifying the bladder was noted. No additional images are seen. Visualized pelvic bones are unremarkable.
[2022-01-02 13:05] VITALS: BP 123/70; PULSE 97; RESP 18; TEMP 36.7; O2SAT 95; BMI 34.0
[2022-01-02 13:36] LABS: Glucose, Whole Blood 149 mg/dL (60-115)
--- NOTE | 2022-01-02 13:45 | MHC.SHP ---
Pre-Procedural Eval Section A Date of Service: 01/02/22 The patient is an INPATIENT: No Changes since office visit: No Cold of Flu in the past 2 weeks, No New Medical Problems, No Changes in Medication and No Patient answered all questions The History & Physical has been completed within 30 days and I have reviewed it.: Yes Section B Chief Complaint: kidney stone Details of Present Illness: cystoscopy right stent removal, right ureteroscopy with laser lithotripsy and stent placement Relevant Social History: None Present Medications: see Short Stay Collaborative assessment Medical History: Significant History History of Previous Operations: Relevant previous surgery/procedure and date(s) Allergies: Allergies Allergy/AdvReac Type Severity Reaction Status Date / Time No Known Allergies Allergy Verified 12/29/21 07:21 Review of Systems Sugical H&P ROS: Negative: Constitution, Cardiovascular, Respiratory, Neurological, Psychiatric, Hem-Onc, Allergic/Immunologic, Gastrointestinal, Genitourinary, Musculoskeletal, Integumentary, Endocrine and Eyes/Ears/Nose/Throat Exam Surgical H&P Exam: Normal: HEENT, Normal: Heart, Normal: Lungs, Normal: Extremities, Normal: Abdomen, Normal: Skin and Normal: Neurological Plan Diagnosis/Plan: Unchanged ( cystoscopy, right stent removal, right ureteroscopy with laser lithotripsy stent placed) I have reviewed the history and physical and performed a pertinent physical examination on my patient. No changes have occurred unless specified.
--- NOTE | 2022-01-02 14:06 | W.PM.OPN ---
Operative Note Operative Note Date of Service: 01/02/22 Narrative: PreOperative Diagnosis: distal right ureteric stone Post Operative Diagnosis: distal right ureteric stone Procedure: - cystoscopy, removal of right stent, right retrograde - right ureteroscopy Surgeon: Dr Frank Pace Anesthesia: General Indications for procedure: underwent stent proximally 10 days ago for distal right ureteric stone. Was found to be uroseptic with pansensitive E coli. Has significantly improved. Here for removal of stent and diagnostic right ureteroscopy with possible laser lithotripsy if stone is still in position. Procedure: After informed consent was verified patient was brought to the operating placed in supine position. Anesthesia was administered per protocol. Patient was placed in modified dorsal lithotomy position and prepped and draped in a sterile fashion. Safety pause time-out and side of surgery confirmed. Antibiotics confirmed. A 22 [place] cystoscope was inserted per urethra. Bladder was normal in its entirety. Both ureteric orifices were in normal position. Stent emerging from the right ureteric orifice was already crystallized. This was grafted removed. Right retrograde was performed which showed no filling defect. Sensor guidewire was placed. The rigid cystoscope was removed. The semi rigid ureteral scope was placed alongside the Sensor guidewire. This was advanced up to the proximal ureter. We could see the area the distal ureter where the stone had been impacted. No stone remnants were remaining. Decision was made to remove the ureteral scope and we would not leave a stent. The bladder was emptied. The patient tolerated the procedure well and was extubated in the operating room, and transferred in stable condition to the recovery area. Pathology: None Drains: none
[2022-01-02 14:18] VITALS: BP 146/87; PULSE 97; RESP 16; TEMP 36.8; O2SAT 99
[2022-01-02 14:23] VITALS: BP 141/89; PULSE 97; RESP 16; O2SAT 98
[2022-01-02 14:28] VITALS: BP 141/89; PULSE 92; RESP 16; O2SAT 98
[2022-01-02 14:33] VITALS: BP 131/88; PULSE 90; RESP 16; O2SAT 98
[2022-01-02 14:48] VITALS: BP 139/76; PULSE 91; RESP 18; TEMP 36.8; O2SAT 100
--- NOTE | 2022-01-02 14:54 | HO.POSTANES ---
Post Anesthesia Evaluation Post Anesthesia Evaluation Vital Signs: Vital Signs Temp Pulse Resp BP Pulse Ox O2 Del Method O2 Flow Rate 01/02/22 14:48 98.3 F 91 18 139/76 100 Room Air 01/02/22 14:33 90 16 131/88 98 Room Air 6 01/02/22 14:28 92 16 141/89 H 98 Room Air 01/02/22 14:23 97 16 141/89 H 98 Room Air 01/02/22 14:18 98.3 F 97 16 146/87 H 99 Simple Mask 01/02/22 13:05 98.0 F 97 18 123/70 95 Room Air Anesthesia: General LMA Mental Status: Awake Pain Control: Satisfactory Nausea/Vomiting: None Hydration: Adequate Anesthesia-Related Issues: No Anes. Related Issues
== END 2022-01-02 15:22 | disposition home or self-care (01) ==
PROVIDERS: PCP Internal Medicine; Visit Provider Urology
PROC: (CPT 52315; principal; 2022-01-02 14:30)
DX: N20.1 Calculus of ureter (principal); Z87.442 Personal history of urinary calculi; E13.9 Other specified diabetes mellitus without complications; Z79.84 Long term (current) use of oral hypoglycemic drugs; E78.5 Hyperlipidemia, unspecified; I10 Essential (primary) hypertension; Z79.899 Other long term (current) drug therapy; Z66 Do not resuscitate
CPT/HCPCS: 52315; 82947; C1758; C1769; J1100; J1956; J2250; J2405; J3010; Q9967

== ENCOUNTER 2022-01-04 11:32 | Outpatient (REF) | payer MEDICARE, SELFPAY ==
[2022-01-04 12:35] LABS: Anion Gap 11 (12-20); Blood Urea Nitrogen 26 mg/dL (9-16); Calcium 9.6 mg/dL (8.4-10.2); Carbon Dioxide 23 mmol/L (22-29); Chloride 108 mmol/L (96-108); Estimated Glomerular Filt Rate 45; Glucose Random 232 mg/dL (60-115); Potassium 5.4 mmol/L (3.3-5.1); Sodium 137 mmol/L (135-145)
== END 2022-01-04 11:33 | disposition home or self-care (01) ==
LOC: HO.LAB 11:32
PROVIDERS: PCP Internal Medicine; Visit Provider Family Medicine
DX: N17.9 Acute kidney failure, unspecified (principal)
CPT/HCPCS: 36415; 80048

== ENCOUNTER → 2022-01-20 08:49 | Outpatient (BNVA) | payer MEDICARE, SELFPAY | PROVIDERS: PCP Internal Medicine; Visit Provider Urology | DX: N13.2 Hydronephrosis with renal and ureteral calculous obstruction (principal) | CPT/HCPCS: 99212 ==

== ENCOUNTER 2022-04-05 11:20 | Outpatient (REF) | payer MEDICARE, SELFPAY ==
--- NOTE | ~2022-04-05 | US_ITS ---
EXAMINATION: US RETROPERITONEAL LIMITED (RENAL ONLY) CLINICAL INFORMATION: Calculus of kidney. COMPARISON: CT abdomen and pelvis without contrast 12/22/2021. MR abdomen with and without contrast 09/20/2021. Ultrasound retroperitoneal limited (renal only) 09/12/2021 and 03/16/2021. TECHNIQUE: Real-time imaging of the kidneys. FINDINGS: RIGHT KIDNEY: 10.5 x 5.3 x 4.4 cm (SAG x AP x TRV). The kidney is normal in size, lobulated contour and echogenicity. Renal cortical thickness is normal. No calculi or focal parenchymal lesions. No hydronephrosis. LEFT KIDNEY: 11.9 x 5.2 x 4.8 cm (SAG x AP x TRV). The kidney is normal in size, lobulated contour and echogenicity. Renal cortical thickness is normal. No renal calculi or hydronephrosis. There is anechoic upper pole cyst measuring 11.9 x 5.2 x 4.8 cm. US/US renal BI IMPRESSION: Lobulated contour both kidneys. There is anechoic cyst midpole measuring 0.84 cm. No echogenic renal calculi or hydronephrosis.
== END 2022-04-05 11:21 | disposition home or self-care (01) ==
LOC: HO.HMGCX 11:20
PROVIDERS: PCP Internal Medicine; Visit Provider Urology
DX: N20.0 Calculus of kidney (principal); N20.1 Calculus of ureter
CPT/HCPCS: 76775

== ENCOUNTER → 2022-04-20 09:49 | Outpatient (BNVA) | payer MEDICARE, SELFPAY | PROVIDERS: PCP Internal Medicine; Visit Provider Urology | DX: N20.1 Calculus of ureter (principal); N28.1 Cyst of kidney, acquired | CPT/HCPCS: 99212 ==

== ENCOUNTER 2022-07-28 12:46 | Outpatient (REF) | payer MEDICARE, SELFPAY ==
--- NOTE | ~2022-07-28 | CT_ITS ---
EXAMINATION: CT ABDOMEN AND PELVIS WITHOUT CONTRAST CLINICAL INFORMATION: Hematuria, pain COMPARISON: Renal ultrasound 04/05/2022, MR abdomen 12/27/2021, CT abdomen and pelvis noncontrast 12/22/2021 and 02/14/2021. TECHNIQUE: Multidetector volumetric imaging was performed from the superior aspect of the liver through the pubic symphysis. No oral or intravenous contrast. Sagittal and coronal reformatted images were obtained on the technologist's workstation. This CT examination was performed using dose optimization techniques as appropriate, variously including the following: *Automated exposure control *Adjustment of mA and/or kV according to patient size (this includes techniques or standardized protocols for targeted exams where dose is matched to indication/reason for exam; i.e. extremities or head) *Use of iterative reconstruction technique DLP: 761 mGy-cm FINDINGS: LUNG BASES: The visualized lung bases are unremarkable. LIVER, GALLBLADDER, AND BILIARY TREE: The liver is normal in size, shape, and attenuation. No focal hepatic lesion or biliary ductal dilatation is present. The gallbladder is unremarkable with no evidence of radiopaque gallstones, gallbladder wall thickening, or obvious pericholecystic inflammatory changes. PANCREAS: Unremarkable. SPLEEN: Unremarkable. ADRENAL GLANDS: Unremarkable. KIDNEYS AND URETERS: The kidneys are normal in size, shape, and attenuation. No hydronephrosis, hydroureter, or perinephric stranding. There is a punctate nonobstructing calculus lower pole right kidney under 3 mm. No left urinary tract calculi. BLADDER: Unremarkable. GASTROINTESTINAL TRACT: No bowel obstruction or focal inflammatory changes in bowel or mesentery. Appendix not seen with certainty. No inflammatory changes around the terminal ileum or cecum. No pneumatosis or free air. No ascites or fluid collection. ABDOMINAL WALL: Small fat-containing supraumbilical hernia under 3 cm. LYMPH NODES: No lymphadenopathy. VASCULAR: Unremarkable. PELVIC VISCERA: Bilateral hydroceles, greater on left. Seminal vesicles symmetric. Pelvic side wall soft tissues unremarkable. OSSEOUS STRUCTURES: Unremarkable. CT/CT abdomen pelvis wo IV con IMPRESSION: 1. No hydronephrosis, hydroureter, or perinephric stranding. 2. Punctate nonobstructing right lower pole renal calculus under 3 mm. 3. No bowel obstruction or focal inflammatory changes in bowel or mesentery. 4. Bilateral hydroceles, greater on left.
== END 2022-07-28 12:47 | disposition home or self-care (01) ==
LOC: HO.CT 12:46
PROVIDERS: PCP Internal Medicine; Visit Provider Internal Medicine
DX: R31.9 Hematuria, unspecified (principal); R10.9 Unspecified abdominal pain
CPT/HCPCS: 74176

== ENCOUNTER 2023-04-13 08:45 | Outpatient (REF) | payer MEDICARE, SELFPAY ==
--- NOTE | ~2023-04-13 | US_ITS ---
EXAMINATION: US RETROPERITONEAL LIMITED (RENAL ONLY) CLINICAL INFORMATION: Calculus of ureter. COMPARISON: CT abdomen and pelvis 07/28/2022. Renal ultrasound 04/05/2022 and 09/12/2021. MRI abdomen 12/27/2021. TECHNIQUE: Real-time imaging of the kidneys. Limited visualization due to bowel gas. FINDINGS: RIGHT KIDNEY: 11.4 x 5.7 x 4.4 cm (SAG x AP x TRV). No hydronephrosis. No renal calculi. Limited visualization. Lobulated renal contour are difficult to fully evaluate due to limited visualization. LEFT KIDNEY: 10.2 x 5.1 x 4.5 cm (SAG x AP x TRV). No hydronephrosis. No renal calculi. Limited visualization. Lobulated renal contour are difficult to fully evaluate due to limited visualization. A 1.1 x 0.8 x 1.0 cm lower pole cyst with benign features. There is no indication for follow up imaging. US/US renal BI IMPRESSION: No hydronephrosis. No renal calculi. Limited visualization. Lobulated renal contour are difficult to fully evaluate due to limited visualization.
== END 2023-04-13 08:46 | disposition home or self-care (01) ==
LOC: HO.US 08:45
PROVIDERS: PCP Internal Medicine; Visit Provider Urology
DX: N20.1 Calculus of ureter (principal)
CPT/HCPCS: 76775

== ENCOUNTER 2023-04-19 08:46 | Outpatient (AMB) | payer MEDICARE, SELFPAY ==
--- NOTE | 2023-04-19 09:01 | A.OFFVIS_ITS ---
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: No Accompanied by: Self / Same As Patient Allergies No Known Allergies Allergy (Verified 04/19/22 15:46) Medication List - Last Reconciled 04/19/23 by Frank Pace MD allopurinol 100 mg PO DAILY 90 days apixaban (Eliquis) 5 mg PO BID blood sugar diagnostic (Accu-Chek Megan Plus test strips) As directed duloxetine 60 mg PO DAILY glipizide 10 mg PO BID lancets (Accu-Chek Softclix Lancets) As directed lisinopril 10 mg PO DAILY metformin 1 tab PO BID methocarbamol 1 tab PO BID PRN pantoprazole 1 tab PO BEDTIME pyridoxine (vitamin B6) 100 mg PO DAILY 90 days simvastatin 1 tab PO BEDTIME sitagliptin phosphate (Januvia) 1 tab PO DAILY trazodone 50 mg PO BEDTIME HPI HPI Comments History of Present Illness Details Jayme is a very pleasant male. He is seen for the following urologic conditions. - nephrolithiasis - renal cyst Discussed current ultrasound findings Refill medications Minimal issues since last visit Continue current therapy Nephrolithiasis Current consultation for follow-up for stones Prior intervention - 02/12 left USR - with urosepsis E coli pansensitive - 01/13 right distal stone obstructing wi th urosepsis E coli pansensitive Stone analysis - 02/12 calcium oxalate monohydrate 80% Imagining - 04/14 no stones, left kidney cyst 1 cm - 10/14 renal ultrasound MRI showed left renal cyst increase to 2 cm - 01/13 CT scan distal right ureteric sto ne with hydronephrosis - 04/15 renal ultrasound no stones - 04/16 renal ultrasound no evidence of stones 24 hour urine - 04/15 borderline low volume 1.2 L, hig h oxalate 42, low calcium 18, good citrate 700, low magnesium Therapeutic plan - encourage fluids - vitamin B6 - surveillance imaging [facility] Medical History Acute hyperkalemia Acute pyelonephritis SAYRA (acute kidney injury) Atrial flutter by electrocardiography Bacteremia, escherichia coli Calculus, renal 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, managed as type 2 Elevated troponin H/O renal calculi HLD (hyperlipidemia) HTN (hypertension), benign Nephrolithiasis Obstructive nephropathy Pancreatic neoplasm Pulmonary edema Sepsis Family History Father COPD (chronic obstructive pulmonary disease) Mother Heart disease Social History Household Members: Spouse Housing: House Patient Tobacco Use Status: Never used Tobacco Advance Directives Date on File: 02/15/21 service: No Current occupational status: retired Review of Systems Const Denies chills and Denies fever(s) Card Reports no additional complaints and Denies syncope Resp Denies cough GI Denies abdominal pain and Denies heartburn Reports as per HPI and Denies change in libido Neuro Denies syncope Psych Denies change in libido Endo Denies change in libido Physical Exam Const General: cooperative, healthy appearing, comfortable and no acute distress Orientation/consciousness: patient oriented x3 HEENT Face and sinus: Yes normal facial exam Mouth: moist mucous membranes Neck Neck: Yes normal visual inspection, Yes full ROM and Yes trachea midline Chest Chest palpation & inspection: normal inspection of the chest Resp Effort & Inspection: normal respiratory effort, able to speak in complete sentences and no respiratory distress GI Inspection: Yes normal to inspection Back/Spine/Pelvis Cervical Spine: normal cervical lordosis Thoracic/Lumbar Spine: thoracic and lumbar spine normal to inspection Skin General skin exam: no rashes or lesions noted Neuro General: patient oriented x3, gait normal, tone normal and moves all extremities Extrem General: Yes normal to inspection and Yes capillary refill normal Assessment & Plan Assessment & Plan (1) Ureterolithiasis: Code(s): N20.1 - Calculus of ureter Plan One year follow-up ultrasound Orders: Orders US renal BI 364 Days N20.1 - Calculus of ureter Medications: Refilled allopurinol 100 mg PO DAILY 90 tabs 3RF 90 days N20.1 - Calculus of ureter pyridoxine (vitamin B6) 100 mg PO DAILY 90 tabs 3RF 90 days N20.0 - Calculus of kidney Patient Instructions: Imaging studies, laboratory and physical exam results were discussed and reviewed in detail. No major barriers to patient understanding were identified. An opportunity to ask questions regarding the treatment plan was provided. All questions were answered. The patient expressed understanding and agreement with the above treatment plan. The patient is aware they should contact our office by phone for worsening of their current condition or the appearance of new urologic symptoms. Compliance is encouraged with any medications and followup testing that is ordered. It is a privilege to participate in the urologic care of your patient. If you have any questions or concerns regarding treatment for the above conditions, or other urologic issues, please do not hesitate to contact me. The office telephone contact is [phone]. This note is constructed using voice recognition software. While every effort has been made to ensure accuracy postmaster errors may have been included. Yours sincerely, Dr Frank Pace MD, [facility] - Urology Providers of Expert, Compassionate Care for the Genitourinary System Coding Level of Care Code Est Pt Level 4 (09114) Diagnoses Ureterolithiasis N20.1
== END 2023-04-19 09:28 | disposition home or self-care (01) ==
PROVIDERS: Visit Provider Urology
DX: N20.1 Calculus of ureter (principal)
CPT/HCPCS: 99213

== ENCOUNTER → 2023-04-19 08:46 | Outpatient (BNVA) | payer MEDICARE, SELFPAY | PROVIDERS: Visit Provider Urology | DX: N20.1 Calculus of ureter (principal); N20.0 Calculus of kidney; R82.992 Hyperoxaluria | CPT/HCPCS: 99212 ==

== ENCOUNTER 2023-06-30 17:18 | Inpatient (IN) | payer MEDICARE, SELFPAY ==
[2023-06-30 17:58] VITALS: BP 177/78; PULSE 68; RESP 18; TEMP 36.8; O2SAT 97; BMI 33.1
--- NOTE | 2023-06-30 21:14 | ED.CHESTPAIN ---
HPI - Chest Pain General Chief Complaint: Chest Pain Stated Complaint: chest pain Time Seen by Provider: 06/30/23 21:07 Source: patient and family Mode of arrival: ambulatory Limitations: no limitations History of Present Illness HPI narrative: A 77-year-old male came in for evaluation of pain started around noon time pain started in the chest as mid chest pain radiates down to the epigastric area, now patient is been having bilateral flank pain this presentation is typical for kidney stone pain that he has been following with Dr. Pace for it. Pain in the chest /now epigastric still constant without clear radiation, no associated symptoms no shortness of breath, no fever, no chills, patient also declined urinary frequency, dysuria, hematuria. No fever, no vomiting, no diarrhea, no blood in the stool. Related Data Home Medications Medication Instructions Recorded Confirmed glipizide 5 mg tablet 10 mg PO BID 02/14/21 04/19/23 metformin 850 mg tablet 1 tab PO BID 02/14/21 04/19/23 pantoprazole 40 mg tablet,delayed 1 tab PO BEDTIME 02/14/21 04/19/23 release simvastatin 20 mg tablet 1 tab PO BEDTIME 02/14/21 04/19/23 sitagliptin phosphate 100 mg 1 tab PO DAILY 02/14/21 04/19/23 tablet (Januvia) blood sugar diagnostic (Accu-Chek #10 ea 04/08/21 04/19/23 Megan Plus test strips) lancets (Accu-Chek Softclix #100 ea 04/08/21 04/19/23 Lancets) lisinopril 10 mg tablet 10 mg PO DAILY 10/05/21 04/19/23 methocarbamol 750 mg tablet 1 tab PO BID PRN Muscle Pain 12/22/21 04/19/23 duloxetine 60 mg capsule,delayed 60 mg PO DAILY 04/19/22 04/19/23 release trazodone 50 mg tablet 50 mg PO BEDTIME 04/19/22 04/19/23 Previous Rx's Medication Instructions Recorded apixaban 5 mg tablet (Eliquis) 5 mg PO BID #60 tabs 12/28/21 allopurinol 100 mg tablet 100 mg PO DAILY 90 days #90 tabs 04/19/23 pyridoxine (vitamin B6) 100 mg 100 mg PO DAILY 90 days #90 tabs 04/19/23 tablet Allergies Allergy/AdvReac Type Severity Reaction Status Date / Time No Known Allergies Allergy Verified 06/30/23 17:58 Review of Systems Review of Systems: All other systems are reviewed and are negative Constitutional: Reports as per HPI and Reports no additional constitutional complaints Eyes: Reports as per HPI and Reports no additional eye complaints Reports system reviewed and no additional complaints, except as documented Cardiovascular: Reports as per HPI and Reports no additional cardiovascular complaints Respiratory: Reports as per HPI and Reports no additional respiratory complaints Gastrointestinal: Reports as per HPI and Reports no additional gastrointestinal complaints Genitourinary: Reports no additional female genitourinary complaints Musculoskeletal: Reports no additional musculoskeletal complaints Skin/Breast: Reports system reviewed and no additional complaints, except as docu Psychiatric: Reports no additional psychiatric complaints Endocrine: Reports no additional endocrine complaints Hematologic/Lymphatic: Reports no additional hematologic/lymphatic complaints Allergic/Immunologic: Reports no additional allergic/immunologic complaints Reports system reviewed and no additional complaints, except as documented and Reports Abnormal speech present PMFSH Past Medical History Onset Date is defined in the Problem List Problems that require an onset date and time if occurred within 24 hrs of arrival to the ED Aortic Dissection and Rupture; Neurologic impairment; Cardiopulmonary Arrest; Endotracheal Intubation; Insertion or Replacement of Mechanical Circulatory Assist Device Medical History Atrial flutter by electrocardiography Elevated troponin Congestive cardiomyopathy Obstructive nephropathy Pulmonary edema Acute hyperkalemia SAYRA (acute kidney injury) Pancreatic neoplasm Acute pyelonephritis Calculus, renal Sepsis Complex renal cyst Nephrolithiasis Bacteremia, escherichia coli HLD (hyperlipidemia) HTN (hypertension), 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, managed as type 2 H/O renal calculi Family History Family History Father COPD (chronic obstructive pulmonary disease) Mother Heart disease Social History Social History Household Members: Spouse Housing: House Patient Tobacco Use Status: Never used Tobacco Advance Directives: Yes Advance Directives on File: Yes Advance Directives Date on File: 02/15/21 service: No Current occupational status: retired Physical Exam Vital Signs: Vital Signs: Last Vital Signs Temp 100.4 F 07/01/23 02:57 Pulse 102 H 07/01/23 02:57 Resp 16 07/01/23 02:57 BP 140/70 H 07/01/23 02:57 Pulse Ox 95 07/01/23 02:57 O2 Del Method Room Air 07/01/23 02:57 BMI result Body Mass Index 33.1 Vital signs have been reviewed and appear to be correct. Blood pressure elevated. Heart rate normal. Respiratory rate normal. Temperature normal. Oxygen saturation normal. Appearance: Alert. Oriented X3. No acute distress. Head: Normal external exam. Normocephalic. Atraumatic. No Vidales signs noted. No raccoon eyes noted Eyes: PERRLA. EOMI. Conjunctiva and sclera normal. Eyelids normal. ENT: TM's Normal. Pharynx normal. Uvula midline. Moist mucous membranes. No trismus noted. No drooling noted. No muffled voice noted. Neck: Normal inspection. Neck supple. FROM. No adenopathy. Thyroid Normal. No meningeal signs. No neck mass noted. CVS: Normal heart rate and rhythm. Heart sound normal. No murmurs noted. Pulses normal throughout. Respiratory: No respiratory distress. Painless inspiration. Breath sounds normal. No wheezes/rales/rhonchi noted. Chest nontender. No accessory muscle usage noted or decreased air movement noted. Abdomen: Soft and nontender. Bowel sounds normal in all 4 quadrants. No distention noted. No organomegaly noted. No visible injury noted. Back: R CVA tenderness. Full range of motion noted. Skin: Skin warm and dry. Normal skin color. Normal skin turgor. No rashes/lesions/lacerations noted. Extremities: No lower extremity edema. Extremities exhibit normal range of motion. Extremities nontender. Neuro: Oriented X 3. Cranial nerve exam: II-XII are grossly intact No motor deficit. No sensory deficit. Reflexes normal. Course Reevaluation(s) Reevaluation #1: A 77-year-old male came in for evaluation of abdominal pain and back pain patient had CT abdomen and pelvis/ultrasound of the abdomen showed no acute intra-abdominal pathology then patient found to be in rapid atrial fibrillation slowed with Cardizem IV and Cardizem p.o. Time: 03:05 Medications Administered Discontinued Medications Generic Name Dose Route Start Last Admin Trade Name Freq PRN Reason Stop Dose Admin Diltiazem HCl 20 mg 07/01/23:35 07/01/23 01:40 Diltiazem Hcl 50 Mg/10 Ml Vial IVPUSH 07/01/23 01:36 20 mg STAT STA Administration Diltiazem HCl 30 mg 07/01/23 01:35 07/01/23 01:44 Diltiazem Hcl 30 Mg Tablet PO 07/01/23 01:36 30 mg ONCE ONE Administration Protocol Hydromorphone HCl 1 mg 06/30/23 23:22 06/30/23 23:51 Hydromorphone Hcl 1 Mg/Ml Syringe IVPUSH 06/30/23 23:23 1 mg ONCE ONE Administration Protocol Sodium Chloride 1,000 mls @ 999 mls/hr 06/30/23 21:12 06/30/23 23:27 Ns IV 06/30/23 22:12 Infused .Q1H1M ONE Infusion Morphine Sulfate 2 mg 06/30/23 21:12 06/30/23 21:49 Morphine Sulfate 2 Mg/Ml Cartridge IVPUSH 06/30/23 21:13 2 mg ONCE ONE Administration Protocol Ondansetron HCl 4 mg 06/30/23 21:12 06/30/23 21:49 Ondansetron Hcl 4 Mg/2 Ml Vial IVPUSH 06/30/23 21:13 4 mg ONCE ONE Administration Medical Decision Making Differential Diagnosis Differential Diagnoses: The differential diagnosis associated with the presentation includes ( Kidney stone, pancreatitis, acute cholecystitis, colitis, acute pancreatitis, UTI, ACS, electrolyte abnormality, severe anemia.) Admission/Observation Consideration of admission/observation: Escalation of care including admission/observation considered Consult Healthcare Provider Management of the patient was discussed with: Hospitalist ( Dr. Bales.) Lab Data MDM Lab Attestation statement: I reviewed the patient's lab results. 06/30/23 18:42 06/30/23 21:46 Labs: Lab Results 06/30/23 06/30/23 06/30/23 Range/Units 18:42 18:47 21:45 WBC 13.6 H (4.8-10.8) X10*3/uL RBC 3.98 L (4.60-5.80) X10*6/uL Hgb 13.3 L (14.0-18.0) g/dl Hct 38.2 L (42.0-52.0) % MCV 96.0 (80.0-98.0) fL MCH 33.4 H (27.0-33.0) pg MCHC 34.8 (31.0-36.0) g/dl RDW 12.9 (11.0-16.0) % Plt Count 299 D (160-400) X10*3/uL MPV 9.7 (9.4-12.4) fL Immature Gran % (Auto) 0.4 (0.0-0.4) % Neut % (Auto) 74.8 H (45-73) % Lymph % (Auto) 12.3 L (20-40) % [place] % (Auto) 6.2 (2-11) % Eos % (Auto) 5.6 H (0-4) % Baso % (Auto) 0.7 (0-2) % Lymph # (Auto) 1.7 (1.2-4.9) X10*3/uL [place] # (Auto) 0.9 (0.1-1.2) X10*3/uL Eos # (Auto) 0.8 H (0.0-0.4) X10*3/uL Baso # (Auto) 0.1 (0.0-0.2) X10*3/uL Abs Immat Gran (auto) 0.06 H (0.00-0.03) X10*3/uL Absolute Neuts (auto) 10.2 H (2.0-8.3) x10*3/uL Absolute Nucleated RBC 0.000 (0.0-0.012) X10*3/uL Nucleated RBC % (auto) 0.0 (0.0-0.2) /100WBC D-Dimer High Sensitivty < 150 NG/ML Sodium 144 (135-145) mmol/L Potassium 5.2 H (3.3-5.1) mmol/L Chloride 104 (96-108) mmol/L Carbon Dioxide 29 (22-29) mmol/L Anion Gap 16 (12-20) BUN 21 H (9-16) mg/dL Creatinine 1.22 (0.5-1.4) mg/dL Estim Creat Clear Calc 59.5 Estimated GFR 58 POC Glucose (60-115) mg/dL Random Glucose 170 H (60-115) mg/dL Calcium 10.6 H D (8.4-10.2) mg/dL Total Bilirubin 0.8 (0.0-1.0) mg/dL AST 16 (5-37) U/L ALT 16 (0-40) U/L Alkaline Phosphatase 79 (39-117) U/L Troponin I High Sens 2.8 5.7 D (<3.5-35.0) ng/L Total Protein 7.2 (6.5-8.0) g/dL Albumin 4.2 (3.5-5.0) g/dL Urine Color Yellow Urine Appearance Clear Urine pH 5.5 (5.0-9.0) Ur Specific Hallock 1.025 (1.005-1.025) Urine Protein Negative (Neg-Trace) mg/dL Urine Glucose (UA) Negative (Negative) mg/dL Urine Ketones Trace (Negative) mg/dL Urine Blood Negative (Negative) Urine Nitrite Negative (Negative) Ur Leukocyte Esterase Negative (Negative) 06/30/23 07/01/23 Range/Units 21:46 01:05 WBC (4.8-10.8) X10*3/uL RBC (4.60-5.80) X10*6/uL Hgb (14.0-18.0) g/dl Hct (42.0-52.0) % MCV (80.0-98.0) fL MCH (27.0-33.0) pg MCHC (31.0-36.0) g/dl RDW (11.0-16.0) % Plt Count (160-400) X10*3/uL MPV (9.4-12.4) fL Immature Gran % (Auto) (0.0-0.4) % Neut % (Auto) (45-73) % Lymph % (Auto) (20-40) % [place] % (Auto) (2-11) % Eos % (Auto) (0-4) % Baso % (Auto) (0-2) % Lymph # (Auto) (1.2-4.9) X10*3/uL [place] # (Auto) (0.1-1.2) X10*3/uL Eos # (Auto) (0.0-0.4) X10*3/uL Baso # (Auto) (0.0-0.2) X10*3/uL Abs Immat Gran (auto) (0.00-0.03) X10*3/uL Absolute Neuts (auto) (2.0-8.3) x10*3/uL Absolute Nucleated RBC (0.0-0.012) X10*3/uL Nucleated RBC % (auto) (0.0-0.2) /100WBC D-Dimer High Sensitivty NG/ML Sodium 138 (135-145) mmol/L Potassium 4.6 (3.3-5.1) mmol/L Chloride 102 (96-108) mmol/L Carbon Dioxide 26 (22-29) mmol/L Anion Gap 15 (12-20) BUN 21 H (9-16) mg/dL Creatinine 1.22 (0.5-1.4) mg/dL Estim Creat Clear Calc 59.5 Estimated GFR 58 POC Glucose 225 H (60-115) mg/dL Random Glucose 173 H (60-115) mg/dL Calcium 10.8 H (8.4-10.2) mg/dL Total Bilirubin (0.0-1.0) mg/dL AST (5-37) U/L ALT (0-40) U/L Alkaline Phosphatase (39-117) U/L Troponin I High Sens (<3.5-35.0) ng/L Total Protein (6.5-8.0) g/dL Albumin (3.5-5.0) g/dL Urine Color Urine Appearance Urine pH (5.0-9.0) Ur Specific Hallock (1.005-1.025) Urine Protein (Neg-Trace) mg/dL Urine Glucose (UA) (Negative) mg/dL Urine Ketones (Negative) mg/dL Urine Blood (Negative) Urine Nitrite (Negative) Ur Leukocyte Esterase (Negative) Independent Interpretation I performed an independent interpretation of an: Ultrasound ( gallbladder:1. Mild gallbladder distention and a moderate amount of faintly echogenic but grossly nonshadowing material within the gallbladder. The appearance is nonspecific, but could represent sludge and/or small calculi. 2. No intrahepatic biliary ductal dilatation. 3. The liver is of appar) and CT Scan (Mildly distended gallbladder of uncertain significance. 1 mm nonobstructing right lower pole renal calculus. There is no hydronephrosis. Diverticula of the descending and the sigmoid colon without diverticulitis. ) Radiology Impression Discussion of test interpretation with radiology: I have reviewed the radiologist's reading. Chronic Conditions Patient?s care impacted by: Other ( Kidney stone, chronic atrial fibrillation.) Discharge Plan Discharge Clinical Impression: Abdominal pain, Atrial fibrillation with RVR Patient Disposition: Admitted As Inpatient
[2023-06-30 21:50] VITALS: BP 146/83; PULSE 91; PULSE 92; RESP 15; TEMP 37.6; O2SAT 95
[2023-06-30 22:39] VITALS: PULSE 95
--- NOTE | 2023-06-30 22:50 | PC.NURSE ---
pt states feeling better. awaiting ct scan results. pt steady gait to use urinal.
[2023-06-30 23:12] VITALS: BP 137/78; PULSE 115; RESP 14; TEMP 37.5; O2SAT 98
--- NOTE | 2023-06-30 23:25 | PC.NURSE ---
pt reports upper abd pain returned 12/02; ?sinus tachy vs rapid afib on monitor. afebrile. dr. bownes notified. orders to medicate with dilaudid & repeat ekg.
--- NOTE | 2023-06-30 23:49 | MHC.EDTECH ---
2ND EKG TAKEN ,WAS READ BY PROVIDER .
[2023-07-01] VITALS (12 sets, daily range): BP systolic 111–147; BP diastolic 64–78; PULSE 91–121; RESP 14–18; TEMP 36.6–38; O2SAT 93–98
--- NOTE | 2023-07-01 01:08 | PC.NURSE ---
pt reports dizziness poc 225 vss. pt reports improves when laying down. tachycardia improved previously however now sinus tachy [address] Casey aware order to repeat ekg.
--- NOTE | 2023-07-01 01:46 | PC.NURSE ---
aflutter on monitor/repeat ekg. iv cardizem given heart rate 100. Dr. bowens order to give po cardizem; given per aug. vss. pt denies pain.
--- NOTE | 2023-07-01 02:37 | PM.IMHP ---
History of Present Illness Date of Service: 07/01/23 Chief Complaint: Abdominal Pain This is a 77-year-old male with pertinent history of tta-pqswoor-ocmvmtyse diabetes mellitus, mood disorder, mixed hyperlipidemia, essential hypertension, paroxysmal atrial fibrillation on anticoagulation, gout who presents to the emergency department for evaluation of abdominal discomfort. Patient states it started in the upper epigastric region on the day of presentation, intermittent, nonradiating, nonprogressive and without any relieving factors. Also has associated intermittent burping. Patient denies fever, chills, cough, chest discomfort, palpitations, changes in urinary or bowel habits. States he has a history of kidney stones. In the emergency department, patient was found to be in a flutter with RVR. Review of Systems Constitutional: Constitutional: Reports no additional constitutional complaints Cardiovascular: Cardiovascular: Reports no additional cardiovascular complaints Respiratory: Respiratory: Reports no additional respiratory complaints Gastrointestinal: Gastrointestinal: Reports abdominal pain Genitourinary: Genitourinary: Reports no additional male genitourinary complaints [facility] Medical History Atrial flutter by electrocardiography Elevated troponin Congestive cardiomyopathy Obstructive nephropathy Pulmonary edema Acute hyperkalemia SAYRA (acute kidney injury) Pancreatic neoplasm Acute pyelonephritis Calculus, renal Sepsis Complex renal cyst Nephrolithiasis Bacteremia, escherichia coli HLD (hyperlipidemia) HTN (hypertension), 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, managed as type 2 H/O renal calculi Family History Father COPD (chronic obstructive pulmonary disease) Mother Heart disease Social History Household Members: Spouse Housing: House Patient Tobacco Use Status: Never used Tobacco Advance Directives: Yes Advance Directives on File: Yes Advance Directives Date on File: 02/15/21 service: No Current occupational status: retired Meds Allergies Allergy/AdvReac Type Severity Reaction Status Date / Time No Known Allergies Allergy Verified 06/30/23 17:58 Home Medications Medication Instructions Recorded Confirmed Last Taken Type glipizide 5 mg tablet 10 mg PO BID 02/14/21 04/19/23 12/21/21 History metformin 850 mg tablet 1 tab PO BID 02/14/21 04/19/2312/21/22 History pantoprazole 40 mg tablet,delayed 1 tab PO BEDTIME 02/14/21 04/19/23 12/21/21 History release simvastatin 20 mg tablet 1 tab PO BEDTIME 02/14/21 04/19/23 12/21/21 History sitagliptin phosphate 100 mg 1 tab PO DAILY 02/14/21 04/19/23 12/21/21 History tablet (Januvia) blood sugar diagnostic (Accu-Chek #10 ea 04/08/21 04/19/23 Unknown History Megan Plus test strips) lancets (Accu-Chek Softclix #100 ea 04/08/21 04/19/23 Unknown History Lancets) lisinopril 10 mg tablet 10 mg PO DAILY 10/05/21 04/19/23 12/21/21 History methocarbamol 750 mg tablet 1 tab PO BID PRN Muscle Pain 12/22/21 04/19/23 Unknown History duloxetine 60 mg capsule,delayed 60 mg PO DAILY 04/19/22 04/19/23 Unknown History release trazodone 50 mg tablet 50 mg PO BEDTIME 04/19/22 04/19/23 Unknown History Physical Exam Vital Signs and Narrative: Vital Signs: Last Vital Signs Temp 99.8 F 07/01/23 01:34 Pulse 100 07/01/23 01:45 Resp 14 07/01/23 01:40 BP 147/76 H 07/01/23 01:40 Pulse Ox 94 07/01/23 01:34 O2 Del Method Room Air 07/01/23 01:34 BMI result Body Mass Index 33.1 Middle-aged male lying in bed in no distress Neck supple, no JVD Irregularly irregular, S1-S2 heard Regular breath sounds bilaterally, no wheezing or crackles appreciated Abdomen distended but soft nontender, no guarding, no rigidity Patient is awake, alert and oriented to self, place, time and person ; no focal motor deficit Psych: Normal mood No pedal edema Results Labs 06/30/23 18:42 06/30/23 21:46 Labs: Laboratory Results - last 24 hr 06/30/23 06/30/23 06/30/23 18:42 18:47 21:45 MCV 96.0 MCH 33.4 H MCHC 34.8 RDW 12.9 Plt Count 299 D MPV 9.7 Immature Gran % (Auto) 0.4 Neut % (Auto) 74.8 H Lymph % (Auto) 12.3 L [place] % (Auto) 6.2 Eos % (Auto) 5.6 H Baso % (Auto) 0.7 Lymph # (Auto) 1.7 [place] # (Auto) 0.9 Eos # (Auto) 0.8 H Baso # (Auto) 0.1 Abs Immat Gran (auto) 0.06 H Absolute Neuts (auto) 10.2 H Absolute Nucleated RBC 0.000 Nucleated RBC % (auto) 0.0 D-Dimer High Sensitivty < 150 Anion Gap 16 Estim Creat Clear Calc 59.5 Estimated GFR 58 POC Glucose Random Glucose 170 H Calcium 10.6 H D Total Bilirubin 0.8 AST 16 ALT 16 Alkaline Phosphatase 79 Total Protein 7.2 Albumin 4.2 Urine Color Yellow Urine Appearance Clear Urine pH 5.5 Ur Specific [place] 1.025 Urine Protein Negative Urine Glucose (UA) Negative Urine Ketones Trace Urine Blood Negative Urine Nitrite Negative Ur Leukocyte Esterase Negative 06/30/23 07/01/23 21:46 01:05 MCV MCH MCHC RDW Plt Count MPV Immature Gran % (Auto) Neut % (Auto) Lymph % (Auto) [place] % (Auto) Eos % (Auto) Baso % (Auto) Lymph # (Auto) [place] # (Auto) Eos # (Auto) Baso # (Auto) Abs Immat Gran (auto) Absolute Neuts (auto) Absolute Nucleated RBC Nucleated RBC % (auto) D-Dimer High Sensitivty Anion Gap 15 Estim Creat Clear Calc 59.5 Estimated GFR 58 POC Glucose 225 H Random Glucose 173 H Calcium 10.8 H Total Bilirubin AST ALT Alkaline Phosphatase Total Protein Albumin Urine Color Urine Appearance Urine pH Ur Specific [place] Urine Protein Urine Glucose (UA) Urine Ketones Urine Blood Urine Nitrite Ur Leukocyte Esterase Imaging Radiologist's Impressions: Impressions Chest X-Ray 06/30/23 18:50 IMPRESSION: Left basilar atelectasis. Abdomen/Pelvis CT 06/30/23 21:40 IMPRESSION: Mildly distended gallbladder of uncertain significance. 1 mm nonobstructing right lower pole renal calculus. There is no hydronephrosis. Diverticula of the descending and the sigmoid colon without diverticulitis. Fleischner guidelines were followed. Assessment and Plan (1) Abdominal pain: Status: Acute (2) Atrial flutter: Status: Acute Plan This is a 77-year-old male with pertinent history of tol-xdundaj-syesxmgle diabetes mellitus, mood disorder, mixed hyperlipidemia, essential hypertension, paroxysmal atrial fibrillation on anticoagulation, gout who presents to the emergency department for evaluation of abdominal discomfort. #. Abdominal pain, epigastric: Imaging without acute abnormality. ?gall bladder sludge but no concerns for cholecystitis. Consider HIDA scan if symptoms continue. Supportive care for now. Administered IV Protonix and Maalox #. Atrial flutter with RVR: Patient given IV and p.o. diltiazem in the ER. Continue with cardiac monitoring. Obtaining TSH and Consulting Cardiology. Patient on anticoagulation #. Vuv-uwalwms-zamzsocnu diabetes mellitus with hyperglycemia: Initiating Accu-Cheks with sliding scale insulin #. Mood disorder: Continue home mood stabilizers #. Mixed hyperlipidemia: On statin #. Essential hypertension: Continue home antihypertensives #. Gout: On allopurinol Med rec pending DVT prophylaxis: Eliquis Full code Quality Stroke Does the patient have a stroke diagnosis?: No VTE Prior VTE?: No VTE Risk Level:: Medical - moderate - high VTE Device Contraindication: Treatment Not Indicated VTE Drug Contraindication: N/A - Med Ordered
--- NOTE | 2023-07-01 03:53 | PC.NURSE ---
pt now febrile pt refusing rectal temp dr borden aware. pt medicated per . call bay within reach.
--- NOTE | 2023-07-01 07:58 | PC.NURSE ---
PT RESTING COMFORTABLY IN STRETCHER AT THIS TIME, A &OX4. SKIN PWD, SPEAKING IN CLEAR FULL SENTENCES. NSR ON MONITOR. C/O ONGOING EPIGASTRIC PAIN, IMPROVED SINCE ARRIVAL. PT ATE MOST OF HIS BREAKFAST THIS MORNING WITH NO ISSUE. PROVIDER TO BE CONTACTED REGARDING INC WBC, FEVER OVERNIGHT NOW RESOLVED& HOME MEDS.
--- NOTE | 2023-07-01 08:15 | PHA.MEDREC ---
Pharmacy Consult ? Medication Reconciliation Pharmacy has reviewed the medication reconciliation.
--- NOTE | 2023-07-01 08:30 | HO.PM.IMPN ---
Subjective Subjective Date of Service: 07/01/23 Interval History: f/u on SIRS, abdominal pain, AFIB with RVR HR is better, still with abd pain in Physical Exam Vital Signs: Vital Signs: Last Vital Signs Temp 98.8 F 07/01/23 06:40 Pulse 91 07/01/23 06:37 Resp 18 07/01/23 06:37 BP 128/67 07/01/23 06:37 Pulse Ox 97 07/01/23 06:37 O2 Del Method Room Air 07/01/23 06:37 BMI result Body Mass Index 33.1 General: AO X 3, no acute distress Resp: CTA bilateral CVS: S1,S2, iregular iregular GI: +BS, NT, no distention Skin: No rash Neuro: motor grossly intact Psych: appropriate affect Const: Other: General: AO X 3, no acute distress Resp: CTA bilateral CVS: S1,S2,RRR GI: +BS, epig tenderness with voluntary guarding Skin: No rash Neuro: motor grossly intact Psych: appropriate affect Objective Data Active Medications Acetaminophen (Acetaminophen 325 Mg Tablet) 650 mg PO Q6H PRN PRN Reason: Pain, Mild (Pain Scale 1-3) Last Admin: 07/01/23 03:51 Dose: 650 mg Documented By: KUNAL Allopurinol (Allopurinol 100 Mg Tablet) 100 mg PO DAILY ON LICENSE OF [facility] Atorvastatin Calcium (Atorvastatin Calcium 10 Mg Tablet) 10 mg PO DAILY ON LICENSE OF [facility] Dextrose (Dextrose 50 % 25 Gm/50 Ml Syringe) 25 gm IVPUSH Q15M PRN; Protocol PRN Reason: per Hypoglycemia Standing Ord. Duloxetine HCl (Duloxetine Hcl 60 Mg Capsule.Dr) 60 mg PO DAILY ON LICENSE OF [facility] Glipizide (Glipizide 5 Mg Tablet) 5 mg PO DAILY ON LICENSE OF [facility] Glucose (Glucose Gel 15 Gm Gel..Gram.) 15 gm PO Q15M PRN; Protocol PRN Reason: per Hypoglycemia Standing Ord. Ceftriaxone Sodium 1 gm/ (Sodium Chloride) 50 mls @ 100 mls/hr IV Q24H ON LICENSE OF [facility] Insulin Human Lispro (Insulin Lispro 100 Unit/Ml 3 Ml Vial) 0 unit SUBCUT QIDACHS ON LICENSE OF [facility]; Protocol Last Admin: 07/01/23 07:33 Dose: 4 unit Documented By: YULIA Lisinopril (Lisinopril 10 Mg Tablet) 10 mg PO DAILY JUSTINA; Protocol Melatonin (Melatonin 3 Mg Tablet) 6 mg PO BEDTIME PRN PRN Reason: Insomnia Metformin HCl (Metformin Hcl 850 Mg Tablet) 850 mg PO BID JUSTINA Non-Formulary Medication (Semaglutide [Ozempic]) 0.5 mg SUBCUT QWEEK JUSTINA Omeprazole (Omeprazole 20 Mg Capsule.Dr) 20 mg PO BID@0630,1630 ON LICENSE OF [facility] Ondansetron HCl (Ondansetron Hcl 4 Mg/2 Ml Vial) 4 mg IVPUSH Q8H PRN PRN Reason: Nausea and Vomiting Pyridoxine HCl (Pyridoxine Hcl (Vitamin B6) 50 Mg Tablet) 100 mg PO DAILY ON LICENSE OF [facility] Sodium Chloride (0.9 % Sodium Chloride Flush 3 Ml Syringe) 3 ml IVFLUSH QSHIFT ON LICENSE OF [facility] Last Admin: 07/01/23 07:34 Dose: 3 ml Documented By: YULIA Trazodone HCl (Trazodone Hcl 50 Mg Tablet) 50 mg PO BEDTIME ON LICENSE OF [facility] Labs 07/01/23 05:55 07/01/23 05:55 Labs: Laboratory Results - last 24 hr 06/30/23 06/30/23 06/30/23 18:42 18:47 21:45 MCV 96.0 MCH 33.4 H MCHC 34.8 RDW 12.9 Plt Count 299 D MPV 9.7 Immature Gran % (Auto) 0.4 Neut % (Auto) 74.8 H Lymph % (Auto) 12.3 L [place] % (Auto) 6.2 Eos % (Auto) 5.6 H Baso % (Auto) 0.7 Lymph # (Auto) 1.7 [place] # (Auto) 0.9 Eos # (Auto) 0.8 H Baso # (Auto) 0.1 Abs Immat Gran (auto) 0.06 H Absolute Neuts (auto) 10.2 H Absolute Nucleated RBC 0.000 Nucleated RBC % (auto) 0.0 Smear Tech's Comments D-Dimer High Sensitivty < 150 Anion Gap 16 Estim Creat Clear Calc 59.5 Estimated GFR 58 POC Glucose Random Glucose 170 H Calcium 10.6 H D Total Bilirubin 0.8 AST 16 ALT 16 Alkaline Phosphatase 79 Total Protein 7.2 Albumin 4.2 TSH Urine Color Yellow Urine Appearance Clear Urine pH 5.5 Ur Specific [place] 1.025 Urine Protein Negative Urine Glucose (UA) Negative Urine Ketones Trace Urine Blood Negative Urine Nitrite Negative Ur Leukocyte Esterase Negative 06/30/23 07/01/23 07/01/23 21:46 01:05 05:55 MCV 96.6 MCH 33.3 H MCHC 34.5 RDW 12.9 Plt Count 288 MPV 10.3 Immature Gran % (Auto) 1.0 H Neut % (Auto) 87.2 H Lymph % (Auto) 2.7 L [place] % (Auto) 8.7 Eos % (Auto) 0.0 Baso % (Auto) 0.4 Lymph # (Auto) 0.8 L [place] # (Auto) 2.4 H Eos # (Auto) 0.0 Baso # (Auto) 0.1 Abs Immat Gran (auto) 0.28 H Absolute Neuts (auto) 23.8 H Absolute Nucleated RBC 0.000 Nucleated RBC % (auto) 0.0 Smear Tech's Comments VERIFIED D-Dimer High Sensitivty Anion Gap 15 15 Estim Creat Clear Calc 59.5 63.2 Estimated GFR 58 > 60 POC Glucose 225 H Random Glucose 173 H 206 H Calcium 10.8 H 9.4 D Total Bilirubin AST ALT Alkaline Phosphatase Total Protein Albumin TSH 0.57 Urine Color Urine Appearance Urine pH Ur Specific [place] Urine Protein Urine Glucose (UA) Urine Ketones Urine Blood Urine Nitrite Ur Leukocyte Esterase 07/01/23 07:26 MCV MCH MCHC RDW Plt Count MPV Immature Gran % (Auto) Neut % (Auto) Lymph % (Auto) [place] % (Auto) Eos % (Auto) Baso % (Auto) Lymph # (Auto) [place] # (Auto) Eos # (Auto) Baso # (Auto) Abs Immat Gran (auto) Absolute Neuts (auto) Absolute Nucleated RBC Nucleated RBC % (auto) Smear Tech's Comments D-Dimer High Sensitivty Anion Gap Estim Creat Clear Calc Estimated GFR POC Glucose 212 H Random Glucose Calcium Total Bilirubin AST ALT Alkaline Phosphatase Total Protein Albumin TSH Urine Color Urine Appearance Urine pH Ur Specific [place] Urine Protein Urine Glucose (UA) Urine Ketones Urine Blood Urine Nitrite Ur Leukocyte Esterase Assessment and Plan (1) SIRS (systemic inflammatory response syndrome): Status: Acute (2) Atrial flutter: Status: Acute (3) Abdominal pain: Status: Acute Plan 77-year-old male with pertinent history of xzy-qitegvn-webftyffy diabetes mellitus, mood disorder, mixed hyperlipidemia, essential hypertension, paroxysmal atrial fibrillation on anticoagulation, gout who presents to the emergency department for evaluation of abdominal discomfort and found to have SIRS Abdominal pain, epigastric. SIRS (inc WBC, tachy and fever), imaging of gallbladder inconclusive -get blood culture, check lactic acid -start empiric ceftriaxone -get HIDA scan -Surgery consult -liquid diet Permanaent AFIB with RVR given IV and p.o. diltiazem in the ER. Not on rate control agents at home, continue eliquis, last rythm sinus, if afib happens again then start metoprolol Type 2 DM, non insulin dependent, SSI -continue SSI, metformin, hold glipizide and ozempic Mood desorder Continue home meds HLD: Lipitor HTN: Lisinopril Gout: allopurinol DVT prophylaxis: Eliquis Full code admission for at least 2 midnights for SIRS work up, AFIB with RvR needing iV meds Quality Stroke Does the patient have a stroke diagnosis?: No VTE Prior VTE?: No VTE Risk Level:: Medical - moderate - high VTE Device Contraindication: Treatment Not Indicated VTE Drug Contraindication: N/A - Med Ordered
[2023-07-01] MEDS: Pyridoxine HCl (Vitamin B6) 50 MG TABLET 100 MG PO (09:09)
[2023-07-01] MEDS: Atorvastatin Calcium 10 MG TABLET PO (09:09)
--- NOTE | 2023-07-01 11:59 | PM.CNCAR ---
History of Present Illness History of Present Illness Date of Service: 07/01/23 Requesting physician: Dominic Duong Chief complaint: Abdominal pain, tachycardia Narrative: [age] year gentleman with background history of atrial fibrillation on Eliquis presenting with abdominal pain. He was noticed to be tachycardic. One of his ECG looks like atrial fibrillation. It appears he was given some Cardizem in the ER. Currently he has sinus rhythm in 90s. Previously had sinus rhythm with first-degree AV block on EKG. Denying any palpitations or chest discomfort. No shortness of breath. His main complaint is center abdominal pain he is being worked up for that. [facility] Past Medical History Medical History Atrial flutter by electrocardiography Elevated troponin Congestive cardiomyopathy Obstructive nephropathy Pulmonary edema Acute hyperkalemia SAYRA (acute kidney injury) Pancreatic neoplasm Acute pyelonephritis Calculus, renal Sepsis Complex renal cyst Nephrolithiasis Bacteremia, escherichia coli HLD (hyperlipidemia) HTN (hypertension), 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, managed as type 2 H/O renal calculi Family History Family History Father COPD (chronic obstructive pulmonary disease) Mother Heart disease Social History Social History Household Members: Spouse Housing: House Patient Tobacco Use Status: Never used Tobacco Advance Directives: Yes Advance Directives on File: Yes Advance Directives Date on File: 02/15/21 service: No Current occupational status: retired Meds Allergies Allergy/AdvReac Type Severity Reaction Status Date / Time No Known Allergies Allergy Verified 06/30/23 17:58 Active Medications: Current Medications Acetaminophen (Acetaminophen 325 Mg Tablet) 650 mg PO Q6H PRN PRN Reason: Pain, Mild (Pain Scale 1-3) Last Admin: 07/01/23 03:51 Dose: 650 mg Allopurinol (Allopurinol 100 Mg Tablet) 100 mg PO DAILY [facility] Last Admin: 07/01/23 09:09 Dose: 100 mg Atorvastatin Calcium (Atorvastatin Calcium 10 Mg Tablet) 10 mg PO DAILY [facility] Last Admin: 07/01/23 09:09 Dose: 10 mg Dextrose (Dextrose 50 % 25 Gm/50 Ml Syringe) 25 gm IVPUSH Q15M PRN; Protocol PRN Reason: per Hypoglycemia Standing Ord. Duloxetine HCl (Duloxetine Hcl 60 Mg Capsule.) 60 mg PO DAILY [facility] Last Admin: 07/01/23 09:09 Dose: 60 mg Glucose (Glucose Gel 15 Gm Gel..Gram.) 15 gm PO Q15M PRN; Protocol PRN Reason: per Hypoglycemia Standing Ord. Ceftriaxone Sodium 1 gm/ (Sodium Chloride) 50 mls @ 100 mls/hr IV Q24H [facility] Last Infusion: 07/01/23 09:26 Dose: Infused Lactated Ringer's (Lr) 1,000 mls @ 125 mls/hr IVCONT .Q8H [facility] Last Admin: 07/01/23 10:18 Dose: 125 mls/hr Insulin Human Lispro (Insulin Lispro 100 Unit/Ml 3 Ml Vial) 0 unit SUBCUT QIDACHS [facility]; Protocol Last Admin: 07/01/23 07:33 Dose: 4 unit Lisinopril (Lisinopril 10 Mg Tablet) 10 mg PO DAILY [facility]; Protocol Last Admin: 07/01/23 09:09 Dose: 10 mg Melatonin (Melatonin 3 Mg Tablet) 6 mg PO BEDTIME PRN PRN Reason: Insomnia Metformin HCl (Metformin Hcl 850 Mg Tablet) 850 mg PO BID [facility] Last Admin: 07/01/23 09:09 Dose: 850 mg Non-Formulary Medication (Semaglutide [Ozempic]) 0.5 mg SUBCUT QWEEK [facility] Omeprazole (Omeprazole 20 Mg Capsule.) 20 mg PO BID@0630,1630 [facility] Last Admin: 07/01/23 09:09 Dose: 20 mg Ondansetron HCl (Ondansetron Hcl 4 Mg/2 Ml Vial) 4 mg IVPUSH Q8H PRN PRN Reason: Nausea and Vomiting Pyridoxine HCl (Pyridoxine Hcl (Vitamin B6) 50 Mg Tablet) 100 mg PO DAILY [facility] Last Admin: 07/01/23 09:09 Dose: 100 mg Sodium Chloride (0.9 % Sodium Chloride Flush 3 Ml Syringe) 3 ml IVFLUSH QSHIFT [facility] Last Admin: 07/01/23 07:34 Dose: 3 ml Trazodone HCl (Trazodone Hcl 50 Mg Tablet) 50 mg PO BEDTIME [facility] Home Medications Medication Instructions Recorded Confirmed Last Taken Type glipizide 5 mg tablet 5 mg PO QAM 02/14/21 07/01/23 12/21/21 History metformin 850 mg tablet 1 tab PO BID 02/14/21 07/01/23 12/21/21 History pantoprazole 40 mg tablet,delayed 1 tab PO BID 02/14/21 07/01/23 12/21/21 History release simvastatin 20 mg tablet 1 tab PO BEDTIME 02/14/21 07/01/23 12/21/21 History blood sugar diagnostic (Accu-Chek #10 ea 04/08/21 04/19/23 Unknown History Megan Plus test strips) lancets (Accu-Chek Softclix #100 ea 04/08/21 04/19/23 Unknown History Lancets) lisinopril 10 mg tablet 10 mg PO DAILY 10/05/21 07/01/23 12/21/21 History duloxetine 60 mg capsule,delayed 60 mg PO DAILY 04/19/22 07/01/23 Unknown History release trazodone 50 mg tablet 50 mg PO BEDTIME 04/19/22 07/01/23 Unknown History semaglutide 0.25 mg or 0.5 mg (2 0.5 mg subcut QWEEK 07/01/23 07/01/23 Unknown History mg/3 mL) subcutaneous pen injector (Ozempic) Physical Exam Vital Signs: Vital Signs: Last Vital Signs Temp 99.1 F 07/01/23 10:01 Pulse 103 H 07/01/23 11:34 Resp 16 07/01/23 10:01 BP 122/68 07/01/23 11:34 Pulse Ox 98 07/01/23 10:01 O2 Del Method Room Air 07/01/23 10:01 BMI result Body Mass Index 33.1 GENERAL APPEARANCE: Mild distress due to abdominal pain. NECK: no carotid bruit, no jugular venous distention. SKIN: no suspicious lesions, warm and dry. HEART: no murmurs, regular rate and rhythm. LUNGS: clear to auscultation bilaterally. ABDOMEN: soft, nontender. EXTREMITIES: no edema. PERIPHERAL PULSES: equal. NEUROLOGIC: No gross deficits, AAO X 3 Objective Labs and Meds 07/01/23 05:55 07/01/23 05:55 Lab results: Laboratory Results - last 24 hr 06/30/23 06/30/23 06/30/23 18:42 18:47 21:45 WBC 13.6 H RBC 3.98 L Hgb 13.3 L Hct 38.2 L MCV 96.0 MCH 33.4 H MCHC 34.8 RDW 12.9 Plt Count 299 D MPV 9.7 Immature Gran % (Auto) 0.4 Neut % (Auto) 74.8 H Lymph % (Auto) 12.3 L [place] % (Auto) 6.2 Eos % (Auto) 5.6 H Baso % (Auto) 0.7 Lymph # (Auto) 1.7 [place] # (Auto) 0.9 Eos # (Auto) 0.8 H Baso # (Auto) 0.1 Abs Immat Gran (auto) 0.06 H Absolute Neuts (auto) 10.2 H Absolute Nucleated RBC 0.000 Nucleated RBC % (auto) 0.0 Smear Tech's Comments D-Dimer High Sensitivty < 150 Sodium 144 Potassium 5.2 H Chloride 104 Carbon Dioxide 29 Anion Gap 16 BUN 21 H Creatinine 1.22 Estim Creat Clear Calc 59.5 Estimated GFR 58 POC Glucose Random Glucose 170 H Lactic Acid Lactic Acid F/U @ 2Hr Calcium 10.6 H D Total Bilirubin 0.8 AST 16 ALT 16 Alkaline Phosphatase 79 Troponin I High Sens 2.8 5.7 D Total Protein 7.2 Albumin 4.2 Lipase TSH Urine Color Yellow Urine Appearance Clear Urine pH 5.5 Ur Specific [place] 1.025 Urine Protein Negative Urine Glucose (UA) Negative Urine Ketones Trace Urine Blood Negative Urine Nitrite Negative Ur Leukocyte Esterase Negative 06/30/23 07/01/23 07/01/23 21:46 01:05 05:55 WBC 27.3 H RBC 3.78 L Hgb 12.6 L Hct 36.5 L MCV 96.6 MCH 33.3 H MCHC 34.5 RDW 12.9 Plt Count 288 MPV 10.3 Immature Gran % (Auto) 1.0 H Neut % (Auto) 87.2 H Lymph % (Auto) 2.7 L [place] % (Auto) 8.7 Eos % (Auto) 0.0 Baso % (Auto) 0.4 Lymph # (Auto) 0.8 L [place] # (Auto) 2.4 H Eos # (Auto) 0.0 Baso # (Auto) 0.1 Abs Immat Gran (auto) 0.28 H Absolute Neuts (auto) 23.8 H Absolute Nucleated RBC 0.000 Nucleated RBC % (auto) 0.0 Smear Tech's Comments VERIFIED D-Dimer High Sensitivty Sodium 138 135 Potassium 4.6 4.5 Chloride 102 103 Carbon Dioxide 26 22 Anion Gap 15 15 BUN 21 H 18 H Creatinine 1.22 1.15 Estim Creat Clear Calc 59.5 63.2 Estimated GFR 58 > 60 POC Glucose 225 H Random Glucose 173 H 206 H Lactic Acid Lactic Acid F/U @ 2Hr Calcium 10.8 H 9.4 D Total Bilirubin AST ALT Alkaline Phosphatase Troponin I High Sens Total Protein Albumin Lipase 14 TSH 0.57 Urine Color Urine Appearance Urine pH Ur Specific [place] Urine Protein Urine Glucose (UA) Urine Ketones Urine Blood Urine Nitrite Ur Leukocyte Esterase 07/01/23 07/01/23 07/01/23 07:26 08:47 10:21 WBC RBC Hgb Hct MCV MCH MCHC RDW Plt Count MPV Immature Gran % (Auto) Neut % (Auto) Lymph % (Auto) [place] % (Auto) Eos % (Auto) Baso % (Auto) Lymph # (Auto) [place] # (Auto) Eos # (Auto) Baso # (Auto) Abs Immat Gran (auto) Absolute Neuts (auto) Absolute Nucleated RBC Nucleated RBC % (auto) Smear Tech's Comments D-Dimer High Sensitivty Sodium Potassium Chloride Carbon Dioxide Anion Gap BUN Creatinine Estim Creat Clear Calc Estimated GFR POC Glucose 212 H 273 H Random Glucose Lactic Acid 2.7 H* Lactic Acid F/U @ 2Hr Calcium Total Bilirubin AST ALT Alkaline Phosphatase Troponin I High Sens Total Protein Albumin Lipase TSH Urine Color Urine Appearance Urine pH Ur Specific [place] Urine Protein Urine Glucose (UA) Urine Ketones Urine Blood Urine Nitrite Ur Leukocyte Esterase 07/01/23 11:00 WBC RBC Hgb Hct MCV MCH MCHC RDW Plt Count MPV Immature Gran % (Auto) Neut % (Auto) Lymph % (Auto) [place] % (Auto) Eos % (Auto) Baso % (Auto) Lymph # (Auto) [place] # (Auto) Eos # (Auto) Baso # (Auto) Abs Immat Gran (auto) Absolute Neuts (auto) Absolute Nucleated RBC Nucleated RBC % (auto) Smear Tech's Comments D-Dimer High Sensitivty Sodium Potassium Chloride Carbon Dioxide Anion Gap BUN Creatinine Estim Creat Clear Calc Estimated GFR POC Glucose Random Glucose Lactic Acid Lactic Acid F/U @ 2Hr 2.1 H* Calcium Total Bilirubin AST ALT Alkaline Phosphatase Troponin I High Sens Total Protein Albumin Lipase TSH Urine Color Urine Appearance Urine pH Ur Specific [place] Urine Protein Urine Glucose (UA) Urine Ketones Urine Blood Urine Nitrite Ur Leukocyte Esterase Imaging Radiologist's impression: Impressions Chest X-Ray 06/30/23 18:50 IMPRESSION: Left basilar atelectasis. Abdomen/Pelvis CT 06/30/23 21:40 IMPRESSION: Mildly distended gallbladder of uncertain significance. 1 mm nonobstructing right lower pole renal calculus. There is no hydronephrosis. Diverticula of the descending and the sigmoid colon without diverticulitis. Fleischner guidelines were followed. Abdomen Ultrasound 07/01/23 00:50 IMPRESSION: 1. Mild gallbladder distention and a moderate amount of faintly echogenic but grossly nonshadowing material within the gallbladder. The appearance is nonspecific, but could represent sludge and/or small calculi. 2. No intrahepatic biliary ductal dilatation. 3. The liver is of apparent mild increased parenchymal echotexture with some apparent focal fatty sparing near the gallbladder fossa. This is a nonspecific finding but may be seen in the setting of hepatic steatosis. Assessment and Plan (1) SIRS (systemic inflammatory response syndrome): Status: Acute (2) Atrial fibrillation with RVR: Status: Acute Plan [age] year gentleman presenting with abdominal pain. He has background of atrial fibrillation. It appears he was in AFib on admission but 2nd EKG looks like sinus tachycardia. I do not think there is any atrial flutter on his EKGs. He has sinus rhythm with first-degree AV block. Tachycardia appears to be secondary to abdominal pain. His imaging currently is quite nonspecific. Medicine team is managing this currently. He is in sinus rhythm currently. If he develops atrial fibrillation then we can give him metoprolol otherwise will hold off as tachycardia is secondary to his abdominal pain/SIRS. Thank you for allowing me to participate in the care of your patient. Please feel free to contact me if you have any questions. Procedures Date of Service Date of Service: 07/01/23
--- NOTE | 2023-07-01 13:48 | MHC.CM.PN ---
IMM 07/01. Pt self-care, lives at home with his . Family or friend will transport him home. is HCP, copy requested. PCP: Dr. Simon Romeo
--- NOTE | 2023-07-01 19:21 | PM.CNGS ---
History of Present Illness Consult details Consult date: 07/01/23 Reason for consult: abdominal pain Requesting physician: Dominic Duong Narrative: Chief Complaint: Abdominal Pain This is a 77-year-old male with pertinent history of [id number] diabetes mellitus, mood disorder, mixed hyperlipidemia, essential hypertension, paroxysmal atrial fibrillation on anticoagulation, gout who presents to the emergency department for evaluation of abdominal discomfort. Patient states it started in the upper epigastric region on the day of presentation, intermittent, nonradiating, nonprogressive and without any relieving factors. Also has associated intermittent burping. Patient denies fever, chills, cough, chest discomfort, palpitations, changes in urinary or bowel habits. States he has a history of kidney stones. HERE WITH WORKUP HIS WHITE COUNT WAS NOTED TO BE QUITE ELEVATED TO 26,[address] scan of the abdomen and pelvis showed gallstones a little distended gallbladder. Ultrasound did not reveal any significant findings consistent with cholecystitis. LFTs are all normal. But patient continues to be tender. He was admitted under the medical team and treated with antibiotics. No other source of infection noted. Patient says he did know that he had gallstones but has known kidney stones and Dr. Pace takes care of that for him. He does admit to feeling nauseated before but not nauseated now and has not thrown up. Not feeling very hungry though Review of Systems Review of Systems: Yes all other systems are reviewed and are negative PMFSH Past Medical History Medical History Atrial flutter by electrocardiography Elevated troponin Congestive cardiomyopathy Obstructive nephropathy Pulmonary edema Acute hyperkalemia SAYRA (acute kidney injury) Pancreatic neoplasm Acute pyelonephritis Calculus, renal Sepsis Complex renal cyst Nephrolithiasis Bacteremia, escherichia coli HLD (hyperlipidemia) HTN (hypertension), 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, managed as type 2 H/O renal calculi Family History Family History Father COPD (chronic obstructive pulmonary disease) Mother Heart disease Social History Social History Household Members: Spouse Housing: House Patient Tobacco Use Status: Never used Tobacco Advance Directives: Yes Advance Directives on File: Yes Advance Directives Date on File: 02/15/21 service: No Current occupational status: retired Meds Allergies Allergy/AdvReac Type Severity Reaction Status Date / Time No Known Allergies Allergy Verified 06/30/23 17:58 Active Medications: Current Medications Acetaminophen (Acetaminophen 325 Mg Tablet) 650 mg PO Q6H PRN PRN Reason: Pain, Mild (Pain Scale 1-3) Last Admin: 07/01/23 03:51 Dose: 650 mg Allopurinol (Allopurinol 100 Mg Tablet) 100 mg PO DAILY [facility] Last Admin: 07/01/23 09:09 Dose: 100 mg Atorvastatin Calcium (Atorvastatin Calcium 10 Mg Tablet) 10 mg PO DAILY [facility] Last Admin: 07/01/23 09:09 Dose: 10 mg Dextrose (Dextrose 50 % 25 Gm/50 Ml Syringe) 25 gm IVPUSH Q15M PRN; Protocol PRN Reason: per Hypoglycemia Standing Ord. Duloxetine HCl (Duloxetine Hcl 60 Mg Capsule.Dr) 60 mg PO DAILY [facility] Last Admin: 07/01/23 09:09 Dose: 60 mg Glucose (Glucose Gel 15 Gm Gel..Gram.) 15 gm PO Q15M PRN; Protocol PRN Reason: per Hypoglycemia Standing Ord. Ceftriaxone Sodium 1 gm/ (Sodium Chloride) 50 mls @ 100 mls/hr IV Q24H [facility] Last Infusion: 07/01/23 09:26 Dose: Infused Lactated Ringer's (Lr) 1,000 mls @ 125 mls/hr IVCONT .Q8H [facility] Last Admin: 07/01/23 18:34 Dose: 125 mls/hr Insulin Human Lispro (Insulin Lispro 100 Unit/Ml 3 Ml Vial) 0 unit SUBCUT QIDACHS [facility]; Protocol Last Admin: 07/01/23 16:49 Dose: 4 unit Lisinopril (Lisinopril 10 Mg Tablet) 10 mg PO DAILY [facility]; Protocol Last Admin: 07/01/23 09:09 Dose: 10 mg Melatonin (Melatonin 3 Mg Tablet) 6 mg PO BEDTIME PRN PRN Reason: Insomnia Metformin HCl (Metformin Hcl 850 Mg Tablet) 850 mg PO BID [facility] Last Admin: 07/01/23 09:09 Dose: 850 mg Morphine Sulfate (Morphine Sulfate 2 Mg/Ml Cartridge) 2 mg IVPUSH Q4H PRN; Protocol PRN Reason: Pain, Severe (Pain Scale 7-10) Last Admin: 07/01/23 15:35 Dose: 2 mg Non-Formulary Medication (Semaglutide [Ozempic]) 0.5 mg SUBCUT QWEEK [facility] Omeprazole (Omeprazole 20 Mg Capsule.) 20 mg PO BID@0630,1630 [facility] Last Admin: 07/01/23 16:49 Dose: 20 mg Ondansetron HCl (Ondansetron Hcl 4 Mg/2 Ml Vial) 4 mg IVPUSH Q8H PRN PRN Reason: Nausea and Vomiting Pyridoxine HCl (Pyridoxine Hcl (Vitamin B6) 50 Mg Tablet) 100 mg PO DAILY [facility] Last Admin: 07/01/23 09:09 Dose: 100 mg Sodium Chloride (0.9 % Sodium Chloride Flush 3 Ml Syringe) 3 ml IVFLUSH QSHIFT [facility] Last Admin: 07/01/23 16:22 Dose: 3 ml Trazodone HCl (Trazodone Hcl 50 Mg Tablet) 50 mg PO BEDTIME [facility] Home Medications Medication Instructions Recorded Confirmed Last Taken Type glipizide 5 mg tablet 5 mg PO QAM 02/14/21 07/01/23 12/21/21 History metformin 850 mg tablet 1 tab PO BID 02/14/21 07/01/23 12/21/21 History pantoprazole 40 mg tablet,delayed 1 tab PO BID 02/14/21 07/01/23 12/21/21 History release simvastatin 20 mg tablet 1 tab PO BEDTIME 02/14/21 07/01/23 12/21/21 History blood sugar diagnostic (Accu-Chek #10 ea 04/08/21 04/19/23 Unknown History Megan Plus test strips) lancets (Accu-Chek Softclix #100 ea 04/08/21 04/19/23 Unknown History Lancets) lisinopril 10 mg tablet 10 mg PO DAILY 10/05/21 07/01/23 12/21/21 History duloxetine 60 mg capsule,delayed 60 mg PO DAILY 04/19/22 07/01/23 Unknown History release trazodone 50 mg tablet 50 mg PO BEDTIME 04/19/22 07/01/23 Unknown History semaglutide 0.25 mg or 0.5 mg (2 0.5 mg subcut QWEEK 07/01/23 07/01/23 Unknown History mg/3 mL) subcutaneous pen injector (Ozempic) Physical Exam Vital Signs: Vital Signs: Last Vital Signs Temp 99.1 F 07/01/23 10:01 Pulse 94 07/01/23 16:49 Resp 17 07/01/23 16:49 BP 120/64 07/01/23 16:49 Pulse Ox 93 07/01/23 16:49 O2 Del Method Room Air 07/01/23 16:49 BMI result Body Mass Index 33.1 Const: General: cooperative, healthy appearing, comfortable and acute distress mild HEENT: Other: nonicteric GI: Other: abdomen is soft but tender in the right upper quadrant radiating to the right flank area with some guarding no rebound no peritoneal signs active bowel sounds no masses noted Results Labs 07/01/23 05:55 07/01/23 05:55 Labs: Abnormal lab results 06/30/23 07/01/23 07/01/23 Range/Units 21:46 01:05 05:55 WBC 27.3 H (4.8-10.8) X10*3/uL RBC 3.78 L (4.60-5.80) X10*6/uL Hgb 12.6 L (14.0-18.0) g/dl Hct 36.5 L (42.0-52.0) % MCH 33.3 H (27.0-33.0) pg Immature Gran % (Auto) 1.0 H (0.0-0.4) % Neut % (Auto) 87.2 H (45-73) % Lymph % (Auto) 2.7 L (20-40) % Lymph # (Auto) 0.8 L (1.2-4.9) X10*3/uL [place] # (Auto) 2.4 H (0.1-1.2) X10*3/uL Abs Immat Gran (auto) 0.28 H (0.00-0.03) X10*3/uL Absolute Neuts (auto) 23.8 H (2.0-8.3) x10*3/uL BUN 21 H 18 H (9-16) mg/dL POC Glucose 225 H (60-115) mg/dL Random Glucose 173 H 206 H (60-115) mg/dL Lactic Acid (0.5-2.0) mmol/L Lactic Acid F/U @ 2Hr (0.5-2.0) mmol/L Calcium 10.8 H (8.4-10.2) mg/dL 07/01/23 07/01/23 07/01/23 Range/Units 07:26 08:47 10:21 WBC (4.8-10.8) X10*3/uL RBC (4.60-5.80) X10*6/uL Hgb (14.0-18.0) g/dl Hct (42.0-52.0) % MCH (27.0-33.0) pg Immature Gran % (Auto) (0.0-0.4) % Neut % (Auto) (45-73) % Lymph % (Auto) (20-40) % Lymph # (Auto) (1.2-4.9) X10*3/uL [place] # (Auto) (0.1-1.2) X10*3/uL Abs Immat Gran (auto) (0.00-0.03) X10*3/uL Absolute Neuts (auto) (2.0-8.3) x10*3/uL BUN (9-16) mg/dL POC Glucose 212 H 273 H (60-115) mg/dL Random Glucose (60-115) mg/dL Lactic Acid 2.7 H* (0.5-2.0) mmol/L Lactic Acid F/U @ 2Hr (0.5-2.0) mmol/L Calcium (8.4-10.2) mg/dL 07/01/23 07/01/23 07/01/23 Range/Units 11:00 12:46 16:33 WBC (4.8-10.8) X10*3/uL RBC (4.60-5.80) X10*6/uL Hgb (14.0-18.0) g/dl Hct (42.0-52.0) % MCH (27.0-33.0) pg Immature Gran % (Auto) (0.0-0.4) % Neut % (Auto) (45-73) % Lymph % (Auto) (20-40) % Lymph # (Auto) (1.2-4.9) X10*3/uL [place] # (Auto) (0.1-1.2) X10*3/uL Abs Immat Gran (auto) (0.00-0.03) X10*3/uL Absolute Neuts (auto) (2.0-8.3) x10*3/uL BUN (9-16) mg/dL POC Glucose 283 H 230 H (60-115) mg/dL Random Glucose (60-115) mg/dL Lactic Acid (0.5-2.0) mmol/L Lactic Acid F/U @ 2Hr 2.1 H* (0.5-2.0) mmol/L Calcium (8.4-10.2) mg/dL Short CBC 07/01/23 Range/Units 05:55 WBC 27.3 H (4.8-10.8) X10*3/uL Hgb 12.6 L (14.0-18.0) g/dl Hct 36.5 L (42.0-52.0) % Plt Count 288 (160-400) X10*3/uL BMP 06/30/23 07/01/23 21:46 05:55 Sodium 138 135 Potassium 4.6 4.5 Chloride 102 103 Carbon Dioxide 26 22 BUN 21 H 18 H Creatinine 1.22 1.15 Calcium 10.8 H 9.4 D Urine 06/30/23 Range/Units 18:47 Urine Color Yellow Urine Appearance Clear Urine pH 5.5 (5.0-9.0) Ur Specific [place] 1.025 (1.005-1.025) Urine Protein Negative (Neg-Trace) mg/dL Urine Glucose (UA) Negative (Negative) mg/dL All other labs normal. Imaging Abdomen CT scan report/results: report reviewed and image reviewed CT scan - pelvis: report reviewed and image reviewed Abdominal ultrasound report/results: report reviewed Assessment and Plan (1) Cholelithiasis: Status: Acute Plan patient is a 77-year-old male who came in with abdominal pain and nausea vomiting epigastric pain LFTs normal but elevated white count to 27,000 this morning. He does not look septic. Imaging shows him to have gallstones and sludge but no evidence of acute cholecystitis. Patient however is considerably tender in the right upper quadrant area. No evidence of any pancreatitis. Plan to get HIDA scan and evaluate tomorrow. In the meantime continue treating like cholecystitis with just liquid diet and IV antibiotics. Patient understands and agrees with the above plan. Discussion with the medical team has been had Procedures Date of Service Date of Service: 07/01/23
[2023-07-02] VITALS (14 sets, daily range): BP systolic 117–149; BP diastolic 51–94; PULSE 83–115; RESP 13–20; TEMP 36.3–37.3; O2SAT 89–97; BMI 35.9
--- NOTE | 2023-07-02 00:26 | MHC.EDTECH ---
This tech took over care of patient at 2300,hourly rounds completed,patient is resting comfortably at this time and call bay is within reach.
--- NOTE | 2023-07-02 04:27 | MHC.EDTECH ---
Hourly rounds and vitals completed, patient urinated 250MLS in urinal. Patient stated he was having pain,RN was made aware,this tech asked patient if he wanted to take his pants off he stated he was comfortable the way he is, call bay within reach
[2023-07-02 07:25] LABS: Anion Gap 15 (12-20); Blood Urea Nitrogen 16 mg/dL (9-16); Calcium 9.3 mg/dL (8.4-10.2); Carbon Dioxide 22 mmol/L (22-29); Chloride 100 mmol/L (96-108); Creatinine Clr Calc Pharmacy 65.4; Estimated Glomerular Filt Rate > 60; Glucose Random 173 mg/dL (60-115); Potassium 4.2 mmol/L (3.3-5.1); Sodium 133 mmol/L (135-145)
[2023-07-02] MEDS: Atorvastatin Calcium 10 MG TABLET PO (07:41)
--- NOTE | 2023-07-02 07:50 | PC.NURSE ---
resumed care of patient, complaints of 5/10 to lower back, pt is currently NPO for HIDA scan per nucmed request. Pt placed on 1L of O2 d/t 89% RA sat. Provider aware.
--- NOTE | 2023-07-02 09:04 | PM.PNGS ---
Subjective Subjective Date of Service: 07/02/23 <Esperanza Bush PA-C - Last Filed: 07/02/23 09:07> 07/02/23 <Simon Matias MD - Last Filed: 07/02/23 09:55> Interval history: No real improvement, continues to have RUQ pain. <Esperanza Bush PA-C - Last Filed: 07/02/23 09:07> Physical Exam Vital Signs: Vital Signs: Last Vital Signs Temp 99.1 F 07/02/23 07:48 Pulse 102 H 07/02/23 07:48 Resp 18 07/02/23 07:48 BP 123/51 L 07/02/23 07:48 Pulse Ox 89 L 07/02/23 07:48 O2 Del Method Nasal Cannula 07/02/23 07:48 O2 Flow Rate 1 07/02/23 07:48 BMI result Body Mass Index 33.1 <ITZ Villegas Last Filed: 07/02/23 09:07> Const: General: comfortable, no acute distress and alert <Esperanza Bush PA-C - Last Filed: 07/02/23 09:07> Orientation/consciousness: patient oriented x3 <ITZ Villegas Last Filed: 07/02/23 09:07> Resp: Effort & Inspection: normal respiratory effort <ITZ Villegas Last Filed: 07/02/23 09:07> Cardio: Rate: tachycardic <Esperanza Bush PA-C - Last Filed: 07/02/23 09:07> GI: Other: protuberant abd <Esperanza Bush PA-C - Last Filed: 07/02/23 09:07> Inspection: No distended <ITZ Villegas Last Filed: 07/02/23 09:07> Palpation (GI): Soft to palpation, Tenderness to palpation present (GI) in the RUQ (marked) and Díaz's sign positive, no guarding and not rigid <ITZ Villegas Last Filed: 07/02/23 09:07> Percussion: Yes normal to percussion <Esperanza Bush PA-C - Last Filed: 07/02/23 09:07> Skin: General skin exam: no rashes or lesions noted and no jaundice <Esperanza Bush PA-C - Last Filed: 07/02/23 09:07> Neuro: General: patient oriented x3 and moves all extremities <Esperanza Bush PA-C - Last Filed: 07/02/23 09:07> Objective Data Active Medications Acetaminophen (Acetaminophen 325 Mg Tablet) 650 mg PO Q6H PRN PRN Reason: Pain, Mild (Pain Scale 1-3) Last Admin: 07/01/23 03:51 Dose: 650 mg Documented By: KUNAL Allopurinol (Allopurinol 100 Mg Tablet) 100 mg PO DAILY [facility] Last Admin: 07/02/23 07:41 Dose: 100 mg Documented By: SHAUN Atorvastatin Calcium (Atorvastatin Calcium 10 Mg Tablet) 10 mg PO DAILY [facility] Last Admin: 07/02/23 07:41 Dose: 10 mg Documented By: SHAUN Dextrose (Dextrose 50 % 25 Gm/50 Ml Syringe) 25 gm IVPUSH Q15M PRN; Protocol PRN Reason: per Hypoglycemia Standing Ord. Duloxetine HCl (Duloxetine Hcl 60 Mg Capsule.Dr) 60 mg PO DAILY [facility] Last Admin: 07/02/23 07:41 Dose: 60 mg Documented By: SHAUN Glucose (Glucose Gel 15 Gm Gel..Gram.) 15 gm PO Q15M PRN; Protocol PRN Reason: per Hypoglycemia Standing Ord. Ceftriaxone Sodium 1 gm/ (Sodium Chloride) 50 mls @ 100 mls/hr IV Q24H [facility] Last Infusion: 07/02/23 08:24 Dose: Infused Documented By: SHAUN Lactated Ringer's (Lr) 1,000 mls @ 125 mls/hr IVCONT .Q8H [facility] Last Admin: 07/02/23 02:59 Dose: 125 mls/hr Documented By: KWAKU Insulin Human Lispro (Insulin Lispro 100 Unit/Ml 3 Ml Vial) 0 unit SUBCUT QIDACHS [facility]; Protocol Last Admin: 07/02/23 07:41 Dose: 2 unit Documented By: SHAUN Lisinopril (Lisinopril 10 Mg Tablet) 10 mg PO DAILY [facility]; Protocol Last Admin: 07/02/23 07:41 Dose: 10 mg Documented By: SHAUN Melatonin (Melatonin 3 Mg Tablet) 6 mg PO BEDTIME PRN PRN Reason: Insomnia Metformin HCl (Metformin Hcl 850 Mg Tablet) 850 mg PO BID [facility] Last Admin: 07/01/23 21:39 Dose: 850 mg Documented By: MARIAM Morphine Sulfate (Morphine Sulfate 2 Mg/Ml Cartridge) 2 mg IVPUSH Q4H PRN; Protocol PRN Reason: Pain, Severe (Pain Scale 7-10) Last Admin: 07/02/23 04:28 Dose: 2 mg Documented By: MARIAM Non-Formulary Medication (Semaglutide [Ozempic]) 0.5 mg SUBCUT QWEEK [facility] Omeprazole (Omeprazole 20 Mg Capsule.Dr) 20 mg PO BID@0630,1630 [facility] Last Admin: 07/02/23 07:40 Dose: 20 mg Documented By: SHAUN Ondansetron HCl (Ondansetron Hcl 4 Mg/2 Ml Vial) 4 mg IVPUSH Q8H PRN PRN Reason: Nausea and Vomiting Pyridoxine HCl (Pyridoxine Hcl (Vitamin B6) 50 Mg Tablet) 100 mg PO DAILY [facility] Last Admin: 07/01/23 09:09 Dose: 100 mg Documented By: YULIA Sodium Chloride (0.9 % Sodium Chloride Flush 3 Ml Syringe) 3 ml IVFLUSH QSHIFT [facility] Last Admin: 07/02/23 07:47 Dose: Not Given Documented By: SHAUN Non-Admin Reason: IV Running Trazodone HCl (Trazodone Hcl 50 Mg Tablet) 50 mg PO BEDTIME [facility] Last Admin: 07/01/23 21:39 Dose: 50 mg Documented By: MARIAM <Esperanza Bush PA-C - Last Filed: 07/02/23 09:07> Labs CBC & Chem 7: 07/02/23 05:33 07/02/23 05:33 <Esperanza Bush PA-C - Last Filed: 07/02/23 09:07> Labs: Laboratory Results - last 24 hr 07/01/23 07/01/23 07/01/23 05:55 08:47 10:21 MCV MCH MCHC RDW Plt Count MPV Absolute Nucleated RBC Nucleated RBC % (auto) Anion Gap Estim Creat Clear Calc Estimated GFR POC Glucose 273 H Random Glucose Lactic Acid 2.7 H* Lactic Acid F/U @ 2Hr Calcium Lipase 14 07/01/23 07/01/23 07/01/23 11:00 12:46 16:33 MCV MCH MCHC RDW Plt Count MPV Absolute Nucleated RBC Nucleated RBC % (auto) Anion Gap Estim Creat Clear Calc Estimated GFR POC Glucose 283 H 230 H Random Glucose Lactic Acid Lactic Acid F/U @ 2Hr 2.1 H* Calcium Lipase 07/01/23 07/02/23 07/02/23 21:08 05:33 07:14 MCV 96.5 MCH 33.8 H MCHC 35.0 RDW 12.9 Plt Count 232 MPV 10.9 Absolute Nucleated RBC 0.000 Nucleated RBC % (auto) 0.0 Anion Gap 15 Estim Creat Clear Calc 65.4 Estimated GFR > 60 POC Glucose 268 H 195 H Random Glucose 173 H Lactic Acid Lactic Acid F/U @ 2Hr Calcium 9.3 Lipase <Esperanza Bush PA-C - Last Filed: 07/02/23 09:07> Procedures Date of Service Date of Service: 07/02/23 <Esperanza Bush PA-C - Last Filed: 07/02/23 09:07> 07/02/23 <Simon Matias MD - Last Filed: 07/02/23 09:55> Progress Note: A&P Assessment and plan (1) SIRS (systemic inflammatory response syndrome): Status: Acute <Esperanza Bush PA-C - Last Filed: 07/02/23 09:07> (2) Abdominal pain: Status: Acute <Esperanza Bush PA-C - Last Filed: 07/02/23 09:07> Assessment and Plan: WBC worsening and remains very tender in RUQ but will await HIDA today given no inflammatory changes on imaging, only possible small gallstones/sludge. If positive, will proceed with laparoscopic cholecystectomy, possible open today. Risks, benefits, alternatives of laparoscopic possible open cholecystectomy were reviewed with the patient including but not limited to bleeding, infection, numbness, pain, poor healing, injury to the liver, bowel or bile ducts, leak, retained stones and the patient wishes to proceed.? Arrangements will be made for this.?All questions were answered. He has been made NPO. Continue IV abx, IVF. <Esperanza Bush PA-C - Last Filed: 07/02/23 09:07> WBC worsening and remains very tender in RUQ but will await HIDA today given no inflammatory changes on imaging, only possible small gallstones/sludge. If positive, will proceed with laparoscopic cholecystectomy, possible open today. Risks, benefits, alternatives of laparoscopic possible open cholecystectomy were reviewed with the patient including but not limited to bleeding, infection, numbness, pain, poor healing, injury to the liver, bowel or bile ducts, leak, retained stones and the patient wishes to proceed.? Arrangements will be made for this.?All questions were answered. He has been made NPO. Continue IV abx, IVF. Agree with the above assessment and plan. Reviewed patient history and imaging. He is indeed tender in the RUQ with marked elevation of WBC. HIDA planned for today. If positive, will add on OR schedule if medically clear. <Simon Matias MD - Last Filed: 07/02/23 09:55> Time Spent With Patient Time: Total time managing care of this patient today ____ minutes. <Esperanza Bush PA-C - Last Filed: 07/02/23 09:07> Quality Stroke Does the patient have a stroke diagnosis?: No <Esperanza Bush PA-C - Last Filed: 07/02/23 09:07> VTE Prior VTE?: No <Esperanza Bush PA-C - Last Filed: 07/02/23 09:07> VTE Risk Level:: Medical - moderate - high <Esperanza Bush PA-C - Last Filed: 07/02/23 09:07> VTE Device Contraindication: Treatment Not Indicated <Esperanza Bush PA-C - Last Filed: 07/02/23 09:07> VTE Drug Contraindication: N/A - Med Ordered <Esperanza Bush PA-C - Last Filed: 07/02/23 09:07>
[2023-07-02] MEDS: Pyridoxine HCl (Vitamin B6) 50 MG TABLET 100 MG PO (09:49)
--- NOTE | 2023-07-02 11:23 | HO.PM.IMPN ---
Subjective Subjective Date of Service: 07/02/23 Interval History: f/u on SIRS, abdominal pain, AFIB with RVR. Persistent abdominal pain and tender to touch HR remains high but better, HIDA scan is being done Physical Exam Vital Signs: Vital Signs: Last Vital Signs Temp 97.4 F 07/02/23 09:29 Pulse 110 H 07/02/23 09:29 Resp 20 07/02/23 09:29 BP 149/68 H 07/02/23 09:29 Pulse Ox 92 07/02/23 09:29 O2 Del Method Room Air 07/02/23 09:29 O2 Flow Rate 1 07/02/23 07:48 BMI result Body Mass Index 35.9 Const: Other: General: AO X 3, no acute distress Resp: CTA bilateral CVS: S1,S2,RRR GI: +BS, epig tenderness with voluntary guarding Skin: No rash Neuro: motor grossly intact Psych: appropriate affect Objective Data Active Medications Acetaminophen (Acetaminophen 325 Mg Tablet) 650 mg PO Q6H PRN PRN Reason: Pain, Mild (Pain Scale 1-3) Last Admin: 07/01/23 03:51 Dose: 650 mg Documented By: KUNAL Allopurinol (Allopurinol 100 Mg Tablet) 100 mg PO DAILY [facility] Last Admin: 07/02/23 07:41 Dose: 100 mg Documented By: SHAUN Atorvastatin Calcium (Atorvastatin Calcium 10 Mg Tablet) 10 mg PO DAILY [facility] Last Admin: 07/02/23 07:41 Dose: 10 mg Documented By: SHAUN Dextrose (Dextrose 50 % 25 Gm/50 Ml Syringe) 25 gm IVPUSH Q15M PRN; Protocol PRN Reason: per Hypoglycemia Standing Ord. Duloxetine HCl (Duloxetine Hcl 60 Mg Capsule.Dr) 60 mg PO DAILY [facility] Last Admin: 07/02/23 07:41 Dose: 60 mg Documented By: SHAUN Glucose (Glucose Gel 15 Gm Gel..Gram.) 15 gm PO Q15M PRN; Protocol PRN Reason: per Hypoglycemia Standing Ord. Ceftriaxone Sodium 1 gm/ (Sodium Chloride) 50 mls @ 100 mls/hr IV Q24H [facility] Last Infusion: 07/02/23 08:24 Dose: Infused Documented By: SHAUN Lactated Ringer's (Lr) 1,000 mls @ 125 mls/hr IVCONT .Q8H [facility] Last Infusion: 07/02/23 11:13 Dose: 0 mls/hr Documented By: SHRUTI Metronidazole (Flagyl) 500 mg in 100 mls @ 100 mls/hr IV Q8H [facility] Insulin Human Lispro (Insulin Lispro 100 Unit/Ml 3 Ml Vial) 0 unit SUBCUT QIDACHS [facility]; Protocol Last Admin: 07/02/23 07:41 Dose: 2 unit Documented By: SHAUN Lisinopril (Lisinopril 10 Mg Tablet) 10 mg PO DAILY [facility]; Protocol Last Admin: 07/02/23 07:41 Dose: 10 mg Documented By: SHAUN Melatonin (Melatonin 3 Mg Tablet) 6 mg PO BEDTIME PRN PRN Reason: Insomnia Metformin HCl (Metformin Hcl 850 Mg Tablet) 850 mg PO BID [facility] Last Admin: 07/02/23 09:49 Dose: 850 mg Documented By: SHRUTI Morphine Sulfate (Morphine Sulfate 2 Mg/Ml Cartridge) 2 mg IVPUSH Q4H PRN; Protocol PRN Reason: Pain, Severe (Pain Scale 7-10) Last Admin: 07/02/23 04:28 Dose: 2 mg Documented By: MARIAM Non-Formulary Medication (Semaglutide [Ozempic]) 0.5 mg SUBCUT QWEEK [facility] Omeprazole (Omeprazole 20 Mg Capsule.) 20 mg PO BID@0630,1630 [facility] Last Admin: 07/02/23 07:40 Dose: 20 mg Documented By: SHAUN Ondansetron HCl (Ondansetron Hcl 4 Mg/2 Ml Vial) 4 mg IVPUSH Q8H PRN PRN Reason: Nausea and Vomiting Pyridoxine HCl (Pyridoxine Hcl (Vitamin B6) 50 Mg Tablet) 100 mg PO DAILY [facility] Last Admin: 07/02/23 09:49 Dose: 100 mg Documented By: SHRUTI Sodium Chloride (0.9 % Sodium Chloride Flush 3 Ml Syringe) 3 ml IVFLUSH QSHIFT [facility] Last Admin: 07/02/23 07:47 Dose: Not Given Documented By: SHAUN Non-Admin Reason: IV Running Trazodone HCl (Trazodone Hcl 50 Mg Tablet) 50 mg PO BEDTIME [facility] Last Admin: 07/01/23 21:39 Dose: 50 mg Documented By: MARIAM Labs 07/02/23 05:33 07/02/23 05:33 Labs: Laboratory Results - last 24 hr 07/01/23 07/01/23 07/01/23 12:46 16:33 21:08 MCV MCH MCHC RDW Plt Count MPV Absolute Nucleated RBC Nucleated RBC % (auto) Anion Gap Estim Creat Clear Calc Estimated GFR POC Glucose 283 H 230 H 268 H Random Glucose Calcium 07/02/23 07/02/23 05:33 07:14 MCV 96.5 MCH 33.8 H MCHC 35.0 RDW 12.9 Plt Count 232 MPV 10.9 Absolute Nucleated RBC 0.000 Nucleated RBC % (auto) 0.0 Anion Gap 15 Estim Creat Clear Calc 65.4 Estimated GFR > 60 POC Glucose 195 H Random Glucose 173 H Calcium 9.3 Microbiology Microbiology Results: Microbiology 07/01/23 08:47 Blood Culture - Preliminary Blood - Venous No growth after 24 hours. 07/01/23 08:47 Blood Culture - Preliminary Blood - Venous No growth after 24 hours. Assessment and Plan (1) SIRS (systemic inflammatory response syndrome): Status: Acute (2) Atrial flutter: Status: Acute (3) Abdominal pain: Status: Acute Plan 77-year-old male with pertinent history of [id number] diabetes mellitus, mood disorder, mixed hyperlipidemia, essential hypertension, paroxysmal atrial fibrillation on anticoagulation, gout who presents to the emergency department for evaluation of abdominal discomfort and found to have SIRS Abdominal pain, epigastric. SIRS (inc WBC, tachy and fever), imaging of gallbladder inconclusive, WBC high today and remains tender, HIDA scan pending -blood culture -empiric ceftriaxone, add Flagyl -HIDA scan pending to rule out acute cholecystisis, sugery if + -NPO, hold eliquis in case of surgery Permanaent AFIB with RVR given IV and p.o. diltiazem in the ER. Not on rate control agents at home, holding eliquis in case of surgery, last rythm sinus, if afib happens again then start metoprolol Type 2 DM, non insulin dependent, SSI -continue SSI, hold metformin, glipizide and ozempic Mood desorder Continue home meds HLD: Lipitor HTN: Lisinopril Gout: allopurinol DVT prophylaxis: restart eliquis if no surgery or heparin, awaiting HIDA result to decide Full code admission for at least 2 midnights for SIRS work up, AFIB with RvR needing iV meds Quality Stroke Does the patient have a stroke diagnosis?: No VTE Prior VTE?: No VTE Risk Level:: Medical - moderate - high VTE Device Contraindication: Treatment Not Indicated VTE Drug Contraindication: N/A - Med Ordered
--- NOTE | 2023-07-02 11:52 | HO.ANESPROP2 ---
HPI - Anesthesia Eval Consult details Narrative: 77 yo male patient for Laparoscopic Cholecystectomy FORMERLY [facility] Active Problems Active Problems: All Active Problems (Updated 07/02/23 @ 12:30 by Anu Shaikh MD) Cholelithiasis (Acute) SIRS (systemic inflammatory response syndrome) (Acute) Atrial fibrillation with RVR (Acute). On eliquis. Last dose 06/30/23 Abdominal pain (Acute) Ureterolithiasis (Acute). On allopurinol Increased BMI Anemia Leucocytosis WCC 32.7 DM. On ozempic. Last dose 1 week ago Anxiety/Depression HTN GERD Hyperlipidemia Lactic acidosis 07/01/23 2.7 Repeat 2.1 BRUCE. Not using CPAP Past Medical History Medical History Atrial flutter by electrocardiography Elevated troponin Congestive cardiomyopathy Obstructive nephropathy Pulmonary edema Acute hyperkalemia SAYRA (acute kidney injury) Pancreatic neoplasm Acute pyelonephritis Calculus, renal Sepsis Complex renal cyst Nephrolithiasis Bacteremia, escherichia coli HLD (hyperlipidemia) HTN (hypertension), 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, managed as type 2 H/O renal calculi Family History Family History Father COPD (chronic obstructive pulmonary disease) Mother Heart disease Family history of problems with anesthesia: No Surgical History Surgical History (Updated 07/02/23 @ 13:07 by Anu Shaikh MD) H/O cystoscopy History of Problems with Anesthesia: No Social History Social History Household Members: Significant Other Housing: House Do you presently have visiting nurse or other home services: No Patient Tobacco Use Status: Never used Tobacco Advance Directives Date on File: 02/15/21 service: No Current occupational status: retired Meds Allergies Allergy/AdvReac Type Severity Reaction Status Date / Time No Known Allergies Allergy Verified 06/30/23 17:58 Active Medications: Current Medications Acetaminophen (Acetaminophen 325 Mg Tablet) 650 mg PO Q6H PRN PRN Reason: Pain, Mild (Pain Scale 1-3) Last Admin: 07/01/23 03:51 Dose: 650 mg Allopurinol (Allopurinol 100 Mg Tablet) 100 mg PO DAILY [facility] Last Admin: 07/02/23 07:41 Dose: 100 mg Atorvastatin Calcium (Atorvastatin Calcium 10 Mg Tablet) 10 mg PO DAILY [facility] Last Admin: 07/02/23 07:41 Dose: 10 mg Dextrose (Dextrose 50 % 25 Gm/50 Ml Syringe) 25 gm IVPUSH Q15M PRN; Protocol PRN Reason: per Hypoglycemia Standing Ord. Duloxetine HCl (Duloxetine Hcl 60 Mg Capsule.) 60 mg PO DAILY [facility] Last Admin: 07/02/23 07:41 Dose: 60 mg Glucose (Glucose Gel 15 Gm Gel..Gram.) 15 gm PO Q15M PRN; Protocol PRN Reason: per Hypoglycemia Standing Ord. Ceftriaxone Sodium 1 gm/ (Sodium Chloride) 50 mls @ 100 mls/hr IV Q24H [facility] Last Infusion: 07/02/23 08:24 Dose: Infused Lactated Ringer's (Lr) 1,000 mls @ 125 mls/hr IVCONT .Q8H [facility] Last Infusion: 07/02/23 11:13 Dose: 0 mls/hr Metronidazole (Flagyl) 500 mg in 100 mls @ 100 mls/hr IV Q8H [facility] Insulin Human Lispro (Insulin Lispro 100 Unit/Ml 3 Ml Vial) 0 unit SUBCUT QIDACHS [facility]; Protocol Last Admin: 07/02/23 07:41 Dose: 2 unit Lisinopril (Lisinopril 10 Mg Tablet) 10 mg PO DAILY [facility]; Protocol Last Admin: 07/02/23 07:41 Dose: 10 mg Melatonin (Melatonin 3 Mg Tablet) 6 mg PO BEDTIME PRN PRN Reason: Insomnia Metoprolol Tartrate (Metoprolol Tartrate 25 Mg Tablet) 25 mg PO BID [facility]; Protocol Morphine Sulfate (Morphine Sulfate 2 Mg/Ml Cartridge) 2 mg IVPUSH Q4H PRN; Protocol PRN Reason: Pain, Severe (Pain Scale 7-10) Last Admin: 07/02/23 04:28 Dose: 2 mg Non-Formulary Medication (Semaglutide [Ozempic]) 0.5 mg SUBCUT QWEEK [facility] Omeprazole (Omeprazole 20 Mg Capsule.) 20 mg PO BID@0630,1630 [facility] Last Admin: 07/02/23 07:40 Dose: 20 mg Ondansetron HCl (Ondansetron Hcl 4 Mg/2 Ml Vial) 4 mg IVPUSH Q8H PRN PRN Reason: Nausea and Vomiting Pyridoxine HCl (Pyridoxine Hcl (Vitamin B6) 50 Mg Tablet) 100 mg PO DAILY [facility] Last Admin: 07/02/23 09:49 Dose: 100 mg Sodium Chloride (0.9 % Sodium Chloride Flush 3 Ml Syringe) 3 ml IVFLUSH QSHIFT [facility] Last Admin: 07/02/23 07:47 Dose: Not Given Trazodone HCl (Trazodone Hcl 50 Mg Tablet) 50 mg PO BEDTIME [facility] Last Admin: 07/01/23 21:39 Dose: 50 mg Home Medications Medication Instructions Recorded Confirmed Last Taken Type glipizide 5 mg tablet 5 mg PO QAM 02/14/21 07/01/23 12/21/21 History metformin 850 mg tablet 1 tab PO BID 02/14/21 07/01/23 12/21/21 History pantoprazole 40 mg tablet,delayed 1 tab PO BID 02/14/21 07/01/23 12/21/21 History release simvastatin 20 mg tablet 1 tab PO BEDTIME 02/14/21 07/01/23 12/21/21 History blood sugar diagnostic (Accu-Chek #10 ea 04/08/21 04/19/23 Unknown History Megan Plus test strips) lancets (Accu-Chek Softclix #100 ea 04/08/21 04/19/23 Unknown History Lancets) lisinopril 10 mg tablet 10 mg PO DAILY 10/05/21 07/01/23 12/21/21 History duloxetine 60 mg capsule,delayed 60 mg PO DAILY 04/19/22 07/01/23 Unknown History release trazodone 50 mg tablet 50 mg PO BEDTIME 04/19/22 07/01/23 Unknown History semaglutide 0.25 mg or 0.5 mg (2 0.5 mg subcut QWEEK 07/01/23 07/01/23 06/24/23 History mg/3 mL) subcutaneous pen injector (Ozempic) Exam Height,Weight and Vital Signs: Height 5 ft 8 in Weight 107.2 kg Last Vital Signs Temp 97.4 F 07/02/23 09:29 Pulse 110 H 07/02/23 09:29 Resp 20 07/02/23 09:29 BP 149/68 H 07/02/23 09:29 Pulse Ox 92 07/02/23 09:29 O2 Del Method Room Air 07/02/23 09:29 O2 Flow Rate 1 07/02/23 07:48 Vital Signs Temp Pulse Resp BP Pulse Ox O2 Del Method O2 Flow Rate 07/02/23 12:24 97.3 F 92 20 143/93 H 94 Room Air 07/02/23 09:29 97.4 F 110 H 20 149/68 H 92 Room Air 07/02/23 07:48 99.1 F 102 H 18 123/51 L 89 L Nasal Cannula 1 07/02/23 04:21 98.7 F 91 20 129/55 L 93 Room Air 07/02/23 00:06 98.8 F 93 15 135/94 H 92 Room Air 07/01/23 21:07 99.8 F 101 H 16 135/75 97 Room Air 07/01/23 16:49 94 17 120/64 93 Room Air Pertinent Lab Results Pertinent Lab Results: Laboratory Tests 06/30/23 06/30/23 06/30/23 18:42 18:47 21:45 WBC 13.6 H RBC 3.98 L Hgb 13.3 L Hct 38.2 L MCV 96.0 MCH 33.4 H MCHC 34.8 RDW 12.9 Plt Count 299 D MPV 9.7 Immature Gran % (Auto) 0.4 Neut % (Auto) 74.8 H Lymph % (Auto) 12.3 L Ford % (Auto) 6.2 Eos % (Auto) 5.6 H Baso % (Auto) 0.7 Lymph # (Auto) 1.7 Ford # (Auto) 0.9 Eos # (Auto) 0.8 H Baso # (Auto) 0.1 Abs Immat Gran (auto) 0.06 H Absolute Neuts (auto) 10.2 H Absolute Nucleated RBC 0.000 Nucleated RBC % (auto) 0.0 Smear Tech's Comments D-Dimer High Sensitivty < 150 Sodium 144 Potassium 5.2 H Chloride 104 Carbon Dioxide 29 Anion Gap 16 BUN 21 H Creatinine 1.22 Estim Creat Clear Calc 59.5 Estimated GFR 58 POC Glucose Random Glucose 170 H Lactic Acid Lactic Acid F/U @ 2Hr Calcium 10.6 H D Total Bilirubin 0.8 AST 16 ALT 16 Alkaline Phosphatase 79 Troponin I High Sens 2.8 5.7 D Total Protein 7.2 Albumin 4.2 Lipase TSH Urine Color Yellow Urine Appearance Clear Urine pH 5.5 Ur Specific Pitman 1.025 Urine Protein Negative Urine Glucose (UA) Negative Urine Ketones Trace Urine Blood Negative Urine Nitrite Negative Ur Leukocyte Esterase Negative 06/30/23 07/01/23 07/01/23 21:46 01:05 05:55 WBC 27.3 H RBC 3.78 L Hgb 12.6 L Hct 36.5 L MCV 96.6 MCH 33.3 H MCHC 34.5 RDW 12.9 Plt Count 288 MPV 10.3 Immature Gran % (Auto) 1.0 H Neut % (Auto) 87.2 H Lymph % (Auto) 2.7 L Ford % (Auto) 8.7 Eos % (Auto) 0.0 Baso % (Auto) 0.4 Lymph # (Auto) 0.8 L Ford # (Auto) 2.4 H Eos # (Auto) 0.0 Baso # (Auto) 0.1 Abs Immat Gran (auto) 0.28 H Absolute Neuts (auto) 23.8 H Absolute Nucleated RBC 0.000 Nucleated RBC % (auto) 0.0 Smear Tech's Comments VERIFIED D-Dimer High Sensitivty Sodium 138 135 Potassium 4.6 4.5 Chloride 102 103 Carbon Dioxide 26 22 Anion Gap 15 15 BUN 21 H 18 H Creatinine 1.22 1.15 Estim Creat Clear Calc 59.5 63.2 Estimated GFR 58 > 60 POC Glucose 225 H Random Glucose 173 H 206 H Lactic Acid Lactic Acid F/U @ 2Hr Calcium 10.8 H 9.4 D Total Bilirubin AST ALT Alkaline Phosphatase Troponin I High Sens Total Protein Albumin Lipase 14 TSH 0.57 Urine Color Urine Appearance Urine pH Ur Specific Pitman Urine Protein Urine Glucose (UA) Urine Ketones Urine Blood Urine Nitrite Ur Leukocyte Esterase 07/01/23 07/01/23 07/01/23 07:26 08:47 10:21 WBC RBC Hgb Hct MCV MCH MCHC RDW Plt Count MPV Immature Gran % (Auto) Neut % (Auto) Lymph % (Auto) Ford % (Auto) Eos % (Auto) Baso % (Auto) Lymph # (Auto) Ford # (Auto) Eos # (Auto) Baso # (Auto) Abs Immat Gran (auto) Absolute Neuts (auto) Absolute Nucleated RBC Nucleated RBC % (auto) Smear Tech's Comments D-Dimer High Sensitivty Sodium Potassium Chloride Carbon Dioxide Anion Gap BUN Creatinine Estim Creat Clear Calc Estimated GFR POC Glucose 212 H 273 H Random Glucose Lactic Acid 2.7 H* Lactic Acid F/U @ 2Hr Calcium Total Bilirubin AST ALT Alkaline Phosphatase Troponin I High Sens Total Protein Albumin Lipase TSH Urine Color Urine Appearance Urine pH Ur Specific Pitman Urine Protein Urine Glucose (UA) Urine Ketones Urine Blood Urine Nitrite Ur Leukocyte Esterase 07/01/23 07/01/23 07/01/23 11:00 12:46 16:33 WBC RBC Hgb Hct MCV MCH MCHC RDW Plt Count MPV Immature Gran % (Auto) Neut % (Auto) Lymph % (Auto) Ford % (Auto) Eos % (Auto) Baso % (Auto) Lymph # (Auto) Ford # (Auto) Eos # (Auto) Baso # (Auto) Abs Immat Gran (auto) Absolute Neuts (auto) Absolute Nucleated RBC Nucleated RBC % (auto) Smear Tech's Comments D-Dimer High Sensitivty Sodium Potassium Chloride Carbon Dioxide Anion Gap BUN Creatinine Estim Creat Clear Calc Estimated GFR POC Glucose 283 H 230 H Random Glucose Lactic Acid Lactic Acid F/U @ 2Hr 2.1 H* Calcium Total Bilirubin AST ALT Alkaline Phosphatase Troponin I High Sens Total Protein Albumin Lipase TSH Urine Color Urine Appearance Urine pH Ur Specific Pitman Urine Protein Urine Glucose (UA) Urine Ketones Urine Blood Urine Nitrite Ur Leukocyte Esterase 07/01/23 07/02/23 07/02/23 21:08 05:33 07:14 WBC 32.7 H* RBC 3.67 L Hgb 12.4 L Hct 35.4 L MCV 96.5 MCH 33.8 H MCHC 35.0 RDW 12.9 Plt Count 232 MPV 10.9 Immature Gran % (Auto) Neut % (Auto) Lymph % (Auto) Ford % (Auto) Eos % (Auto) Baso % (Auto) Lymph # (Auto) Ford # (Auto) Eos # (Auto) Baso # (Auto) Abs Immat Gran (auto) Absolute Neuts (auto) Absolute Nucleated RBC 0.000 Nucleated RBC % (auto) 0.0 Smear Tech's Comments D-Dimer High Sensitivty Sodium 133 L Potassium 4.2 Chloride 100 Carbon Dioxide 22 Anion Gap 15 BUN 16 Creatinine 1.11 Estim Creat Clear Calc 65.4 Estimated GFR > 60 POC Glucose 268 H 195 H Random Glucose 173 H Lactic Acid Lactic Acid F/U @ 2Hr Calcium 9.3 Total Bilirubin AST ALT Alkaline Phosphatase Troponin I High Sens Total Protein Albumin Lipase TSH Urine Color Urine Appearance Urine pH Ur Specific Pitman Urine Protein Urine Glucose (UA) Urine Ketones Urine Blood Urine Nitrite Ur Leukocyte Esterase Airway Mallampati Class: II TM Dist: >3cm Neck ROM: Full Loose/Missing/Broken Teeth: Yes (Denies broken or loose teeth. 1 missing top back left) Heart: Irregularly irregular Lungs: CTAB Assessment and Plan Assessment Anesthesia Assessment: Anesthesia Plan Discussed and Chart Reviewed Final Anesthetic Review Family History of Problems with Anesthesia: No History of Problems with Anesthesia: No NPO: Yes ASA Class: III and Emergency Final Preanesthetic Review: No Changes in Pt Med Stat, Meds/Allgs Chart Reviewed, Consent Obtained/Reviewed and Anes Risks/Benef Reviewed Patient Risk: Intermediate Procedure Risk: Intermediate Assessment/Block/Sedation in SS: Assess/Block/Sedation-SS Anesthetic Plan Anesthetic Plan: GA Disposition: Standard PACU and Inp. Admit - Standard Bed
[2023-07-02] MEDS: Lactated Ringers 1,000 ML 100 ML IVCONT ×2 (13:09→23:33)
--- NOTE | 2023-07-02 13:41 | PC.NURSE ---
when pateint asleep sat are 89-91 oxygen 2liters applied now 95-97 2liters n/c pt has dax
--- NOTE | 2023-07-02 15:35 | P.OP_ITS ---
Operative Note Operative Note Date of Service: 07/02/23 Narrative: Preoperative diagnosis: Acute cholecystitis, cholelithiasis Postoperative diagnosis: Same Procedure: Laparoscopic cholecystectomy Surgeon: Simon Matias MD Group Activities Aide: LAVERNE Villegas Anesthesia: General endotracheal Indications for procedure: 77-year-old male patient presenting with sepsis due to acute cholecystitis and cholelithiasis Operative findings: Markedly distended, inflamed and gangrenous gallbladder with surrounding phlegmon. Gallbladder is intrahepatic with purulent bile. Multiple small gallstones noted within the gallbladder. Specimen: gallbladder Estimated blood loss: 20 mL Complications: None Drains: OVIDIO to bulb suction Procedure details: Patient was brought to the OR and placed in a supine position. After administering general anesthesia the patient's abdomen was prepped with ChloraPrep and draped in a sterile fashion. A surgical time-out was called the consent confirmed. Patient received preoperative antibiotics and Venodyne boots were in place. Local anesthesia consisting of 0.5% Sensorcaine without epinephrine was infiltrated in a periumbilical region. A 5 mm incision was made above the umbilicus in a transverse fashion. The Veress needle was then inserted while elevating abdominal cavity with towel clips. After positive drop test the abdomen was insufflated to a pressure of 15 mm of mercury. The Veress needle was then removed and a 5 mm trocar inserted. The camera was inserted in the abdomen explored. A 12 mm trocar was then placed in the epigastrium. Two 5 mm trocars placed in the right upper quadrant by the orthodontist assistant. The patient was placed in reverse Trendelenburg positioning and rotated to the left. The gallbladder was noted to be markedly distended with acute cholecystitis. A laparoscopic needle was used to aspirate the gallbladder to decompress. The gallbladder was grasped with the fundus and retracted cephalad by the orthodontist assistant. The infundibulum was then grasped and retracted away from the liver bed, also by the orthodontist assistant. The Dolphin dissected was then used by the surgeon to dissect the peritoneum off the infundibulum to reveal the junction with the cystic duct. Cystic artery was noted slightly medial and posterior to the cystic duct. After obtaining a critical view the cystic duct was doubly clipped and divided. The cystic artery was then doubly clipped and divided. The gallbladder was then dissected off the liver bed using electrocautery with an L hook. Hemostasis was assured all times using the electrocautery. When the gallbladder is completely dissected off the liver bed was placed in an Endo-Catch bag and brought out through the epigastric incision. The gallbladder was sent to pathology for further examination. Wounds were irrigated thoroughly with saline solution and suctioned dry. A small area of oozing on the liver bed was controlled using Surgicel. A large Nilton-Liriano drain was then placed at the liver edge and brought up through a lateral trocar site. This was secured using a 3-0 nylon suture. The abdomen was then re-examined. The liver bed was irrigated and suctioned dry. No bleeding or bile leak could be identified. CO2 was then evacuated and all trocars removed. Fascia was closed at the epigastric incision using a [id number] 0 Polysorb suture. Skin was closed in all incisions using a subcuticular 4 0 Polysorb suture by both the surgeon and orthodontist assistant. Sterile dressings consisting of Steri-Strips, 2 x 2 gauze, and Tegaderm were then applied. The patient tolerated the procedure well. Sponge instrument and needle counts reported as correct. The patient was transferred to PACU in stable condition.
[2023-07-02] MEDS: Insulin Lispro 100 UNIT/ML 3 ML VIAL SUBCUT ×2 (17:12→21:10)
[2023-07-02] MEDS: Omeprazole 20 MG CAPSULE.DR PO (17:12)
--- NOTE | 2023-07-02 20:01 | PM.EVENT ---
Event Note Date of Service: 07/02/23 Event Note: +HIDA for cholecystitis, surgery: Markedly distended, inflamed and gangrenous gallbladder with surrounding phlegmon. Gallbladder is intrahepatic with purulent bile. Multiple small gallstones noted within the gallbladder. Presentation now c/w sepsis and to continue Ceftriaxone + Metronidazol Time Spent With Patient Time: Total time managing care of this patient today ____ minutes.
[2023-07-02 20:33] LABS: Glucose, Whole Blood 270 mg/dL (60-115)
[2023-07-02] MEDS: traZODone HCL 50 MG TABLET PO (21:10)
[2023-07-02] MEDS: Metoprolol Tartrate 25 MG TABLET PO (21:10)
[2023-07-02] MEDS: metroNIDAZOLE/NS 500 MG/100 ML PIGGYBACK 100 MG IV (21:12)
[2023-07-03] MEDS: metroNIDAZOLE/NS 500 MG/100 ML PIGGYBACK 100 MG IV ×3 (03:17→18:28)
[2023-07-03 03:33] VITALS: BP 132/77; PULSE 89; RESP 18; TEMP 36.1; O2SAT 93
[2023-07-03] MEDS: Omeprazole 20 MG CAPSULE.DR PO ×2 (05:37→16:48)
--- NOTE | 2023-07-03 06:26 | PC.NURSE ---
drain emptied at 05:30. 35mLs of dark red fluid
[2023-07-03 07:14] VITALS: BP 137/79; PULSE 97; RESP 20; TEMP 36.1; O2SAT 95
[2023-07-03 07:21] LABS: Glucose, Whole Blood 193 mg/dL (60-115)
[2023-07-03] MEDS: Insulin Lispro 100 UNIT/ML 3 ML VIAL SUBCUT ×4 (07:40→20:29)
[2023-07-03] MEDS: Pyridoxine HCl (Vitamin B6) 50 MG TABLET 100 MG PO (07:50)
[2023-07-03] MEDS: lisinopriL 10 MG TABLET PO (07:51)
[2023-07-03] MEDS: Metoprolol Tartrate 25 MG TABLET PO ×2 (07:51→20:27)
[2023-07-03] MEDS: allopurinoL 100 MG TABLET PO (07:51)
[2023-07-03] MEDS: DULoxetine HCl 60 MG CAPSULE.DR PO (07:51)
[2023-07-03] MEDS: Atorvastatin Calcium 10 MG TABLET PO (07:51)
[2023-07-03] MEDS: Lactated Ringers 1,000 ML 100 ML IVCONT (08:53)
[2023-07-03 10:33] LABS: Hematocrit 32.4 % (42.0-52.0); Hemoglobin 11.3 g/dl (14.0-18.0); Mean Corpuscular HGB Conc 34.9 g/dl (31.0-36.0); Mean Corpuscular Hemoglobin 33.8 pg (27.0-33.0); Mean Platelet Volume 10.1 fL (9.4-12.4); Platelet Count 241 X10*3/uL (160-400); Red Blood Count 3.34 X10*6/uL (4.60-5.80); Red Cell Distribution Width 13.1 % (11.0-16.0); White Blood Count 27.8 X10*3/uL (4.8-10.8)
[2023-07-03 10:50] LABS: Anion Gap 11 (12-20); Blood Urea Nitrogen 22 mg/dL (9-16); Carbon Dioxide 25 mmol/L (22-29); Chloride 104 mmol/L (96-108); Creatinine Clr Calc Pharmacy 60.6; Estimated Glomerular Filt Rate 56; Glucose Random 184 mg/dL (60-115); Potassium 4.4 mmol/L (3.3-5.1); Sodium 136 mmol/L (135-145)
[2023-07-03 11:17] LABS: Glucose, Whole Blood 151 mg/dL (60-115)
[2023-07-03 11:38] VITALS: BP 120/78; PULSE 89; RESP 20; TEMP 36.9; O2SAT 94
--- NOTE | 2023-07-03 12:28 | PM.PNGS ---
Subjective Subjective Date of Service: 07/03/23 Interval history: Feels much better. Has some incisional pain. Refused liquids this morning, awaiting solid diet. Physical Exam Vital Signs: Vital Signs: Last Vital Signs Temp 98.5 F 07/03/23 11:38 Pulse 89 07/03/23 11:38 Resp 20 07/03/23 11:38 BP 120/78 07/03/23 11:38 Pulse Ox 94 07/03/23 11:38 O2 Del Method Room Air 07/03/23 11:38 O2 Flow Rate 2 07/03/23 07:14 BMI result Body Mass Index 35.9 Const: General: comfortable, no acute distress and alert Orientation/consciousness: patient oriented x3 Resp: Effort & Inspection: normal respiratory effort GI: Other: OVIDIO drain with scant old blood Inspection: No distended and Yes incision (dressings c/d/i) Palpation (GI): Soft to palpation and Tenderness to palpation present (GI) (mild incisional) Skin: General skin exam: no rashes or lesions noted and no jaundice Neuro: General: patient oriented x3 Objective Data Active Medications Acetaminophen (Acetaminophen 325 Mg Tablet) 650 mg PO Q6H PRN PRN Reason: Pain, Mild (Pain Scale 1-3) Last Admin: 07/01/23 03:51 Dose: 650 mg Documented By: KUNAL Allopurinol (Allopurinol 100 Mg Tablet) 100 mg PO DAILY [facility] Last Admin: 07/03/23 07:51 Dose: 100 mg Documented By: FRANCISCA Atorvastatin Calcium (Atorvastatin Calcium 10 Mg Tablet) 10 mg PO DAILY [facility] Last Admin: 07/03/23 07:51 Dose: 10 mg Documented By: FRANCISCA Dextrose (Dextrose 50 % 25 Gm/50 Ml Syringe) 25 gm IVPUSH Q15M PRN; Protocol PRN Reason: per Hypoglycemia Standing Ord. Duloxetine HCl (Duloxetine Hcl 60 Mg Harvey.) 60 mg PO DAILY [facility] Last Admin: 07/03/23 07:51 Dose: 60 mg Documented By: FRANCISCA Glucose (Glucose Gel 15 Gm Gel..Gram.) 15 gm PO Q15M PRN; Protocol PRN Reason: per Hypoglycemia Standing Ord. Ceftriaxone Sodium 1 gm/ (Sodium Chloride) 50 mls @ 100 mls/hr IV Q24H [facility] Last Infusion: 07/03/23 09:05 Dose: Infused Documented By: FRANCISCA Metronidazole (Flagyl) 500 mg in 100 mls @ 100 mls/hr IV Q8H [facility] Last Admin: 07/03/23 11:21 Dose: 100 mls/hr Documented By: FRANCISCA Lactated Ringer's (Lr) 1,000 mls @ 100 mls/hr IVCONT .Q10H [facility] Last Admin: 07/03/23 08:53 Dose: 100 mls/hr Documented By: FRANCISCA Insulin Human Lispro (Insulin Lispro 100 Unit/Ml 3 Ml Vial) 0 unit SUBCUT QIDACHS [facility]; Protocol Last Admin: 07/03/23 11:21 Dose: 2 unit Documented By: FRANCISCA Lisinopril (Lisinopril 10 Mg Tablet) 10 mg PO DAILY [facility]; Protocol Last Admin: 07/03/23 07:51 Dose: 10 mg Documented By: FRANCISCA Melatonin (Melatonin 3 Mg Tablet) 6 mg PO BEDTIME PRN PRN Reason: Insomnia Metoprolol Tartrate (Metoprolol Tartrate 25 Mg Tablet) 25 mg PO BID [facility]; Protocol Last Admin: 07/03/23 07:51 Dose: 25 mg Documented By: FRANCISCA Morphine Sulfate (Morphine Sulfate 2 Mg/Ml Cartridge) 2 mg IVPUSH Q4H PRN; Protocol PRN Reason: Pain, Severe (Pain Scale 7-10) Last Admin: 07/02/23 04:28 Dose: 2 mg Documented By: MARIAM Non-Formulary Medication (Semaglutide [Ozempic]) 0.5 mg SUBCUT QWEEK [facility] Omeprazole (Omeprazole 20 Mg Capsule.Dr) 20 mg PO BID@0630,1630 [facility] Last Admin: 07/03/23 05:37 Dose: 20 mg Documented By: SUSSY Ondansetron HCl (Ondansetron Hcl 4 Mg/2 Ml Vial) 4 mg IVPUSH Q8H PRN PRN Reason: Nausea and Vomiting Pyridoxine HCl (Pyridoxine Hcl (Vitamin B6) 50 Mg Tablet) 100 mg PO DAILY [facility] Last Admin: 07/03/23 07:50 Dose: 100 mg Documented By: FRANCISCA Sodium Chloride (0.9 % Sodium Chloride Flush 3 Ml Syringe) 3 ml IVFLUSH QSHIFT [facility] Last Admin: 07/03/23 07:48 Dose: 3 ml Documented By: FRANCISCA Trazodone HCl (Trazodone Hcl 50 Mg Tablet) 50 mg PO BEDTIME [facility] Last Admin: 07/02/23 21:10 Dose: 50 mg Documented By: SUSSY Labs 07/03/23 09:56 07/03/23 09:56 Labs: Laboratory Results - last 24 hr 07/02/23 07/02/23 07/02/23 12:30 16:05 20:28 MCV MCH MCHC RDW Plt Count MPV Absolute Nucleated RBC Nucleated RBC % (auto) Anion Gap Estim Creat Clear Calc Estimated GFR POC Glucose 200 H 213 H 270 H Random Glucose Calcium 07/03/23 07/03/23 07/03/23 07:17 09:56 11:14 MCV 97.0 MCH 33.8 H MCHC 34.9 RDW 13.1 Plt Count 241 MPV 10.1 Absolute Nucleated RBC 0.000 Nucleated RBC % (auto) 0.0 Anion Gap 11 L Estim Creat Clear Calc 60.6 Estimated GFR 56 POC Glucose 193 H 151 H Random Glucose 184 H Calcium 9.0 Microbiology Microbiology Results: Microbiology 07/01/23 08:47 Blood Culture - Preliminary Blood - Venous No growth after 48 hours. 07/01/23 08:47 Blood Culture - Preliminary Blood - Venous No growth after 48 hours. Procedures Date of Service Date of Service: 07/03/23 Progress Note: A&P Assessment and plan (1) Cholelithiasis: Status: Acute (2) SIRS (systemic inflammatory response syndrome): Status: Acute (3) S/P laparoscopic cholecystectomy: Status: Acute Plan POD #1 s/p lap juanjose for markedly distended, inflamed and gangrenous gallbladder with surrounding phlegmon. Cont abx for now. Home in the morning if tolerating solid diet. Will remove OVIDIO prior. Patient comfortable with plan. Time Spent With Patient Time: Total time managing care of this patient today ____ minutes. Quality Stroke Does the patient have a stroke diagnosis?: No VTE Prior VTE?: No VTE Risk Level:: Medical - moderate - high VTE Device Contraindication: Treatment Not Indicated VTE Drug Contraindication: N/A - Med Ordered
[2023-07-03 12:50] VITALS: O2SAT 95
--- NOTE | 2023-07-03 14:53 | HO.POSTANES ---
Post Anesthesia Evaluation Post Anesthesia Evaluation Date of Service: 07/03/23 Vital Signs: Vital Signs Temp Pulse Resp BP Pulse Ox O2 Del Method O2 Flow Rate 07/03/23 12:50 95 Room Air 07/03/23 11:38 98.5 F 89 20 120/78 94 Room Air 07/03/23 07:14 97.0 F 97 20 137/79 95 Nasal Cannula 2 07/03/23 03:33 97.0 F 89 18 132/77 93 Nasal Cannula 2 Anesthesia: General Endotracheal-GETA Mental Status: Awake Pain Control: Satisfactory Nausea/Vomiting: None Hydration: Adequate Anesthesia-Related Issues: No Anes. Related Issues
[2023-07-03 16:00] VITALS: BP 128/71; PULSE 83; RESP 16; TEMP 36.9; O2SAT 94
[2023-07-03 16:42] LABS: Glucose, Whole Blood 221 mg/dL (60-115)
--- NOTE | 2023-07-03 17:17 | P.PNIM_ITS ---
Subjective Subjective Date of Service: 07/03/23 Interval History: abdominal pain Review of Systems abd pain improving no fever or chills Physical Exam 2 Vital Signs: Vital Signs: Last Vital Signs Temp 98.4 F 07/03/23 16:00 Pulse 83 07/03/23 16:00 Resp 16 07/03/23 16:00 BP 128/71 07/03/23 16:00 Pulse Ox 94 07/03/23 16:00 O2 Del Method Room Air 07/03/23 16:00 O2 Flow Rate 2 07/03/23 07:14 BMI result Body Mass Index 35.9 General: AO X 3, no acute distress Resp: CTA bilateral CVS: S1,S2,RRR GI: +BS, nd ,incision area -no erythema or discharge. Skin: No rash Neuro: motor grossly intact Psych: appropriate affect Objective Data Active Medications Acetaminophen (Acetaminophen 325 Mg Tablet) 650 mg PO Q6H PRN PRN Reason: Pain, Mild (Pain Scale 1-3) Last Admin: 07/01/23 03:51 Dose: 650 mg Documented By: KUNAL Allopurinol (Allopurinol 100 Mg Tablet) 100 mg PO DAILY [facility] Last Admin: 07/03/23 07:51 Dose: 100 mg Documented By: FRANCISCA Atorvastatin Calcium (Atorvastatin Calcium 10 Mg Tablet) 10 mg PO DAILY [facility] Last Admin: 07/03/23 07:51 Dose: 10 mg Documented By: FRANCISCA Dextrose (Dextrose 50 % 25 Gm/50 Ml Syringe) 25 gm IVPUSH Q15M PRN; Protocol PRN Reason: per Hypoglycemia Standing Ord. Duloxetine HCl (Duloxetine Hcl 60 Mg Harvey.) 60 mg PO DAILY [facility] Last Admin: 07/03/23 07:51 Dose: 60 mg Documented By: FRANCISCA Glucose (Glucose Gel 15 Gm Gel..Gram.) 15 gm PO Q15M PRN; Protocol PRN Reason: per Hypoglycemia Standing Ord. Ceftriaxone Sodium 1 gm/ (Sodium Chloride) 50 mls @ 100 mls/hr IV Q24H [facility] Last Infusion: 07/03/23 09:05 Dose: Infused Documented By: FRANCISCA Metronidazole (Flagyl) 500 mg in 100 mls @ 100 mls/hr IV Q8H [facility] Last Infusion: 07/03/23 12:31 Dose: Infused Documented By: FRANCISCA Lactated Ringer's (Lr) 1,000 mls @ 100 mls/hr IVCONT .Q10H [facility] Last Admin: 07/03/23 08:53 Dose: 100 mls/hr Documented By: FRANCISCA Insulin Human Lispro (Insulin Lispro 100 Unit/Ml 3 Ml Vial) 0 unit SUBCUT QIDACHS [facility]; Protocol Last Admin: 07/03/23 16:47 Dose: 4 unit Documented By: FRANCISCA Lisinopril (Lisinopril 10 Mg Tablet) 10 mg PO DAILY [facility]; Protocol Last Admin: 07/03/23 07:51 Dose: 10 mg Documented By: FRANCISCA Melatonin (Melatonin 3 Mg Tablet) 6 mg PO BEDTIME PRN PRN Reason: Insomnia Metoprolol Tartrate (Metoprolol Tartrate 25 Mg Tablet) 25 mg PO BID [facility]; Protocol Last Admin: 07/03/23 07:51 Dose: 25 mg Documented By: FRANCISCA Morphine Sulfate (Morphine Sulfate 2 Mg/Ml Cartridge) 2 mg IVPUSH Q4H PRN; Protocol PRN Reason: Pain, Severe (Pain Scale 7-10) Last Admin: 07/02/23 04:28 Dose: 2 mg Documented By: MARIAM Non-Formulary Medication (Semaglutide [Ozempic]) 0.5 mg SUBCUT QWEEK [facility] Omeprazole (Omeprazole 20 Mg Capsule.Dr) 20 mg PO BID@0630,1630 [facility] Last Admin: 07/03/23 16:48 Dose: 20 mg Documented By: FRANCISCA Ondansetron HCl (Ondansetron Hcl 4 Mg/2 Ml Vial) 4 mg IVPUSH Q8H PRN PRN Reason: Nausea and Vomiting Pyridoxine HCl (Pyridoxine Hcl (Vitamin B6) 50 Mg Tablet) 100 mg PO DAILY [facility] Last Admin: 07/03/23 07:50 Dose: 100 mg Documented By: FRANCISCA Sodium Chloride (0.9 % Sodium Chloride Flush 3 Ml Syringe) 3 ml IVFLUSH QSHIFT [facility] Last Admin: 07/03/23 16:52 Dose: 3 ml Documented By: FRANCISCA Trazodone HCl (Trazodone Hcl 50 Mg Tablet) 50 mg PO BEDTIME [facility] Last Admin: 07/02/23 21:10 Dose: 50 mg Documented By: SUSSY Labs 07/03/23 09:56 07/03/23 09:56 Labs: Laboratory Results - last 24 hr 07/02/23 07/03/23 07/03/23 20:28 07:17 09:56 MCV 97.0 MCH 33.8 H MCHC 34.9 RDW 13.1 Plt Count 241 MPV 10.1 Absolute Nucleated RBC 0.000 Nucleated RBC % (auto) 0.0 Anion Gap 11 L Estim Creat Clear Calc 60.6 Estimated GFR 56 POC Glucose 270 H 193 H Random Glucose 184 H Calcium 9.0 07/03/23 07/03/23 11:14 16:38 MCV MCH MCHC RDW Plt Count MPV Absolute Nucleated RBC Nucleated RBC % (auto) Anion Gap Estim Creat Clear Calc Estimated GFR POC Glucose 151 H 221 H Random Glucose Calcium Microbiology Microbiology Results: Microbiology 07/01/23 08:47 Blood Culture - Preliminary Blood - Venous No growth after 48 hours. 07/01/23 08:47 Blood Culture - Preliminary Blood - Venous No growth after 48 hours. Assessment and Plan (1) Cholelithiasis: Status: Acute Plan 77-year-old male with pertinent history of [id number]-vrfmyoowr diabetes mellitus, mood disorder, mixed hyperlipidemia, essential hypertension, paroxysmal atrial fibrillation on anticoagulation, gout who presents to the emergency department for evaluation of abdominal discomfort and found to have SIRS Abdominal pain, epigastric.sirs (inc WBC, tachy and fever), imaging of gallbladder inconclusive, WBC high today and remains tender, +HIDA for cholecystitis, -blood culture -empiric ceftriaxone, add Flagyl -HIDA scan pending to rule out acute cholecystisis-patient s/p lap juanjose day1. dm diet , hold eliquis in case of surgery Permanaent AFIB with RVR given IV and p.o. diltiazem in the ER. Not on rate control agents at home,now on po metoprolol, will checkwith surgeryif ok to start eliquis. Type 2 DM, non insulin dependent, SSI fs with coverage, continue SSI, hold metformin, glipizide and ozempic Mood desorder Continue home meds HLD: Lipitor HTN: Lisinopril Gout: allopurinol ongoing hospitlisation need:acute cholecystsitis-need iv antibiotics and blood cultures pending, afib-need telemonitering and medication adjustment. Quality Stroke Does the patient have a stroke diagnosis?: No VTE Prior VTE?: No VTE Risk Level:: Medical - moderate - high VTE Device Contraindication: Treatment Not Indicated VTE Drug Contraindication: N/A - Med Ordered
[2023-07-03 19:20] VITALS: BP 129/74; PULSE 94; RESP 20; TEMP 36.9; O2SAT 94
[2023-07-03 20:01] LABS: Glucose, Whole Blood 199 mg/dL (60-115)
[2023-07-03] MEDS: traZODone HCL 50 MG TABLET PO (20:27)
[2023-07-04] VITALS: BP 138/74; PULSE 92; RESP 18; TEMP 37.1; O2SAT 94
[2023-07-04 03:22] VITALS: BP 105/63; PULSE 94; RESP 18; TEMP 37.1; O2SAT 92
[2023-07-04] MEDS: metroNIDAZOLE/NS 500 MG/100 ML PIGGYBACK 100 MG IV ×2 (03:25→11:16)
--- NOTE | 2023-07-04 04:11 | PC.NURSE ---
Patient placed back on supplemental O2 due to O2 sat of 87% on RA. Pt currently on 1L NC. notified. Current O2 sat 95%.
[2023-07-04] MEDS: Omeprazole 20 MG CAPSULE.DR PO (05:56)
[2023-07-04 07:14] VITALS: BP 141/76; PULSE 73; RESP 14; TEMP 36.8; O2SAT 98
[2023-07-04 07:21] LABS: Glucose, Whole Blood 165 mg/dL (60-115)
[2023-07-04] MEDS: lisinopriL 10 MG TABLET PO (08:10)
[2023-07-04] MEDS: Metoprolol Tartrate 25 MG TABLET PO (08:10)
[2023-07-04] MEDS: DULoxetine HCl 60 MG CAPSULE.DR PO (08:10)
[2023-07-04] MEDS: Insulin Lispro 100 UNIT/ML 3 ML VIAL SUBCUT ×2 (08:10→11:27)
[2023-07-04] MEDS: Atorvastatin Calcium 10 MG TABLET PO (08:10)
[2023-07-04] MEDS: Pyridoxine HCl (Vitamin B6) 50 MG TABLET 100 MG PO (08:10)
[2023-07-04] MEDS: allopurinoL 100 MG TABLET PO (08:11)
--- NOTE | 2023-07-04 09:30 | P.PNGS_ITS ---
Subjective Subjective Date of Service: 07/04/23 <Esperanza Bush PA-C - Last Filed: 07/04/23 09:33> 07/04/23 <Simon Matias MD - Last Filed: 07/04/23 14:23> Interval history: Feels well. Tolerating solid diet. Pain is minimal. OOB yesterday. Wants to go home. <Esperanza Bush PA-C - Last Filed: 07/04/23 09:33> Physical Exam 2 Vital Signs: Vital Signs: Last Vital Signs Temp 98.2 F 07/04/23 07:14 Pulse 73 07/04/23 07:14 Resp 14 07/04/23 07:14 BP 141/76 H 07/04/23 07:14 Pulse Ox 98 07/04/23 07:14 O2 Del Method Room Air 07/04/23 07:14 O2 Flow Rate 2 07/03/23 07:14 BMI result Body Mass Index 35.9 <Esperanza Bush PA-C - Last Filed: 07/04/23 09:33> Const: General: comfortable, no acute distress and alert <Esperanza Bush PA-C - Last Filed: 07/04/23 09:33> Orientation/consciousness: patient oriented x3 <ITZ Villegas Last Filed: 07/04/23 09:33> Resp: Effort & Inspection: normal respiratory effort <Esperanza Bush PA-C - Last Filed: 07/04/23 09:33> GI: Other: OVIDIO drain with scanty old bloody drainage <Esperanza Bush PA-C - Last Filed: 07/04/23 09:33> Inspection: No distended and Yes incision (clean ) <ITZ Villegsa Last Filed: 07/04/23 09:33> Palpation (GI): Soft to palpation, Tenderness to palpation present (GI) (very minimal incisional), no guarding and not rigid <ITZ Villegas Last Filed: 07/04/23 09:33> Skin: General skin exam: no rashes or lesions noted and no jaundice < ITZ Villegas Last Filed: 07/04/23 09:33> Neuro: General: patient oriented x3 and moves all extremities <Esperanza Bush PA-C - Last Filed: 07/04/23 09:33> Objective Data Active Medications Acetaminophen (Acetaminophen 325 Mg Tablet) 650 mg PO Q6H PRN PRN Reason: Pain, Mild (Pain Scale 1-3) Last Admin: 07/01/23 03:51 Dose: 650 mg Documented By: KUNAL Allopurinol (Allopurinol 100 Mg Tablet) 100 mg PO DAILY [facility] Last Admin: 07/04/23 08:11 Dose: 100 mg Documented By: FRANCISCA Atorvastatin Calcium (Atorvastatin Calcium 10 Mg Tablet) 10 mg PO DAILY [facility] Last Admin: 07/04/23 08:10 Dose: 10 mg Documented By: FRANCISCA Dextrose (Dextrose 50 % 25 Gm/50 Ml Syringe) 25 gm IVPUSH Q15M PRN; Protocol PRN Reason: per Hypoglycemia Standing Ord. Duloxetine HCl (Duloxetine Hcl 60 Mg Capsule.Dr) 60 mg PO DAILY [facility] Last Admin: 07/04/23 08:10 Dose: 60 mg Documented By: FRANCISCA Glucose (Glucose Gel 15 Gm Gel..Gram.) 15 gm PO Q15M PRN; Protocol PRN Reason: per Hypoglycemia Standing Ord. Ceftriaxone Sodium 1 gm/ (Sodium Chloride) 50 mls @ 100 mls/hr IV Q24H [facility] Last Admin: 07/04/23 08:11 Dose: 100 mls/hr Documented By: FRANCISCA Metronidazole (Flagyl) 500 mg in 100 mls @ 100 mls/hr IV Q8H [facility] Last Infusion: 07/04/23 04:26 Dose: Infused Documented By: FOSTEKR Insulin Human Lispro (Insulin Lispro 100 Unit/Ml 3 Ml Vial) 0 unit SUBCUT QIDACHS [facility]; Protocol Last Admin: 07/04/23 08:10 Dose: 2 unit Documented By: FRANCISCA Lisinopril (Lisinopril 10 Mg Tablet) 10 mg PO DAILY [facility]; Protocol Last Admin: 07/04/23 08:10 Dose: 10 mg Documented By: FRANCISCA Melatonin (Melatonin 3 Mg Tablet) 6 mg PO BEDTIME PRN PRN Reason: Insomnia Metoprolol Tartrate (Metoprolol Tartrate 25 Mg Tablet) 25 mg PO BID [facility]; Protocol Last Admin: 07/04/23 08:10 Dose: 25 mg Documented By: FRANCISCA Morphine Sulfate (Morphine Sulfate 2 Mg/Ml Cartridge) 2 mg IVPUSH Q4H PRN; Protocol PRN Reason: Pain, Severe (Pain Scale 7-10) Last Admin: 07/02/23 04:28 Dose: 2 mg Documented By: MARIAM Non-Formulary Medication (Semaglutide [Ozempic]) 0.5 mg SUBCUT QWEEK [facility] Omeprazole (Omeprazole 20 Mg Capsule.Dr) 20 mg PO BID@0630,1630 [facility] Last Admin: 07/04/23 05:56 Dose: 20 mg Documented By: MAIDA Ondansetron HCl (Ondansetron Hcl 4 Mg/2 Ml Vial) 4 mg IVPUSH Q8H PRN PRN Reason: Nausea and Vomiting Pyridoxine HCl (Pyridoxine Hcl (Vitamin B6) 50 Mg Tablet) 100 mg PO DAILY [facility] Last Admin: 07/04/23 08:10 Dose: 100 mg Documented By: FRANCISCA Sodium Chloride (0.9 % Sodium Chloride Flush 3 Ml Syringe) 3 ml IVFLUSH QSHIFT [facility] Last Admin: 07/04/23 08:10 Dose: 3 ml Documented By: FRANCISCA Trazodone HCl (Trazodone Hcl 50 Mg Tablet) 50 mg PO BEDTIME [facility] Last Admin: 07/03/23 20:27 Dose: 50 mg Documented By: NICHOL <Esperanza Bush PA-C - Last Filed: 07/04/23 09:33> Labs CBC & Chem 7: 07/04/23 10:37 07/03/23 09:56 <Esperanza Bush PA-C - Last Filed: 07/04/23 09:33> Labs: Laboratory Results - last 24 hr 07/03/23 07/03/23 07/03/23 09:56 11:14 16:38 MCV 97.0 MCH 33.8 H MCHC 34.9 RDW 13.1 Plt Count 241 MPV 10.1 Absolute Nucleated RBC 0.000 Nucleated RBC % (auto) 0.0 Anion Gap 11 L Estim Creat Clear Calc 60.6 Estimated GFR 56 POC Glucose 151 H 221 H Random Glucose 184 H Calcium 9.0 07/03/23 07/04/23 19:54 07:18 MCV MCH MCHC RDW Plt Count MPV Absolute Nucleated RBC Nucleated RBC % (auto) Anion Gap Estim Creat Clear Calc Estimated GFR POC Glucose 199 H 165 H Random Glucose Calcium <Esperanza Bush PA-C - Last Filed: 07/04/23 09:33> Microbiology Microbiology Results: Microbiology 07/01/23 08:47 Blood Culture - Preliminary Blood - Venous No growth after 48 hours. 07/01/23 08:47 Blood Culture - Preliminary Blood - Venous No growth after 48 hours. <Esperanza Bush PA-C - Last Filed: 07/04/23 09:33> Procedures Date of Service Date of Service: 07/04/23 <Esperanza Bush PA-C - Last Filed: 07/04/23 09:33> 07/04/23 <Simon Matias MD - Last Filed: 07/04/23 14:23> Progress Note: A&P Assessment and plan (1) S/P laparoscopic cholecystectomy: Status: Acute <Esperanza Bush PA-C - Last Filed: 07/04/23 09:33> Assessment and Plan: POD #2 s/p lap juanjose for markedly distended, inflamed and gangrenous gallbladder with surrounding phlegmon. Doing well post op. Pain minimal, tolerating diet. OVIDIO drainage nonbilious and removed. Incisions clean. Feels ready for discharge to home. F/u in office in [address] Matias. Will dc on PO course of Augmentin and bowel regimen. <Esperanza Bush PA-C - Last Filed: 07/04/23 09:33> POD #2 s/p lap juanjose for markedly distended, inflamed and gangrenous gallbladder with surrounding phlegmon. Doing well post op. Pain minimal, tolerating diet. OVIDIO drainage nonbilious and removed. Incisions clean. Feels ready for discharge to home. F/u in office in [address] Matias. Will dc on PO course of Augmentin and bowel regimen. Patient seen and examined. Agree with the above assessment and plan. Patient is much improved and ready for discharge to home. <Simon Matias MD - Last Filed: 07/04/23 14:23> Time Spent With Patient Time: Total time managing care of this patient today ____ minutes. <Esperanza Bush PA-C - Last Filed: 07/04/23 09:33> Quality Stroke Does the patient have a stroke diagnosis?: No <Esperanza Bush PA-C - Last Filed: 07/04/23 09:33> VTE Prior VTE?: No <Esperanza Bush PA-C - Last Filed: 07/04/23 09:33> VTE Risk Level:: Medical - moderate - high <Esperanza Bush PA-C - Last Filed: 07/04/23 09:33> VTE Device Contraindication: Treatment Not Indicated <Esperanza Bush PA-C - Last Filed: 07/04/23 09:33> VTE Drug Contraindication: N/A - Med Ordered <Esperanza Bush PA-C - Last Filed: 07/04/23 09:33>
[2023-07-04 10:43] LABS: Hematocrit 33.7 % (42.0-52.0); Hemoglobin 11.6 g/dl (14.0-18.0); Mean Corpuscular HGB Conc 34.4 g/dl (31.0-36.0); Mean Corpuscular Hemoglobin 33.2 pg (27.0-33.0); Mean Corpuscular Volume 96.6 fL (80.0-98.0); Mean Platelet Volume 9.7 fL (9.4-12.4); Platelet Count 276 X10*3/uL (160-400); Red Blood Count 3.49 X10*6/uL (4.60-5.80); Red Cell Distribution Width 13.3 % (11.0-16.0); White Blood Count 15.1 X10*3/uL (4.8-10.8)
[2023-07-04 11:20] VITALS: BP 129/72; PULSE 72; RESP 14; TEMP 36.4; O2SAT 96
[2023-07-04 11:26] LABS: Glucose, Whole Blood 214 mg/dL (60-115)
[2023-07-04 12:03] VITALS: O2SAT 95
--- NOTE | 2023-07-04 13:17 | MHC.CM.PN ---
Second IMM 07/04/23, Pt has been medically cleared for DC. He will arrange family to pick him up, no home health services recommended.
--- NOTE | 2023-07-04 14:04 | P.DS_ITS ---
DS: Providers Provider Date of Service: 07/04/23 Date of admission: 07/01/23 08:46 Date of discharge: 07/04/23 Primary care physician: Simon Romeo MD Consults: 07/01/23 03:35 Consult to Cardiology Routine Consulting Provider: [facility] Reason for consultation: Atrial flutter with rvr 07/01/23 07:59 Consult to General Surgery Routine Consulting Provider: [facility] Sur[facility] Reason for consultation: abdominal pain ? gall bladder disease Has provider been notified: No 07/04/23 09:59 Consult to Infectious Diseases Routine Consulting Provider: [facility] Reason for consultation: Cholecystitis Has provider been notified: No DS: Diagnosis Discharge Diagnosis (1) S/P laparoscopic cholecystectomy: Status: Acute DS: Summary Hospital Course Hospital Course: 77-year-old male with pertinent history of tlx-[id number]-rhzaetzgd diabetes mellitus, mood disorder, mixed hyperlipidemia, essential hypertension, paroxysmal atrial fibrillation on anticoagulation, gout who presents to the emergency department for evaluation of abdominal discomfort. Patient states it started in the upper epigastric region on the day of presentation, intermittent, nonradiating, nonprogressive and without any relieving factors. Also has associated intermittent burping. Patient denies fever, chills, cough, chest discomfort, palpitations, changes in urinary or bowel habits. States he has a history of kidney stones. In the emergency department, patient was found to be in a flutter with RVR. Hospital course: Patient came to the hospital for abdominal decreased discomfort and found to have sirs: Subsequently patient further workup including blood culture and HIDA scan was done: Patient found to have acute cholecystitis( on lap juanjose -markedly distended, inflamed and gangrenous gallbladder with surrounding phlegmon) patient is status post laparoscopic cholecystectomy, OVIDIO drain was placed, blood culture negative, leukocytosis trending significantly down, patient tolerating diet and no fever. OVIDIO drain removed today. Followed by surgery: Recommended patient to go home with p.o. antibiotics(Augmentin 875 p.o. b.i.d. for 5 days.). Patient is to follow-up with surgery out patiently. plan: complete Augmentin 875 p.o. b.i.d. for 5 days.(end date 07/09/23). Patient is to follow-up with surgery out patiently. Above management discussed with patient detail length, patient understand and in agreement in above plan, patient currently does not want VNA. Time spent 50 minute. Time Attestation Discharge coordination time: Greater than 30 minutes Quality: Safe Use of Opioids Does Pt have an Active Cancer Diagnosis on the Problem List?: No Quality: Stroke Does the patient have a stroke diagnosis?: No Physical Exam Vital Signs: Vital Signs: Last Vital Signs Temp 97.6 F 07/04/23 11:20 Pulse 72 07/04/23 11:20 Resp 14 07/04/23 11:20 BP 129/72 07/04/23 11:20 Pulse Ox 95 07/04/23 12:03 O2 Del Method Room Air 07/04/23 12:03 O2 Flow Rate 2 07/03/23 07:14 BMI result Body Mass Index 35.9 General: AO X 3, no acute distress Resp: CTA bilateral CVS: S1,S2,RRR GI: +BS, nd ,incision area -no erythema or discharge. Skin: No rash Neuro: motor grossly intact Psych: appropriate affect DS: Data Data Completed and Pending Completed studies during hospitalization [Text1]: Pending at discharge 07/02/23 15:10 Surgical [PTH] Routine Procedures Dilation of Left Ureter with Intraluminal Device, Via Natural or Artificial Opening Endoscopic (02/14/21) Dilation of Right Ureter with Intraluminal Device, Via Natural or Artificial Opening Endoscopic (12/22/21) Extirpation of Matter from Left Ureter, Via Natural or Artificial Opening Endoscopic (02/14/21) Fluoroscopy of Left Kidney, Ureter and Bladder (02/14/21) Fluoroscopy of Right Kidney, Ureter and Bladder (12/22/21) Introduction of Vasopressor into Peripheral Vein, Percutaneous Approach (12/22/21) Labs on day of discharge: Laboratory Results - last 24 hr 07/03/23 07/03/23 07/04/23 16:38 19:54 07:18 WBC RBC Hgb Hct MCV MCH MCHC RDW Plt Count MPV Absolute Nucleated RBC Nucleated RBC % (auto) POC Glucose 221 H 199 H 165 H 07/04/23 07/04/23 10:37 11:22 WBC 15.1 H RBC 3.49 L Hgb 11.6 L Hct 33.7 L MCV 96.6 MCH 33.2 H MCHC 34.4 RDW 13.3 Plt Count 276 MPV 9.7 Absolute Nucleated RBC 0.000 Nucleated RBC % (auto) 0.0 POC Glucose 214 H Preliminary micro results at discharge 07/01/23 08:47 Blood Culture - Preliminary Blood - Venous No growth after 48 hours. 07/01/23 08:47 Blood Culture - Preliminary Blood - Venous No growth after 48 hours. Imaging Chest x-ray: Radiologist's impression: ITS Impressions Chest X-Ray 06/30/23 18:50 IMPRESSION: Left basilar atelectasis. Abdomen/Pelvis CT 06/30/23 21:40 IMPRESSION: Mildly distended gallbladder of uncertain significance. 1 mm nonobstructing right lower pole renal calculus. There is no hydronephrosis. Diverticula of the descending and the sigmoid colon without diverticulitis. Fleischner guidelines were followed. Abdomen Ultrasound 07/01/23 00:50 IMPRESSION: 1. Mild gallbladder distention and a moderate amount of faintly echogenic but grossly nonshadowing material within the gallbladder. The appearance is nonspecific, but could represent sludge and/or small calculi. 2. No intrahepatic biliary ductal dilatation. 3. The liver is of apparent mild increased parenchymal echotexture with some apparent focal fatty sparing near the gallbladder fossa. This is a nonspecific finding but may be seen in the setting of hepatic steatosis. Hepatobiliary Scan Nuclear Medicine 07/02/23 12:05 IMPRESSION: 1. The common bile duct is patent. 2. Liver function appears normal. 3. Nonvisualized gallbladder up to 2 hours post tracer injection. 4. Standard 4 hours delayed images could not be obtained since the patient apparently went to surgery immediately following completion of 2 hours post tracer injection images. Discharge Plan Discharge Anticipated Discharge Date/Time: 07/04/23 12:05 Patient Disposition: Home, Self-Care Discharge Diagnosis: acute cholecystitis s/p lap juanjose. Referrals: Simon Romeo MD [Primary Care Provider] - 1 Week Simon Matias MD [Physician] - 1 Week Discharge Medications: New amoxicillin-pot clavulanate 875-125 mg tablet 1 tab PO BID Qty: 10 0RF docusate sodium [Colace] 100 mg capsule 100 mg PO DAILY Qty: 30 0RF polyethylene glycol 3350 [Miralax] 17 gram/dose powder 17 g PO DAILY PRN (Reason: constipation) Qty: 119 0RF Continued metformin 850 mg tablet 1 tab PO BID Rx Instructions: WITH MEALS pantoprazole 40 mg tablet,delayed release (DR/EC) 1 tab PO BID simvastatin 20 mg tablet 1 tab PO BEDTIME glipizide 5 mg tablet 5 mg PO QAM Eliquis 5 mg Tablet 5 mg PO BID Qty: 60 0RF Ozempic 0.25 mg or 0.5 mg (2 mg/3 mL) pen injector 0.5 mg subcut QWEEK Rx Instructions: Q SUNDAY (DME) Accu-Chek Megan Plus test strp Strip See Rx Instructions Not Applicable TID Qty: 10 Rx Instructions: As directed (DME) lancets [Accu-Chek Softclix Lancets] Misc See Rx Instructions topical BID-TID Qty: 100 Rx Instructions: As directed lisinopril 10 mg tablet 10 mg PO DAILY duloxetine 60 mg capsule,delayed release(DR/EC) 60 mg PO DAILY trazodone 50 mg tablet 50 mg PO BEDTIME pyridoxine (vitamin B6) 100 mg tablet 100 mg PO DAILY 90 Days Qty: 90 3RF allopurinol 100 mg tablet 100 mg PO DAILY 90 Days Qty: 90 3RF Discharge Orders: Discharge Order (Routine); Ordered 07/04/23 Ordered By: Althea Herron Diet: Diabetic diet Activity on Discharge: No heavy lifting Stand Alone Forms: Patient Portal Discharge page Activity Restrictions/Additional Instructions: If the incision area is tender, you may apply an ice pack for short intervals (No more than 20 minutes on, followed by at least 20 minutes off). Do not apply heat. Do not use creams, lotions, or topical antibiotics. These can cause infection or allergic reaction. You have steri strips (small white cloth strips) covering your incision- these will fall off ~1 week. Can keep drain site covered with dry dressing until wound stops draining. No heavy lifting (>10lbs) or strenuous activity! Follow up in office with Dr. Matias in 1 week. ([phone]) Call Your Doctor If: -Your temperature exceeds 101.5? F -You experience excessive pain or swelling -You have an unexpected reaction to medication -You have excessive bleeding -You experience continued vomiting/nausea -Your incision begins to separate -Your incision shows signs of infection such as increased redness, swelling, excessive pain, drainage (light blood or clear fluid is normal) or heat Care Plan Goals: Patient came to the hospital for abdominal decreased discomfort and found to have sirs: Subsequently patient further workup including blood culture and HIDA scan was done: Patient found to have acute cholecystitis( on lap juanjose -markedly distended, inflamed and gangrenous gallbladder with surrounding phlegmon) patient is status post laparoscopic cholecystectomy, OVIDIO drain was placed, blood culture negative, leukocytosis trending significantly down, patient tolerating diet and no fever. OVIDIO drain removed today. Followed by surgery: Recommended patient to go home with p.o. antibiotics(Augmentin 875 p.o. b.i.d. for 5 days.). Patient is to follow-up with surgery out patiently. Health Concerns: As above. Plan of Treatment: As above. Assessment: As above.
--- NOTE | 2023-07-09 16:03 | P.CDIM_ITS ---
PROVIDER RESPONSE TEXT: To clarify, the appropriate diagnosis supported by the clinical indicators: Other (explain): sirs QUERY TEXT: PHYSICIAN'S DOCUMENTATION REQUEST Date of Query: 07/09/2023 02:06 PM EST Patient Name: Vishal Hair Admit Date: 07/01/2023 Dear Althea Herron, A review of the medical record indicates additional documentation may be needed. Please review below and update the documentation accordingly. Documentation on progress note dated 07/02/23 included the diagnosis of sepsis. The patient's infectious clinical indicators include: On admission: WBC 27.3 T 100.4 P 103 LA 2.7 Per Event Note 07/02/23: +HIDA for cholecystitis, surgery: Markedly distended, inflamed and gangrenous gallbladder with surrou nding phlegmon. Gallbladder is intrahepatic with purulent bile. Multiple small gallstones noted within the gallbladde r. Presentation now c/w sepsis and to continue Ceftriaxone + Metronidazole Sepsis is not listed on the Discharge Summary 07/04/23 Recognized standard criteria for this condition and other infectious definitions includes: Sepsis Systemic manifestations of infection, with 2 or more SIRS criteria which include: Fever > 100.4?F or hypothermia < 96.8?F Leukocytosis - WBC > 12,000 or leukopenia, WBC < 4,000, or > 10% bands Tachycardia- > 90 beats/minute Tachypnea- RR > 20 breaths/minute or PaCO2 < 32mmHg Source: [employer]ck Manual 2013 Documentation should include the known or suspected organism, and the underlying infection, such as U TI or pneumonia Based on the above information and the recognized standard for sepsis, could you please clarify if th is diagnoses is still accurate and reflective of the patient's condition to ensure quality of the medical record. Sepsis is/was present on admission and is a clinical diagnosis based on After study, Sepsis has been ruled out Other (explain) Clinically unable to determine (explain) Thank you, Marie Sanchez RN Use of terms such as suspected, likely, concern for, or probable (associated with a specific diagnosi s that is being evaluated, monitored, or treated as if it exists) are acceptable and can be coded in the inpatient se tting, when documented at the time of discharge. Please use your independent medical judgment in providing your response. THIS QUERY IS PART OF THE PERMANENT MEDICAL RECORD
== END 2023-07-04 15:09 | disposition home or self-care (01) | DRG 418 ==
LOC: HO.ED 07-01 02:32 → HO.EDOVER 07-01 02:41 → HO.IMC 07-02 08:05
PROVIDERS: Internal Medicine; Surgery; Admitting Provider Student in an Organized Health Care Education/Training Program; Emergency Provider Emergency Medicine; PCP Internal Medicine; Visit Provider Internal Medicine
PROC: 0FT44ZZ Resection of Gallbladder, Percutaneous Endoscopic Approach (ICD-10-PCS; CPT 47562; principal; 2023-07-02 13:40)
DX: K80.00 Calculus of gallbladder with acute cholecystitis without obstruction (principal); I48.21 Permanent atrial fibrillation; M10.9 Gout, unspecified; F39 Unspecified mood [affective] disorder; K82.A1 Gangrene of gallbladder in cholecystitis; E78.2 Mixed hyperlipidemia; I48.0 Paroxysmal atrial fibrillation; Z79.01 Long term (current) use of anticoagulants; Z79.84 Long term (current) use of oral hypoglycemic drugs; Z79.899 Other long term (current) drug therapy
CPT/HCPCS: 36415; 71046; 74176; 76705; 78226; 80048; 80053; 81003; 82947; 83605; 83690; 84443; 84484; 85025; 85027; 85379; 87040; 88304; 93005; 99024; 99222; 99285; A4649; A9537; C9113; J0665; J0696; J1100; J1170; J1836; J2250; J2270; J2371; J2405; J2704; J3010; J7120

== ENCOUNTER → 2023-06-30 17:21 | Outpatient (BNV) | payer MEDICARE, SELFPAY | PROVIDERS: Admitting Provider Student in an Organized Health Care Education/Training Program; Emergency Provider Emergency Medicine; PCP Internal Medicine; Visit Provider Internal Medicine Cardiovascular Disease | DX: I44.0 Atrioventricular block, first degree (principal); I48.91 Unspecified atrial fibrillation; R94.31 Abnormal electrocardiogram [ECG] [EKG] | CPT/HCPCS: 93010 ==

== ENCOUNTER → 2023-07-01 02:36 | Outpatient (BNV) | payer MEDICARE, SELFPAY | PROVIDERS: Admitting Provider Student in an Organized Health Care Education/Training Program; Emergency Provider Emergency Medicine; PCP Internal Medicine; Visit Provider Student in an Organized Health Care Education/Training Program | DX: R65.10 Systemic inflammatory response syndrome (SIRS) of non-infectious origin without acute organ dysfunction (principal); Z90.49 Acquired absence of other specified parts of digestive tract | CPT/HCPCS: 99222; 99232; 99233; 99239; 99499 ==

== ENCOUNTER → 2023-07-01 08:46 | Outpatient (BNV) | payer MEDICARE, SELFPAY | PROVIDERS: Admitting Provider Student in an Organized Health Care Education/Training Program; Emergency Provider Emergency Medicine; PCP Internal Medicine; Visit Provider Internal Medicine Cardiovascular Disease | DX: R65.10 Systemic inflammatory response syndrome (SIRS) of non-infectious origin without acute organ dysfunction (principal); I48.91 Unspecified atrial fibrillation | CPT/HCPCS: 93010; 99222 ==

== ENCOUNTER → 2023-07-01 08:46 | Outpatient (BNV) | payer MEDICARE, SELFPAY | PROVIDERS: Admitting Provider Student in an Organized Health Care Education/Training Program; Emergency Provider Emergency Medicine; PCP Internal Medicine; Visit Provider Surgery | DX: R65.10 Systemic inflammatory response syndrome (SIRS) of non-infectious origin without acute organ dysfunction (principal); R10.9 Unspecified abdominal pain; K80.00 Calculus of gallbladder with acute cholecystitis without obstruction | CPT/HCPCS: 47562; 99222; 99232 ==

== ENCOUNTER 2023-07-10 13:18 | Outpatient (AMB) | payer MEDICARE, SELFPAY ==
--- NOTE | 2023-07-10 13:19 | A.OFFVIS_ITS ---
Intake Vital Signs 07/10/23 13:26 Height 5 ft 8 in Weight 28 lb BMI 4.3 BP 139/62 Blood Pressure Location Lt brachial Position Sitting Pulse 92 Intake Visit Reasons: s/p lap juanjose Intake Note: Patient is seen in office for post op assessment post laparoscopic cholecystectomy. Pt c/o:denies any concerns at the time of visit, healing as expected surgery:07/02/[address] Required: No Accompanied by: Self / Same As Patient Allergies No Known Allergies Allergy (Verified 07/10/23 13:21) Medication List - Last Reconciled 07/10/23 by Simon Matias MD allopurinol 100 mg PO DAILY 90 days amoxicillin-pot clavulanate 875-125 mg 1 tab PO BID apixaban (Eliquis) 5 mg PO BID blood sugar diagnostic (Accu-Chek Megan Plus test strips) As directed docusate sodium (Colace) 100 mg PO DAILY duloxetine 60 mg PO DAILY glipizide 5 mg PO QAM lancets (Accu-Chek Softclix Lancets) As directed lisinopril 10 mg PO DAILY metformin 1 tab PO BID pantoprazole 1 tab PO BID polyethylene glycol 3350 (Miralax) 17 grams PO DAILY PRN pyridoxine (vitamin B6) 100 mg PO DAILY 90 days semaglutide (Ozempic) 0.5 mg subcut QWEEK simvastatin 1 tab PO BEDTIME trazodone 50 mg PO BEDTIME HPI HPI Comments History of Present Illness Details 77-year-old female patient returning 1 w torres martinez following laparoscopic cholecystectomy for acute cholecystitis. He reports feeling well and denies any fever or chills, but does report a short period of diarrhea initially after going home. This is improved currently. He is eating well without nausea or vomiting. [facility] Medical History Hx of gastroesophageal reflux (GERD) Hx of sleep apnea Atrial flutter by electrocardiography Elevated troponin Congestive cardiomyopathy Obstructive nephropathy Pulmonary edema Acute hyperkalemia SAYRA (acute kidney injury) Pancreatic neoplasm Acute pyelonephritis Calculus, renal Sepsis Complex renal cyst Nephrolithiasis Bacteremia, escherichia coli HLD (hyperlipidemia) HTN (hypertension), 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, managed as type 2 H/O renal calculi Surgical History Hx laparoscopic cholecystectomy (07/02/23) H/O cystoscopy Family History Father COPD (chronic obstructive pulmonary disease) Mother Heart disease Social History Household Members: Significant Other Housing: House Do you presently have visiting nurse or other home services: No Patient Tobacco Use Status: Never used Tobacco Advance Directives Date on File: 02/15/21 service: No Current occupational status: retired Physical Exam Vital Signs: Last Vital Signs Pulse 92 07/10/23 13:26 BP 139/62 07/10/23 13:26 BMI result Body Mass Index 4.3 Const General: no acute distress Nutritional Appearance: well nourished Orientation/consciousness: patient oriented x3 Resp Effort & Inspection: normal respiratory effort GI Other: Soft and nondistended with normal bowel sounds. Trocar incisions are clean, dry, and intact with intact Steri-Strips. No evidence of wound infection. Skin Other: Warm, dry, normal color, no rash Neuro General: patient oriented x3 Extrem Other: No pedal edema Assessment & Plan Assessment & Plan (1) S/P laparoscopic cholecystectomy: Code(s): Z90.49 - Acquired absence of other specified parts of digestive tract (2) Cholelithiasis: Code(s): K80.20 - Calculus of gallbladder without cholecystitis without obstruction Qualifiers: Cholelithiasis location: gallbladder Cholecystitis presence: with cholecystitis Cholecystitis acuity: acute Biliary obstruction: with biliary obstruction Qualified Code(s): K80.01 - Calculus of gallbladder with acute cholecystitis with obstruction Plan 77-year-old male patient status post laparoscopic cholecystectomy for acute cholecystitis. He tolerated the procedure well and is much improved today. He should continue to avoid lifting greater than 10 lb for the next week but may drive. He should avoid fatty/fried foods for the next month. He should return as needed. Coding Level of Care Code Global (58193) Diagnoses S/P laparoscopic cholecystectomy Z90.49 Calculus of gallbladder with acute cholecystitis and obstruction K80.01 Cholelithiasis location: gallbladder Cholecystitis presence: with cholecystitis Cholecystitis acuity: acute Biliary obstruction: with biliary obstruction
[2023-07-10 13:26] VITALS: BP 139/62; PULSE 92
== END 2023-07-10 13:47 | disposition home or self-care (01) ==
PROVIDERS: PCP Internal Medicine; Visit Provider Surgery
DX: Z90.49 Acquired absence of other specified parts of digestive tract (principal); K80.01 Calculus of gallbladder with acute cholecystitis with obstruction
CPT/HCPCS: 99024

== ENCOUNTER → 2023-07-10 13:18 | Outpatient (BNVA) | payer MEDICARE, SELFPAY | PROVIDERS: PCP Internal Medicine; Visit Provider Surgery | DX: Z09 Encounter for follow-up examination after completed treatment for conditions other than malignant neoplasm (principal); Z90.49 Acquired absence of other specified parts of digestive tract | CPT/HCPCS: 99212 ==

== ENCOUNTER 2024-01-17 13:34 | Outpatient (REF) | payer MEDICARE, SELFPAY ==
--- NOTE | ~2024-01-17 | CT_ITS ---
EXAMINATION: CT ABDOMEN WITHOUT IV CONTRAST CLINICAL INFORMATION: Ureteral calculus. COMPARISON: 06/30/2023 TECHNIQUE: Noncontrast volumetric helical CT acquisition of the abdomen. Axial images are presented at 0.6 mm and 5 mm slice thickness. Coronal and sagittal reformatted images were generated at the technologist workstation. This CT examination was performed using dose optimization techniques as appropriate, variously including the following: *Automated exposure control *Adjustment of mA and/or kV according to patient size (this includes techniques or standardized protocols for targeted exams where dose is matched to indication/reason for exam; i.e. extremities or head) *Use of iterative reconstruction technique DLP: 328 mGy-cm. FINDINGS: LUNG BASES: No acute abnormalities in the visualized lung bases. No consolidation or pleural effusion. LIVER, GALLBLADDER, AND BILIARY TREE: The liver has normal size, shape, and attenuation. No focal hepatic lesion. The gallbladder is surgically absent. PANCREAS: Chronic diffuse atrophy with partial fatty replacement of the pancreas. No evidence of pancreatic mass, edema or ductal dilatation. SPLEEN: Normal. ADRENAL GLANDS: Normal. KIDNEYS AND URETERS: Again noted is a punctate calyceal stone in the anterior lower pole of the right kidney (image 302, series 4). Also, there appear to be punctate calyceal stones in the right upper pole (image 210, series 4) and in the posterior right lower pole (image 282, series 4). At the left kidney, there appears to be a 0.3 cm stone of the lower pole, unchanged compared to 06/30/2023, and this is too small for acquisition of a reliable density measurement (image 320, series 4). The visualized proximal ureters are normal. The distal ureters are not included in the [id number] on this kidney/abdomen CT exam. BOWEL AND PERITONEUM: Stomach is well distended and has normal wall thickness. No dilated bowel loops. No abdominal free fluid or free air. There are diverticula of the visualized colon without diverticulitis. ABDOMINAL WALL: Unremarkable. LYMPH NODES: No pathologic sized lymph nodes. VASCULATURE: There is atherosclerotic calcification of the abdominal aorta without aneurysm. MUSCULOSKELETAL: No acute or suspicious osseous abnormality. The hypertrophic facet osteoarthritis is worst at L4-L5 and there is 0.3 cm of anterolisthesis of L4 on L5. CT/CT kidney stone IMPRESSION: * No acute imaging abnormalities in the abdomen compared to 06/30/2023. * A few very small renal calculi are noted. * There are no stones within the examined proximal ureters. No hydroureter or hydronephrosis. * Multiple diverticula of the partially visualized colon without diverticulitis.
== END 2024-01-17 13:35 | disposition home or self-care (01) ==
LOC: HO.CT 13:34
PROVIDERS: PCP Internal Medicine; Visit Provider Urology
DX: N20.1 Calculus of ureter (principal)
CPT/HCPCS: 74176

== ENCOUNTER 2024-01-21 16:12 | Outpatient (REF) | payer MEDICARE, SELFPAY ==
--- NOTE | ~2024-01-21 | XR_ITS ---
EXAMINATION: XR HIP, RIGHT CLINICAL INFORMATION: Right hip pain COMPARISON: CT scan the abdomen and pelvis July 2022 TECHNIQUE: Two views of the right hip. Single view the pelvis FINDINGS: Right hip Os acetabuli. No joint space narrowing. Surrounding bone and soft tissues normal. Pelvis: Right hip as above. Left hip os acetabuli. Joint spaces normal. Surrounding bone and soft tissues normal. Remaining bone and joints in the pelvis are normal. Spondylosis of the partially visualized lumbar sacral spine with degenerative disc changes at L3-L4 and L5-S1 XR/XR hip RT w PEL1V IMPRESSION: RIGHT HIP: Os acetabuli. No arthrosis. No acute abnormality PELVIS: Right hip as above. Left hip os acetabuli. No arthrosis no acute abnormality. Spondylosis of the partially visualized lumbar sacral spine
== END 2024-01-21 16:13 | disposition home or self-care (01) ==
LOC: HO.XRAY 16:12
PROVIDERS: PCP Internal Medicine; Visit Provider Internal Medicine
DX: M25.551 Pain in right hip (principal)
CPT/HCPCS: 73502

== ENCOUNTER 2024-04-14 07:55 | Outpatient (REF) | payer MEDICARE, SELFPAY ==
--- NOTE | ~2024-04-14 | US_ITS ---
EXAMINATION: US RETROPERITONEAL LIMITED (RENAL ONLY) CLINICAL INFORMATION: Calculus of ureter. COMPARISON: CT kidney 01/17/2024. Limited abdominal ultrasound 07/01/2023. Renal ultrasound 04/13/2023. MRI abdomen 12/27/2021. TECHNIQUE: Real-time imaging of the kidneys. FINDINGS: RIGHT KIDNEY: 10.5 x 5.1 x 4.4 cm (SAG x AP x TRV). The kidney is normal in size and echogenicity. Renal cortical thickness is normal. No focal parenchymal lesions or hydronephrosis. Echogenic focus likely nonobstructing stone 5 mm. LEFT KIDNEY: 11.1 x 4.4 x 4.4 cm (SAG x AP x TRV). The kidney is normal in size and echogenicity. Renal cortical thickness is normal. No renal calculi or hydronephrosis. Septated cyst lower pole 1.1 cm, these are commonly benign, no follow-up imaging is indicated. US/US renal BI IMPRESSION: 1. Echogenic focus in the right kidney likely nonobstructing stone 5 mm. 2. Septated cyst lower pole left kidney 1.1 cm, these are commonly benign, no follow-up imaging is indicated. Electronically signed by: Wilfredo Aviles MD 05/11/2024 08:05 PM TRACIE LEROY
== END 2024-04-14 07:56 | disposition home or self-care (01) ==
LOC: HO.US 07:55
PROVIDERS: PCP Internal Medicine; Visit Provider Urology
DX: N20.1 Calculus of ureter (principal)
CPT/HCPCS: 76775

== ENCOUNTER 2024-04-22 07:53 | Outpatient (AMB) | payer MEDICARE, SELFPAY ==
--- NOTE | 2024-04-22 07:54 | MHC.OFFVIS ---
Intake Visit Reasons: 1Y Ultrasound(set) Intake Note: Patient is present for Ultrasound follow up Urology Med: Prednisone, Tamsulosin, Vitamin B6, Allopurinol Antibiotic Allergies: None Blood Thinner: Eliquis Last 24HR Urine: 2021 Renal Ultrasound: 04/14/24 Funeral Sales Manager Required: No Accompanied by: Self / Same As Patient Allergies No Known Allergies Allergy (Verified 04/22/24 07:56) Medication List - Last Reconciled 04/22/24 by Frank Pace MD allopurinol 100 mg PO DAILY 90 days amoxicillin-pot clavulanate 875-125 mg 1 tab PO BID apixaban (Eliquis) 5 mg PO BID blood sugar diagnostic (Accu-Chek Megan Plus test strips) As directed docusate sodium (Colace) 100 mg PO DAILY duloxetine 60 mg PO DAILY glipizide 5 mg PO QAM lancets (Accu-Chek Softclix Lancets) As directed lisinopril 10 mg PO DAILY metformin 1 tab PO BID naproxen 500 mg PO BID PRN 2 weeks pantoprazole 1 tab PO BID polyethylene glycol 3350 (Miralax) 17 grams PO DAILY PRN prednisone 20 mg PO DAILY 5 days pyridoxine (vitamin B6) 50 mg PO DAILY 90 days semaglutide (Ozempic) 0.5 mg subcut QWEEK simvastatin 1 tab PO BEDTIME tamsulosin 0.4 mg PO BEDTIME 2 weeks trazodone 50 mg PO BEDTIME HPI Comments Details: Jayme is a very pleasant male. He is seen for the following urologic conditions. - nephrolithiasis - renal cyst Telemedicine Evaluation 15 min Consultation [employer] Video Discussed current ultrasound findings Refill medications Minimal issues since last visit Continue current therapy Nephrolithiasis Current consultation for follow-up for stones Prior intervention - 02/12 left USR - with urosepsis E coli pansensitive - 01/13 right distal stone obstructing with urosepsis E coli pansensitive Stone analysis - 02/12 calcium oxalate monohydrate 80% Imagining - 04/14 no stones, left kidney cyst 1 cm - 10/14 renal ultrasound MRI showed left renal cyst increase to 2 cm - 01/13 CT scan distal right ureteric stone with hydronephrosis - 04/15 renal ultrasound no stones - 04/16 renal ultrasound no evidence of stones - 04/17 renal US small stone left side 24 hour urine - 04/15 borderline low volume 1.2 L, high oxalate 42, low calcium 18, good citrate 700, low magnesium Therapeutic plan - encourage fluids - vitamin B6 - surveillance imaging [facility] Medical History Hx of gastroesophageal reflux (GERD) Hx of sleep apnea Atrial flutter by electrocardiography Elevated troponin Congestive cardiomyopathy Obstructive nephropathy Pulmonary edema Acute hyperkalemia SAYRA (acute kidney injury) Pancreatic neoplasm Acute pyelonephritis Calculus, renal Sepsis Complex renal cyst Nephrolithiasis Bacteremia, escherichia coli HLD (hyperlipidemia) HTN (hypertension), 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, managed as type 2 H/O renal calculi Surgical History Hx laparoscopic cholecystectomy (07/02/23) H/O cystoscopy Family History Father COPD (chronic obstructive pulmonary disease) Mother Heart disease Social History Household Members: Significant Other Housing: House Do you presently have visiting nurse or other home services: No Patient Tobacco Use Status: Never used Tobacco Advance Directives Date on File: 02/15/21 service: No Current occupational status: retired Review of Systems Const All systems reviewed & are unremarkable except as noted in HPI and below Reports no additional complaints Resp Reports no additional complaints GI Reports no additional complaints Reports as per HPI Musc Reports no additional complaints Physical Exam Telemedicine evaluation Appropriate responses Regular breathing rate and rhythm HEENT Head: Yes normal to inspection Ears: hearing grossly normal bilaterally Eyes General: appearance normal, both eyes and all related structures Neck Neck: Yes normal visual inspection Chest Chest palpation & inspection: normal inspection of the chest Resp Effort & Inspection: normal respiratory effort and able to speak in complete sentences Telehealth Telehealth Telehealth Platform: [facility] Location of provider rendering services: practice address Location of patient: address on file Patient Identification confirmed using: Name, : Yes Telehealth method: video Patient verbally consented to treatment: Yes Patient verbally consented to billing insurance company: Yes Patient informed of any privacy concerns related to visit: Yes Minutes spent on Phone/Video with Pt.: 15 Assessment & Plan Assessment & Plan (1) Ureterolithiasis: Code(s): N20.1 - Calculus of ureter Category: Medical Plan Twelve month follow-up renal ultrasound Orders: Orders US renal BI 12 Months N20.1 - Calculus of ureter Medications: Changed From pyridoxine (vitamin B6) 100 mg PO DAILY 90 days 90 tabs 3RF N20.0 - Calculus of kidney To pyridoxine (vitamin B6) 50 mg PO DAILY 90 days 90 tabs 3RF N20.0 - Calculus of kidney Patient Instructions: Imaging studies, laboratory and physical exam results were discussed and reviewed in detail. No major barriers to patient understanding were identified. An opportunity to ask questions regarding the treatment plan was provided. All questions were answered. The patient expressed understanding and agreement with the above treatment plan. The patient is aware they should contact our office by phone for worsening of their current condition or the appearance of new urologic symptoms. Compliance is encouraged with any medications and followup testing that is ordered. It is a privilege to participate in the urologic care of your patient. If you have any questions or concerns regarding treatment for the above conditions, or other urologic issues, please do not hesitate to contact me. The office telephone contact is [phone]. This note is constructed using voice recognition software. While every effort has been made to ensure accuracy project reservoir engineer errors may have been included. Yours sincerely, Dr Frank Pace MD, [facility] - Urology Providers of Expert, Compassionate Care for the Genitourinary System Coding Level of Care Code Tele Est Pt Level 4 (86553) Diagnoses Ureterolithiasis N20.1
== END 2024-04-22 09:30 | disposition home or self-care (01) ==
LOC: HO.HUSH 07:53
PROVIDERS: PCP Internal Medicine; Visit Provider Urology
DX: N20.1 Calculus of ureter (principal)
CPT/HCPCS: 99214

== ENCOUNTER → 2024-04-22 07:53 | Outpatient (BNVA) | payer MEDICARE, SELFPAY | PROVIDERS: PCP Internal Medicine; Visit Provider Urology ==

== ENCOUNTER 2024-10-14 11:11 | Emergency (ER) | payer MEDICARE, SELFPAY ==
--- NOTE | ~2024-10-14 | CT_ITS ---
EXAMINATION: CT ABDOMEN AND PELVIS WITHOUT CONTRAST CLINICAL INFORMATION: Left flank pain, history of renal stones. COMPARISON: 01/17/2024, 06/30/2023. TECHNIQUE: Multidetector volumetric imaging was performed from the superior aspect of the liver through the pubic symphysis. Sagittal and coronal reformatted images were obtained on the technologist's workstation. This CT examination was performed using dose optimization techniques as appropriate, variously including the following: *Automated exposure control *Adjustment of mA and/or kV according to patient size (this includes techniques or standardized protocols for targeted exams where dose is matched to indication/reason for exam; i.e. extremities or head) *Use of iterative reconstruction technique FINDINGS: LUNG BASES: Lung bases demonstrate mild reticular type subpleural scarring/atelectasis. They are otherwise clear. There are no effusions. The heart size is normal. There are coronary calcifications. The GE junction appears normal. LIVER, GALLBLADDER, AND BILIARY TREE: The liver is normal in size, shape, and attenuation. No focal hepatic lesion or biliary ductal dilatation is present. Gallbladder is surgically absent. PANCREAS: Mild fatty atrophy. Otherwise normal. SPLEEN: Unremarkable. ADRENAL GLANDS: Unremarkable. KIDNEYS AND URETERS: The kidneys are normal in size, shape, and attenuation. No hydronephrosis, hydroureter, or obstructing calculi seen. There is a left lower pole 3 mm nonobstructing calculus. There are 2 tiny 2 mm nonobstructing calculi in the right kidney mid and lower pole. Mild nonspecific perinephric stranding. BLADDER: Unremarkable. Distal ureters are normal. GASTROINTESTINAL TRACT: There is moderate diverticulosis of the descending and sigmoid colon. There is no acute inflammation. The colon otherwise is normal in course and caliber without wall thickening or inflammation. Small appendiceal stump is noted. The stomach is somewhat decompressed. Duodenum appears normal. The small bowel is normal in caliber and course throughout. There is no wall thickening or inflammation. ABDOMINAL WALL: No significant hernia is appreciated. LYMPH NODES: Normal. VASCULAR: Moderate atheromatous calcification of the aorta and iliac vessels. No aneurysm. PELVIC VISCERA: The prostate is diminutive/not well seen. OSSEOUS STRUCTURES: There is a mild dextroconvex lumbar scoliosis and there is moderate to advanced multilevel lumbar spondylosis. Severe disc degeneration L5-S1. Severe facet degeneration L4-5 and L5-S1. There are bilateral hip joint degenerative changes. CT/CT abdomen pelvis wo IV con IMPRESSION: 1. No acute findings in the abdomen or pelvis. There is no obstructive uropathy. There are nonobstructing tiny calculi in both kidneys. 2. Moderate diverticulosis of the descending and sigmoid colon. No evidence of acute diverticulitis. 3. Cholecystectomy. The appendix is likely surgically absent. A small stump is seen. 4. Additional ancillary findings as discussed in the body of the report. Electronically signed by: Devon Andrade MD 10/14/2024 03:48 PM EDT
[2024-10-14 11:22] VITALS: BP 127/66; PULSE 63; RESP 18; TEMP 36.4; O2SAT 96; BMI 34.2
--- NOTE | 2024-10-14 11:25 | ED.MALEGU ---
HPI - Male Genitourinary General Chief complaint: Urogenital-Male Stated complaint: Kidney stones? Time Seen by Provider: 10/14/24 17:03 Related Data Home Medications ?Medication ?Instructions ?Recorded ?Confirmed glipizide 5 mg tablet 5 mg PO QAM 02/14/21 04/22/24 metformin 850 mg tablet 1 tab PO BID 02/14/21 04/22/24 pantoprazole 40 mg tablet,delayed 1 tab PO BID 02/14/21 04/22/24 release simvastatin 20 mg tablet 1 tab PO BEDTIME 02/14/21 04/22/24 blood sugar diagnostic (Accu-Chek #10 ea 04/08/21 04/22/24 Megan Plus test strips) lancets (Accu-Chek Softclix #100 ea 04/08/21 04/22/24 Lancets) lisinopril 10 mg tablet 10 mg PO DAILY 10/05/21 04/22/24 duloxetine 60 mg capsule,delayed 60 mg PO DAILY 04/19/22 04/22/24 release trazodone 50 mg tablet 50 mg PO BEDTIME 04/19/22 04/22/24 semaglutide 0.25 mg or 0.5 mg (2 0.5 mg subcut QWEEK 07/01/23 04/22/24 mg/3 mL) subcutaneous pen injector (Ozempic) Previous Rx's ?Medication ?Instructions ?Recorded apixaban 5 mg tablet (Eliquis) 5 mg PO BID #60 tabs 12/28/21 amoxicillin 875 mg-potassium 1 tab PO BID #10 tabs 07/04/23 clavulanate 125 mg tablet docusate sodium 100 mg capsule 100 mg PO DAILY #30 caps 07/04/23 (Colace) polyethylene glycol 3350 17 17 g PO DAILY PRN constipation 07/04/23 gram/dose oral powder (Miralax) #119 grams naproxen 500 mg tablet 500 mg PO BID PRN pain 2 weeks #28 01/16/24 tabs prednisone 20 mg tablet 20 mg PO DAILY 5 days #5 tabs 01/16/24 tamsulosin 0.4 mg capsule 0.4 mg PO BEDTIME 2 weeks #14 caps 01/16/24 pyridoxine (vitamin B6) 50 mg 50 mg PO DAILY 90 days #90 tabs 10/29/24 tablet allopurinol 100 mg tablet 100 mg PO DAILY 90 days #90 tabs 09/23/24 Allergies Allergy/AdvReac Type Severity Reaction Status Date / Time No Known Allergies Allergy Verified 10/14/24 11:24 FOR[facility]LY [facility], [facility] Past Medical History Medical History Hx of gastroesophageal reflux (GERD) Hx of sleep apnea Atrial flutter by electrocardiography Elevated troponin Congestive cardiomyopathy Obstructive nephropathy Pulmonary edema Acute hyperkalemia SAYRA (acute kidney injury) Pancreatic neoplasm Acute pyelonephritis Calculus, renal Sepsis Complex renal cyst Nephrolithiasis Bacteremia, escherichia coli HLD (hyperlipidemia) HTN (hypertension), 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, managed as type 2 H/O renal calculi Surgical History Hx laparoscopic cholecystectomy (07/02/23) H/O cystoscopy Family History Family History Father COPD (chronic obstructive pulmonary disease) Mother Heart disease Social History Social History Household Members: Significant Other Housing: House Do you presently have visiting nurse or other home services: No Patient Tobacco Use Status: Never used Tobacco Smoked in Last 30 Days: No Use of substances other than those prescribed or required for medical reasons: No Advance Directives: Yes Advance Directives on File: Yes Advance Directives Date on File: 02/15/21 Do you have a plan to hurt others: No Plan service: No Current occupational status: retired Physical Exam Vital Signs: Vital Signs: Last Vital Signs Temp 97.1 F 10/14/24 16:59 Pulse 64 10/14/24 16:59 Resp 18 10/14/24 16:59 BP 174/75 H 10/14/24 16:59 Pulse Ox 99 10/14/24 16:59 O2 Del Method Room Air 10/14/24 16:59 BMI result Body Mass Index 34.2 Course Course Course Narrative: 78-year-old male history of AFib and kidney stone presents to ED for left flank pain for the past 3 days. Patient has not been in multiple times for kidney stones which required the through trospium. Positive CVA flank. UA labs ordered Medical Decision Making Lab Data 10/14/24 11:36 10/14/24 11:36 Labs: Lab Results 10/14/24 10/14/24 Range/Units 11:36 17:04 WBC 10.9 H (4.8-10.8) X10*3/uL RBC 4.02 L (4.60-5.80) X10*6/uL Hgb 13.5 L (14.0-18.0) g/dl Hct 38.8 L (42.0-52.0) % MCV 96.5 (80.0-98.0) fL MCH 33.6 H (27.0-33.0) pg MCHC 34.8 (31.0-36.0) g/dl RDW 12.7 (11.0-16.0) % Plt Count 298 (160-400) X10*3/uL MPV 9.8 (9.4-12.4) fL Immature Gran % (Auto) 0.3 (0.0-0.4) % Neut % (Auto) 69.2 (45-73) % Lymph % (Auto) 19.5 L (20-40) % [place] % (Auto) 7.2 (2-11) % Eos % (Auto) 3.1 (0-4) % Baso % (Auto) 0.7 (0-2) % Lymph # (Auto) 2.1 (1.2-4.9) X10*3/uL [place] # (Auto) 0.8 (0.1-1.2) X10*3/uL Eos # (Auto) 0.3 (0.0-0.4) X10*3/uL Baso # (Auto) 0.1 (0.0-0.2) X10*3/uL Abs Immat Gran (auto) 0.03 (0.00-0.03) X10*3/uL Absolute Neuts (auto) 7.5 (2.0-8.3) x10*3/uL Absolute Nucleated RBC 0.000 (0.0-0.012) X10*3/uL Nucleated RBC % (auto) 0.0 (0.0-0.2) /100WBC PT 11.4 (10.9-12.4) SEC INR 1.0 (0.9-1.1) APTT 31.8 (26.0-36.8) SEC Sodium 140 (135-145) mmol/L Potassium 5.2 H (3.3-5.1) mmol/L Chloride 109 H (96-108) mmol/L Carbon Dioxide 27 (22-29) mmol/L Anion Gap 9 L (12-20) BUN 28 H (9-16) mg/dL Creatinine 1.30 (0.5-1.4) mg/dL Estim Creat Clear Calc 55.9 Estimated GFR 54 POC Glucose 148 H (60-115) mg/dL Random Glucose 136 H (60-115) mg/dL Calcium 9.3 (8.4-10.2) mg/dL Total Bilirubin 1.1 H (0.0-1.0) mg/dL AST 17 (5-37) U/L ALT 25 (0-40) U/L Alkaline Phosphatase 67 (39-117) U/L Total Protein 6.5 (6.5-8.0) g/dL Albumin 4.0 (3.5-5.0) g/dL Urine Color Yellow Urine Appearance Clear Urine pH 5.5 (5.0-9.0) Ur Specific [place] >= 1.030 H (1.005-1.025) Urine Protein Negative (Neg-Trace) mg/dL Urine Glucose (UA) Negative (Negative) mg/dL Urine Ketones Negative (Negative) mg/dL Urine Blood Negative (Negative) Urine Nitrite Negative (Negative) Ur Leukocyte Esterase Trace H (Negative) Urine RBC 0-2 (0-2) /HPF Urine WBC 0-5 (0-5) /HPF Ur Squamous Epith Cells 3-5 (0-2) /HPF Urine Bacteria None Seen (None Seen) Hyaline Casts 0-2 (0-2) /LPF Discharge Plan Discharge Clinical Impression: Acute flank pain Patient Disposition: Home, Self-Care Instructions: Flank Pain (ED) Prescriptions: No Action prednisone 20 mg tablet 20 mg PO DAILY 5 Days Qty: 5 0RF tamsulosin 0.4 mg capsule 0.4 mg PO BEDTIME 14 Days Qty: 14 0RF naproxen 500 mg tablet 500 mg PO BID PRN (Reason: pain) 14 Days Qty: 28 0RF allopurinol 100 mg tablet 100 mg PO DAILY 90 Days Qty: 90 3RF metformin 850 mg tablet 1 tab PO BID Rx Instructions: WITH MEALS pantoprazole 40 mg tablet,delayed release (DR/EC) 1 tab PO BID simvastatin 20 mg tablet 1 tab PO BEDTIME glipizide 5 mg tablet 5 mg PO QAM Eliquis 5 mg Tablet 5 mg PO BID Qty: 60 0RF Ozempic 0.25 mg or 0.5 mg (2 mg/3 mL) pen injector 0.5 mg subcut QWEEK Rx Instructions: Q SUNDAY amoxicillin-pot clavulanate 875-125 mg tablet 1 tab PO BID Qty: 10 0RF docusate sodium [Colace] 100 mg capsule 100 mg PO DAILY Qty: 30 0RF polyethylene glycol 3350 [Miralax] 17 gram/dose powder 17 g PO DAILY PRN (Reason: constipation) Qty: 119 0RF (DME) Accu-Chek Megan Plus test strp Strip See Rx Instructions Not Applicable TID Qty: 10 Rx Instructions: As directed (DME) lancets [Accu-Chek Softclix Lancets] Misc See Rx Instructions topical BID-TID Qty: 100 Rx Instructions: As directed lisinopril 10 mg tablet 10 mg PO DAILY duloxetine 60 mg capsule,delayed release(DR/EC) 60 mg PO DAILY trazodone 50 mg tablet 50 mg PO BEDTIME pyridoxine (vitamin B6) 50 mg tablet 50 mg PO DAILY 90 Days Qty: 90 3RF Referrals: Simon Romeo MD [Primary Care Provider] - 10/17/24 Print Language: Croatian
[2024-10-14 11:42] LABS: MANUAL DIFF FLAG NO
[2024-10-14 11:45] LABS: Appearance Urine Clear; Color Urine Yellow; Glucose Urine UA Negative (Negative); Leukocyte Esterase Urine Trace (Negative); Nitrite Urine Negative (Negative); PH 5.5 (5.0-9.0); Specific Gravity - Urine >= 1.030 (1.005-1.025); UMIC TRIGGER UACC YES; Urine Blood Negative (Negative); Urine Ketones Negative (Negative); Urine Protein Negative (Neg-Trace)
[2024-10-14 11:47] LABS: Basophils Absolute Auto 0.1 X10*3/uL (0.0-0.2); Basophils Percent Auto 0.7 % (0-2); Eosinophils Absolute Auto 0.3 X10*3/uL (0.0-0.4); Eosinophils Percent Auto 3.1 % (0-4); Hematocrit 38.8 % (42.0-52.0); Hemoglobin 13.5 g/dl (14.0-18.0); Imm Gran Abs Auto 0.03 X10*3/uL (0.00-0.03); Imm Gran Pct Auto 0.3 % (0.0-0.4); Lymphocytes Absolute Auto 2.1 X10*3/uL (1.2-4.9); Lymphocytes Percent Auto 19.5 % (20-40); Mean Corpuscular HGB Conc 34.8 g/dl (31.0-36.0); Mean Corpuscular Hemoglobin 33.6 pg (27.0-33.0); Mean Corpuscular Volume 96.5 fL (80.0-98.0); Mean Platelet Volume 9.8 fL (9.4-12.4); Monocytes Absolute Auto 0.8 X10*3/uL (0.1-1.2); Monocytes Percent Auto 7.2 % (2-11); Neutrophils Absolute Auto 7.5 x10*3/uL (2.0-8.3); Neutrophils Percent Auto 69.2 % (45-73); Platelet Count 298 X10*3/uL (160-400); Red Blood Count 4.02 X10*6/uL (4.60-5.80); Red Cell Distribution Width 12.7 % (11.0-16.0); White Blood Count 10.9 X10*3/uL (4.8-10.8)
[2024-10-14 11:51] LABS: Prothrombin Time 11.4 SEC (10.9-12.4)
[2024-10-14 11:53] LABS: Bacteria Urine None Seen (None Seen); Hyaline Casts Urine 0-2 /LPF (0-2); RBC Urine 0-2 /HPF (0-2); WBC Urine 0-5 /HPF (0-5)
[2024-10-14 11:54] LABS: Partial Thromboplastin Time 31.8 SEC (26.0-36.8)
[2024-10-14 12:01] LABS: Alanine Aminotransferase 25 U/L (0-40); Alkaline Phosphatase 67 U/L (39-117); Anion Gap 9 (12-20); Aspartate Amino Transferase 17 U/L (5-37); Bilirubin Total 1.1 mg/dL (0.0-1.0); Blood Urea Nitrogen 28 mg/dL (9-16); Calcium 9.3 mg/dL (8.4-10.2); Carbon Dioxide 27 mmol/L (22-29); Chloride 109 mmol/L (96-108); Creatinine Clr Calc Pharmacy 55.9; Estimated Glomerular Filt Rate 54; Glucose Random 136 mg/dL (60-115); Potassium 5.2 mmol/L (3.3-5.1); Sodium 140 mmol/L (135-145); Total Protein 6.5 g/dL (6.5-8.0)
[2024-10-14 16:59] VITALS: BP 174/75; PULSE 64; RESP 18; TEMP 36.2; O2SAT 99
[2024-10-14 17:08] LABS: Glucose, Whole Blood 148 mg/dL (60-115)
--- NOTE | 2024-10-14 18:22 | ED.MALEGU ---
HPI - Male Genitourinary General Chief complaint: Urogenital-Male Stated complaint: Kidney stones? Time Seen by Provider: 10/14/24 17:03 History of Present Illness HPI Narrative: Patient is a 78-year-old male with a history of kidney stones in the past. History of flank pain history of laparoscopic cholecystectomy history of atrial flutter currently on Eliquis history of diabetes. Presented today with having abdominal pain flank pain on the left side that is been ongoing for 3 days. He is status post cholecystectomy and appendectomy many years ago. There is no fever no chills. There is no vomiting. There is no bowel urinary incontinence there is no focal weakness. Patient is from home. Claims the pain is very similar to kidney stones that comes and goes. Related Data Home Medications ?Medication ?Instructions ?Recorded ?Confirmed glipizide 5 mg tablet 5 mg PO QAM 02/14/21 04/22/24 metformin 850 mg tablet 1 tab PO BID 02/14/21 04/22/24 pantoprazole 40 mg tablet,delayed 1 tab PO BID 02/14/21 04/22/24 release simvastatin 20 mg tablet 1 tab PO BEDTIME 02/14/21 04/22/24 blood sugar diagnostic (Accu-Chek #10 ea 04/08/21 04/22/24 Megan Plus test strips) lancets (Accu-Chek Softclix #100 ea 04/08/21 04/22/24 Lancets) lisinopril 10 mg tablet 10 mg PO DAILY 10/05/21 04/22/24 duloxetine 60 mg capsule,delayed 60 mg PO DAILY 04/19/22 04/22/24 release trazodone 50 mg tablet 50 mg PO BEDTIME 04/19/22 04/22/24 semaglutide 0.25 mg or 0.5 mg (2 0.5 mg subcut QWEEK 07/01/23 04/22/24 mg/3 mL) subcutaneous pen injector (Ozempic) Previous Rx's ?Medication ?Instructions ?Recorded apixaban 5 mg tablet (Eliquis) 5 mg PO BID #60 tabs 12/28/21 amoxicillin 875 mg-potassium 1 tab PO BID #10 tabs 07/04/23 clavulanate 125 mg tablet docusate sodium 100 mg capsule 100 mg PO DAILY #30 caps 01/10/24 (Colace) polyethylene glycol 3350 17 17 g PO DAILY PRN constipation 07/04/23 gram/dose oral powder (Miralax) #119 grams naproxen 500 mg tablet 500 mg PO BID PRN pain 2 weeks #28 01/16/24 tabs prednisone 20 mg tablet 20 mg PO DAILY 5 days #5 tabs 01/16/24 tamsulosin 0.4 mg capsule 0.4 mg PO BEDTIME 2 weeks #14 caps 01/16/24 pyridoxine (vitamin B6) 50 mg 50 mg PO DAILY 90 days #90 tabs 04/22/24 tablet allopurinol 100 mg tablet 100 mg PO DAILY 90 days #90 tabs 09/23/24 Allergies Allergy/AdvReac Type Severity Reaction Status Date / Time No Known Allergies Allergy Verified 10/14/24 11:24 Review of Systems Review of Systems: Positive left-sided flank pain Yes all other systems are reviewed and are negative PMFSH Past Medical History Attestation statement: The following information was validated with the patient. Medical History Hx of gastroesophageal reflux (GERD) Hx of sleep apnea Atrial flutter by electrocardiography Elevated troponin Congestive cardiomyopathy Obstructive nephropathy Pulmonary edema Acute hyperkalemia SAYRA (acute kidney injury) Pancreatic neoplasm Acute pyelonephritis Calculus, renal Sepsis Complex renal cyst Nephrolithiasis Bacteremia, escherichia coli HLD (hyperlipidemia) HTN (hypertension), 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, managed as type 2 H/O renal calculi Surgical History Hx laparoscopic cholecystectomy (07/02/23) H/O cystoscopy Family History Family History Father COPD (chronic obstructive pulmonary disease) Mother Heart disease Social History Social History Household Members: Significant Other Housing: House Do you presently have visiting nurse or other home services: No Patient Tobacco Use Status: Never used Tobacco Smoked in Last 30 Days: No Use of substances other than those prescribed or required for medical reasons: No Advance Directives: Yes Advance Directives on File: Yes Advance Directives Date on File: 02/15/21 Do you have a plan to hurt others: No Plan service: No Current occupational status: retired Physical Exam Vital Signs: Vital Signs: Last Vital Signs Temp 97.1 F 10/14/24 16:59 Pulse 64 10/14/24 16:59 Resp 18 10/14/24 16:59 BP 174/75 H 10/14/24 16:59 Pulse Ox 99 10/14/24 16:59 O2 Del Method Room Air 10/14/24 16:59 BMI result Body Mass Index 34.2 Appearance: Alert. Oriented X3. No acute distress. Eyes: Pupils equal, round and reactive to light. ENT: Pharynx normal. Neck: Normal inspection. Neck supple. No lymph nodes noted. No crepitus CVS: Normal heart rate and rhythm. Pulses normal. Normal S1 and S2 Respiratory: No respiratory distress. Breath sounds normal. No Wheezing. No rales Abdomen: Soft and nontender. No rigidity. No distention. good BS x4 Skin: Skin warm and dry. Normal skin color. Normal skin turgor. Extremities: No lower extremity edema. Neurovascular intact to all extremities. No Lacerations. No Rash Neuro: Oriented X 3. No motor deficit. No sensory deficit. Moving all extermities. No slurred speech Medical Decision Making Medical Decision Making [facility] Narrative: 78 years old history of kidney stone presents today with left-sided flank pain. Pain is on and off. Similar to previous bouts of kidney stone. Urine showed no acute evidence of infection creatinine is baseline. Patient's hemoglobin is 13 which is also baseline. Patient's CT scan of the abdomen pelvis was negative for any acute evidence of kidney stone. No evidence of diverticulitis. Baseline on Eliquis for atrial flutter/atrial fibrillation patient's hemoglobin is baseline. Well-appearing no acute distress. Symptoms controlled. No signs of cauda equinus syndrome no bowel urinary incontinence. Will discharge patient home close follow-up on an outpatient basis Differential Diagnosis Differential Diagnoses: The differential diagnosis associated with the presentation includes Diverticulitis, obstruction, bleed, cauda equinus syndrome, kidney stone Admission/Observation Consideration of admission/observation: Escalation of care including admission/observation considered Lab Data [facility] Lab Attestation statement: I reviewed the patient's lab results. 10/14/24 11:36 10/14/24 11:36 Labs: Lab Results 10/14/24 10/14/24 Range/Units 11:36 17:04 WBC 10.9 H (4.8-10.8) X10*3/uL RBC 4.02 L (4.60-5.80) X10*6/uL Hgb 13.5 L (14.0-18.0) g/dl Hct 38.8 L (42.0-52.0) % MCV 96.5 (80.0-98.0) fL MCH 33.6 H (27.0-33.0) pg MCHC 34.8 (31.0-36.0) g/dl RDW 12.7 (11.0-16.0) % Plt Count 298 (160-400) X10*3/uL MPV 9.8 (9.4-12.4) fL Immature Gran % (Auto) 0.3 (0.0-0.4) % Neut % (Auto) 69.2 (45-73) % Lymph % (Auto) 19.5 L (20-40) % [place] % (Auto) 7.2 (2-11) % Eos % (Auto) 3.1 (0-4) % Baso % (Auto) 0.7 (0-2) % Lymph # (Auto) 2.1 (1.2-4.9) X10*3/uL [place] # (Auto) 0.8 (0.1-1.2) X10*3/uL Eos # (Auto) 0.3 (0.0-0.4) X10*3/uL Baso # (Auto) 0.1 (0.0-0.2) X10*3/uL Abs Immat Gran (auto) 0.03 (0.00-0.03) X10*3/uL Absolute Neuts (auto) 7.5 (2.0-8.3) x10*3/uL Absolute Nucleated RBC 0.000 (0.0-0.012) X10*3/uL Nucleated RBC % (auto) 0.0 (0.0-0.2) /100WBC PT 11.4 (10.9-12.4) SEC INR 1.0 (0.9-1.1) APTT 31.8 (26.0-36.8) SEC Sodium 140 (135-145) mmol/L Potassium 5.2 H (3.3-5.1) mmol/L Chloride 109 H (96-108) mmol/L Carbon Dioxide 27 (22-29) mmol/L Anion Gap 9 L (12-20) BUN 28 H (9-16) mg/dL Creatinine 1.30 (0.5-1.4) mg/dL Estim Creat Clear Calc 55.9 Estimated GFR 54 POC Glucose 148 H (60-115) mg/dL Random Glucose 136 H (60-115) mg/dL Calcium 9.3 (8.4-10.2) mg/dL Total Bilirubin 1.1 H (0.0-1.0) mg/dL AST 17 (5-37) U/L ALT 25 (0-40) U/L Alkaline Phosphatase 67 (39-117) U/L Total Protein 6.5 (6.5-8.0) g/dL Albumin 4.0 (3.5-5.0) g/dL Urine Color Yellow Urine Appearance Clear Urine pH 5.5 (5.0-9.0) Ur Specific [place] >= 1.030 H (1.005-1.025) Urine Protein Negative (Neg-Trace) mg/dL Urine Glucose (UA) Negative (Negative) mg/dL Urine Ketones Negative (Negative) mg/dL Urine Blood Negative (Negative) Urine Nitrite Negative (Negative) Ur Leukocyte Esterase Trace H (Negative) Urine RBC 0-2 (0-2) /HPF Urine WBC 0-5 (0-5) /HPF Ur Squamous Epith Cells 3-5 (0-2) /HPF Urine Bacteria None Seen (None Seen) Hyaline Casts 0-2 (0-2) /LPF Independent Interpretation I performed an independent interpretation of an: CT Scan (Grossly negative for acute obstruction) Radiology Impression Discussion of test interpretation with radiology: I have reviewed the radiologist's reading. Independent Historian Clinical information obtained from an independent historian. History obtained from or confirmed by: Spouse Chronic Conditions Patient?s care impacted by: Diabetes and Hypertension Discharge Plan Discharge Clinical Impression: Acute flank pain Patient Disposition: Home, Self-Care Instructions: Flank Pain (ED) Prescriptions: No Action prednisone 20 mg tablet 20 mg PO DAILY 5 Days Qty: 5 0RF tamsulosin 0.4 mg capsule 0.4 mg PO BEDTIME 14 Days Qty: 14 0RF naproxen 500 mg tablet 500 mg PO BID PRN (Reason: pain) 14 Days Qty: 28 0RF allopurinol 100 mg tablet 100 mg PO DAILY 90 Days Qty: 90 3RF metformin 850 mg tablet 1 tab PO BID Rx Instructions: WITH MEALS pantoprazole 40 mg tablet,delayed release (DR/EC) 1 tab PO BID simvastatin 20 mg tablet 1 tab PO BEDTIME glipizide 5 mg tablet 5 mg PO QAM Eliquis 5 mg Tablet 5 mg PO BID Qty: 60 0RF Ozempic 0.25 mg or 0.5 mg (2 mg/3 mL) pen injector 0.5 mg subcut QWEEK Rx Instructions: Q SUNDAY amoxicillin-pot clavulanate 875-125 mg tablet 1 tab PO BID Qty: 10 0RF docusate sodium [Colace] 100 mg capsule 100 mg PO DAILY Qty: 30 0RF polyethylene glycol 3350 [Miralax] 17 gram/dose powder 17 g PO DAILY PRN (Reason: constipation) Qty: 119 0RF (DME) Accu-Chek Megan Plus test strp Strip See Rx Instructions Not Applicable TID Qty: 10 Rx Instructions: As directed (DME) lancets [Accu-Chek Softclix Lancets] Misc See Rx Instructions topical BID-TID Qty: 100 Rx Instructions: As directed lisinopril 10 mg tablet 10 mg PO DAILY duloxetine 60 mg capsule,delayed release(DR/EC) 60 mg PO DAILY trazodone 50 mg tablet 50 mg PO BEDTIME pyridoxine (vitamin B6) 50 mg tablet 50 mg PO DAILY 90 Days Qty: 90 3RF Referrals: Simon Roemo MD [Primary Care Provider] - 10/17/24 Print Language: Barbadian
[2024-10-14 18:33] VITALS: BP 142/68; PULSE 77; RESP 16; TEMP 36.6; O2SAT 99
[2024-10-14 18:34] VITALS: BP 142/68; PULSE 77; RESP 16; TEMP 36.6; O2SAT 99
--- OUTSIDE RECORDS SUMMARY | 2024-10-14 19:04 | XMS_ITS ---
Author Organization [facility] Luzma edu Flannery Address [address] [place] [address] Care Team Providers Care Fire Warden Name Role Phone Simon Romeo MD Primary Care Provider Unavailab Deng Melendez Unavailable [phone] Allergies No Known Allergies REASON FOR VISIT At Risk Footcare, Painful Nail(s) aggrevated by shoes and causing difficulty standing/walking, Toe Irritation Medications Medication SIG (Take, Route, Frequency, Duration) Notes Start Date End Date Status Januvia 100 MG 1 tablet Orally Once a day Not-Taking Ketorolac Tromethamine Not-Taking Ilevro Not-Taking Citalopram Hydrobromide 10 MG 1 tablet Orally Once a day for 30 day(s) Not-Taking Invokana Not-Taking traZODone HCl Active Vitamin B6 Active Simvastatin 20 MG 1 tablet every eveni ng Orally Once a day Active Extra Depth Orthopedic Shoes, (1) Pair With (3) Pair Custom Heat Molded Multidensity Innersoles Dx: NIDDM/PVD(E11.51), Hammertoe Foot Deformity(M20.41,M20.42) , Preulcerative Skin Lesion(s)(L85.1) Wear Daily for 365 days 08/01/2023 Active Lisinopril 10 MG 1 tablet Orally Active Percogesic Active glipiZIDE XL 5 MG 3 tabs Orally Once a day Active Pantoprazole Sodium 40 MG 1 tablet Orally Twice a day Active metFORMIN HCl 850 MG as directed Orally Active Ozempic Active Gas Relief Active Centrum Silver Activ e Eliquis 5 MG 1 tablet Orally Twic e a day for 30 day(s) Active Allopurinol 100 MG 1 tablet Orally Once a day for 30 day(s) Active DULoxetine HCl 60 MG as directed Orally Once a day Active Naproxen Not-Taking Tylenol Active Flomax 0.4 MG 1 capsule Orally Onc e a day Active Social History Tobacco Use: Social History Observation Description Date Details (start date - stop date) Never Smoker NA - NA Tobacco Use/Smoking Question Answer Notes Are you a: nonsmoker Additional Findings: Tobacco Non-User Aggressive non-smoker Alcohol Screen Question Answer Notes Did you have a drink containing alcohol in the p ast year? No Points 0 Interpretation Negative Tobacco use other than smoking: Question Answer Notes Are you an other tobacco user? No Vital Signs Height 5ft 8in in 04/23/2024 Weight 225 lbs 04/23/2024 BMI 34.21 kg/m2 04/23/2024 Procedures Procedure Date Ordered Date Performed Result Body Sit e 87368-GXBDFZW NAIL, 6 OR MORE 04/23/2024 N/A 10337-BGKI SKIN LESIONS, 2 TO 4 04/23/2024 N/A Encounters Encounter Location Date Provider Diagnosis [facility] [address] [address] 04/23/2024 Deng Arceo Type 2 diabetes mellitus with diabetic peripheral angiopathy without gangrene E11.51 ; Tinea unguium B35.1 ; Pain in right toe(s) M79.674 ; Pain in left toe(s) M79.675 ; Other hammer toe(s) (acquired), right foot M20.41 and Other hammer toe(s) (acquired), left foot M20.42 Assessments Encounter Date Diagnosis (ICD Code) Assessment Notes Treatment Notes Treatment Clinical Notes Section Notes 04/23/2024 Type 2 diabetes mellitus with diabetic peripheral angiopathy without gangrene (ICD-10 - E11.51) 04/23/2024 Tinea unguium (ICD-10 - B35.1) 04/23/2024 Pain in right toe(s) (ICD-10 - M79.674) 04/23/2024 Pain in left toe(s) (ICD-10 - M79.675) 04/23/2024 Other hammer toe(s) (acquired), right foot (ICD-10 - M20.41) Response to treatment,Impro vement 04/23/2024 Other hammer toe(s) (acquired), left foot (ICD-10 - M20.42) Response to treatment,Impro vement Plan Of Treatment Pending Test Test Name Order Date 31113-KZZHWIC NAIL, 6 OR MORE 04/23/2024 89413-WVOJ SKIN LESIONS, 2 TO 4 04/23/20 24 Next Appt Details Follow Up: prn, Reason: Provider Name:Deng Arceo , 10/30/2024 10:00:00 AM, [address] [facility], [address], [place], [address], Procedure Notes * Category Sub-Category Detail Notes Debride Nail 6-10 Nail debridement Performance o f this nail treatment by a nonprofessional would put this patients foot and overall health at risk. Therefore, nail debridement was performed extensively to reduce/remove overall nail length, girth, thickness, subungual debris, and necrotic tissue, by manual and/or electrical means through the use of a nail nipper and/or dremel-type carbon grinder, to a more viable healthy nail plate or bed tissue 6-10. Silver nitrate used for any petechial bleeding as necessary. Definitive antifungal treatment options have been reviewed and discussed with the patient. The patient chooses, no pharmaceutical tx - 50910 Keratoma Treatment Parring or Cutting o f Benign Hyperkeratotic Lesion(s) (-56) 2-4 Lesions - The Benign hyperkeratotic lesions, as described above were pared, and/or cut utilizing a sterile 15 blade, tissue nippers, and/or dremel - 97584 , Q8 Progress Notes * Vishal CONTI LDOB:[birth year] (78 yo M)Acc No.[id number]:04/23/2024 Progress Note Patient:?Vishal Conti Provider:?Deng Arceo DPM :1945???Age:78 Y???Sex:Male Bertin e:04/23/2024 Address:[address] [place] [address] [id number] Pcp:Simon Romeo MD Subjective: * Chief Complaints: * ???At Risk FootcarePainful N ail(s) aggrevated by shoes and causing difficulty standing/walkingToe Irritation * HPI: ???At Risk footcare:?Pt States Last PCP Visit:?Date?01/21/2024 ???Toe pain:?Treatments:?Rx shoes.? * ROS:?General/Constitutional:?Nausea?denies.?Vomiting?denies.?Hunger Thirst?denies.?Loss appetite?denies.?Chills?denies.?Fatigue?denies.?Fever?denies.?Night Sweats?denies.?Unexplained weight loss?denies.?Ophthalmologic:?Blurred vision?denies.?Red eye?denies.?HEENTM:?Dentures?denies.?Dizziness?denies.?Glasses/contacts?admits.?Retinopathy?de nies.?Blurred/double vision?denies.?TMJ?denies.?Discharge/drainage?denies.?Implants?denies.?Hard of hearing denies.?Difficulty chewing/swallowing/speaking?denies.?Nose bleeds?denies.?Sore mouth?denies.?Swollen glands?denies.?Respiratory:?On Oxygen?denies.?Pneumonia/pleurisy?denies.?Bronchitis?denies.?Emphysema?denies.?C oughing?denies.?Cough blood?denies.?Shortness of breath?denies.?Wheezing?denies.?Cardiovascular:?Pacemaker?denies.?MVP?denies.?WPW?denies.?CHF?denies.?Heart attack?denies.?Septal defect?denies.?Rapid beat?denies.?Chest pain ?denies.?Atrial Fib.?denies.?Murmur/Palpitations?denies.?Gastrointestinal:?Hemorrhoids?denies.?Stomach/Abdominal pain?denies.?Dark blood stool?denies.?Irritable bowel ?denies.?Constipation?denies.?Diarrhea?denies.?Vomiting?denies.?Hematology:?Swelling?denies.?Bruising?admits, on anticoagulants.?Bleeding problem?admits, on anticoagulants.?Genitourinary:?Blood urine?denies.?Frequent/Painfu/urination/bladder control?denies.?Kidney stones?denies.?Infection (UTI)?denies.?Nephropathy?denies.?Musculoskeletal:?Hammertoes?admits.?Bunions?denies.?Scoliosis/kyphosis?denies.?Muscle cramps / walking?denies.?Generalized aches and pains?denies.?Weakness?denies.?Integ.:?Zimmerman?denies.?Scars?denies.?Corns/calluses?admits.?Ingrown nails?admits.?Painful nails?admits.?Rashes?denies.?Neurologic:?Difficulty sleeping?denies.?Bipolar?denies.?Brain disorder?denies.?Balance trouble?denies.?Confusion?denies.?Fainting/blackouts?denies.?Headache?denies.?Tr emors?denies.? * Medical History:? * Surgical History:?prostate s urgery 02/2011carpal tunnel release 03/10/16appendectomy age 18tonsillectomy and adenoidectomy age 3cataract surgery right eye 12/05/17cataract surgery left eye 10/2020kidney stones 02/15/21,12/22/21stent removal 01/02/22gall bladder removed 07/02/23 * Hospitalization/Major Diagno stic Procedure:?[facility], Kidney stone removed 02/15/21[facility] - Sepsis Kidney Stones 6days 12/22/21 * Family History:?Mother: teddy e, diagnosed with Unspecified cerebral artery occlusion with cerebral infarction, Unspecified essential hypertension, Unspecified heart disease.?Father: , diagnosed with Other malignant neoplasm of unspecified site.?Daughter(s): alive.?Son(s): alive.?Spouse: alive.?4 son(s) , 2 daughter(s) . .? * Social History:?Tobacco Use:?Tobacco Use/Smoking?Are you a:?nonsmoker ?Additional Findings: Tobacco Non-User?Aggressive non-smoker ?Tobacco use other than smoking?Are you an other tobacco user??No ???Drugs/Alcohol:?Drugs?Have you used drugs other than those for medical reasons in the past 12 months??No ?Alcohol Screen?Did you have a drink containing alcohol in the past year??No ?Points?0 ?Interpretation?Negative ???Miscellaneous:?no Caffeine, none. ?Children: yes, six. ?Exercise: yes, 2-3 times per week, , walking. ?Marital status: . 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 * Medications:?TakingTylenol F daniel 0.4 MG Capsule 1 capsule Orally Once a dayGas Relief Centrum Silver Allopurinol 100 MG Tablet 1 tablet Orally Once a dayDULoxetine HCl 60 MG Capsule Delayed Release Particles as directed Orally Once a dayEliquis 5 MG Tablet 1 tablet Orally Twice a dayglipiZIDE XL 5 MG Tablet Extended Release 24 Hour 3 tabs Orally Once a daymetFORMIN HCl 850 MG Tablet as directed Orally Ozempic Pantoprazole Sodium 40 MG Tablet Delayed Release 1 tablet Orally Twice a dayPercogesic Simvastatin 20 MG Tablet 1 tablet every evening Orally Once a daytraZODone HCl Vitamin B6 Extra Depth Orthopedic Shoes, (1) Pair With (3) Pair Custom Heat Molded Multidensity Innersoles . Dx: NIDDM/PVD(E11.51), Hammertoe Foot Deformity(M20.41,M20.42), Preulcerative Skin Lesion(s)(L85.1) Wear DailyLisinopril 10 MG Tablet 1 tablet Orally Taking Tylenol Taking Flomax 0.4 MG Capsule 1 capsule Orally Once a dayTaking Gas Relief Taking Centrum Silver Taking Allopurinol 100 MG Tablet 1 tablet Orally Once a dayTaking DULoxetine HCl 60 MG Capsule Delayed Release Particles as directed Orally Once a dayTaking Eliquis 5 MG Tablet 1 tablet Orally Twice a dayTaking glipiZIDE XL 5 MG Tablet Extended Release 24 Hour 3 tabs Orally Once a dayTaking metFORMIN HCl 850 MG Tablet as directed Orally Taking Ozempic Taking Pantoprazole Sodium 40 MG Tablet Delayed Release 1 tablet Orally Twice a dayTaking Percogesic Taking Simvastatin 20 MG Tablet 1 tablet every evening Orally Once a dayTaking traZODone HCl Taking Vitamin B6 Taking Extra Depth Orthopedic Shoes, (1) Pair With (3) Pair Custom Heat Molded Multidensity Innersoles . Dx: NIDDM/PVD(E11.51), Hammertoe Foot Deformity(M20.41,M20.42), Preulcerative Skin Lesion(s)(L85.1) Wear DailyTaking Lisinopril 10 MG Tablet 1 tablet Orally Not-Taking/PRNNaproxen Januvia 100 MG Tablet 1 tablet Orally Once a dayKetorolac Tromethamine Ilevro Citalopram Hydrobromide 10 MG Tablet 1 tablet Orally Once a dayInvokana Medication List reviewed and reconciled with the patientNot- Taking/PRN Naproxen Not-Taking/PRN Januvia 100 MG Tablet 1 tablet Orally Once a dayNot-Taking/PRN Ketorolac Tromethamine Not-Taking/PRN Ilevro Not-Taking/PRN Citalopram Hydrobromide 10 MG Tablet 1 tablet Orally Once a dayNot-Taking/PRN Invokana Medication List reviewed and reconciled with the patient * Allergies:?N.K.D.A.yes[Aller gies Verified] Objective: * Vitals:?Ht: 5ft 8in, Wt: 225 , BMI: 34.21, Shoe size: 9-9.5, BS: 142, Ht-cm: 172.72 cm, Wt-k.06 kg. * ???Past Orders: ???Lab:HEMOGLOBIN A1C (GLYCO HEMOGLOBIN) (Order Date - 04/23/2024) (Collection Date - 04/23/2024) ? Value Reference Range ?TOTAL HEMOGLOBIN (HGBA1C) 7.2 * Examination: ???Vascular: ?DP PULSES(B):? 1/4, B/L.?PT PULSES(B):? 0/4, B/L.?CAPILLARY FILL TIME:? delayed, all digits, B/L.?TROPHIC CONDITION-TEXTURE/ELASTICITY/TURGOR/HAIR GROWTH(B):? decreased, with sparse to absent hair growth, B/L.?TEMPERTURE GRADIENT(C):? decreased, cool to cool, proximal to distal, B/L.?PIGMENTATION:? rubrous, B/L.?EDEMA(C):?absent, B/L.?CLAUDICATION(C):?denies, B/L.?REST PAIN:?denies, B/L.?Nails: ?NAILS are:?Elongated, overgrown, dystrophic, lytic, greater than 3mm thick, discolored and friable with crumbly malodorous subungual debris, with pain on palpation, 1-5 Left foot, T5, T9.?Dermatologic: ?SKIN FINDINGS:?Skin exam reveals Keratotic lesion(s) located at, Medial, IPJ, TA, Medial, IPJ, T5, Heel(s), B/L .?Orthopedic: ?DIGITAL DEFORMITIES:?Digital contracture, PIPJ, 2-5 B/L, incompl-reducible to push-up test, no over, nor underlapping, no longer, with evidence of shoe producing skin irritation.?FOOTWEAR:?good condition, exhibit proper fit and accommodation for pedal deformities. OT were inspected and noted to be worn, but in good condition giving proper support at the present time.? Assessment: * Assessment: 1.?Type 2 diabetes mellitus with diabetic peripheral angiopathy without gangrene - E11.51?2.?Tinea unguium - B35.1?3.?Pain in right toe(s) - M79.674?4.?Pain in left toe(s) - M79.675?5.?Other hammer toe(s) (acquired), right foot - M20.41, Chronic problem, Stable (1=3,2=4), Response to treatment,Improvement?6.?Other hammer toe(s) (acquired), left foot - M20.42, Chronic problem, Stable (1=3,2=4), Response to treatment,Improvement? Plan: * Treatment: 2.?Tinea unguium?Procedure: 03438-[id number] NAIL, 6 OR MORE * Procedures:?Debride Nail 6-10:?Nail debridement?Performance of this nail treatment by a nonprofessional would put this patients foot and overall health at risk. Therefore, nail debridement was performed extensively to reduce/remove overall nail length, girth, thickness, subungual debris, and necrotic tissue, by manual and/or electrical means through the use of a nail nipper and/or dremel-type carbon grinder, to a more viable healthy nail plate or bed tissue 6-10. Silver nitrate used for any petechial bleeding as necessary. Definitive antifungal treatment options have been reviewed and discussed with the patient. The patient chooses, no pharmaceutical tx - 74505.?Keratoma Treatment:?Parring or Cutting of Benign Hyperkeratotic Lesion(s)?(-56) 2-4 Lesions - The Benign hyperkeratotic lesions, as described above were pared, and/or cut utilizing a sterile 15 blade, tissue nippers, and/or dremel - 92233 , Q8.? * Procedure Codes:?14011 DEBRI DE NAIL, 6 OR MORE, Modifiers: XS 56787 TRIM SKIN LESIONS, 2 TO 4, Modifiers: XS , Q8 * Preventive Medicine:? ??Counseling:?Discussion:?-13: Office or other outpatient visit for the evaluation and management of an established patient, which required a medically appropriate history and/or examination and LOW level of DECISION MAKING for: 1 STABLE ACUTE UNCOMPLICATED PROBLEM, 2 OR MORE MINOR PROBLEMS, OR 1 STABLE CHRONIC PROBLEM, THAT POSE(S) A LOW RISK FOR MORBIDITY/MORTALITY. The visit on the day of the encounter encompassed interpreting the data and educating the patient as to the nature of their condition, treatment options available according to their individual PMH, meds, allergies, and overall health/living conditions, as well as any potential risks or complications that may occur from a failure to adhere to, and participate in, the recommended course of therapy. The discussion included a complete verbal, and/or written explanation of the examination results, any x-rays taken, the proposed diagnosis, and outline of the treatment plan. A schedule for future care needs was also explained. The patient verbalized an understanding of the instructions at this time and agreed to be an active participant in their treatment. If the patient should think of any questions or concerns after the visit, I have encouraged the patient to call the office.?Shoe Gear Counseling:?Patient to obtain shoes hopefully soon, A thorough inspection of the patients Rxed shoegear and inserts was performed and findings communicated. We reviewed the many important medical advantages for adhering to regularly wearing these shoe and insert accomidative devices daily as well as reviewed the fact that a failure in accepting these recommedations may be deleterious, unable to prevent, and disadvantagely result in, many pedal complications such as skin irritation, skin ulceration, infection, and even loss of toe/foot/leg/or even their life. Time was also spent reviewing the proper footcare techniques including daily skin moisturization, daily foot inspection for any interruption in skin integrity, open lesions, or sign of infection such as redness/malodor/drainage/swelling as well as daily shoe inspection for the presence of internal foreign bodies and shoe as well as insert wear. Patient questions re: shoes, inserts, and self foot inspections were answered to their satisfaction as the patient verbally confirmed a full understanding of the above information.? * Follow Up:?prn * Images: * Sign off status: Completed true * Provider:?Deng Arceo DPM Date:?2023 Generated for Maximiliano carver/Donnell/eTlanesmitting on:?10/14/2024 07:04 PM EDT History and Physical Notes * HPI (History of Present Illness) Category Sub-Category Detail Notes Category Not es Toe pain Treatments: Rx shoes At Risk footcare Pt States Last PCP Visit: Date: 4 Examination Category Sub-Category Detail Notes Category Not es Dermatologic SKIN FINDINGS: Skin exam reveal s Keratotic lesion(s) located at, Medial, IPJ, TA, Medial, IPJ, T5, Heel(s), B/L Orthopedic FOOTWEAR EVALUATION: good condit ion, exhibit proper fit and accommodation for pedal deformities. OT were inspected and noted to be worn, but in good condition giving proper support at the present time DIGITAL DEFORMITIES: Digital contracture , PIPJ, 2-5 B/L, incompl-reducible to push-up test, no over, nor underlapping, no longer, with evidence of shoe producing skin irritation Vascular DP PULSES (B): 1/4, B/L PT PULSES (B): 0/4, B/L CAPILLARY FILL TIME: delayed, all digits , B/L TEMPERTURE GRADIENT (C): decreased, cool to cool, proximal to distal, B/L TROPHIC CONDITION-TEXTURE/ELASTICITY/TURGOR/HAIR GROWTH (B): decreased, with sparse to absent hair gr owth, B/L EDEMA (C): absent, B/L CLAUDICATION (C): denies, B/L REST PAIN: denies, B/L PIGMENTATION: rubrous, B/L Nails NAILS are: Elongated, overg rown, dystrophic, lytic, greater than 3mm thick, discolored and friable with crumbly malodorous subungual debris, with pain on palpation, 1-5 Left foot, T5, T9
--- OUTSIDE RECORDS SUMMARY | 2024-10-14 19:04 | XMS_ITS ---
Author Organization [facility] Luzma edu [facility] Address [address] [place] [address] Care Team Providers Care Workday Manager Name Role Phone Simon Romeo MD Primary Care Provider Unavailab Deng Melendez Unavailable [phone] Allergies No Known Allergies REASON FOR VISIT At Risk Footcare, Painful Nail(s) aggrevated by shoes and causing difficulty standing/walking Medications Medication SIG (Take, Route, Frequency, Duration) Notes Start Date End Date Status Ketorolac Tromethamine Not-Taking Lisinopril 10 MG 1 tablet Orally Active Invokana Not-Taking Citalopram Hydrobromide 10 MG 1 tablet Orally Once a day for 30 day(s) Not-Taking Ilevro Not-Taking Januvia 100 MG 1 tablet Orally Once a day Not-Taking Extra Depth Orthopedic Shoes, (1) Pair With (3) Pair Custom Heat Molded Multidensity Innersoles Dx: NIDDM/PVD(E11.51), Hammertoe Foot Deformity(M20.41,M20.42) , Preulcerative Skin Lesion(s)(L85.1) Wear Daily for 365 days 08/01/2023 Active Vitamin B6 Active traZODone HCl Active Simvastatin 20 MG 1 tablet every eveni ng Orally Once a day Active glipiZIDE XL 5 MG 3 tabs Orally Once a day Active Percogesic Active Pantoprazole Sodium 40 MG 1 tablet Orally Twice a day Active Ozempic Active metFORMIN HCl 850 MG as directed Orally Active Eliquis 5 MG 1 tablet Orally Twic e a day for 30 day(s) Active DULoxetine HCl 60 MG as directed Orally Once a day Active Allopurinol 100 MG 1 tablet Orally Once a day for 30 day(s) Active Centrum Silver Activ e Gas Relief Active Naproxen Active Flomax 0.4 MG 1 capsule Orally [...] No Vital Signs Height 5ft 8in in 01/23/2024 Weight 225 lbs 01/23/2024 BMI 34.21 kg/m2 01/23/2024 Procedures Procedure Date Ordered Date Performed Result Body Sit e 38095-RLQNODK NAIL, 6 OR MORE 01/23/2024 N/A 98896-OKIL SKIN LESIONS, 2 TO 4 01/23/2024 N/A Encounters Encounter Location Date Provider Diagnosis [facility] [address] [address] 01/23/2024 eDng Arceo Type 2 diabetes mellitus with diabetic peripheral angiopathy without gangrene E11.51 ; Tinea unguium B35.1 ; Pain in right toe(s) M79.674 and Pain in left toe(s) M79.675 Assessments Encounter Date Diagnosis (ICD Code) Assessment Notes Treatment Notes Treatment Clinical Notes Section Notes 01/23/2024 Type 2 diabetes mellitus with diabetic peripheral angiopathy without gangrene (ICD-10 - E11.51) 01/23/2024 Tinea unguium (ICD-10 - B35.1) 01/23/2024 Pain in right toe(s) (ICD-10 - M79.674) 01/23/2024 Pain in left toe(s) (ICD-10 - M79.675) Plan Of Treatment Pending Test Test Name Order Date 33574-KEPBGVR NAIL, 6 OR MORE 01/23/2024 61724-VIRI SKIN LESIONS, 2 TO 4 01/23/20 24 Next Appt Details Follow Up: prn, Reason: Provider Name:Deng Arceo , 10/30/2024 10:00:00 AM, [address] [facility], [place] [address], [place], [address], Procedure Notes * Category Sub-Category Detail Notes Debride Nail 6-10 Nail debridement Nail debridem ent performed extensively to reduce/remove overall nail length, girth, thickness, subungual debris, and necrotic tissue, by manual and electrical means through the use of a nail nipper and/or dremel, to more viable healthy nail plate or bed tissue 1-5. Silver nitrate used for any petechial bleeding as necessary. Patient chooses, no pharmaceutical tx (59969) Keratoma Treatment Parring or Cutting o f Benign Hyperkeratotic Lesion(s) 65039 (2-4 Lesions) - The Benign hyperkeratotic lesions, as described above were pared, and/or cut utilizing a sterile #15 blade, tissue nippers, and/or dremel, Q8 Progress Notes * Vishal CONTI LDOB:[birth year] (78 yo M)Acc No.[id number]:01/23/2024 Progress Note Patient:?Vishal Conti Provider:?Deng Arceo DPM :1945???Age:78 Y???Sex:Male Bertin e:01/23/2024 Address:[address] [place] [id number] Pcp:Simon Romeo MD Subjective: * Chief Complaints: * ???At Risk FootcarePainful N ail(s) aggrevated by shoes and causing difficulty standing/walking * HPI: ???At Risk footcare:?Pt States Last PCP Visit:?Date?01/21/2024 ???Toe pain:?Treatments:?Rx shoes , states still needs - states appt soon .? * ROS:?General/Constitutional:?Nausea?denies.?Vomiting?denies.?Hunger Thirst?denies.?Loss appetite?denies.?Chills?denies.?Fatigue?denies.?Fever?denies.?Night Sweats?denies.?Unexplained weight loss?denies.?Ophthalmologic:?Blurred [...] bladder removed 07/02/23 * Hospitalization/Major Diagno stic Procedure:?[facility], Kidney stone removed 02/15/21[facility] - Sepsis Kidney Stones 6days 12/22/21 * Family History:?Mother: teddy chavarria, diagnosed with Unspecified essential hypertension, Unspecified heart disease, Unspecified cerebral artery occlusion with cerebral infarction.?Father: , diagnosed with Other malignant neoplasm of [...] week, , walking. ?Marital status: . 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 * Medications:?TakingFlomax 0. 4 MG Capsule 1 capsule Orally Once a dayNaproxen Gas Relief Centrum Silver Allopurinol 100 MG Tablet [...] 10 MG Tablet 1 tablet Orally Taking Flomax 0.4 MG Capsule 1 capsule Orally Once a dayTaking Naproxen Taking Gas Relief Taking Centrum Silver Taking Allopurinol [...] Lisinopril 10 MG Tablet 1 tablet Orally Not-Taking/PRNJanuvia 100 MG Tablet 1 tablet Orally Once a dayKetorolac Tromethamine Ilevro Citalopram Hydrobromide 10 MG Tablet 1 tablet Orally Once a dayInvokana Medication List reviewed and reconciled with the patientNot-Taking/PRN Januvia 100 MG Tablet 1 tablet Orally Once a dayNot-Taking/PRN Ketorolac Tromethamine Not- Taking/PRN Ilevro Not-Taking/PRN Citalopram Hydrobromide 10 MG Tablet 1 tablet Orally Once a dayNot-Taking/PRN Invokana Medication List reviewed and reconciled with the patient * Allergies:?N.K.D.A.yes[Aller gies Verified] Objective: * Vitals:?Ht: 5ft 8in, Wt: 225 , BMI: 34.21, Shoe size: 9-9.5, BS: 134, Ht-cm: 172.72 cm, Wt-k.06 kg. * ???Past Orders: ???Lab:HEMOGLOBIN A1C (GLYCO HEMOGLOBIN) (Order Date - 01/23/2024) (Collection Date - 01/23/2024) ? Value Reference Range ?HEMOGLOBIN A1C % (HH) 7.1 * Examination: ???Vascular: ?DP PULSES:? 1/4, B/L.?PT PULSES:? 0/4, B/L.?CAPILLARY FILL TIME:? delayed, all digits, B/L.?SKIN TEMPERTURE GRADIENT OF THE LOWER EXTERMITIES:? decreased, cool to cool, proximal to distal, B/L.?HAIR GROWTH/TEXTURE/ELASTICITY/TURGOR:? decreased, B/L.?PIGMENTATION:? rubrous, B/L.?EDEMA:?absent, B/L.?CLAUDICATION:?denies, B/L.?REST PAIN:?denies, B/L.?Nails: ?NAILS are:?Elongated, overgrown, dystrophic, lytic, greater than 3mm thick, discolored and friable with crumbly malodorous subungual debris, with pain on palpation, 1-5 Left foot, T5, T9.?Dermatologic: ?SKIN FINDINGS:?Skin exam reveals Keratotic lesion(s) located at, Medial, IPJ, TA, Medial, IPJ, T5, Heel(s), B/L .? Assessment: * Assessment: 1.?Type 2 diabetes mellitus with diabetic peripheral angiopathy without gangrene - E11.51?2.?Tinea unguium - B35.1?3.?Pain in right toe(s) - M79.674?4.?Pain in left toe(s) - M79.675? Plan: * Treatment: 2.?Tinea unguium?Procedure: 21590-WKQJSYC NAIL, 6 OR MORE * Procedures:?Debride Nail 6-10:?Nail debridement?Nail debridement performed extensively to reduce/remove overall nail length, girth, thickness, subungual debris, and necrotic tissue, by manual and electrical means through the use of a nail nipper and/or dremel, to more viable healthy nail plate or bed tissue 1-5. Silver nitrate used for any petechial bleeding as necessary. Patient chooses, no pharmaceutical tx (49536).?Keratoma Treatment:?Parring or Cutting of Benign Hyperkeratotic Lesion(s)?70940 (2-4 Lesions) - The Benign hyperkeratotic lesions, as described above were pared, and/or cut utilizing a sterile #15 blade, tissue nippers, and/or dremel, Q8.? * Procedure Codes:?13486 DEBRI DE NAIL, 6 OR MORE, Modifiers: XS 47793 TRIM SKIN LESIONS, 2 TO 4, Modifiers: XS , Q8 * Preventive Medicine:? ??Counseling:?Shoe Gear Counseling:?Patient to obtain shoes hopefully soon.? * Follow Up:?prn * Images: * Sign off status: Completed Addendum: * ? true * Provider:?Deng Arceo DPM Date:?2023 Generated for Maximiliano carver/Donnell/eTlanesmmarie on:?10/14/2024 07:04 PM EDT History and Physical Notes * HPI (History of Present Illness) Category Sub-Category Detail Notes Category Not es Toe pain Treatments: Rx shoes , state s still needs - states appt soon At Risk footcare Pt States Last PCP Visit: Date: Examination Category Sub-Category Detail Notes Category Not es Dermatologic SKIN FINDINGS: Skin exam reveal s Keratotic lesion(s) located at, Medial, IPJ, TA, Medial, IPJ, T5, Heel(s), B/L Vascular DP PULSES (B): 1/4, B/L PT PULSES (B): 0/4, B/L CAPILLARY FILL TIME: delayed, all digits , B/L TEMPERTURE GRADIENT (C): decreased, cool to cool, proximal to distal, B/L TROPHIC CONDITION-TEXTURE/ELASTICITY/TURGOR/HAIR GROWTH (B): decreased, B/L EDEMA (C): absent, B/L CLAUDICATION (C): denies, B/L REST PAIN: denies, B/L PIGMENTATION: rubrous, B/L Nails NAILS are: Elongated, overg rown, dystrophic, lytic, greater than 3mm thick, discolored and friable with crumbly malodorous subungual debris, with pain on palpation, 1-5 Left foot, T5, T9
--- OUTSIDE RECORDS SUMMARY | 2024-10-14 19:05 | XMS_ITS ---
Author Organization [facility] Luzma edu Flannery Address [address] [place] [address] Care Team Providers Care Instructor Weaving Name Role Phone Simon Romeo MD Primary Care Provider Unavailab Deng Melendez Unavailable [phone] Allergies No Known Allergies REASON FOR VISIT At Risk Footcare, Painful Nail(s) aggravated by shoes and causing difficulty standing/walking Medications Medication SIG (Take, Route, Frequency, Duration) Notes Start Date End Date Status Januvia 100 MG 1 tablet Orally Once a day Not-Taking Citalopram Hydrobromide 10 MG 1 tablet Orally Once a day for 30 day(s) Not-Taking Invokana Not-Taking Ketorolac Tromethamine Not-Taking Ilevro Not-Taking Naproxen Not-Taking Extra Depth Orthopedic Shoes, (1) Pair With (3) Pair Custom Heat Molded Multidensity Innersoles Dx: NIDDM/PVD(E11.51), Hammertoe Foot Deformity(M20.41,M20.42) , Preulcerative Skin Lesion(s)(L85.1) Wear Daily for 365 days 08/01/2023 Active Lisinopril 10 MG 1 tablet Orally Active Vitamin B6 Active traZODone HCl Active Simvastatin 20 MG 1 tablet every eveni ng Orally Once a day Active Pantoprazole Sodium 40 MG 1 tablet Orally Twice a day Active Percogesic Active metFORMIN HCl 850 MG as directed Orally Active Ozempic Active Eliquis 5 MG 1 tablet Orally Twic e a day for 30 day(s) Active glipiZIDE XL 5 MG 3 tabs Orally Once a day Active Allopurinol 100 MG 1 tablet Orally Once a day for 30 day(s) Active DULoxetine HCl 60 MG as directed Orally Once a day Active Centrum Silver Activ e Flomax 0.4 MG 1 capsule Orally Onc e a day Active Gas Relief Active Tylenol Active Social History Tobacco Use: Social History Observation Description Date Details (start date - stop date) Never Smoker NA - NA Alcohol Screen Question Answer Notes Did you have a drink containing alcohol in the p ast year? No Points 0 Interpretation Negative Tobacco use other than smoking: Question Answer Notes Are you an other tobacco user? No Tobacco Control (Standard) Question Answer Notes Tobacco use: Nonsmoker Additional Findings: Tobacco non-user Current no nsmoker Vital Signs Height 5ft 8in in 07/24/2024 Weight 230 lbs 07/24/2024 BMI 34.97 kg/m2 07/24/2024 Blood pressure systolic 128 mm Hg 07/24/19 Blood pressure diastolic 76 mm Hg 025 Procedures Procedure Date Ordered Date Performed Result Body Sit e 84634-AJDHNBI NAIL, 6 OR MORE 07/24/2024 N/A 97660-YHEW SKIN LESIONS, 2 TO 4 07/24/2024 N/A Encounters Encounter Location Date Provider Diagnosis [facility] [place] [address] [place] [id number] 07/24/2024 Deng Arceo Type 2 diabetes mellitus with diabetic peripheral angiopathy without gangrene E11.51 ; Tinea unguium B35.1 ; Pain in right toe(s) M79.674 and Pain in left toe(s) M79.675 Assessments Encounter Date Diagnosis (ICD Code) Assessment Notes Treatment Notes Treatment Clinical Notes Section Notes 07/24/2024 Type 2 diabetes mellitus with diabetic peripheral angiopathy without gangrene (ICD-10 - E11.51) Q7(A), Q8(2B), Q9(1B,2C) 07/24/2024 Tinea unguium (ICD-10 - B35.1) 07/24/2024 Pain in right toe(s) (ICD-10 - M79.674) 07/24/2024 Pain in left toe(s) (ICD-10 - M79.675) Plan Of Treatment Pending Test Test Name Order Date 40290-PSRJTTO NAIL, 6 OR MORE 07/24/2024 46810-ISZT SKIN LESIONS, 2 TO 4 07/24/19 25 Next Appt Details Follow Up: prn, Reason: Provider Name:Deng Arceo , 10/30/2024 10:00:00 AM, [address] , [address], [place], [address], Procedure Notes * Category Sub-Category Detail Notes Debride Nail 6-10 Nail debridement Due to the cl inical pathology outlined in the exam findings, performance of this nail treatment is medically necessary as its management by an unskilled/untrained nonprofessional would put this patients foot and overall health at risk. Therefore, debridement to affected nail(s), as described in exam ( TA, T1, T2, T3, T4, T5, T9 ), was performed exclusively by the physician of record to reduce/remove overall nail length, girth, thickness, subungual debris, and necrotic tissue, by manual and/or electrical means through the use of a nail nipper and/or dremel-type barytes grinder, to a more viable healthy nail plate or bed tissue 6-10 nails in total. Silver nitrate was used for any petechial bleeding as necessary. Definitive antifungal treatment options, both pharmaceutical and surgical, have been reviewed and discussed with the patient. The patient solely prefers the use of intermittent/as needed professional debridement services for their nail condition and understands the need for additional periodic treatments to maintain effectiveness in symptomatic relief - 56275 Keratoma Treatment Parring or Cutting o f Benign Hyperkeratotic Lesion(s) (-56) 2-4 Lesions - Due to the at risk nature of the patients medical condition as documented in the exam findings, performance of this keratoderma treatment is medically necessary as its management by an unskilled/untrained nonprofessional would put this patients foot and overall health at risk. Therefore, the benign hyperkeratotic lesions, ( 4 ) in total, locations as stated and described in the exam ( Medial, IPJ, TA, Medial, IPJ, T5, Plantar, Heel(s), B/L ), were pared, and/or cut utilizing a sterile 15 blade, tissue nippers, and/or power dremel instrumentation by the physician of record - 73784, Q8 Progress Notes * Vishal CONTI LDOB:[birth year] (78 yo M)Acc No.[id number]:07/24/2024 Progress Note Patient:?Vishal CONTI Provider:?Deng Arceo DPM :1945???Age:78 Y???Sex:Male Bertin e:07/24/2024 Address:[address], [place]-[id number] Pcp:Simon Romeo MD Subjective: * Chief Complaints: * ???At Risk FootcarePainful N ail(s) aggravated by shoes and causing difficulty standing/walking * HPI: ???At Risk footcare:?Pt States Last PCP Visit:?Date?05/07/2024 States has an appt with PCP - Jul * ROS:?General/Constitutional:?Nausea?denies.?Vomiting?denies.?Hunger Thirst?denies.?Loss appetite?denies.?Chills?denies.?Fatigue?denies.?Fever?denies.?Night Sweats?denies.?Unexplained weight loss?denies.?Ophthalmologic:?Blurred vision?denies.?Red eye?denies.?HEENTM:?Dentures?denies.?Dizziness?denies.?Glasses/contacts?admits.?Retinopathy?den ies.?Blurred/double vision?denies.?TMJ?denies.?Discharge/drainage?denies.?Implants?denies.?Hard of hearing denies.?Difficulty chewing/swallowing/speaking?denies.?Nose bleeds?denies.?Sore mouth?denies.?Swollen glands?denies.?Respiratory:?On O xygen?denies.?Pneumonia/pleurisy?denies.?Bronchitis?denies.?Emphysema?denies.?Co ughing?denies.?Cough blood?denies.?Shortness of breath?denies.?Wheezing?denies.?Cardiovascular:?Pacemaker?denies.?MVP?denies.?WPW?denies.?CHF?denies.?Heart attack?denies.?Septal defect?denies.?Rapid beat?denies.?Chest pain ?denies.?Atrial Fib.?denies.?Murmur/Palpitations?denies.?Gastrointestinal:?Hemorrhoids?denies.?Stomach/Abdominal pain?denies.?Dark blood stool?denies.?Irritable bowel ?denies.?Constipation?denies.?Diarrhea?denies.?Vomiting?denies.?Hematology:?Swelling?denies.?Bruising?admits, on anticoagulants.?Bleeding problem?admits, on anticoagulants.?Genitourinary:?Blood urine?denies.?Frequent/Painfu/urination/bladder control?denies.?Kidney stones?denies.?Infection (UTI)?denies.?Nephropathy?denies.?Musculoskeletal:?Hammertoes?admits.?Bunions?denies.?Scoliosis/kyphosis?denies.?Muscle cramps / walking?denies.?Generalized aches and pains?denies.?Weakness?denies.?Integ.:?Zimmerman?denies.?Scars?denies.?Corns/calluses?admits.?Ingrown nails?admits.?Painful nails?admits.?Rashes?denies.?Neurologic:?Difficulty sleeping?denies.?Bipolar?denies.?Brain disorder?denies.?Balance t rouble?denies.?Confusion?denies.?Fainting/blackouts?denies.?Headache?denies.?Santos mors?denies.? * Medical History:? * Surgical History:?prostate s [...] daughter(s) . .? * Social History:?Tobacco Use:?Tobacco use other than smoking?Are you an other tobacco user??No ?Tobacco Control (Standard)?Tobacco use:?Nonsmoker ?Additional Findings: Tobacco non-user?Current nonsmoker ???Drugs/Alcohol:?Drugs?Have you used drugs other than those for medical reasons in the past 12 months??No ?Alcohol Screen?Did you have a drink containing alcohol in the past year??No ?Points?0 ?Interpretation?Negative ???Miscellaneous:?Caffeine: no, none. ?Children: yes, six. ?Exercise: yes, 2-3 times per week, , walking. ?Marital status: . 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 * Medications:?TakingTylenol F daniel 0.4 MG Capsule 1 capsule Orally Once a day Gas Relief Centrum Silver Allopurinol 100 MG Tablet 1 tablet Orally Once a day DULoxetine HCl 60 MG Capsule Delayed Release Particles as directed Orally Once a day Eliquis 5 MG Tablet 1 tablet Orally Twice a day glipiZIDE XL 5 MG Tablet Extended Release 24 Hour 3 tabs Orally Once a day metFORMIN HCl 850 MG Tablet as directed Orally Ozempic Pantoprazole Sodium 40 MG Tablet Delayed Release 1 tablet Orally Twice a day Percogesic Simvastatin 20 MG Tablet 1 tablet every evening Orally Once a day traZODone HCl Vitamin B6 Extra Depth Orthopedic Shoes, (1) Pair With (3) Pair Custom Heat Molded Multidensity Innersoles . Dx: NIDDM/PVD(E11.51), Hammertoe Foot Deformity(M20.41,M20.42), Preulcerative Skin Lesion(s)(L85.1) Wear Daily Lisinopril 10 MG Tablet 1 tablet Orally Taking Tylenol Taking Flomax 0.4 MG Capsule 1 capsule Orally Once a day Taking Gas Relief Taking Centrum Silver Taking Allopurinol 100 MG Tablet 1 tablet Orally Once a day Taking DULoxetine HCl 60 MG Capsule Delayed Release Particles as directed Orally Once a day Taking Eliquis 5 MG Tablet 1 tablet Orally Twice a day Taking glipiZIDE XL 5 MG Tablet Extended Release 24 Hour 3 tabs Orally Once a day Taking metFORMIN HCl 850 MG Tablet as directed Orally Taking Ozempic Taking Pantoprazole Sodium 40 MG Tablet Delayed Release 1 tablet Orally Twice a day Taking Percogesic Taking Simvastatin 20 MG Tablet 1 tablet every evening Orally Once a day Taking traZODone HCl Taking Vitamin B6 Taking Extra Depth Orthopedic Shoes, (1) Pair With (3) Pair Custom Heat Molded Multidensity Innersoles . Dx: NIDDM/PVD(E11.51), Hammertoe Foot Deformity(M20.41,M20.42), Preulcerative Skin Lesion(s)(L85.1) Wear Daily Taking Lisinopril 10 MG Tablet 1 tablet Orally Not-Taking/PRNNaproxen Januvia 100 MG Tablet 1 tablet Orally Once a day Ketorolac Tromethamine Ilevro Citalopram Hydrobromide 10 MG Tablet 1 tablet Orally Once a day Invokana Medication List reviewed and reconciled with the patientNot-Taking/PRN Naproxen Not-Taking/PRN Januvia 100 MG Tablet 1 tablet Orally Once a day Not-Taking/PRN Ketorolac Tromethamine Not-Taking/PRN Ilevro Not-Taking/PRN Citalopram Hydrobromide 10 MG Tablet 1 tablet Orally Once a day Not-Taking/PRN Invokana Medication List reviewed and reconciled with the patient * Allergies:?N.K.D.A.yes[Aller gies Verified] Objective: * Vitals:?Ht: 5ft 8in, Wt: 230 , BMI: 34.97, Shoe size: 9-9.5, BP: 128/76 mm Hg, BS: 170, Ht-cm: 172.72 cm, Wt-k.33 kg. * ???Past Orders: ???Lab:HEMOGLOBIN A1C (GLYCO HEMOGLOBIN) (Order Date - 01/21/2024) (Collection Date & Time - 01/21/2024 02:21 PM) ? Value Reference Range ?HEMOGLOBIN A1C % (HH) 7.1 * Examination: ???Ophthalmology Referral: ?DIABETES EYE EXAM?Procedure Performed:?Yes ?Date of Exam Performed?10/03/2023 ?Diabetic Retinopathy Screening:?Yes ?Findings of Diabetic Eye Exam:?no retinopathy?Vascular: ?DP PULSES (B):? 1/4, B/L.?PT PULSES (B):? 0/4, B/L.?CAPILLARY FILL TIME:? delayed, all digits, B/L.?TROPHIC CONDITION-TEXTURE/ELASTICITY/TURGOR/HAIR GROWTH (B):? decreased, with sparse to absent hair growth, B/L.?TEMPERTURE GRADIENT (C):? decreased, cool to cool, proximal to distal, B/L.?PIGMENTATION:? rubrous, B/L.?EDEMA (C):?absent, B/L.?CLAUDICATION (C):?denies, B/L.?REST PAIN:?denies, B/L.?Nails: ?NAILS are:?Elongated, overgrown, dystrophic, lytic, greater than 3mm thick, discolored and friable with crumbly malodorous subungual debris, with pain on palpation, TA, T1, T2, T3, T4, T5, T9, all other nails not described with characteristics as possessing mycosis are elongated, overgrown, and dystrophic.?Dermatologic: ?SKIN FINDINGS:?Skin exam reveals Keratotic lesion(s) located at, Medial, IPJ, TA, Medial, IPJ, T5, Plantar, Heel(s), B/L .? Assessment: * Assessment: 1.?Type 2 diabetes mellitus with diabetic peripheral angiopathy without gangrene - E11.51 (Primary)???Notes :Q7(A), Q8(2B), Q9(1B,2C)???2.?Tinea unguium - B35.1???3.?Pain in right toe(s) - M79.674???4.?Pain in left toe(s) - M79.675??? Plan: * Treatment: 2.?Tinea unguium?Procedure: 67810-VABCERO NAIL, 6 OR MORE * Procedures:?Debride Nail 6-10:?Nail debridement?Due to the clinical pathology outlined in the exam findings, performance of this nail treatment is medically necessary as its management by an unskilled/untrained nonprofessional would put this patients foot and overall health at risk. Therefore, debridement to affected nail(s), as described in exam (?TA, T1, T2, T3, T4,?T5,?T9?), was performed exclusively by the physician of record to reduce/remove overall nail length, girth, thickness, subungual debris, and necrotic tissue, by manual and/or electrical means through the use of a nail nipper and/or dremel-type barytes grinder, to a more viable healthy nail plate or bed tissue 6-10 nails in total. Silver nitrate was used for any petechial bleeding as necessary. Definitive antifungal treatment options, both pharmaceutical and surgical, have been reviewed and discussed with the patient. The patient solely prefers the use of intermittent/as needed professional debridement services for their nail condition and understands the need for additional periodic treatments to maintain effectiveness in symptomatic relief - 92827.?Keratoma Treatment:?Parring or Cutting of Benign Hyperkeratotic Lesion(s)?(-56) 2-4 Lesions - Due to the at risk nature of the patients medical condition as documented in the exam findings, performance of this keratoderma treatment is medically necessary as its management by an unskilled/untrained nonprofessional would put this patients foot and overall health at risk. Therefore, the benign hyperkeratotic lesions, ( 4 ) in total, locations as stated and described in the exam (?Medial,?IPJ,?TA,?Medial,?IPJ,?T5,?Plantar,?Heel(s),?B/L?), were pared, and/or cut utilizing a sterile 15 blade, tissue nippers, and/or power dremel instrumentation by the physician of record - 58362, Q8.? * Procedure Codes:?56734 DEBRI DE NAIL, 6 OR MORE, Modifiers: XS 02102 TRIM SKIN LESIONS, 2 TO 4, Modifiers: XS , Q8 * Follow Up:?prn * Images: * Sign off status: Completed true * Provider:?Deng Arceo DPM Date:?2024 Generated for Maximiliano carver/Donnell/Farooq on:?10/14/2024 07:04 PM EDT History and Physical Notes * HPI (History of Present Illness) Category Sub-Category Detail Notes Category Not es At Risk footcare Pt States Last PCP Visit: Date: 05/07/2024 States has an appt with PCP soon - Jul Examination Category Sub-Category Detail Notes Category Not es Dermatologic SKIN FINDINGS: Skin exam reveal s Keratotic lesion(s) located at, Medial, IPJ, TA, Medial, IPJ, T5, Plantar, Heel(s), B/L Ophthalmology Referral DIABETES EYE EXAM Procedu re Performed:: Yes ?Date of Exam Performed: 10/03/2023 Diabetic Retinopathy Screening:: Yes Findings of Diabetic Eye Exam:: no retin opathy Vascular DP PULSES (B): 1/4, B/L PT [...] malodorous subungual debris, with pain on palpation, TA, T1, T2, T3, T4, T5, T9, all other nails not described with characteristics as possessing mycosis are elongated, overgrown, and dystrophic
--- OUTSIDE RECORDS SUMMARY | 2024-10-14 19:05 | XMS_ITS | Patient Health Record ---
Author Organization [facility] Luzma edu Flannery Address [address] [place] [address] Care Team Providers Care Harmonic Analyst Name Role Phone Simon Romeo MD Primary Care Provider Unavailab Deng Melendez Unavailable [phone] Allergies No Known Allergies Results Component Value Reference Range Notes HEMOGLOBIN A1C (GLYCOHEMOGLO BIN) Reviewed date:07/24/2024 02:22:11 PM Interpretation: Performing Lab: Notes/Report: HEMOGLOBIN A1C % (HH) 7.1 HEMOGLOBIN A1C (GLYCOHEMOGLO BIN) Reviewed date:01/23/2024 10:29:33 AM Interpretation: Performing Lab: Notes/Report: HEMOGLOBIN A1C % (HH) 7.1 HEMOGLOBIN A1C (GLYCOHEMOGLO BIN) Reviewed date:04/23/2024 10:46:16 AM Interpretation: Performing Lab: Notes/Report: TOTAL HEMOGLOBIN (HGBA1C) 7.2 HEMOGLOBIN A1C (GLYCOHEMOGLO BIN) Reviewed date:10/24/2023 11:35:51 AM Interpretation: Performing Lab: Notes/Report: HEMOGLOBIN A1C % (HH) 6.9 Reason For Referral No Information Medications Medication SIG (Take, Route, Frequency, Duration) Notes Start Date End Date Status Eliquis 5 MG 1 tablet Orally Twic e a day for 30 day(s) Active Naproxen Not-Taking glipiZIDE XL 5 MG 3 tabs Orally Once a day Active Januvia 100 MG 1 tablet Orally Once a day Not-Taking Allopurinol 100 MG 1 tablet Orally Once a day for 30 day(s) Active Extra Depth Orthopedic Shoes, (1) Pair With (3) Pair Custom Heat Molded Multidensity Innersoles Dx: NIDDM/PVD(E11.51), Hammertoe Foot Deformity(M20.41,M20.42) , Preulcerative Skin Lesion(s)(L85.1) Wear Daily for 365 days 08/01/2023 Active DULoxetine HCl 60 MG as directed Orally Once a day Active Lisinopril 10 MG 1 tablet Orally Active Vitamin B6 Active Centrum Silver Activ e Flomax 0.4 MG 1 capsule Orally Onc e a day Active Simvastatin 20 MG 1 tablet every eveni ng Orally Once a day Active Gas Relief Active traZODone HCl Active Pantoprazole Sodium 40 MG 1 tablet Orally Twice a day Active Citalopram Hydrobromide 10 MG 1 tablet Orally Once a day for 30 day(s) Not-Taking Tylenol Active Percogesic Active Invokana Not-Taking metFORMIN HCl 850 MG as directed Orally Active Ketorolac Tromethamine Not-Taking Ozempic Active Ilevro Not-Taking Immunizations Vaccine Route Administration Date Status Comme nts COVID-19 Moderna Vaccine Unknown 09/17/2020 Administere d Influenza Unknown 03/11/2015 Administered Influenza Unknown 03/03/2016 Administered Influenza Unknown 03/28/2017 Administered Influenza Unknown 04/16/2018 Administered Influenza Unknown 04/18/2019 Administered Pneumococcal Unknown 03/11/2015 Administered Pneumococcal Unknown 03/03/2016 Administered Social History Tobacco Use: Social History Observation [...] Additional Findings: Tobacco non-user Current no nsmoker Problems Problem Type SNOMED Code ICD Code Onset Dates Problem Status W/U Status Risk Notes Problem Acquired hammer toe of right foot (3033072515105 105) Other hammer toe(s) (acquired), right foot (M20.41) Active confirmed Response to treatment,I mprovement Problem Type 2 diabetes mellitus with peripheral angiopathy (565887876) Type 2 diabetes mellitus with diabetic peripheral angiopathy without gangrene (E11.51) Active confirmed Q7(A), Q8(2B), Q9(1B,2C) Problem Acquired hammer toe of left foot (1614444409641 103) Other hammer toe(s) (acquired), left foot (M20.42) Active confirmed Response to treatment,I mprovement Vital Signs Blood pressure diastolic 76 mm Hg 07/24/2024 Height 5ft 8in in 07/24/2024 Blood pressure systolic 128 mm Hg 07/24/2024 Weight 230 lbs 07/24/2024 BMI 34.97 kg/m2 07/24/2024 Procedures Procedure Date Ordered Date Performed Result Body Sit e 44565-EVONCIJ NAIL, 6 OR MORE 10/24/2023 N/A 19525-WYYM SKIN LESIONS, 2 TO 4 10/24/2023 N/A 25222-RYUZIXM NAIL, 6 OR MORE 01/23/2024 N/A 07240-UOPJ SKIN LESIONS, 2 TO 4 01/23/2024 N/A 36224-MEMKSNP NAIL, 6 OR MORE 04/23/2024 N/A 90223-NQGM SKIN LESIONS, 2 TO 4 04/23/2024 N/A 18074-DXDXMJF NAIL, 6 OR MORE 07/24/2024 N/A 75552-QVCJ SKIN LESIONS, 2 TO 4 07/24/2024 N/A Encounters Encounter Location Date Provider Diagnosis [address] [address] 10/24/2023 Dengjaya Hollyier Type 2 diabetes mellitus with diabetic peripheral angiopathy without gangrene E11.51 ; Tinea unguium B35.1 ; Pain in right toe(s) M79.674 and Pain in left toe(s) M79.[address] [address] 01/23/2024 Dengjaya Hollyier Type 2 diabetes mellitus with diabetic peripheral angiopathy without gangrene E11.51 ; Tinea unguium B35.1 ; Pain in right toe(s) M79.674 and Pain in left toe(s) M79.[address] [address] 04/23/2024 Dengjaay ClearyMarielos Type 2 diabetes mellitus with diabetic peripheral angiopathy without gangrene E11.51 ; Tinea unguium B35.1 ; Pain in right toe(s) M79.674 ; Pain in left toe(s) M79.675 ; Other hammer toe(s) (acquired), right foot M20.41 and Other hammer toe(s) (acquired), left foot M20.42 [facility] [place] [address] [address] 07/24/2024 Deng Arceo Type 2 diabetes mellitus with diabetic peripheral angiopathy without gangrene E11.51 ; Tinea unguium B35.1 ; Pain in right toe(s) M79.674 and Pain in left toe(s) M79.675 Assessments Encounter Date Diagnosis (ICD Code) Assessment Notes Treatment Notes Treatment Clinical Notes Section Notes 10/24/2023 Type 2 diabetes mellitus with diabetic peripheral angiopathy without gangrene (ICD-10 - E11.51) 10/24/2023 Tinea unguium (ICD-10 - B35.1) 01/23/2024 Type 2 diabetes mellitus with diabetic peripheral angiopathy without gangrene (ICD-10 - E11.51) 01/23/2024 Tinea unguium (ICD-10 - B35.1) 04/23/2024 Type 2 diabetes mellitus with diabetic peripheral angiopathy without gangrene (ICD-10 - E11.51) 04/23/2024 Tinea unguium (ICD-10 - B35.1) 07/24/2024 Type 2 diabetes mellitus with diabetic peripheral angiopathy without gangrene (ICD-10 - E11.51) Q7(A), Q8(2B), Q9(1B,2C) 07/24/2024 Tinea unguium (ICD-10 - B35.1) 07/24/2024 Pain in right toe(s) (ICD-10 - M79.674) 10/24/2023 Pain in right toe(s) (ICD-10 - M79.674) 04/23/2024 Pain in right toe(s) (ICD-10 - M79.674) 01/23/2024 Pain in right toe(s) (ICD-10 - M79.674) 10/24/2023 Pain in left toe(s) (ICD-10 - M79.675) 01/23/2024 Pain in left toe(s) (ICD-10 - M79.675) 04/23/2024 Pain in left toe(s) (ICD-10 - M79.675) 07/24/2024 Pain in left toe(s) (ICD-10 - M79.675) 04/23/2024 Other hammer toe(s) (acquired), right foot (ICD-10 - M20.41) Response to treatment,Impro vement 04/23/2024 Other hammer toe(s) (acquired), left foot (ICD-10 - M20.42) Response to treatment,Impro vement Plan Of Treatment Pending Test Test Name Order Date Hemoglobin A1c 02/01/2015 29921-WEGCWQN NAIL, 6 OR MORE 10/19/2014 14777-UBCHNKF NAIL, 6 OR MORE 04/20/2014 03210-IPWOZVO NAIL, 6 OR MORE 01/19/2014 68016-SYOJQEZ NAIL, 6 OR MORE 07/21/2013 87035-LVBWUXS NAIL, 6 OR MORE 07/19/2017 20215-UDGEXOL NAIL, 6 OR MORE 04/19/2017 65675-LWHPZCF NAIL, 6 OR MORE 10/25/2015 10303-FGSXEMO NAIL, 6 OR MORE 02/01/2015 97845-ARYZZRO NAIL, 6 OR MORE 07/24/2024 58289-AZKMLKX NAIL, 6 OR MORE 11/29/2020 53560-VJRUGSK NAIL, 6 OR MORE 04/14/2013 16638-WVKEBXT NAIL, 6 OR MORE 10/20/2013 49287-UBFIZUR NAIL, 6 OR MORE 07/20/2014 08081-PFISEGJ NAIL, 6 OR MORE 05/03/2015 07956-EYPLWGA NAIL, 6 OR MORE 07/26/2015 00977-SPSKXKY NAIL, 6 OR MORE 01/20/2016 00661-PGLMVLM NAIL, 6 OR MORE 04/20/2016 93007-BETZNXB NAIL, 6 OR MORE 07/19/2016 30228-LOCSMTI NAIL, 6 OR MORE 10/18/2016 51256-XQXHQQH NAIL, 6 OR MORE 01/17/2017 07058-SZQNOAH NAIL, 6 OR MORE 10/25/2017 75290-PFQXNDC NAIL, 6 OR MORE 01/24/2018 85770-DYTYPLE NAIL, 6 OR MORE 04/25/2018 33845-YRHDDPT NAIL, 6 OR MORE 07/24/2018 83260-VVRZFOD NAIL, 6 OR MORE 10/23/2018 72684-CHSIQWL NAIL, 6 OR MORE 01/22/2019 17486-FQKSZCN NAIL, 6 OR MORE 04/23/2019 15616-KLUGWAS NAIL, 6 OR MORE 07/23/2019 26960-MMGMRVH NAIL, 6 OR MORE 10/22/2019 24263-OMNWFFP NAIL, 6 OR MORE 02/09/2020 44910-HNFNUHD NAIL, 6 OR MORE 05/10/2020 12365-PBZKNYQ NAIL, 6 OR MORE 08/11/2020 13107-ZDTBRBX NAIL, 6 OR MORE 03/17/2021 75568-HYHMZGU NAIL, 6 OR MORE 06/29/2021 60875-HZSWNLD NAIL, 6 OR MORE 09/28/2021 84384-VKMBIDH NAIL, 6 OR MORE 02/01/2022 32217-KTXOTPE NAIL, 6 OR MORE 05/03/2022 63263-LGYHIHU NAIL, 6 OR MORE 08/02/2022 13216-YFPCDBV NAIL, 6 OR MORE 11/01/2022 40461-DAMPBGH NAIL, 6 OR MORE 01/24/2023 20139-RRWEYMP NAIL, 6 OR MORE 04/26/2023 49277-INTOVPC NAIL, 6 OR MORE 08/01/2023 48372-VLCFEAY NAIL, 6 OR MORE 10/24/2023 76674-GYKBFBE NAIL, 6 OR MORE 01/23/2024 55662-OHPZUKA NAIL, 6 OR MORE 04/23/2024 77175-OAAZGFR NAIL, 1-5 12/04/2011 47806-CLCRFKN NAIL, 1-5 03/25/2012 58472-ABHPPTE NAIL, 1-5 08/14/2012 20604-ZDGQCDD NAIL, 1-5 01/20/2013 20428-Xsmuphhc Plate 08/14/2012 13436-BHTN SKIN LESIONS, 2 TO 4 11/02/19 23 81259-LEYC SKIN LESIONS, 2 TO 4 04/26/20 23 94959-KDWG SKIN LESIONS, 2 TO 4 01/25/20 23 81060-HRJY SKIN LESIONS, 2 TO 4 04/23/20 24 37600-VCBX SKIN LESIONS, 2 TO 4 01/23/20 24 25757-IRQE SKIN LESIONS, 2 TO 4 10/24/19 24 86917-BMZJ SKIN LESIONS, 2 TO 4 08/01/19 24 50348-MEEI SKIN LESIONS, 2 TO 4 08/02/19 23 31465-AZPR SKIN LESIONS, 2 TO 4 07/24/19 25 Next Appt Details Provider Name:Deng Arceo , 10/30/2024 10:00:00 AM, [address] [facility], [address], [place], [address], Insurance Providers Payer Name Payer Address Payer Phone Subscriber Number Group Number Insured Name Patient Relationship to Insured Coverage Start Date Coverage End Date Medicare [facility] [employer] [address] [place] [address] [phone] [id number] Vishal Hair Self - patient is the insured [employer] [address] [place] [address] [phone] [id number] Vishal Hair Self - patient is the insured Medical (General) History Medical History History ICD Code chicken pox cholesterol Diabetic type ll prostate Kidney Stones Hypertension Gout Surgical History Surgery Date(Month/Year) prostate surgery 02/2011 carpal tunnel release 03/10/16 appendectomy age 18 tonsillectomy and adenoidectomy age 3 cataract surgery right eye 12/05/17 cataract surgery left eye 10/2020 kidney stones 02/15/21,12/22/21 stent removal 01/02/22 gall bladder removed 07/02/23 Hospitalization History Reason Date(Month/Year) [facility] [place] Kidney Stones 6days 12/22/21 [facility] [place] Kidney stone removed 02/15/21
== END 2024-10-14 18:34 | disposition home or self-care (01) ==
PROVIDERS: Physician Assistant; Emergency Provider Emergency Medicine Emergency Medical Services; PCP Internal Medicine
DX: R10.9 Unspecified abdominal pain (principal); I48.92 Unspecified atrial flutter; Z79.01 Long term (current) use of anticoagulants; Z87.442 Personal history of urinary calculi; Z79.899 Other long term (current) drug therapy
CPT/HCPCS: 36415; 74176; 80053; 81001; 82947; 85025; 85610; 85730; 99284

== ENCOUNTER → 2024-10-14 13:18 | Outpatient (BNV) | payer MEDICARE, SELFPAY | PROVIDERS: PCP Internal Medicine; Visit Provider Radiology Diagnostic Radiology | DX: K57.30 Diverticulosis of large intestine without perforation or abscess without bleeding (principal) | CPT/HCPCS: 74176 ==

== ENCOUNTER 2025-02-02 12:41 | Outpatient (REF) | payer MEDICARE, SELFPAY ==
--- NOTE | ~2025-02-02 | US_ITS ---
EXAMINATION: US SCROTUM HISTORY: TESTICULAR SWELLING, LEFT. COMPARISON: There are no prior studies available for comparison. FINDINGS: Real-time grayscale ultrasound imaging of the scrotum was performed. RIGHT TESTICLE: The right testis measures 3.0 x 1.8 x 2.5 cm and demonstrates normal homogeneous echotexture. No masses are seen. The right testis demonstrates normal color Doppler flow. RIGHT EPIDIDYMIS: Normal in size, shape, and vascularity. There is an 8 x 4 x 4 mm epididymal head cyst. LEFT TESTICLE: The left testis measures 3.1 x 1.8 x 2.7 cm and demonstrates normal homogeneous echotexture. No masses are seen. The left testis demonstrates normal color Doppler flow. LEFT EPIDIDYMIS: There is an 8.1 x 4.8 x 7.9 cm cyst of the epididymis. Additional smaller cysts of the epididymal head are noted including a 5 mm hypoechoic focus which may represent a complex cyst. VARICOCELE: None. HYDROCELE: No significant hydrocele is seen. OTHER COMMENTS: None. US/US scrotum IMPRESSION: 8.1 x 4.8 x 7.9 cm cyst of the left epididymis. Additional smaller epididymal head cysts are noted. Electronically signed by: Donny Ray MD 02/02/2025 02:04 PM EDT
--- OUTSIDE RECORDS SUMMARY | 2025-02-02 12:43 | XMS_ITS | Patient Health Record ---
Author Organization [facility] Luzma edu Flannery Address [address] [place] [address] Care Team Providers Care Head Wood Grinder Name Role Phone Simon Romeo MD Primary Care Provider Unavailab Deng Melendez Unavailable [phone] Allergies No Known Allergies Results Component Value Reference Range Notes HEMOGLOBIN A1C (GLYCOHEMOGLO BIN) Reviewed date:04/23/2024 10:46:16 AM Interpretation: Performing Lab: Notes/Report: TOTAL HEMOGLOBIN (HGBA1C) 7.2 HEMOGLOBIN A1C (GLYCOHEMOGLO BIN) Reviewed date:10/30/2024 10:18:06 AM Interpretation: Performing Lab: Notes/Report: HEMOGLOBIN A1C % (HH) 7.1 Reason For Referral No Information Medications Medication SIG (Take, Route, Frequency, Duration) Notes Start Date End Date Status Centrum Silver Not-T aking Extra Depth Orthopedic Shoes, (1) Pair With (3) Pair Custom Heat Molded Multidensity Innersoles Dx: NIDDM/PVD(E11.51), Hammertoe Foot Deformity(M20.41,M20.42) , Preulcerative Skin Lesion(s)(L85.1) Wear Daily; Duration: 365 days Active metFORMIN HCl 850 MG as directed Orally Active Flomax 0.4 MG 1 capsule Orally Onc e a day Not-Taking glipiZIDE XL 5 MG 3 tabs Orally Once a day Active Percogesic Not-Takin g Ozempic Active Simvastatin 20 MG 1 tablet every eveni ng Orally Once a day Active Januvia 100 MG 1 tablet Orally Once a day Not-Taking Pantoprazole Sodium 40 MG 1 tablet Orally Twice a day Active Naproxen Not-Taking Vitamin B6 Active Ilevro Not-Taking traZODone HCl Active Ketorolac Tromethamine Not-Taking Allopurinol 100 MG 1 tablet Orally Once a day; Duration: 30 day(s) Active Lisinopril 10 MG 1 tablet Orally Active Invokana Not-Taking Gas Relief Active Citalopram Hydrobromide 10 MG 1 tablet Orally Once a day; Duration: 30 day(s) Not-Guevara ing Eliquis 5 MG 1 tablet Orally Twic e a day; Duration: 30 day(s) Active Vitamin D Not-Taking DULoxetine HCl 60 MG as directed Orally Once a day Active Tylenol Active Immunizations Vaccine Route Administration Date Status Comme nts Influenza Unknown 03/11/2015 Administered Influenza Unknown 03/03/2016 Administered Influenza Unknown 03/28/2017 Administered Influenza Unknown 04/16/2018 Administered Influenza Unknown 04/18/2019 Administered Influenza Unknown 02/24/2024 Administered Pneumococcal Unknown 03/11/2015 Administered Pneumococcal Unknown 03/03/2016 Administered COVID-19 Moderna Vaccine Unknown 09/17/2020 Administere d Social History Tobacco Use: Social History Observation Description Date Details (start date - stop date) Never Smoker NA - NA Tobacco use other than smoking: Question Answer Notes Are you an other tobacco user? No Tobacco Control (Standard) Question Answer Notes Tobacco use: Nonsmoker Additional Findings: Tobacco non-user Current no nsmoker AUDIT-C (Standard) Question Answer Notes Did you have a drink containing alcohol in the p ast year? No Points 0 Interpretation Negative Problems Problem Type SNOMED Code ICD Code Onset Dates Problem Status W/U Status Risk Notes Problem Acquired hammer toe of right foot (8448401250838 105) Other hammer toe(s) (acquired), right foot (M20.41) Active confirmed Response to treatment,I mprovement Problem Type 2 diabetes mellitus with peripheral angiopathy (501019466) Type 2 diabetes mellitus with diabetic peripheral angiopathy without gangrene (E11.51) Active confirmed Q7(A), Q8(2B), Q9(1B,2C) Problem Other hammer toe(s) (acquired), left foot (M20.42) Active confirmed Response to treatment,I mprovement Vital Signs Heart Rate 81 /min 10/30/2024 Blood pressure diastolic 80 mm Hg 01/29/2025 Height 5ft 8in in 01/29/2025 Blood pressure systolic 126 mm Hg 01/29/2025 Weight 225 lbs 01/29/2025 BMI 34.21 kg/m2 01/29/2025 Procedures Procedure Date Ordered Date Performed Result Body Sit e 00278-RZRPMVS NAIL, 6 OR MORE 04/23/2024 N/A 44617-GYZD SKIN LESIONS, 2 TO 4 04/23/2024 N/A 67089-PROFUFV NAIL, 6 OR MORE 07/24/2024 N/A 70156-HTXH SKIN LESIONS, 2 TO 4 07/24/2024 N/A 10090-TOOOKQT NAIL, 6 OR MORE 10/30/2024 N/A 85147-AMJV SKIN LESIONS, 2 TO 4 10/30/2024 N/A 78738-ZYDUMJF NAIL, 6 OR MORE 01/29/2025 N/A 34682-ZKRD SKIN LESIONS, 2 TO 4 01/29/2025 N/A Encounters Encounter Location Date Provider Diagnosis [address] [address] 04/23/2024 Dengjaya ClearyMarielos Type 2 diabetes mellitus with diabetic peripheral angiopathy without gangrene E11.51 ; Tinea unguium B35.1 ; Pain in right toe(s) M79.674 ; Pain in left toe(s) M79.675 ; Other hammer toe(s) (acquired), right foot M20.41 and Other hammer toe(s) (acquired), left foot M20.[address] [address] 07/24/2024 Dengjaya ClearyMarielos Type 2 diabetes mellitus with diabetic peripheral angiopathy without gangrene E11.51 ; Tinea unguium B35.1 ; Pain in right toe(s) M79.674 and Pain in left toe(s) M79.[address] [address] 10/30/2024 Dengjaya ClearyMarielos Type 2 diabetes mellitus with diabetic peripheral angiopathy without gangrene E11.51 ; Tinea unguium B35.1 ; Pain in right toe(s) M79.674 and Pain in left toe(s) M79.[address] [address] 01/29/2025 Deng Arceo Type 2 diabetes mellitus with [...] Q9(1B,2C) 07/24/2024 Tinea unguium (ICD-10 - B35.1) 10/30/2024 Type 2 diabetes mellitus with diabetic peripheral angiopathy without gangrene (ICD-10 - E11.51) Q7(A), Q8(2B), Q9(1B,2C) 10/30/2024 Tinea unguium (ICD-10 - B35.1) 01/29/2025 Type 2 diabetes mellitus with diabetic peripheral angiopathy without gangrene (ICD-10 - E11.51) Q7(A), Q8(2B), Q9(1B,2C) 01/29/2025 Tinea unguium (ICD-10 - B35.1) 10/30/2024 Pain in right toe(s) (ICD-10 - M79.674) 04/23/2024 Pain in right toe(s) (ICD-10 - M79.674) 07/24/2024 Pain in right toe(s) (ICD-10 - M79.674) 01/29/2025 Pain in right toe(s) (ICD-10 - M79.674) 07/24/2024 Pain in left toe(s) (ICD-10 - M79.675) 04/23/2024 Pain in left toe(s) (ICD-10 - M79.675) 10/30/2024 Pain in left toe(s) (ICD-10 - M79.675) 01/29/2025 Pain in left toe(s) (ICD-10 - M79.675) 01/29/2025 Other hammer toe(s) (acquired), right foot (ICD-10 - M20.41) Patient Educated with: DIABETIC FOOT CARE INSTRUCTIONS.p df (DIABETIC FOOT CARE INSTRUCTIONS.p df) 04/23/2024 Other hammer toe(s) (acquired), right foot (ICD-10 - M20.41) Response to treatment,Impro vement 01/29/2025 Other hammer toe(s) (acquired), left foot (ICD-10 - M20.42) 04/23/2024 Other hammer toe(s) (acquired), left foot (ICD-10 - M20.42) Response to treatment,Impro vement Plan Of Treatment Pending Test Test Name Order Date Hemoglobin A1c 02/01/2015 11179-NNOPWSM NAIL, 6 OR MORE 05/03/2015 05611-IQUQZDF NAIL, 6 OR MORE 07/26/2015 38755-FGOTPRD NAIL, 6 OR MORE 10/25/2015 95666-FAMDYAD NAIL, 6 OR MORE 01/20/2016 27588-ZGMERHI NAIL, 6 OR MORE 04/20/2016 28151-EANFRBB NAIL, 6 OR MORE 07/19/2016 91143-MFBGDFU NAIL, 6 OR MORE 10/18/2016 17866-HQUSEJJ NAIL, 6 OR MORE 01/17/2017 29829-PKRMFJS NAIL, 6 OR MORE 04/19/2017 06932-WEGCYBR NAIL, 6 OR MORE 07/19/2017 25507-LODRIBO NAIL, 6 OR MORE 10/25/2017 42068-JEPLADD NAIL, 6 OR MORE 01/24/2018 83444-WJRXGOJ NAIL, 6 OR MORE 04/25/2018 43594-VTWNCSK NAIL, 6 OR MORE 07/24/2018 27210-JTIGGTA NAIL, 6 OR MORE 10/23/2018 23926-NJKYJTW NAIL, 6 OR MORE 01/22/2019 96940-EFDREPO NAIL, 6 OR MORE 04/23/2019 15597-LGXJAID NAIL, 6 OR MORE 07/23/2019 36078-KKMWHYM NAIL, 6 OR MORE 10/22/2019 84026-ERVFNKA NAIL, 6 OR MORE 02/09/2020 37838-FPKIKRS NAIL, 6 OR MORE 05/10/2020 54068-XGGKYNV NAIL, 6 OR MORE 08/11/2020 30931-KLXILTF NAIL, 6 OR MORE 11/29/2020 16283-IIPVSSS NAIL, 6 OR MORE 03/17/2021 11984-BECJXKQ NAIL, 6 OR MORE 06/29/2021 65079-GPCPNOQ NAIL, 6 OR MORE 09/28/2021 62536-XEGPPJR NAIL, 6 OR MORE 02/01/2022 04069-XQKVCSX NAIL, 6 OR MORE 05/03/2022 99537-QYTBOHI NAIL, 6 OR MORE 08/02/2022 24019-LWLBFPE NAIL, 6 OR MORE 04/14/2013 36358-SJLTEHC NAIL, 6 OR MORE 07/21/2013 65396-KCLJVLW NAIL, 6 OR MORE 10/20/2013 99129-IBWNNMH NAIL, 6 OR MORE 01/19/2014 55818-VKKEHIA NAIL, 6 OR MORE 04/20/2014 70623-AEMMTYA NAIL, 6 OR MORE 07/20/2014 55932-AGBWKZY NAIL, 6 OR MORE 10/19/2014 51816-HBJETDS NAIL, 6 OR MORE 02/01/2015 40462-XXMRKAY NAIL, 6 OR MORE 11/01/2022 79766-VGSRIMT NAIL, 6 OR MORE 01/24/2023 72561-BXWJYQR NAIL, 6 OR MORE 04/26/2023 43414-WTNEDLX NAIL, 6 OR MORE 08/01/2023 90058-GVGSIGL NAIL, 6 OR MORE 10/24/2023 70321-LIRGGSU NAIL, 6 OR MORE 01/23/2024 36407-INIVUBH NAIL, 6 OR MORE 04/23/2024 06693-BUSHPBZ NAIL, 6 OR MORE 07/24/2024 05915-FIJDMVS NAIL, 6 OR MORE 10/30/2024 40344-KXOVLVD NAIL, 6 OR MORE 01/29/2025 52374-YXICMJX NAIL, 1-5 12/04/2011 73380-KLXCCVZ NAIL, 1-5 03/25/2012 13397-RQENWUY NAIL, 1-5 08/14/2012 87990-OOEZKJJ NAIL, 1-5 01/20/2013 39593-Aeseivvs Plate 08/14/2012 37376-BANJ SKIN LESIONS, 2 TO 4 01/25/20 23 00638-BEST SKIN LESIONS, 2 TO 4 11/02/19 23 52022-JYBL SKIN LESIONS, 2 TO 4 08/02/19 23 85813-GNTU SKIN LESIONS, 2 TO 4 10/31/19 25 92349-JXJB SKIN LESIONS, 2 TO 4 01/30/20 25 62567-YSTC SKIN LESIONS, 2 TO 4 07/24/19 25 03093-CGGY SKIN LESIONS, 2 TO 4 04/23/20 24 32975-IMGA SKIN LESIONS, 2 TO 4 01/23/20 24 87884-CJXA SKIN LESIONS, 2 TO 4 10/24/19 24 65770-OHTO SKIN LESIONS, 2 TO 4 08/01/19 24 87202-ZVGV SKIN LESIONS, 2 TO 4 04/26/20 23 Next Appt Details Provider Name:Deng Arceo , 05/14/2025 09:00:00 AM, [address], [address], [place], [address], Insurance Providers Payer Name Payer Address Payer Phone Subscriber Number Group Number Insured Name Patient Relationship to Insured Coverage Start Date Coverage End Date Medicare National Govt [employer] [address] [place] [address] [id number] Vishal Hair Self - patient is the insured [facility] [address] [place] [address] [phone] [id number] Vishal Hair Self - patient is the [...] bladder removed 07/02/23 Hospitalization History Reason Date(Month/Year) C - Sepsis Kidney Stones 6days 6/30/22 [facility], Kidney stone removed 02/15/21
== END 2025-02-02 12:42 | disposition home or self-care (01) ==
LOC: HO.US 12:41
PROVIDERS: PCP Internal Medicine; Visit Provider Internal Medicine
DX: N50.89 Other specified disorders of the male genital organs (principal)
CPT/HCPCS: 76870

== ENCOUNTER → 2025-02-02 13:03 | Outpatient (BNV) | payer MEDICARE, SELFPAY | PROVIDERS: PCP Internal Medicine; Visit Provider Radiology Diagnostic Radiology | DX: N50.3 Cyst of epididymis (principal) | CPT/HCPCS: 76870 ==

== ENCOUNTER 2025-03-19 17:43 | Emergency (ER) | payer MEDICARE, SELFPAY ==
--- OUTSIDE RECORDS SUMMARY | 2024-12-19 12:15 | XMS_ITS ---
Author Organization [facility] Address [address] [place], [place] [id number] Care Team Providers Care Medical Reception Specialist Name Role Phone JANI CHRISTIANSON Primary Care Provider ALLERGIES No Known Allergies REASON FOR VISIT swollen testicles, Patient could not verifiy his medications with this [place]. - SM 12/19/24. MEDICATIONS Medication SIG (Take, Route, Frequency, Duration) Notes Start Date End Date Status metFORMIN HCl 850 mg TAKE 1 TABLET BY MOUTH TWICE DAILY WITH MEALS Active Lancets 30G - as directed applied to skin Once a day for 90 days 08/24/2023 Active Eliquis 5 mg TAKE 1 TABLET BY MOUTH TWICE DAILY Active Ozempic (0.25 or 0.5 MG/DOSE) 2 MG/3ML 0.5 mg Subcutaneous every 7 days Active glipiZIDE 5 mg TAKE 1 TABLET BY MOUTH 30 minutes BEFORE breakfast Active Pantoprazole Sodium 40 mg TAKE 1 TABLET BY MOUTH 2 TIMES EVERY DAY for 90 Active True Metrix Meter - as directed misc use with lancets and strips 08/24/2023 Active True Metrix Blood Glucose Test - as directed Once a day for 90 days Dx: E11.65 Active DULoxetine HCl 60 mg TAKE 1 CAPSULE BY MOUTH ONCE every DAY for 30 Active Accu-Chek Megan Plus - USE 1 strip THREE TIMES DAILY directed for 33 Active Lisinopril 10 mg 1 tablet Orally Once a day Active traZODone HCl 50 mg TAKE 1 TABLET BY MOUTH EVERY NIGHT AT BEDTIME for 30 Active Ozempic (1 MG/DOSE) 4 MG/3ML as directed Subcutaneous every 7 days for 28 days 11/09/2024 Active Accu-Chek Softclix Lancets - test bs TWICE DAILY TO THREE TIMES DAILY OR directed for 33 Active Simvastatin 20 mg 1 tablet in the evening Orally Once a day for 90 days Active Methocarbamol 750 MG 1 tablet Orally 3 times daily prn for 10 day(s) weining down 2 pills left 10/17/2024 Active SOCIAL HISTORY Tobacco Use: Social History Observation Description Date Details (start date - stop date) Never Smoker NA - NA Sex Assigned At : Social History Observation Description Sex Assigned At Unknown Smoking Question Answer Notes Are you a: never smoker VITAL SIGNS Height 67.50 in 12/19/2024 Weight 208.6 lbs 12/19/2024 Blood pressure systolic 132 mm Hg 12/20/19 25 Blood pressure diastolic 70 mm Hg 025 BMI 32.19 kg/m2 12/19/2024 Encounters Encounter Location Date Provider Diagnosis [facility] [address] [place] [phone] 12/19/2024 JANI CHRISTIANSON Testicular swelling, left N50.89 and Essential (primary) hypertension I10 ASSESSMENTS Encounter Date Diagnosis Assessment Notes Treatment Notes Treatment Clinical Notes Section Notes 12/19/2024 Testicular swelling, left (ICD-10 - N50.89) 1. Left testicular enlargement: Ultrasound back in 2019 showed an epididymal cyst that was 4 cm at that time. Left testicle is markedly enlarged since then. Will repeat an ultrasound to ensure no new abnormality. He sees Dr. Pace in the [place] for urology and we will request likely follow-up after ultrasound performed there. 2. Hypertension: Stable on current regimen. No changes made today 12/19/2024 Essential (primary) hypertension (ICD-10 - I10) 1. Left testicular enlargement: Ultrasound back in 2018 showed an epididymal cyst that was 4 cm at that time. Left testicle is markedly enlarged since then. Will repeat an ultrasound to ensure no new abnormality. He sees Dr. Pace in the [place] for urology and we will request likely follow-up after ultrasound performed there. 2. Hypertension: Stable on current regimen. No changes made today PLAN OF TREATMENT Medication Medication Name Sig Start Date Stop Date Notes Lisinopril 10 mg 1 tablet Orally Once a day Next Appt Details Provider Name:JANI CHRISTIANSON , 05/11/2025 01:00:00 PM, [address] [place] [address], [phone], Progress Notes * Examination Category Sub-Category Detail Notes Category Not es General Examination Heart: RSR, normal S1S2 Lungs: clear to auscultatio n Extremities: no edema General Appearance no apparent distress , pleasant Genitourinary severe enlargement l eft testicle - no pain with palpation Psych: alert, oriented X 3 Other normal affect History and Physical Notes * HPI (History of Present Illness) Category Sub-Category Detail Notes Category Not es General Pstient present s with painless enlargement of left testicle. No discharge No change in urinary symptoms
--- OUTSIDE RECORDS SUMMARY | 2025-02-03 13:57 | XMS_ITS ---
Author Organization [facility] Address [facility] [place], [place] [id number] Care Team Providers Care Ship Erector Name Role Phone JANI CHRISTIANSON Primary Care Provider REASON FOR VISIT (2)US scrotum Encounters Encounter Location Date Provider Diagnosis [facility] [address] [place] [address] 02/03/2025 JANI CHRISTIANSON PLAN OF TREATMENT Next Appt Details Provider Name:JANI CHRISTIANSON , 05/11/2025 01:00:00 PM, [address] [place], [address],
--- OUTSIDE RECORDS SUMMARY | 2025-02-19 09:30 | XMS_ITS ---
Author Organization [facility] Address [address] [place], [place] [id number] Care Team Providers Care Wildlife Control Agent Name Role Phone JANI CHRISTIANSON Primary Care Provider [phone] ALLERGIES No Known Allergies REASON FOR VISIT 41/ AWV MEDICATIONS Medication SIG (Take, Route, Frequency, Duration) Notes Start Date End Date Status Lancets 30G - as directed applied to skin Once a day for 90 days 08/24/2023 Active Methocarbamol 750 MG 1 tablet Orally 3 times daily prn for 10 day(s) weining down 2 pills left 10/17/2024 Active traZODone HCl 50 mg TAKE 1 TABLET BY MOUTH EVERY NIGHT AT BEDTIME for 30 Active DULoxetine HCl 60 mg TAKE 1 CAPSULE BY MOUTH ONCE every DAY for 30 Active True Metrix Blood Glucose Test - as directed Once a day for 90 days Dx: E11.65 Active Accu-Chek Softclix Lancets - test bs TWICE DAILY TO THREE TIMES DAILY OR directed for 33 Active Accu-Chek Megan Plus - USE 1 strip THREE TIMES DAILY directed for 33 Active True Metrix Meter - as directed misc use with lancets and strips 08/24/2023 Active Pantoprazole Sodium 40 mg TAKE 1 TABLET BY MOUTH 2 TIMES EVERY DAY for 90 Active Ozempic (1 MG/DOSE) 4 MG/3ML as directed Subcutaneous every 7 days 11/09/2024 Active metFORMIN HCl 850 mg TAKE 1 TABLET BY MOUTH TWICE DAILY WITH MEALS Active Eliquis 5 mg TAKE 1 TABLET BY MOUTH TWICE DAILY Active Lisinopril 10 mg TAKE 1 TABLET BY MOUTH every DAY Active Simvastatin 20 mg 1 tablet in the evening Orally Once a day Active glipiZIDE 5 mg TAKE 1 TABLET BY MOUTH 30 minutes BEFORE breakfast Active IMMUNIZATIONS Vaccine Route Administration Date Status Comme nts [id number] IM Intramuscular 02/19/2025 Administered SOCIAL HISTORY Tobacco Use: Social History Observation Description Date Details (start date - stop date) Never Smoker NA - NA Sex Assigned At : Social History Observation Description Sex Assigned At Unknown Smoking Question Answer Notes Are you a: never smoker PROBLEMS Problem Type ICD Code Onset Dates Problem Status W/U Status Risk SNOMED Code Notes Problem Mixed hyperlipidemia (E78.2) Active confirmed Mixed hyperlipidemia (226431062) VITAL SIGNS Height 67.50 in 02/19/2025 Weight 208 lbs 02/19/2025 Blood pressure systolic 118 mm Hg 02/20/20 25 Blood pressure diastolic 60 mm Hg 025 BMI 32.09 kg/m2 02/19/2025 Encounters Encounter Location Date Provider Diagnosis [facility] [address] [place] [address] 02/19/2025 JANI GUAYANILLA Type 2 diabetes mellitus without complication, without long-term current use of insulin E11.9 ; Essential (primary) hypertension I10 ; Atrial flutter, unspecified type I48.92 ; Secondary hypercoagulable state D68.69 ; Degeneration of intervertebral disc of lumbar region with discogenic back pain and lower extremity pain M51.362 ; Kidney stones N20.0 ; Malignant neoplasm of prostate C61 ; Mixed hyperlipidemia E78.2 ; Encounter for general adult medical examination without abnormal findings Z00.00 and Encounter for immunization Z23 ASSESSMENTS Encounter Date Diagnosis Assessment Notes Treatment Notes Treatment Clinical Notes Section Notes 02/19/2025 Type 2 diabetes mellitus without complication, without long-term current use of insulin (ICD-10 - E11.9) 1. Type 2 diabetes mellitus: We will update A1c on current Ozempic, metformin and glipizide 2. Hypertension: Stable on current lisinopril. No changes made today 3. Atrial flutter: Rate controlled: Continue Eliquis 4. Lumbar degenerative disc disease: Stable at present. Encouraged ongoing PT exercises at home 5. Kidney stones: No obvious recurrence. Has upcoming follow-up with urology 6. History of prostate cancer: Will update PSA with urology 7. Hyperlipidemia: Will update profile on simvastatin 8. Routine healthcare maintenance: Will do Cologuard to update colon screening. Will update fasting blood work. Prevnar 20 given today 02/19/2025 Essential (primary) hypertension (ICD-10 - I10) 1. Type 2 diabetes mellitus: We will update A1c on current Ozempic, metformin and glipizide 2. Hypertension: Stable on current lisinopril. No changes made today 3. Atrial flutter: Rate controlled: Continue Eliquis 4. Lumbar degenerative disc disease: Stable at present. Encouraged ongoing PT exercises at home 5. Kidney stones: No obvious recurrence. Has upcoming follow-up with urology 6. History of prostate cancer: Will update PSA with urology 7. Hyperlipidemia: Will update profile on simvastatin 8. Routine healthcare maintenance: Will do Cologuard to update colon screening. Will update fasting blood work. Prevnar 20 given today 02/19/2025 Atrial flutter, unspecified type (ICD-10 - I48.92) 1. Type 2 diabetes mellitus: We will update A1c on current Ozempic, metformin and glipizide 2. Hypertension: Stable on current lisinopril. No changes made today 3. Atrial flutter: Rate controlled: Continue Eliquis 4. Lumbar degenerative disc disease: Stable at present. Encouraged ongoing PT exercises at home 5. Kidney stones: No obvious recurrence. Has upcoming follow-up with urology 6. History of prostate cancer: Will update PSA with urology 7. Hyperlipidemia: Will update profile on simvastatin 8. Routine healthcare maintenance: Will do Cologuard to update colon screening. Will update fasting blood work. Prevnar 20 given today 02/19/2025 Secondary hypercoagulable state (ICD-10 - D68.69) 1. Type 2 diabetes mellitus: We will update A1c on current Ozempic, metformin and glipizide 2. Hypertension: Stable on current lisinopril. No changes made today 3. Atrial flutter: Rate controlled: Continue Eliquis 4. Lumbar degenerative disc disease: Stable at present. Encouraged ongoing PT exercises at home 5. Kidney stones: No obvious recurrence. Has upcoming follow-up with urology 6. History of prostate cancer: Will update PSA with urology 7. Hyperlipidemia: Will update profile on simvastatin 8. Routine healthcare maintenance: Will do Cologuard to update colon screening. Will update fasting blood work. Prevnar 20 given today 02/19/2025 Degeneration of intervertebral disc of lumbar region with discogenic back pain and lower extremity pain (ICD-10 - M51.362) 1. Type 2 diabetes mellitus: We will update A1c on current Ozempic, metformin and glipizide 2. Hypertension: Stable on current lisinopril. No changes made today 3. Atrial flutter: Rate controlled: Continue Eliquis 4. Lumbar degenerative disc disease: Stable at present. Encouraged ongoing PT exercises at home 5. Kidney stones: No obvious recurrence. Has upcoming follow-up with urology 6. History of prostate cancer: Will update PSA with urology 7. Hyperlipidemia: Will update profile on simvastatin 8. Routine healthcare maintenance: Will do Cologuard to update colon screening. Will update fasting blood work. Prevnar 20 given today 02/19/2025 Kidney stones (ICD-10 - N20.0) 1. Type 2 diabetes mellitus: We will update A1c on current Ozempic, metformin and glipizide 2. Hypertension: Stable on current lisinopril. No changes made today 3. Atrial flutter: Rate controlled: Continue Eliquis 4. Lumbar degenerative disc disease: Stable at present. Encouraged ongoing PT exercises at home 5. Kidney stones: No obvious recurrence. Has upcoming follow-up with urology 6. History of prostate cancer: Will update PSA with urology 7. Hyperlipidemia: Will update profile on simvastatin 8. Routine healthcare maintenance: Will do Cologuard to update colon screening. Will update fasting blood work. Prevnar 20 given today 02/19/2025 Malignant neoplasm of prostate (ICD-10 - C61) 1. Type 2 diabetes mellitus: We will update A1c on current Ozempic, metformin and glipizide 2. Hypertension: Stable on current lisinopril. No changes made today 3. Atrial flutter: Rate controlled: Continue Eliquis 4. Lumbar degenerative disc disease: Stable at present. Encouraged ongoing PT exercises at home 5. Kidney stones: No obvious recurrence. Has upcoming follow-up with urology 6. History of prostate cancer: Will update PSA with urology 7. Hyperlipidemia: Will update profile on simvastatin 8. Routine healthcare maintenance: Will do Cologuard to update colon screening. Will update fasting blood work. Prevnar 20 given today 02/19/2025 Mixed hyperlipidemia (ICD-10 - E78.2) 1. Type 2 diabetes mellitus: We will update A1c on current Ozempic, metformin and glipizide 2. Hypertension: Stable on current lisinopril. No changes made today 3. Atrial flutter: Rate controlled: Continue Eliquis 4. Lumbar degenerative disc disease: Stable at present. Encouraged ongoing PT exercises at home 5. Kidney stones: No obvious recurrence. Has upcoming follow-up with urology 6. History of prostate cancer: Will update PSA with urology 7. Hyperlipidemia: Will update profile on simvastatin 8. Routine healthcare maintenance: Will do Cologuard to update colon screening. Will update fasting blood work. Prevnar 20 given today 02/19/2025 Encounter for general adult medical examination without abnormal findings (ICD-10 - Z00.00) 1. Type 2 diabetes mellitus: We will update A1c on current Ozempic, metformin and glipizide 2. Hypertension: Stable on current lisinopril. No changes made today 3. Atrial flutter: Rate controlled: Continue Eliquis 4. Lumbar degenerative disc disease: Stable at present. Encouraged ongoing PT exercises at home 5. Kidney stones: No obvious recurrence. Has upcoming follow-up with urology 6. History of prostate cancer: Will update PSA with urology 7. Hyperlipidemia: Will update profile on simvastatin 8. Routine healthcare maintenance: Will do Cologuard to update colon screening. Will update fasting blood work. Prevnar 20 given today 02/19/2025 Encounter for immunization (ICD-10 - Z23) Pneumococcal Conjugate 20 given today. Patient counseled and given VIS sheet for review. 1. Type 2 diabetes mellitus: We will update A1c on current Ozempic, metformin and glipizide 2. Hypertension: Stable on current lisinopril. No changes made today 3. Atrial flutter: Rate controlled: Continue Eliquis 4. Lumbar degenerative disc disease: Stable at present. Encouraged ongoing PT exercises at home 5. Kidney stones: No obvious recurrence. Has upcoming follow-up with urology 6. History of prostate cancer: Will update PSA with urology 7. Hyperlipidemia: Will update profile on simvastatin 8. Routine healthcare maintenance: Will do Cologuard to update colon screening. Will update fasting blood work. Prevnar 20 given today PLAN OF TREATMENT Medication Medication Name Sig Start Date Stop Date Notes Ozempic (1 MG/DOSE) 4 MG/3ML as directed Subcutaneous every 7 days 11/09/2024 metFORMIN HCl 850 mg TAKE 1 TABLET BY [facility] TWICE DAILY WITH MEALS Eliquis 5 mg TAKE 1 TABLET BY NAY TH TWICE DAILY Lisinopril 10 mg TAKE 1 TABLET BY NAY TH every DAY Simvastatin 20 mg 1 tablet in the even ing Orally Once a day glipiZIDE 5 mg TAKE 1 TABLET BY NAY TH 30 minutes BEFORE breakfast Treatment Notes Assessment Notes Encounter for immunization Pneumococcal Conjugate 20 given today. Patient counseled and given VIS sheet for review. Next Appt Details Follow Up: prn, Reason: Provider Name:JANI CHRISTIANSON , 05/11/2025 01:00:00 PM, [address] [place] [address], [phone], Progress Notes * Examination Category Sub-Category Detail Notes Category Not es General Examination HEENT: PERRLA, EOMI bilaterally, nose clear, oropharynx clear, no TM's normal, scleral icterus, , Normocephalic/atraumatic Neck: no lymphadenopathy, no thyroid abnormality, no bruit, normal ROM of C spine Heart: RRR, normal S1S2, no murmurs, clicks or rubs Lungs: clear to auscultatio n, no crackles, , no wheezes Abdomen: soft, non tender/non distended, no rebound tenderness, no guarding or rigidity, no masses palpated Extremities: no edema General Appearance no apparent distress Skin: no rash Neuro alert and oriented x 3, CN 2-12 intact, no focal motor abnormality, no tremor Peripheral pulses: bilaterally symetric al dorsalis pedis, posterior tibial, radial and Carotids Back: no spinal tenderness Rectal prostate enlarged Lymphatics No nodes in neck Psych: affect normal
--- OUTSIDE RECORDS SUMMARY | 2025-02-19 10:00 | XMS_ITS ---
Author Organization [facility] Address [address] [place], [place] [id number] Care Team Providers Care Medical Charge Entry Specialist Name Role Phone JANI CHRISTIANSON Primary Care Provider REASON FOR VISIT N/41 AWV SOCIAL HISTORY Tobacco Use: Social History Observation Description Date Details (start date - stop date) Never Smoker NA - NA Sex Assigned At : Social History Observation Description Sex Assigned At Unknown Smoking Question Answer Notes Are you a: never smoker Alcohol Screen Question Answer Notes Did you have a drink containing alcohol in the p ast year? No Points 0 Interpretation Negative Encounters Encounter Location Date Provider Diagnosis [facility] [address] [place] [address] 02/19/2025 JANI CHRISTIANSON Medicare annual wellness visit, subsequent Z00.00 ASSESSMENTS Encounter Date Diagnosis Assessment Notes Treatment Notes Treatment Clinical Notes Section Notes 02/19/2025 Medicare annual wellness visit, subsequent (ICD-10 - Z00.00) AWV form reviewed with pt PLAN OF TREATMENT Treatment Notes Assessment Notes Medicare annual wellness visit, subseque nt AWV form reviewed with pt Next Appt Details Follow Up: prn, Reason: Provider Name:JANI CHRISTIANSON , 05/11/2025 01:00:00 PM, [address] [place], [address], History and Physical Notes * HPI (History of Present Illness) Category Sub-Category Detail Notes Category Not es Depression Screening PHQ-2 (2015 Edition) Little interest or pleasure in doing things?: Not at all Feeling down, depressed, or hopeless?: N ot at all Total Score: 0
--- OUTSIDE RECORDS SUMMARY | 2025-02-21 03:16 | XMS_ITS ---
Author Organization [facility] Address [address] [place], [place] [id number] Care Team Providers Care Cream Buyer Name Role Phone JANI CHRISTIANSON Primary Care Provider [phone] REASON FOR VISIT labs Encounters Encounter Location Date Provider Diagnosis [facility] [address] [place] [address] 02/21/2025 JANI GARCIAFORD Elevated transaminas e level R74.01 ASSESSMENTS Encounter Date Diagnosis Assessment Notes Treatment Notes Treatment Clinical Notes Section Notes 02/21/2025 Elevated transaminase level (ICD-10 - R74.01) PLAN OF TREATMENT Future Test Test Name Order Date Comp. Metabolic Panel ([id number] 2024 Next Appt Details Provider Name:JANI CHRISTIANSON , 05/11/2025 01:00:00 PM, [address] [place], [address],
--- NOTE | ~2025-03-19 | CT_ITS ---
CLINICAL HISTORY: c o swelling sensation in throat and foreign body CT soft tissue neck without contrast Comparison: None provided Findings: The visualized intracranial contents are unremarkable. Pharyngeal mucosal space, parapharyngeal fat, prevertebral tissues, and epiglottis are within normal limits. Salivary glands are within normal limits. No sialoliths. No suspicious thyroid nodules. No radiopaque foreign object identified. No peritonsillar abscess noted. No consolidation at the lung apices. No acute fracture or dislocation. IMPRESSION: No acute findings. This document has been electronically signed by: Landry Goodwin MD on 03/19/2025 23:58:51
--- NOTE | ~2025-03-19 | XR_ITS ---
CLINICAL HISTORY: ?FB throat 2 views soft tissue neck Comparison: None provided Findings No acute fractures or dislocation. Epiglottis unremarkable. No prevertebral soft tissue swelling. No radiopaque foreign body. IMPRESSION: No evidence of radiopaque foreign body. This document has been electronically signed by: Tremayne Carrillo MD on 03/19/2025 19:34:13
[2025-03-19 17:46] VITALS: BP 201/98; PULSE 97; RESP 20; TEMP 36.8; O2SAT 97; BMI 31.8
--- NOTE | 2025-03-19 18:06 | ED.GENADULT ---
HPI - General Adult General Chief complaint: Skin/Abscess/Foreign Body Stated complaint: pill enlarged in throat Time Seen by Provider: 03/19/25 21:11 Source: patient Mode of arrival: ambulatory Limitations: no limitations History of Present Illness ED Provider: Dr. Aydee Hartman HPI narrative: Patient comes to the emergency room complaining of having multiple pills being stuck in his esophagus patient states that a proximally 5 hours ago, he took his evening pills all at once and they all got stuck. Patient states that he is able to drink fluid but he is still feels that they are all stuck in his throat. Patient is able to swallow fluids. Patient states that the discomfort keeps worsening as the hours go by. Patient denies any choking or any shortness of breath. Related Data Home Medications ?Medication ?Instructions ?Recorded ?Confirmed glipizide 5 mg tablet 5 mg PO QAM 02/14/21 04/22/24 metformin 850 mg tablet 1 tab PO BID 02/14/21 04/22/24 pantoprazole 40 mg tablet,delayed 1 tab PO BID 02/14/21 04/22/24 release simvastatin 20 mg tablet 1 tab PO BEDTIME 02/14/21 04/22/24 blood sugar diagnostic (Accu-Chek #10 ea 04/08/21 04/22/24 Megan Plus test strips) lancets (Accu-Chek Softclix #100 ea 04/08/21 04/22/24 Lancets) lisinopril 10 mg tablet 10 mg PO DAILY 10/05/21 04/22/24 duloxetine 60 mg capsule,delayed 60 mg PO DAILY 04/19/22 04/22/24 release trazodone 50 mg tablet 50 mg PO BEDTIME 04/19/22 04/22/24 semaglutide 0.25 mg or 0.5 mg (2 0.5 mg subcut QWEEK 07/01/23 04/22/24 mg/3 mL) subcutaneous pen injector (Ozempic) Previous Rx's ?Medication ?Instructions ?Recorded apixaban 5 mg tablet (Eliquis) 5 mg PO BID #60 tabs 12/28/21 amoxicillin 875 mg-potassium 1 tab PO BID #10 tabs 07/04/23 clavulanate 125 mg tablet docusate sodium 100 mg capsule 100 mg PO DAILY #30 caps 07/04/23 (Colace) polyethylene glycol 3350 17 17 g PO DAILY PRN constipation 07/04/23 gram/dose oral powder (Miralax) #119 grams naproxen 500 mg tablet 500 mg PO BID PRN pain 2 weeks #28 01/16/24 tabs prednisone 20 mg tablet 20 mg PO DAILY 5 days #5 tabs 01/16/24 tamsulosin 0.4 mg capsule 0.4 mg PO BEDTIME 2 weeks #14 caps 01/16/24 pyridoxine (vitamin B6) 50 mg 50 mg PO DAILY 90 days #90 tabs 04/22/24 tablet allopurinol 100 mg tablet 100 mg PO DAILY 90 days #90 tabs 09/23/24 Allergies Allergy/AdvReac Type Severity Reaction Status Date / Time No Known Allergies Allergy Verified 03/19/25 17:49 Review of Systems Review of Systems: Constitutional : No Weight loss, No Fever, No Chills, No Night Sweats, No Fatigue, No Malaise ENT/Mouth : Complaining of foreign body sensation stuck in the esophagus, No Hearing loss, No Ear Pain, No Nasal Congestion, No Sinus Pain, No Hoarseness, No sore throat, No Rhinorrhea, No Swallowing Difficulty Eyes: No Eye Pain, No Swelling, No Redness, No Foreign Body, No Discharge, No Vision Changes Cardiovascular : No Chest Pain, No SOB, No Dyspnea on Exertion, No Orthopnea, No Edema, No Palpitations Respiratory : No Cough, No Sputum, No Wheezing, No Smoke Exposure, No Dyspnea Gastrointestinal : No Nausea, No Vomiting, No Diarrhea, No Constipation, No abdominal Pain, No Hematochezia, No Melena Genitourinary : no irregular bleeding, No Dysuria, No Urinary Frequency, No Hematuria, No Urinary Incontinence, No Urgency, No Flank Pain, No Urinary Flow Changes, No Hesitancy Musculoskeletal : No joint pain, No Myalgias, No Joint Swelling Skin : No Skin Lesions, No rash Neuro : No Weakness, No Numbness, No Paresthesias, No Loss of Consciousness, No Dizziness, No Headache Psych : No Anxiety/Panic, No Depression, No SI/HI/AH/VH, No Social Issues, Heme/Lymph: No Bruising, No Bleeding,No Lymphadenopathy Endocrine : No Polyuria, No Polydipsia, No Temperature Intolerance [facility] Past Medical History Medical History Hx of gastroesophageal reflux (GERD) Hx of sleep apnea Atrial flutter by electrocardiography Elevated troponin Congestive cardiomyopathy Obstructive nephropathy Pulmonary edema Acute hyperkalemia SAYRA (acute kidney injury) Pancreatic neoplasm Acute pyelonephritis Calculus, renal Sepsis Complex renal cyst Nephrolithiasis Bacteremia, escherichia coli HLD (hyperlipidemia) HTN (hypertension), 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, managed as type 2 H/O renal calculi Surgical History Hx laparoscopic cholecystectomy (07/02/23) H/O cystoscopy Family History Family History Father COPD (chronic obstructive pulmonary disease) Mother Heart disease Social History Social History Household Members: Significant Other Housing: House Do you presently have visiting nurse or other home services: No Patient Tobacco Use Status: Never used Tobacco Smoked in Last 30 Days: No Use of substances other than those prescribed or required for medical reasons: No Advance Directives: Yes Advance Directives on File: Yes Advance Directives Date on File: 02/15/21 Do you have a plan to hurt others: No Plan service: No Current occupational status: retired Physical Exam ED Exam Exam: Appearance: Alert. Oriented X3. No acute distress. Eyes: Pupils equal, round and reactive to light. ENT: Pharynx normal. Uvula midline, no angioedema Neck: Normal inspection. Neck supple. No lymph nodes noted. No crepitus CVS: Normal heart rate and rhythm. Pulses normal. Normal S1 and S2 Respiratory: No respiratory distress. Breath sounds normal. No Wheezing. No rales Abdomen: Soft and nontender. No rigidity. No distention. Skin: Skin warm and dry. Normal skin color. Normal skin turgor. Extremities: No lower extremity edema. No Lacerations. No Rash Neuro: Oriented X 3. No motor deficit. No sensory deficit. Moving all extremities. No slurred speech. CN 2 through 12 grossly intact Psych: calm, cooperative, normal affect Vital Signs: Vital Signs - 24 hr 03/19/25 17:46 03/19/25 22:27 Temperature 98.2 F 98.5 F Pulse Rate 97 83 Respiratory Rate 20 18 Blood Pressure 201/98 H 158/72 H Pulse Oximetry 97 96 Oxygen Delivery Method Room Air Room Air BMI result Body Mass Index 31.8 Course Course Course Narrative: This is an RME: Additional HPI, ROS, PE not included below will be deferred to primary provider. RME assessment and note performed by: Melonie Ballard PA-C This is a 79-year-old male who presents emergency department with concerns of large pill stuck in his throat which started at 4:45 p.m.. He is speaking in full sentences appears to be under no acute distress. Able to swallow gareth prashant without difficulty. Plan: X-ray, further ER evaluation needed. Medications Administered Discontinued Medications Generic Name Dose Route Start Last Admin Trade Name Freq PRN Reason Stop Dose Admin Glucagon 1 mg 03/19/25 21:19 03/19/25 21:37 Glucagon Hcl 1 Mg Vial IM 03/19/25 21:20 1 mg ONCE ONE Administration Nitroglycerin 0.4 mg 03/19/25 21:19 03/19/25 21:37 Nitroglycerin 0.4 Mg Tab.Subl SUBLINGUAL 03/19/25 21:20 0.4 mg ONCE ONE Administration Medical Decision Making Medical Decision Making [facility] Narrative: X-ray of the soft tissue of the neck is negative for any acute findings Patient states that now his having trouble swallowing. Patient's blood pressure 201 systolic. Patient will be given IM glucagon and sublingual nitroglycerin. Then we will attempt a p.o. challenge with fluid again Patient continues complaining of swelling on the inside of his throat A CT scan of the neck was done, no swelling present, no foreign body visualized. I discussed with the patient that the sensation that he is feeling is likely secondary to irritation in the esophagus. Patient was given p.o. Decadron and viscous lidocaine. Patient feeling better. Patient instructed to follow-up with his PCP. Differential Diagnosis Differential Diagnoses: The differential diagnosis associated with the presentation includes (Foreign body sensation in his suffers, retained foreign body, edema, irritation the esophagus) Admission/Observation Consideration of admission/observation: Escalation of care including admission/observation considered (Given patient's ongoing complaints, observation was considered) Independent Interpretation I performed an independent interpretation of an: Plain X-Ray and CT Scan Radiology Impression Discussion of test interpretation with radiology: I have reviewed the radiologist's reading. Radiologist Impression: No acute fractures or dislocation. Epiglottis unremarkable. No prevertebral soft tissue swelling. No radiopaque foreign body. IMPRESSION: No evidence of radiopaque foreign body. The visualized intracranial contents are unremarkable. Pharyngeal mucosal space, parapharyngeal fat, prevertebral tissues, and epiglottis are within normal limits. Salivary glands are within normal limits. No sialoliths. No suspicious thyroid nodules. No radiopaque foreign object identified. No peritonsillar abscess noted. No consolidation at the lung apices. No acute fracture or dislocation. IMPRESSION: No acute findings. Independent Historian Clinical information obtained from an independent historian. History obtained from or confirmed by: Other (Patient's daughter) Critical Care Time Critical Care Time Critical Care Time: Yes Total Critical Care Time: 35 Attestation: I have personally provided critical care time. Time includes review of lab data, radiology results, discussion with consultants, and monitoring for potential decompensation. Intervention performed as documented. Discharge Plan Discharge Clinical Impression: Sensation of foreign body in esophagus Patient Disposition: Home, Self-Care Instructions: Esophageal Foreign Body (ED) Additional Instructions: Please follow-up with your primary care physician tomorrow. If you have any worsening or new symptoms, please return to the emergency room or call 911 Prescriptions: No Action prednisone 20 mg tablet 20 mg PO DAILY 5 Days Qty: 5 0RF tamsulosin 0.4 mg capsule 0.4 mg PO BEDTIME 14 Days Qty: 14 0RF naproxen 500 mg tablet 500 mg PO BID PRN (Reason: pain) 14 Days Qty: 28 0RF allopurinol 100 mg tablet 100 mg PO DAILY 90 Days Qty: 90 3RF metformin 850 mg tablet 1 tab PO BID Rx Instructions: WITH MEALS pantoprazole 40 mg tablet,delayed release (DR/EC) 1 tab PO BID simvastatin 20 mg tablet 1 tab PO BEDTIME glipizide 5 mg tablet 5 mg PO QAM Eliquis 5 mg Tablet 5 mg PO BID Qty: 60 0RF Ozempic 0.25 mg or 0.5 mg (2 mg/3 mL) pen injector 0.5 mg subcut QWEEK Rx Instructions: Q SUNDAY amoxicillin-pot clavulanate 875-125 mg tablet 1 tab PO BID Qty: 10 0RF docusate sodium [Colace] 100 mg capsule 100 mg PO DAILY Qty: 30 0RF polyethylene glycol 3350 [Miralax] 17 gram/dose powder 17 g PO DAILY PRN (Reason: constipation) Qty: 119 0RF (DME) Accu-Chek Megan Plus test strp Strip See Rx Instructions Not Applicable TID Qty: 10 Rx Instructions: As directed (DME) lancets [Accu-Chek Softclix Lancets] Misc See Rx Instructions topical BID-TID Qty: 100 Rx Instructions: As directed lisinopril 10 mg tablet 10 mg PO DAILY duloxetine 60 mg capsule,delayed release(DR/EC) 60 mg PO DAILY trazodone 50 mg tablet 50 mg PO BEDTIME pyridoxine (vitamin B6) 50 mg tablet 50 mg PO DAILY 90 Days Qty: 90 3RF Print Language: Thai
--- OUTSIDE RECORDS SUMMARY | 2025-03-19 20:42 | XMS_ITS | Patient Health Record ---
Author Organization [facility] edu Flannery Address [address] [place] [address] Care Team Providers Care Occupational Therapist Assistants Name Role Phone Simon Romeo MD Primary Care Provider Unavailab Deng Melendez Unavailable [phone] Allergies No Known Allergies Results Component Value [...] Problem Acquired hammer toe of right foot (6034378305674 105) Other hammer toe(s) (acquired), right foot (M20.41) Active confirmed Response to treatment,I mprovement Problem Type 2 diabetes mellitus with peripheral angiopathy (729568142) Type 2 diabetes mellitus with diabetic peripheral angiopathy without gangrene (E11.51) Active confirmed Q7(A), Q8(2B), Q9(1B,2C) Problem Acquired hammer toe of left foot (6741244647826 103) Other hammer toe(s) (acquired), left foot (M20.42) Active confirmed Response to treatment,I mprovement Vital Signs Heart Rate 81 /min 10/30/2024 Blood pressure diastolic 80 mm Hg 01/29/2025 Height 5ft 8in in 01/29/2025 Blood pressure systolic 126 mm Hg 01/29/2025 Weight 225 lbs 01/29/2025 BMI 34.21 kg/m2 01/29/2025 Procedures Procedure Date Ordered Date Performed Result Body Sit e 16391-LARDZLU NAIL, 6 OR MORE 04/23/2024 N/A 93666-AGHO SKIN LESIONS, 2 TO 4 04/23/2024 N/A 79494-HALQTQE NAIL, 6 OR MORE 07/24/2024 N/A 97986-TLEM SKIN LESIONS, 2 TO 4 07/24/2024 N/A 44320-PGCEDHO NAIL, 6 OR MORE 10/30/2024 N/A 73018-UARP SKIN LESIONS, 2 TO 4 10/30/2024 N/A 66412-XSVDDZJ NAIL, 6 OR MORE 01/29/2025 N/A 41607-KQHI SKIN LESIONS, 2 TO 4 01/29/2025 N/A Encounters Encounter Location Date Provider Diagnosis [address] [address] 04/23/2024 Deng Arceo Type 2 diabetes mellitus with diabetic peripheral angiopathy without gangrene E11.51 ; Tinea unguium B35.1 ; Pain in right toe(s) M79.674 ; Pain in left toe(s) M79.675 ; Other hammer toe(s) (acquired), right foot M20.41 and Other hammer toe(s) (acquired), left foot M20.[address] [address] 07/24/2024 Deng Arceo Type 2 diabetes mellitus with diabetic peripheral angiopathy without gangrene E11.51 ; Tinea unguium B35.1 ; Pain in right toe(s) M79.674 and Pain in left toe(s) M79.[address] [address] 10/30/2024 Deng Arceo Type 2 diabetes mellitus with diabetic peripheral angiopathy without gangrene E11.51 ; Tinea unguium B35.1 ; Pain in right toe(s) M79.674 and Pain in left toe(s) M79.675 [facility] [address] [facility] [address] [place] [address] 01/29/2025 Deng Clearyunier Type 2 diabetes mellitus with diabetic peripheral [...] Test Name Order Date Hemoglobin A1c 02/01/2015 15345-YURKYQP NAIL, 6 OR MORE 05/03/2015 81548-GXSJLMI NAIL, 6 OR MORE 07/26/2015 01503-MLVTJYQ NAIL, 6 OR MORE 10/25/2015 92886-VJEIYFM NAIL, 6 OR MORE 01/20/2016 74819-QDATJFU NAIL, 6 OR MORE 04/20/2016 30176-HJOPXEU NAIL, 6 OR MORE 07/19/2016 66520-WHNLVFG NAIL, 6 OR MORE 10/18/2016 77874-TKTBWGV NAIL, 6 OR MORE 01/17/2017 86463-OERANNS NAIL, 6 OR MORE 04/19/2017 63519-EMKMXNJ NAIL, 6 OR MORE 07/19/2017 07302-GJJVMHU NAIL, 6 OR MORE 10/25/2017 49379-ZYDOWPY NAIL, 6 OR MORE 01/24/2018 34439-XDYSSVL NAIL, 6 OR MORE 04/25/2018 32963-NTMWTMA NAIL, 6 OR MORE 07/24/2018 61633-IGSHZZF NAIL, 6 OR MORE 10/23/2018 70144-FLQSVYZ NAIL, 6 OR MORE 01/22/2019 18034-HSDIXKB NAIL, 6 OR MORE 04/23/2019 35310-AAHKWOG NAIL, 6 OR MORE 07/23/2019 10461-QSJGCBR NAIL, 6 OR MORE 10/22/2019 03956-LCACRYQ NAIL, 6 OR MORE 02/09/2020 05302-ALFVMPC NAIL, 6 OR MORE 05/10/2020 38595-MVFQSYE NAIL, 6 OR MORE 08/11/2020 86551-CLUXAWE NAIL, 6 OR MORE 11/29/2020 21943-RBKDFXN NAIL, 6 OR MORE 03/17/2021 68539-PYQSKSV NAIL, 6 OR MORE 06/29/2021 35412-DSEDTDD NAIL, 6 OR MORE 09/28/2021 77569-ZYHPEHE NAIL, 6 OR MORE 02/01/2022 87321-FCCXARJ NAIL, 6 OR MORE 05/03/2022 33099-VSWQSZQ NAIL, 6 OR MORE 08/02/2022 36491-WDFFQHR NAIL, 6 OR MORE 04/14/2013 61943-WJSHSZC NAIL, 6 OR MORE 07/21/2013 87479-UDUYLMA NAIL, 6 OR MORE 10/20/2013 95211-XSVCTHT NAIL, 6 OR MORE 01/19/2014 69243-RBCAOBL NAIL, 6 OR MORE 04/20/2014 94837-FBQZSSA NAIL, 6 OR MORE 07/20/2014 13190-KVLHYLV NAIL, 6 OR MORE 10/19/2014 26774-DKCBHZB NAIL, 6 OR MORE 02/01/2015 07836-ZCDYAUA NAIL, 6 OR MORE 11/01/2022 83023-GRBFJVZ NAIL, 6 OR MORE 01/24/2023 67517-MNEWCFV NAIL, 6 OR MORE 04/26/2023 63343-HOJSDTR NAIL, 6 OR MORE 08/01/2023 88131-BVQTILR NAIL, 6 OR MORE 10/24/2023 48288-PCECXIZ NAIL, 6 OR MORE 01/23/2024 95011-PJXWXYJ NAIL, 6 OR MORE 04/23/2024 11247-LREJDQW NAIL, 6 OR MORE 07/24/2024 59902-OWGMPBW NAIL, 6 OR MORE 10/30/2024 05090-RPLZQBK NAIL, 6 OR MORE 01/29/2025 31153-ZQSBTUW NAIL, 1-5 12/04/2011 24151-TMTPEXE NAIL, 1-5 03/25/2012 35694-CXQNYRX NAIL, 1-5 08/14/2012 84959-NJCXFPN NAIL, 1-5 01/20/2013 82099-Whmlkhnm Plate 08/14/2012 94596-JORF SKIN LESIONS, 2 TO 4 01/25/20 23 88735-HBOV SKIN LESIONS, 2 TO 4 11/02/19 23 56733-SXYL SKIN LESIONS, 2 TO 4 08/02/19 23 02587-NCJR SKIN LESIONS, 2 TO 4 10/31/19 25 42403-GXAN SKIN LESIONS, 2 TO 4 01/30/20 25 67087-UDLU SKIN LESIONS, 2 TO 4 07/24/19 25 29334-ZEHZ SKIN LESIONS, 2 TO 4 04/23/20 24 82615-ZNIB SKIN LESIONS, 2 TO 4 01/23/20 24 34815-JUIZ SKIN LESIONS, 2 TO 4 10/24/19 24 88501-UPKW SKIN LESIONS, 2 TO 4 08/01/19 24 70862-JZCX SKIN LESIONS, 2 TO 4 04/26/20 23 Next Appt Details Provider Name:Deng Joyce Arceo , 05/14/2025 09:00:00 AM, [address] [facility], [address], [place], [address], Insurance Providers Payer Name Payer Address Payer Phone Subscriber Number Group Number Insured Name Patient Relationship to Insured Coverage Start Date Coverage End Date Medicare National Govt [employer] [facility] [address] [place] [address] [id number] Vishal Hair Self - patient is the insured [facility] [address] [place] [address] [phone] [id number] Vishal Hair Self - patient is the [...] bladder removed 07/02/23 [place] History Reason Date(Month/[place] [facility] [place] 6[place]/22/21 [facility], Kidney stone removed 02/15/21
--- OUTSIDE RECORDS SUMMARY | 2025-03-19 20:42 | XMS_ITS | Patient Health Record ---
Author Organization [facility] Address [address], [place] [id number] Care Team Providers Care Social Insurance Administrator Name Role Phone JANI CHRISTIANSON Primary Care Provider ALLERGIES No Known Allergies REASON FOR REFERRAL No Information MEDICATIONS Medication SIG (Take, Route, Frequency, Duration) Notes Start Date End Date Status metFORMIN HCl 850 mg TAKE 1 TABLET BY MOUTH TWICE DAILY WITH MEALS for 90 Active True Metrix Meter - as directed misc use with lancets and strips 08/24/2023 Active DULoxetine HCl 60 mg TAKE 1 CAPSULE BY MOUTH ONCE every DAY for 30 Active glipiZIDE 5 mg TAKE 1 TABLET BY MOUTH 30 minutes BEFORE breakfast Active Ozempic (1 MG/DOSE) 4 MG/3ML as directed Subcutaneous every 7 days 11/09/2024 Active True Metrix Blood Glucose Test - as directed Once a day for 90 days Dx: E11.65 Active Lancets 30G - as directed applied to skin Once a day for 90 days 08/24/2023 Active Eliquis 5 mg TAKE 1 TABLET BY MOUTH TWICE DAILY Active Lisinopril 10 mg TAKE 1 TABLET BY MOUTH every DAY Active Simvastatin 20 mg 1 tablet in the evening Orally Once a day Active Methocarbamol 750 MG 1 tablet Orally 3 times daily prn for 10 day(s) weining down 2 pills left 10/17/2024 Active Accu-Chek Softclix Lancets - test bs TWICE DAILY TO THREE TIMES DAILY OR directed for 33 Active traZODone HCl 50 mg TAKE 1 TABLET BY MOUTH EVERY NIGHT AT BEDTIME for 30 Active Accu-Chek Megan Plus - USE 1 strip THREE TIMES DAILY directed for 33 Active Pantoprazole Sodium 40 mg TAKE 1 TABLET BY MOUTH 2 TIMES EVERY DAY for 90 Active IMMUNIZATIONS Vaccine Route Administration Date Status Comme nts Influenza, Fluzone HD 65+ IM Intramuscular 03/13/2024 Admi nistered Moderna COVID-19 mRNA LNP-S PF Unknown 08/20/2020 Administered Moderna COVID-19 mRNA LNP-S PF Unknown 09/17/2020 Administered Pneumococcal Prevnar 13 IM Intramuscular 03/15/2011 Admini stered Pneumococcal Prevnar 13 IM Intramuscular 07/10/2012 Admini stered Pneumococcal Prevnar 13 IM Intramuscular 04/16/2015 Admini stered Pneumococcal, PPV 23 Unknown 03/15/2011 Administered Pneumococcal, PPV 23 Unknown 07/10/2012 Administered Pneumococcal, PPV 23 IM Intramuscular 04/16/2018 Administe red [id number] IM Intramuscular 02/19/2025 Administered SARSCOV2 VAC BVL 3MCG/0.2ML Pfizer Unknown 04/27/2021 Administered TDAP IM Intramuscular 09/03/2015 Administered Zoster recombinant Unknown 11/24/2009 Administered Zoster recombinant Unknown 03/27/2018 Administered SOCIAL HISTORY Tobacco Use: Social History [...] ast year? No Points 0 Interpretation Negative PROBLEMS Problem Type ICD Code Onset Dates Problem Status W/U Status Risk SNOMED Code Notes Problem Essential (primary) hypertension (I10) Active confirmed Essential hypertension (45445808) Problem Mixed hyperlipidemia (E78.2) Active confirmed Mixed hyperlipidemia (682983885) Problem Kidney stones (N20.0) Active confirmed 78823939 Problem Secondary hypercoagulable state (D68.69) Active confirmed 93314009 Problem Type 2 diabetes mellitus with hyperglycemia, without long-term current use of insulin (E11.65) Active confirmed Hyperglycem ia due to type 2 diabetes mellitus (475912869797634) Problem Type 2 diabetes mellitus without complication, without long-term current use of insulin (E11.9) Active confirmed Type II diab etes mellitus without complication (529068796) Problem Atrial flutter, unspecified type (I48.92) Active confirmed 0113851 Problem Degeneration of intervertebral disc of lumbar region with discogenic back pain and lower extremity pain (M51.362) Active confirmed 83452959 Problem Malignant neoplasm of prostate (C61) 12/08/19 11 Active confirmed Malignant neoplasm of prostate (610849583) VITAL SIGNS Blood pressure diastolic 60 mm Hg 02/19/2025 Height 67.50 in 02/19/2025 Blood pressure systolic 118 mm Hg 02/19/2025 Weight 208 lbs 02/19/2025 BMI 32.09 kg/m2 02/19/2025 Encounters Encounter Location Date Provider Diagnosis [address] [address] 04/21/2024 [place] [id number] 04/21/2024 [place] [id number] 05/07/2024 [facility] Essential (primary) hypertension I10 ; Atrial flutter, unspecified type I48.92 and Type 2 diabetes mellitus with hyperglycemia, without long-term current use of insulin E11.65 [place] [id number] 05/08/[address] [address] 06/30/[address] [address] 06/30/2024 [facility] COVID 079.[address] [address] 07/14/2024 [place] [id number] 08/06/2024 [facility] Type 2 diabetes handy itus with hyperglycemia, without long-term current use of insulin E11.65 ; Atrial flutter, unspecified type I48.92 ; Essential (primary) hypertension I10 ; Degeneration of intervertebral disc of lumbar region with discogenic back pain and lower extremity pain M51.362 and Secondary hypercoagulable state D68.[address] [address] 08/07/[address] [address] 09/30/[address] [address] 10/14/[address] [address] 10/15/[address] [address] 10/17/2024 [facility] Degeneration of intervertebral disc of lumbar region with discogenic back pain and lower extremity pain M51.362 ; Essential (primary) hypertension I10 and Atrial flutter, unspecified type I48.[address] [address] 11/03/2024 [facility] Type 2 diabetes handy itus with hyperglycemia, without long-term current use of insulin E11.65 ; Atrial flutter, unspecified type I48.92 and Essential (primary) hypertension I10 [address] [address] 11/04/[address] [address] 11/07/2024 [facility] Degeneration of intervertebral disc of lumbar region with discogenic back pain and lower extremity pain M51.[address] [address] 11/09/[address] [address] 12/19/[address] [address] 12/19/2024 [facility] Testicular swelling, left N50.89 and Essential (primary) hypertension I10 [address] [address] 02/03/[address] [address] 02/19/2025 [facility] Type 2 diabetes handy itus without complication, without long-term current use of [...] findings Z00.00 and Encounter for immunization Z23 [facility] [address] [place] [address] 02/19/2025 JOHN BEDF[facility] Medicare annual well ness visit, subsequent Z00.00 [facility] [address] [place] [address] 02/21/2025 [facility] Elevated transaminas e level R74.01 ASSESSMENTS Encounter Date Diagnosis Assessment Notes Treatment Notes Treatment Clinical Notes Section Notes 02/21/2025 Elevated transaminase level (ICD-10 - R74.01) 12/19/2024 Testicular swelling, left (ICD-10 - N50.89) 1. Left testicular enlargement: Ultrasound back in 2019 showed an epididymal cyst that was 4 cm at that time. Left testicle is markedly enlarged since then. Will repeat an ultrasound to ensure no new abnormality. He sees Dr. Pace in the [place] for urology and we will request likely [...] abnormality. He sees Dr. Pace in the [place] for urology and we will request likely follow-up after ultrasound performed there. 2. Hypertension: Stable on current regimen. No changes made today 11/07/2024 Degeneration of intervertebral disc of lumbar region with discogenic back pain and lower extremity pain (ICD-10 - M51.362) 02/19/2025 Medicare annual wellness visit, subsequent (ICD-10 - Z00.00) AWV form reviewed with pt 02/19/2025 Type 2 diabetes mellitus without complication, [...] fasting blood work. Prevnar 20 given today 10/17/2024 Degeneration of intervertebral disc of lumbar region with discogenic back pain and lower extremity pain (ICD-10 - M51.362) 1. Lumbar degenerative disc disease: Symptoms appear largely muscular. CT scan in the emergency room at [place] was negative for intra-abdominal pathology including stones. Will add methocarbamol cautiously for the next few days and use heat. He will continue Tylenol as well 2. Hypertension: Stable on present regimen. No changes made today 3. Atrial flutter: No obvious recurrence. Continues on anticoagulation 10/17/2024 Essential (primary) hypertension (ICD-10 - I10) 1. Lumbar degenerative disc disease: Symptoms appear largely muscular. CT scan in the emergency room at [place] was negative for intra-abdominal pathology including stones. Will add methocarbamol cautiously for the next few days and use heat. He will continue Tylenol as well 2. Hypertension: Stable on present regimen. No changes made today 3. Atrial flutter: No obvious recurrence. Continues on anticoagulation 11/03/2024 Atrial flutter, unspecified type (ICD-10 - I48.92) 1. Type 2 diabetes mellitus: Will update A1c. May benefit from increasing Ozempic to the1 g dose. Continue metformin and glipizide 2. Atrial flutter: No obvious recurrence. Tolerating anticoagulation 3. Hypertension: Stable on present therapy. No changes made today 11/03/2024 Type 2 diabetes mellitus with hyperglycemia, without long-term current use of insulin (ICD-10 - E11.65) 1. Type 2 diabetes mellitus: Will update A1c. May benefit from increasing Ozempic to the1 g dose. Continue metformin and glipizide 2. Atrial flutter: No obvious recurrence. Tolerating anticoagulation 3. Hypertension: Stable on present therapy. No changes made today 06/30/2024 COVID (ICD9-CM - 079.89) 1. COVID: We yulisa l treat with Lagevrio . Dosing concerns and possible side effects were reviewed. Patient will isolate at home until afebrile and clearly improved for 24 hours - and then if feeling improved may leave the home wearing a mask for 5 days thereafter. Patient will call in the interim if any concerns arise 08/06/2024 Atrial flutter, unspecified type (ICD-10 - I48.92) 1. Diabetes: A1c has been fairly stable. Last was 7.0. Will recheck today on current Ozempic and glipizide 2. Atrial flutter: No obvious recurrence. Tolerating Eliquis without abnormal bleeding 3. Hypertension: Stable on present regimen. No changes made today 4. Lumbar degenerative disc disease: Stable without recent flares. Will continue to follow closely. Encouraged home exercise routine 08/06/2024 Type 2 diabetes mellitus with hyperglycemia, without long-term current use of insulin (ICD-10 - E11.65) 1. Diabetes: A1c has been fairly stable. Last was 7.0. Will recheck today on current Ozempic and glipizide 2. Atrial flutter: No obvious recurrence. Tolerating Eliquis without abnormal bleeding 3. Hypertension: Stable on present regimen. No changes made today 4. Lumbar degenerative disc disease: Stable without recent flares. Will continue to follow closely. Encouraged home exercise routine 05/07/2024 Atrial flutter, unspecified type (ICD-10 - I48.92) 1. Hypertension: Stable on present therapy. No changes made today 2. Atrial flutter: Appears in sinus. Continues on anticoagulation without evidence of abnormal bleeding. 3. Diabetes: We will update A1c today. Last was stable at 6.8. Continue present regimen 05/07/2024 Essential (primary) hypertension (ICD-10 - I10) 1. Hypertension: Stable on present therapy. No changes made today 2. Atrial flutter: Appears in sinus. Continues on anticoagulation without evidence of abnormal bleeding. 3. Diabetes: We will update A1c today. Last was stable at 6.8. Continue present regimen 05/07/2024 Type 2 diabetes mellitus with hyperglycemia, without long-term current use of insulin (ICD-10 - E11.65) 1. Hypertension: Stable on present therapy. No changes made today 2. Atrial flutter: Appears in sinus. Continues on anticoagulation without evidence of abnormal bleeding. 3. Diabetes: We will update A1c today. Last was stable at 6.8. Continue present regimen 08/06/2024 Essential (primary) hypertension (ICD-10 - I10) 1. Diabetes: A1c has been fairly stable. Last was 7.0. Will recheck today on current Ozempic and glipizide 2. Atrial flutter: No obvious recurrence. Tolerating Eliquis without abnormal bleeding 3. Hypertension: Stable on present regimen. No changes made today 4. Lumbar degenerative disc disease: Stable without recent flares. Will continue to follow closely. Encouraged home exercise routine 11/03/2024 Essential (primary) hypertension (ICD-10 - I10) 1. Type 2 diabetes mellitus: Will update A1c. May benefit from increasing Ozempic to the1 g dose. Continue metformin and glipizide 2. Atrial flutter: No obvious recurrence. Tolerating anticoagulation 3. Hypertension: Stable on present therapy. No changes made today 10/17/2024 Atrial flutter, unspecified type (ICD-10 - I48.92) 1. Lumbar degenerative disc disease: Symptoms appear largely muscular. CT scan in the emergency room at [place] was negative for intra-abdominal pathology including stones. Will add methocarbamol cautiously for the next few days and use heat. He will continue Tylenol as well 2. Hypertension: Stable on present regimen. No changes made today 3. Atrial flutter: No obvious recurrence. Continues on anticoagulation 02/19/2025 Atrial flutter, unspecified type (ICD-10 - [...] fasting blood work. Prevnar 20 given today 08/06/2024 Degeneration of intervertebral disc of lumbar region with discogenic back pain and lower extremity pain (ICD-10 - M51.362) 1. Diabetes: A1c has been fairly stable. Last was 7.0. Will recheck today on current Ozempic and glipizide 2. Atrial flutter: No obvious recurrence. Tolerating Eliquis without abnormal bleeding 3. Hypertension: Stable on present regimen. No changes made today 4. Lumbar degenerative disc disease: Stable without recent flares. Will continue to follow closely. Encouraged home exercise routine 02/19/2025 Secondary hypercoagulable state (ICD-10 - D68.69) [...] fasting blood work. Prevnar 20 given today 08/06/2024 Secondary hypercoagulable state (ICD-10 - D68.69) 1. Diabetes: A1c has been fairly stable. Last was 7.0. Will recheck today on current Ozempic and glipizide 2. Atrial flutter: No obvious recurrence. Tolerating Eliquis without abnormal bleeding 3. Hypertension: Stable on present regimen. No changes made today 4. Lumbar degenerative disc disease: Stable without recent flares. Will continue to follow closely. Encouraged home exercise routine 02/19/2025 Degeneration of intervertebral disc of lumbar [...] Prevnar 20 given today PLAN OF TREATMENT Future Test Test Name Order Date BASIC METABOLIC PANEL 08/09/2023 Comp. Metabolic Panel [id number] 2024 Next Appt Details Provider Name:JANI CHRISTIANSON , 05/11/2025 01:00:00 PM, [address] [place], [address], Insurance Providers Payer Name Payer Address Payer Phone Subscriber Number Group Number Insured Name Patient Relationship to Insured Coverage Start Date Coverage End Date [employer]IC[employer] [address] [place] [address] [id number] ANDI CONTI Self - patient is the insured 3 [employer] [address] [place] [address] [phone] [id number] ANDI CONTI Self - patient is the insured MEDICAL (GENERAL) HISTORY Medical History History ICD Code diabetes hyperlipidemia depression prostate cancer Colonoscopy 08/08/2004 rare sigmoid diver ticula atrial flutter Kidney Stones [facility] Param Conti [phone] Surgical History Surgery Date(Month/Year) prostatectomy Cholecystectomy Jun 2023 tonsillectomy appendectomy Hospitalization History Reason Date(Month/Year) [facility] - flank pain 10/14
[2025-03-19 22:27] VITALS: BP 158/72; PULSE 83; RESP 18; TEMP 36.9; O2SAT 96
[2025-03-20] MEDS: Lidocaine HCl Viscous 2 % 15 ML SOLUTION MUCOUS MEM (00:26)
[2025-03-20 00:33] VITALS: BP 148/62; PULSE 72; RESP 16; TEMP 36.7; O2SAT 96
[2025-03-20 00:34] VITALS: BP 148/62; PULSE 72; RESP 16; TEMP 36.7; O2SAT 96
== END 2025-03-20 00:35 | disposition home or self-care (01) ==
PROVIDERS: Emergency Provider Emergency Medicine; PCP Internal Medicine
DX: R09.89 Other specified symptoms and signs involving the circulatory and respiratory systems (principal); M54.2 Cervicalgia; Z79.899 Other long term (current) drug therapy; Z79.85 Long-term (current) use of injectable non-insulin antidiabetic drugs
CPT/HCPCS: 70360; 70490; 96372; 96374; 99284; J1100; J1610

== ENCOUNTER → 2025-03-19 17:57 | Outpatient (BNV) | payer MEDICARE, SELFPAY | PROVIDERS: Visit Provider Nuclear Medicine | DX: R09.A2 Foreign body sensation, throat (principal) | CPT/HCPCS: 70360 ==

== ENCOUNTER 2025-04-13 11:07 | Outpatient (REF) | payer MEDICARE, SELFPAY ==
--- NOTE | ~2025-04-13 | US_ITS ---
CLINICAL HISTORY: N20.1 - Calculus of ureter US renal with Color Doppler Comparison: US/SR - US KIDNEY BILATERAL - 04/14/24 08:02 EDT Findings: Right kidney normal size and echotexture, 10.8 cm length. Incidental column of Qu[place]. No hydronephrosis calculus or mass. Normal color flow. Left kidney normal size and echotexture, 10.3 cm length. No hydronephrosis. Normal color flow. Nonobstructing caliceal stone lower pole measuring 3 mm. Cyst with septation lower pole measuring 10 x 8 x 9 mm previously measuring 11 x 11 x 9 mm Impression: 1. Nephrolithiasis on the left. No evidence of obstructive uropathy. Relatively stable renal cortical cysts likely benign left kidney. This document has been electronically signed by: Fortunato Burns MD on 04/14/2025 12:53:38
== END 2025-04-13 11:08 | disposition home or self-care (01) ==
LOC: HO.US 11:07
PROVIDERS: PCP Internal Medicine; Visit Provider Urology
DX: N20.1 Calculus of ureter (principal)
CPT/HCPCS: 76775

== ENCOUNTER 2025-04-22 08:49 | Outpatient (AMB) | payer MEDICARE, SELFPAY ==
--- OUTSIDE RECORDS SUMMARY | 2024-11-04 02:13 | XMS_ITS ---
Author Organization [facility] Address [address] [place], [place] [id number] Care Team Providers Care Technical Training Instructor Name Role Phone JANI CHRISTIANSON Primary Care Provider [phone] REASON FOR VISIT lab Encounters Encounter Location Date Provider Diagnosis [facility] [address] [place] [address] 11/04/2024 JANI CHRISTIANSON PLAN OF TREATMENT Next Appt Details Provider Name:JANI CHRISTIANSON , 05/11/2025 01:00:00 PM, [address] [place], [address],
--- OUTSIDE RECORDS SUMMARY | 2024-11-07 10:55 | XMS_ITS ---
Author Organization [facility] Address [address] [place], [place] [id number] Care Team Providers Care Automobile Travel Club Counselor Name Role Phone JANI CHRISTIANSON Primary Care Provider [phone] REASON FOR VISIT Methocarbamol Refill MEDICATIONS Medication SIG (Take, Route, Frequency, Duration) Notes Start Date End Date Status Methocarbamol 750 MG 1 tablet Orally 3 times daily prn for 10 day(s) weining down 2 pills left 10/17/2024 Active Encounters Encounter Location Date Provider Diagnosis [facility] [address] [place] [phone] 11/07/2024 JANI MEGHAN 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
--- OUTSIDE RECORDS SUMMARY | 2024-11-09 10:45 | XMS_ITS ---
Author Organization [facility] Address [address] [place], [place] [id number] Care Team Providers Care Cake Maker Name Role Phone JANI CHRISTIANSON Primary Care Provider MEDICATIONS Medication SIG (Take, Route, Frequency, Duration) Notes Start Date End Date Status Ozempic (1 MG/DOSE) 4 MG/3ML as directed Subcutaneous every 7 days for 28 days 11/09/2024 Active Encounters Encounter Location Date Provider Diagnosis [facility] [address] [place] [address] 11/09/2024 JANI CHRISTIANSON PLAN OF TREATMENT Medication Medication Name Sig Start Date Stop Date Notes Ozempic (1 MG/DOSE) 4 MG/3ML as directed Subcutaneous every 7 days for 28 days 11/09/2024 Next Appt Details Provider Name:JANI CHRISTIANSON , 05/11/2025 01:00:00 PM, [address] [place], [address],
--- OUTSIDE RECORDS SUMMARY | 2024-12-19 10:54 | XMS_ITS ---
Author Organization [facility] Address [address] [place], [place] [phone] Care Team Providers Care Security Systems Specialist Name Role Phone JANI CHRISTIANSON Primary Care Provider REASON FOR VISIT swollen testicles Encounters Encounter Location Date Provider Diagnosis [facility] [address] [place] [phone] 12/19/2024 JANI CHRISTIANSON PLAN OF TREATMENT Next Appt Details Provider Name:JANI CHRISTIANSON , 05/11/2025 01:00:00 PM, [address] [place], [address],
--- OUTSIDE RECORDS SUMMARY | 2024-12-19 12:15 | XMS_ITS ---
Author Organization [facility] Address [address] [place], [place] [id number] Care Team Providers Care Post Anesthesia Nurse Name Role Phone JANI CHRISTIANSON Primary Care Provider [phone] ALLERGIES No Known Allergies REASON FOR VISIT [...] 12/19/2024 Encounters Encounter Location Date Provider Diagnosis [facility] [address] [place] [phone] 12/19/2024 JANI CHRISTIANSON Testicular swelling, left N50.89 [...] abnormality. He sees Dr. Pace in the [place] for urology and we will request likely [...] abnormality. He sees Dr. Pace in the [place] for urology and we will request likely follow-up after ultrasound performed there. 2. Hypertension: Stable on current regimen. No changes made today PLAN OF TREATMENT Medication Medication Name Sig Start Date Stop Date Notes Lisinopril 10 mg 1 tablet Orally Once a day Next Appt Details Provider Name:JANI CHRISTIANSON , 05/11/2025 01:00:00 PM, [address] [place] [address], [phone], Progress Notes * Examination Category Sub-Category Detail [...]
--- OUTSIDE RECORDS SUMMARY | 2025-02-03 13:57 | XMS_ITS ---
Author Organization [facility] Address [address], [place] [id number] Care Team Providers Care Terrazzo Polisher Name Role Phone JANI CHRISTIANSON Primary Care Provider [phone] REASON FOR VISIT (2)US scrotum Encounters Encounter Location Date Provider Diagnosis [facility] [address] [place] [address] 02/03/2025 JANI CHRISTIANSON PLAN OF TREATMENT Next Appt Details Provider Name:JANI CHRISTIANSON , 05/11/2025 01:00:00 PM, [address] [place], [address],
--- OUTSIDE RECORDS SUMMARY | 2025-02-19 09:30 | XMS_ITS ---
Author Organization [facility] Address [address] [place], [place] [id number] Care Team Providers Care Certified Caregiver Name Role Phone JANI CHRISTIANSON Primary Care [...] Vaccine Route Administration Date Status Comme nts [id number] IM Intramuscular 02/19/2025 Administered SOCIAL HISTORY Tobacco [...] Mixed hyperlipidemia (E78.2) Active confirmed Mixed hyperlipidemia (723010267) VITAL SIGNS Height 67.50 in 02/19/2025 Weight 208 lbs 02/19/2025 Blood pressure systolic 118 mm Hg 02/20/20 25 Blood pressure diastolic 60 mm Hg 025 BMI 32.09 kg/m2 02/19/2025 Encounters Encounter Location Date Provider Diagnosis [facility] [address] [place] [address] 02/19/2025 JANI HOMER Type 2 diabetes mellitus without complication, without [...] HCl 850 mg TAKE 1 TABLET BY [facility] TWICE DAILY WITH MEALS Eliquis 5 [...] Provider Name:JANI CHRISTIANSON , 05/11/2025 01:00:00 PM, [address] [place] [address], [phone], Progress Notes * Examination Category Sub-Category Detail [...]
--- OUTSIDE RECORDS SUMMARY | 2025-02-19 10:00 | XMS_ITS ---
Author Organization [facility] Address [address] [place], [place] [id number] Care Team Providers Care Wet Finisher Wool Name Role Phone MEGHAN JANI Primary Care Provider REASON FOR VISIT N/41 [...] Negative Encounters Encounter Location Date Provider Diagnosis [facility] [address] [place] [address] 02/19/2025 JANI CHRISTIANSON Medicare annual wellness visit, [...] Name:JANI CHRISTIANSON , 05/11/2025 01:00:00 PM, [address] [place], [address], History and Physical Notes * HPI (History of Present Illness) Category Sub-Category Detail Notes Category Not es Depression Screening PHQ-2 (2015 Edition) Little interest or pleasure in doing things?: Not at all Feeling down, depressed, or hopeless?: N ot at all Total Score: 0
--- OUTSIDE RECORDS SUMMARY | 2025-02-21 03:16 | XMS_ITS ---
Author Organization [facility] Address [address] [place], [place] [id number] Care Team Providers Care Solar Technician Name Role Phone JANI CHRISTIANSON Primary Care Provider [phone] REASON FOR VISIT labs Encounters Encounter Location Date Provider Diagnosis [facility] [address] [place] [address] 02/21/2025 JANI GARCIAFORD Elevated transaminas e level R74.01 ASSESSMENTS Encounter Date Diagnosis Assessment Notes Treatment Notes Treatment Clinical Notes Section Notes 02/21/2025 Elevated transaminase level (ICD-10 - R74.01) PLAN OF TREATMENT Future Test Test Name Order Date Comp. Metabolic Panel ([id number] 2024 Next Appt Details Provider Name:JANI CHRISTIANSON , 05/11/2025 01:00:00 PM, [address] [place], [address],
--- OUTSIDE RECORDS SUMMARY | 2025-03-21 05:14 | XMS_ITS ---
Author Organization [facility] Address [address] [place], [place] [id number] Care Team Providers Care Clinical Nursing Coordinator Name Role Phone JANI CHRISTIANSON Primary Care Provider [phone] REASON FOR VISIT ER f/u Encounters Encounter Location Date Provider Diagnosis [facility] [address] [place] [phone] 03/21/2025 JANI CHRISTIANSON PLAN OF TREATMENT Next Appt Details Provider Name:JANI CHRISTIANSON , 05/11/2025 01:00:00 PM, [address] [place], [address],
--- NOTE | 2025-04-22 08:55 | MHC.OFFVIS ---
Intake Visit Reasons: 1y/US Intake Note: Patient is present for Ultrasound follow up Urology Med: Allopurinol, Tamsulosin, Vitamin B6 Antibiotic Allergies: None Blood Thinner: Eliquis Medical Csr Required: No Accompanied by: Self / Same As Patient Allergies No Known Allergies Allergy (Verified 04/22/25 08:58) HPI Comments Details: Jayme is a very pleasant male. He is seen for the following urologic conditions. - nephrolithiasis - renal cyst Yearly follow-up Ultrasound stable Scrotal ultrasound large left epididymal cyst Discussed large left epididymal cyst Based on age would plan on office drainage as initial therapy He will need to hold Eliquis for 4 days prior to drainage Has been on B6 with surveillance imaging Nephrolithiasis Current consultation for follow-up for stones Prior intervention - 02/12 left USR - with urosepsis E coli pansensitive - 01/13 right distal stone obstructing with urosepsis E coli pansensitive Stone analysis - 02/12 calcium oxalate monohydrate 80% Imagining - 04/14 no stones, left kidney cyst 1 cm - 10/14 renal ultrasound MRI showed left renal cyst increase to 2 cm - 01/13 CT scan distal right ureteric stone with hydronephrosis - 04/15 renal ultrasound no stones - 04/16 renal ultrasound no evidence of stones - 04/17 renal US small stone left side - 04/18 renal ultrasound persistent small small stone left side. Septated cyst 10 mm. 24 hour urine - 04/15 borderline low volume 1.2 L, high oxalate 42, low calcium 18, good citrate 700, low magnesium Therapeutic plan - encourage fluids - vitamin B6 - surveillance imaging [facility] Medical History Hx of gastroesophageal reflux (GERD) Hx of sleep apnea Atrial flutter by electrocardiography Elevated troponin Congestive cardiomyopathy Obstructive nephropathy Pulmonary edema Acute hyperkalemia SAYRA (acute kidney injury) Pancreatic neoplasm Acute pyelonephritis Calculus, renal Sepsis Complex renal cyst Nephrolithiasis Bacteremia, escherichia coli HLD (hyperlipidemia) HTN (hypertension), 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, managed as type 2 H/O renal calculi Surgical History Hx laparoscopic cholecystectomy (07/02/23) H/O cystoscopy Family History Father COPD (chronic obstructive pulmonary disease) Mother Heart disease Social History Household Members: Significant Other Housing: House Do you presently have visiting nurse or other home services: No Patient Tobacco Use Status: Never used Tobacco Advance Directives Date on File: 02/15/21 service: No Current occupational status: retired Review of Systems Const Denies chills and Denies fever(s) Card Reports no additional complaints and Denies syncope Resp Denies cough GI Denies abdominal pain and Denies heartburn Reports as per HPI and Denies change in libido Neuro Denies syncope Psych Denies change in libido Endo Denies change in libido Physical Exam Const General: cooperative, healthy appearing, comfortable and no acute distress Orientation/consciousness: patient oriented x3 HEENT Face and sinus: Yes normal facial exam Mouth: moist mucous membranes Neck Neck: Yes normal visual inspection, Yes full ROM and Yes trachea midline Chest Chest palpation & inspection: normal inspection of the chest Resp Effort & Inspection: normal respiratory effort, able to speak in complete sentences and no respiratory distress GI Inspection: Yes normal to inspection Back/Spine/Pelvis Cervical Spine: normal cervical lordosis Thoracic/Lumbar Spine: thoracic and lumbar spine normal to inspection Skin General skin exam: no rashes or lesions noted Neuro General: patient oriented x3, gait normal, tone normal and moves all extremities Extrem General: Yes normal to inspection and Yes capillary refill normal Assessment & Plan Assessment & Plan (1) Epididymal cyst: Code(s): N50.3 - Cyst of epididymis Category: Medical (2) Ureterolithiasis: Code(s): N20.1 - Calculus of ureter Category: Medical Plan Risks, benefits and alternatives to therapy were discussed. These include but are not limited to infection, bleeding, damage to local organs and tissues, need for further interventions. Anesthetic risks regarding cardiac arrhythmia, blood clots, and potential mortality were discussed. The patient understands the typical recovery time and the outpatient nature of the procedure. After consideration of these risks the patient gives full informed consent and they wish to move ahead with the procedure. - Office drainage left epididymal cyst Patient Instructions: This note is constructed using voice recognition software. While every effort has been made to ensure accuracy unix manager errors may have been included. Imaging studies, laboratory and physical exam results were discussed and reviewed in detail. No major barriers to patient understanding were identified. An opportunity to ask questions regarding the treatment plan was provided. All questions were answered. The patient expressed understanding and agreement with the above treatment plan. The patient is aware they should contact our office by phone for worsening of their current condition or the appearance of new urologic symptoms. Compliance is encouraged with any medications and followup testing that is ordered. It is a privilege to participate in the urologic care of your patient. If you have any questions or concerns regarding treatment for the above conditions, or other urologic issues, please do not hesitate to contact me. The office telephone contact is [phone]. Sincerely, Dr Frank Pace MD, [facility] - Urology Compassionate Specialist Care for the Genitourinary System Coding Level of Care Code Est Pt Level 4 (00384) Complex EM visit Add On G2211 Diagnoses Epididymal cyst N50.3 Ureterolithiasis N20.1
--- OUTSIDE RECORDS SUMMARY | 2025-04-22 09:39 | XMS_ITS | Patient Health Record ---
Author Organization 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 Name Role Phone JANI CHRISTIANSON Primary Care [...] Vaccine Route Administration Date Status Comme nts Zoster recombinant Unknown 11/24/2009 Administered Zoster recombinant Unknown 03/27/2018 Administered TDAP IM Intramuscular 09/03/2015 Administered SARSCOV2 VAC BVL 3MCG/0.2ML Pfizer Unknown 04/27/2021 Administered [id number] IM Intramuscular 02/19/2025 Administered Pneumococcal, PPV 23 Unknown 03/15/2011 Administered Pneumococcal, PPV 23 Unknown 07/10/2012 Administered Pneumococcal, PPV 23 IM Intramuscular 04/16/2018 Administe red Pneumococcal Prevnar 13 IM Intramuscular 03/15/2011 Admini stered Pneumococcal Prevnar 13 IM Intramuscular 07/10/2012 Admini stered Pneumococcal Prevnar 13 IM Intramuscular 04/16/2015 Admini stered Moderna COVID-19 mRNA LNP-S PF Unknown 08/20/2020 Administered Moderna COVID-19 mRNA LNP-S PF Unknown 09/17/2020 Administered Influenza, Fluzone HD 65+ IM Intramuscular 03/13/2024 Admi nistered SOCIAL HISTORY Tobacco Use: Social History Observation [...] (primary) hypertension (I10) Active confirmed Essential hypertension (93195168) Problem Mixed hyperlipidemia (E78.2) Active confirmed Mixed hyperlipidemia (471938382) Problem Kidney stones (N20.0) Active confirmed 61076460 Problem Secondary hypercoagulable state (D68.69) Active confirmed 55870661 Problem Type 2 diabetes mellitus with hyperglycemia, without long-term current use of insulin (E11.65) Active confirmed Hyperglycem ia due to type 2 diabetes mellitus (005026223311494) Problem Type 2 diabetes mellitus without complication, without long-term current use of insulin (E11.9) Active confirmed Type II diab etes mellitus without complication (631731875) Problem Atrial flutter, unspecified type (I48.92) Active confirmed 4572473 Problem Degeneration of intervertebral disc of lumbar region with discogenic back pain and lower extremity pain (M51.362) Active confirmed 91215913 Problem Malignant neoplasm of prostate (C61) 12/08/19 11 Active confirmed Malignant neoplasm of prostate (210381858) VITAL SIGNS Blood pressure diastolic 60 mm Hg 02/19/2025 Height 67.50 in 02/19/2025 Blood pressure systolic 118 mm Hg 02/19/2025 Weight 208 lbs 02/19/2025 BMI 32.09 kg/m2 02/19/2025 Encounters Encounter Location Date Provider Diagnosis [address] [address] 05/07/2024 [facility] Essential (primary) hypertension I10 ; Atrial flutter, unspecified type I48.92 and Type 2 diabetes mellitus with hyperglycemia, without long-term current use of insulin E11.[address] [address] 05/08/[address] [address] 06/30/[address] [address] 06/30/2024 [facility] COVID 079.[address] [address] 07/14/[address] [address] 08/06/2024 [facility] Type 2 diabetes handy itus with hyperglycemia, without long-term current use of insulin E11.65 ; Atrial flutter, unspecified type I48.92 ; Essential (primary) hypertension I10 ; Degeneration of intervertebral disc of lumbar region with discogenic back pain and lower extremity pain M51.362 and Secondary hypercoagulable state D68.[address] [address] 08/07/[address] [address] 09/30/[address] [address] 10/14/[address] [address] 10/15/[address] [address] 10/17/2024 [facility] Degeneration of intervertebral disc of lumbar region with discogenic back pain and lower extremity pain M51.362 ; Essential (primary) hypertension I10 and Atrial flutter, unspecified type I48.[address] [address] 11/03/2024 [facility] Type 2 diabetes handy itus with hyperglycemia, without long-term current use of insulin E11.65 ; Atrial flutter, unspecified type I48.92 and Essential (primary) hypertension I10 [address] [address] 11/04/2024 [place] [id number] 11/07/2024 [facility] Degeneration of intervertebral disc of lumbar region with discogenic back pain and lower extremity pain M51.[address] [address] 11/09/2024 [place] [id number] 12/19/[address] [address] 12/19/2024 [facility] Testicular swelling, left N50.89 and Essential (primary) hypertension I10 [address] [address] 02/03/[address] [address] 02/19/2025 [facility] Type 2 diabetes handy itus without complication, [...] findings Z00.00 and Encounter for immunization Z23 [address] [address] 02/19/2025 [facility] Medicare annual well ness visit, subsequent Z00.00 [facility] [address] [place] [address] 02/21/2025 [facility] Elevated transaminas e level R74.01 [facility] [address] [place] [address] 03/21/2025 [facility] ASSESSMENTS Encounter Date Diagnosis Assessment Notes Treatment [...] abnormality. He sees Dr. Pace in the [place] for urology and we will request likely [...] abnormality. He sees Dr. Pace in the [place] for urology and we will request likely [...] CT scan in the emergency room at [place] was negative for intra-abdominal pathology including stones. [...] CT scan in the emergency room at [place] was negative for intra-abdominal pathology including stones. [...] 1. COVID: We yulisa l treat with Fiordaliza . Dosing concerns and possible side effects [...] CT scan in the emergency room at [place] was negative for intra-abdominal pathology including stones. [...] BASIC METABOLIC PANEL 08/09/2023 Comp. Metabolic Panel [id number] 2024 Next Appt Details Provider Name:JANI CHRISTIANSON , 05/11/2025 01:00:00 PM, [address] [place], [address], Insurance Providers Payer Name Payer Address Payer Phone Subscriber Number Group Number Insured Name Patient Relationship to Insured Coverage Start Date Coverage End Date [employer]IC[employer] [address] [place] [address] [id number] ANDI CONTI Self - patient is the insured [address] [employer] [address] [address] [place] [address] [phone] [id number] ANDI CONTI Self - patient is the insured MEDICAL (GENERAL) HISTORY Medical History History ICD Code diabetes hyperlipidemia depression prostate cancer Colonoscopy 08/08/2004 rare sigmoid diver ticula atrial flutter Kidney Stones [facility] Param Conti [phone] Surgical History Surgery Date(Month/Year) Cholecystectomy Jun 2023 tonsillectomy appendectomy prostatectomy Hospitalization History Reason Date(Month/Year) [facility] - flank pain 10/14
--- OUTSIDE RECORDS SUMMARY | 2025-04-22 09:40 | XMS_ITS | Patient Health Record ---
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 Name Role Phone Simon Romeo MD Primary Care Provider Unavailab Deng Melendez Unavailable [phone] Allergies No Known Allergies Results Component Value [...] Problem Acquired hammer toe of right foot (0200195099967 105) Other hammer toe(s) (acquired), right foot (M20.41) Active confirmed Response to treatment,I mprovement Problem Type 2 diabetes mellitus with peripheral angiopathy (027341179) Type 2 diabetes mellitus with diabetic peripheral angiopathy without gangrene (E11.51) Active confirmed Q7(A), Q8(2B), Q9(1B,2C) Problem Acquired hammer toe of left foot (2514384883996 103) Other hammer toe(s) (acquired), left foot (M20.42) Active confirmed Response to treatment,I mprovement Vital Signs Heart Rate 81 /min 10/30/2024 Blood pressure diastolic 80 mm Hg 01/29/2025 Height 5ft 8in in 01/29/2025 Blood pressure systolic 126 mm Hg 01/29/2025 Weight 225 lbs 01/29/2025 BMI 34.21 kg/m2 01/29/2025 Procedures Procedure Date Ordered Date Performed Result Body Sit e 85149-PEENROO NAIL, 6 OR MORE 04/23/2024 N/A 29663-ALUW SKIN LESIONS, 2 TO 4 04/23/2024 N/A 06843-UPRJEQD NAIL, 6 OR MORE 07/24/2024 N/A 00982-FNDJ SKIN LESIONS, 2 TO 4 07/24/2024 N/A 40262-VRCKNMZ NAIL, 6 OR MORE 10/30/2024 N/A 88877-DNEZ SKIN LESIONS, 2 TO 4 10/30/2024 N/A 37239-PCSBRWV NAIL, 6 OR MORE 01/29/2025 N/A 07563-RQFR SKIN LESIONS, 2 TO 4 01/29/2025 N/A Encounters Encounter Location Date Provider Diagnosis [address] [address] 04/23/2024 Deng Arceo Type 2 diabetes mellitus with diabetic peripheral angiopathy without gangrene E11.51 ; Tinea unguium B35.1 ; Pain in right toe(s) M79.674 ; Pain in left toe(s) M79.675 ; Other hammer toe(s) (acquired), right foot M20.41 and Other hammer toe(s) (acquired), left foot M20.[address] [address] 07/24/2024 Deng Arceo Type 2 diabetes mellitus with diabetic peripheral angiopathy without gangrene E11.51 ; Tinea unguium B35.1 ; Pain in right toe(s) M79.674 and Pain in left toe(s) M79.[address] [address] 10/30/2024 Deng Arcoe Type 2 diabetes mellitus with diabetic peripheral angiopathy without gangrene E11.51 ; Tinea unguium B35.1 ; Pain in right toe(s) M79.674 and Pain in left toe(s) M79.675 [facility] [address] [facility] [address] [place] [address] 01/29/2025 Deng Claeryunier Type 2 diabetes mellitus with diabetic peripheral [...] Test Name Order Date Hemoglobin A1c 02/01/2015 63282-FFZBQYV NAIL, 6 OR MORE 05/03/2015 16120-BIPJIXU NAIL, 6 OR MORE 07/26/2015 57678-DLQTFQA NAIL, 6 OR MORE 10/25/2015 12081-JDHUWMY NAIL, 6 OR MORE 01/20/2016 10735-XLRMOVI NAIL, 6 OR MORE 04/20/2016 43828-MEAGCLK NAIL, 6 OR MORE 07/19/2016 36194-HVXGJUL NAIL, 6 OR MORE 10/18/2016 33001-ZMHYZTJ NAIL, 6 OR MORE 01/17/2017 66418-HZNFIOI NAIL, 6 OR MORE 04/19/2017 03665-XZZRYMN NAIL, 6 OR MORE 07/19/2017 39000-MALEAFH NAIL, 6 OR MORE 10/25/2017 63629-HILQVNW NAIL, 6 OR MORE 01/24/2018 93435-ESSFTOZ NAIL, 6 OR MORE 04/25/2018 52047-CTOHIRT NAIL, 6 OR MORE 07/24/2018 99649-APLRHOL NAIL, 6 OR MORE 10/23/2018 38697-SCFWION NAIL, 6 OR MORE 01/22/2019 71122-DPTQKXR NAIL, 6 OR MORE 04/23/2019 46287-QSSAUAF NAIL, 6 OR MORE 07/23/2019 97422-AVLANGI NAIL, 6 OR MORE 10/22/2019 39487-QCWHHKQ NAIL, 6 OR MORE 02/09/2020 71040-HDVWMWR NAIL, 6 OR MORE 05/10/2020 76610-HPFDYWM NAIL, 6 OR MORE 08/11/2020 62695-TDIXTZR NAIL, 6 OR MORE 11/29/2020 04415-MTZQELD NAIL, 6 OR MORE 03/17/2021 21268-PCIRVDS NAIL, 6 OR MORE 06/29/2021 87283-PHQUBGX NAIL, 6 OR MORE 09/28/2021 54385-VFGOPDQ NAIL, 6 OR MORE 02/01/2022 69287-HEULHIJ NAIL, 6 OR MORE 05/03/2022 63290-VCWREJF NAIL, 6 OR MORE 08/02/2022 46000-YRPODII NAIL, 6 OR MORE 04/14/2013 57857-HKXYMAD NAIL, 6 OR MORE 07/21/2013 52493-RCYLGAS NAIL, 6 OR MORE 10/20/2013 62255-SXKEEMT NAIL, 6 OR MORE 01/19/2014 64559-JHXVWOC NAIL, 6 OR MORE 04/20/2014 39510-MHQEKWW NAIL, 6 OR MORE 07/20/2014 21061-QKXXZQB NAIL, 6 OR MORE 10/19/2014 13377-UAMNMOX NAIL, 6 OR MORE 02/01/2015 65384-TIVDIDF NAIL, 6 OR MORE 11/01/2022 14766-EYXRTCN NAIL, 6 OR MORE 01/24/2023 06767-BMCSGST NAIL, 6 OR MORE 04/26/2023 71212-WXFCGXN NAIL, 6 OR MORE 08/01/2023 89646-TAPROJZ NAIL, 6 OR MORE 10/24/2023 97166-PMNRKEO NAIL, 6 OR MORE 01/23/2024 76244-NBSIYMD NAIL, 6 OR MORE 04/23/2024 44838-QIAIISO NAIL, 6 OR MORE 07/24/2024 35353-RFGCLRR NAIL, 6 OR MORE 10/30/2024 22533-TQBZQPC NAIL, 6 OR MORE 01/29/2025 07637-KLDZISV NAIL, 1-5 12/04/2011 80303-JMRGTSA NAIL, 1-5 03/25/2012 21539-EONFWNG NAIL, 1-5 08/14/2012 46721-VTXTQSU NAIL, 1-5 01/20/2013 14173-Izoianhl Plate 08/14/2012 45761-BRCN SKIN LESIONS, 2 TO 4 01/25/20 23 20941-SIRW SKIN LESIONS, 2 TO 4 11/02/19 23 50336-DAZC SKIN LESIONS, 2 TO 4 08/02/19 23 31462-ZXMN SKIN LESIONS, 2 TO 4 10/31/19 25 87884-IZNN SKIN LESIONS, 2 TO 4 01/30/20 25 10068-LMBL SKIN LESIONS, 2 TO 4 07/24/19 25 13200-TRPA SKIN LESIONS, 2 TO 4 04/23/20 24 06910-OJZJ SKIN LESIONS, 2 TO 4 01/23/20 24 24728-GRYB SKIN LESIONS, 2 TO 4 10/24/19 24 10445-TRDT SKIN LESIONS, 2 TO 4 08/01/19 24 87561-VLPT SKIN LESIONS, 2 TO 4 04/26/20 23 Next Appt Details Provider Name:Deng Joyce Arceo , 05/14/2025 09:00:00 AM, [address] [facility], [address], [place], [address], Insurance Providers Payer Name Payer Address Payer Phone Subscriber Number Group Number Insured Name Patient Relationship to Insured Coverage Start Date Coverage End Date Medicare National [employer]t [employer] [facility] [address] [place] [address] [id number] Vishal Hair Self - patient is the insured [facility] [address] [place] [address] [id number] Vishal Hair Self - patient is the [...] bladder removed 07/02/23 Hospitalization History Reason Date(Month/[place] [facility] [place] 6[place] 12/22/21 [facility], Kidney stone removed 02/15/21
== END 2025-04-22 09:24 | disposition home or self-care (01) ==
LOC: HO.HUSH 08:50
PROVIDERS: PCP Internal Medicine; Visit Provider Urology
DX: N50.3 Cyst of epididymis (principal); N20.1 Calculus of ureter
CPT/HCPCS: 99214; G2211

== ENCOUNTER → 2025-04-22 08:49 | Outpatient (BNVA) | payer MEDICARE, SELFPAY | PROVIDERS: PCP Internal Medicine; Visit Provider Urology | DX: N50.3 Cyst of epididymis (principal); N20.1 Calculus of ureter | CPT/HCPCS: 99212 ==